=== PATIENT | male | born 1950 | race Caucasian/White ===

== ENCOUNTER → 2018-09-30 | Outpatient (CLI) | payer BC ==
[2018-09-30 09:03] LABS: ALBUMIN 4.3 GM/DL (3.2-5.2); ALT/SGPT 29 U/L (12-78); BILIRUBIN,TOTAL 0.7 MG/DL (0.2-1.0); BLOOD UREA NITROGEN 21 MG/DL (7-18); CALCIUM LEVEL 9.3 MG/DL (8.8-10.2); CARBON DIOXIDE LEVEL 29 MEQ/L (21-32); CHLORIDE LEVEL 105 MEQ/L (98-107); CHOLESTEROL LEVEL 161 MG/DL (<200); CREATININE FOR GFR 1.18 MG/DL (0.70-1.30); GLOMERULAR FILTRATION RATE > 60.0 (>49); GLUCOSE, FASTING 101 MG/DL (70-100); HDL CHOLESTEROL 46 MG/DL (>40); LDL CHOLESTEROL 67 MG/DL (<100); NON-HDL-C 115 MG/DL; POTASSIUM SERUM 4.2 MEQ/L (3.5-5.1); SODIUM LEVEL 141 MEQ/L (136-145); TOTAL PROTEIN 7.1 GM/DL (6.4-8.2); TRIGLYCERIDES LEVEL 240 MG/DL (<150); URIC ACID 7.8 MG/DL (3.5-7.2)
== END ==
LOC: M LAB 07:52
PROVIDERS: ATTEND Physician Assistant
DX: E78.2 Mixed hyperlipidemia (principal); F43.22 Adjustment disorder with anxiety; M10.9 Gout, unspecified

== ENCOUNTER → 2019-10-22 | Outpatient (CLI) | payer MEDICARE ==
[2019-10-22 17:29] LABS: ALBUMIN 4.1 GM/DL (3.2-5.2); ALT/SGPT 27 U/L (12-78); BILIRUBIN,TOTAL 0.5 MG/DL (0.2-1.0); BLOOD UREA NITROGEN 18 MG/DL (7-18); CALCIUM LEVEL 9.1 MG/DL (8.8-10.2); CARBON DIOXIDE LEVEL 30 MEQ/L (21-32); CHLORIDE LEVEL 108 MEQ/L (98-107); CHOLESTEROL LEVEL 183 MG/DL (<200); CHOLESTEROL RISK RATIO 3.519 (<5); CREATININE FOR GFR 0.93 MG/DL (0.70-1.30); GLOMERULAR FILTRATION RATE > 60.0 (>49); GLUCOSE, FASTING 91 MG/DL (70-100); HDL CHOLESTEROL 52 MG/DL (>40); LDL CHOLESTEROL 92 MG/DL (<100); NON-HDL-C 131 MG/DL; POTASSIUM SERUM 4.5 MEQ/L (3.5-5.1); SODIUM LEVEL 141 MEQ/L (136-145); TOTAL PROTEIN 6.9 GM/DL (6.4-8.2); TRIGLYCERIDES LEVEL 193 MG/DL (<150); URIC ACID 6.5 MG/DL (3.5-7.2)
== END ==
LOC: M WUC 13:15
PROVIDERS: ATTEND Physician Assistant Medical
DX: E78.2 Mixed hyperlipidemia (principal)

== ENCOUNTER → 2020-05-18 | Outpatient (CLI) | payer MEDICARE ==
[2020-05-18 13:15] LABS: BASO # 0.1 10^3/uL (0.0-0.2); BASO % 0.7 % (0.0-1.0); EOS # 0.1 10^3/uL (0.0-0.5); EOS % 1.8 % (0.0-3.0); LYMPH # 1.1 10^3/uL (1.5-5.0); LYMPH % 15.4 % (24.0-44.0); MEAN CORPUSCULAR HEMOGLOBIN 30.5 pg (27.0-33.0); MEAN CORPUSCULAR HGB CONC 32.6 g/dl (32.0-36.5); MEAN CORPUSCULAR VOLUME 93.7 fl (80.0-96.0); MONO # 0.8 10^3/uL (0.0-0.8); MONO % 10.7 % (0.0-5.0); NEUTROPHILS # 5.2 10^3/uL (1.5-8.5); NEUTROPHILS % 71.1 % (36.0-66.0); PLATELET COUNT, AUTOMATED 242 10^3/uL (150-450); RED BLOOD COUNT 4.59 10^6/uL (4.30-6.10); WHITE BLOOD COUNT 7.4 10^3/uL (4.0-10.0)
[2020-05-18 13:40] LABS: ALBUMIN 3.8 GM/DL (3.2-5.2); ALT/SGPT 27 U/L (12-78); BILIRUBIN,TOTAL 0.5 MG/DL (0.2-1.0); BLOOD UREA NITROGEN 15 MG/DL (7-18); CALCIUM LEVEL 9.3 MG/DL (8.8-10.2); CARBON DIOXIDE LEVEL 30 MEQ/L (21-32); CHLORIDE LEVEL 106 MEQ/L (98-107); CREATININE FOR GFR 0.98 MG/DL (0.70-1.30); GLOMERULAR FILTRATION RATE > 60.0 (>49); GLUCOSE, FASTING 81 MG/DL (70-100); LIPASE 190 U/L (73-393); POTASSIUM SERUM 4.5 MEQ/L (3.5-5.1); SODIUM LEVEL 140 MEQ/L (136-145); TOTAL PROTEIN 6.9 GM/DL (6.4-8.2)
[2020-05-19 17:09] LABS: H PYLORI SERUM QUANT IGA <9.0 units (0.0-8.9); H PYLORI SERUM QUANT IGM <9.0 units (0.0-8.9); H PYLORI SERUM QUANT IgG ABY 0.13 (0.00-0.79)
== END ==
LOC: M WUC 11:19
PROVIDERS: ATTEND Nurse Practitioner Family
DX: R10.13 Epigastric pain (principal)

== ENCOUNTER → 2021-01-02 | Outpatient (CLI) | payer MEDICARE, BC ==
[~2021-01-02] MED LIST: ACET500P3 PO; ALLO100T PO; CENTCHW3 PO; CRES5TAB PO; DEXA4TA PO; DOCU-153 PO; LIDO1CRE42 TOP; OMEP40CA97 PO; ONDA8TAB8 PO; PROC10TA4 PO
[2021-01-02 12:52] LABS: BASO % 0.7 % (0.0-1.0); EOS # 0.1 10^3/uL (0.0-0.5); EOS % 2.1 % (0.0-3.0); HEMATOCRIT 38.5 % (42.0-52.0); HEMOGLOBIN 12.4 g/dl (13.5-17.5); MEAN CORPUSCULAR HEMOGLOBIN 30.2 pg (27.0-33.0); MEAN CORPUSCULAR HGB CONC 32.2 g/dl (32.0-36.5); MEAN CORPUSCULAR VOLUME 93.9 fl (80.0-96.0); MONO # 0.7 10^3/uL (0.0-0.8); MONO % 15.3 % (2.0-8.0); NEUTROPHILS # 2.6 10^3/uL (1.5-8.5); NEUTROPHILS % 59.7 % (36.0-66.0); PLATELET COUNT, AUTOMATED 127 10^3/uL (150-450); WHITE BLOOD COUNT 4.3 10^3/uL (4.0-10.0)
[2021-01-02 13:27] LABS: ALBUMIN 3.7 GM/DL (3.2-5.2); ALT/SGPT 33 U/L (12-78); BILIRUBIN,TOTAL 0.4 MG/DL (0.2-1.0); BLOOD UREA NITROGEN 17 MG/DL (7-18); CALCIUM LEVEL 8.6 MG/DL (8.8-10.2); CARBON DIOXIDE LEVEL 28 MEQ/L (21-32); CHLORIDE LEVEL 109 MEQ/L (98-107); GLOMERULAR FILTRATION RATE > 60.0 (>49); GLUCOSE, FASTING 95 MG/DL (70-100); POTASSIUM SERUM 4.5 MEQ/L (3.5-5.1); SODIUM LEVEL 140 MEQ/L (136-145); THYROXINE (T4) 5.2 UG/DL (4.5-12.0); TOTAL PROTEIN 6.6 GM/DL (6.4-8.2)
== END ==
LOC: M WUC 10:08
PROVIDERS: ATTEND Specialist
DX: C15.9 Malignant neoplasm of esophagus, unspecified (principal); Z79.899 Other long term (current) drug therapy

== ENCOUNTER → 2021-01-16 | Outpatient (CLI) | payer MEDICARE, BC ==
[2021-01-16 13:28] LABS: BASO # 0.1 10^3/uL (0.0-0.2); BASO % 1.2 % (0.0-1.0); EOS # 0.1 10^3/uL (0.0-0.5); EOS % 1.4 % (0.0-3.0); HEMOGLOBIN 11.9 g/dl (13.5-17.5); LYMPH % 22.9 % (24.0-44.0); MEAN CORPUSCULAR HEMOGLOBIN 30.8 pg (27.0-33.0); MEAN CORPUSCULAR HGB CONC 32.2 g/dl (32.0-36.5); MEAN CORPUSCULAR VOLUME 95.9 fl (80.0-96.0); MONO # 0.8 10^3/uL (0.0-0.8); MONO % 18.4 % (2.0-8.0); NEUTROPHILS # 2.3 10^3/uL (1.5-8.5); NEUTROPHILS % 55.4 % (36.0-66.0); PLATELET COUNT, AUTOMATED 138 10^3/uL (150-450); RED BLOOD COUNT 3.86 10^6/uL (4.30-6.10); WHITE BLOOD COUNT 4.2 10^3/uL (4.0-10.0)
[2021-01-16 13:58] LABS: ALBUMIN 3.3 GM/DL (3.2-5.2); ALT/SGPT 39 U/L (12-78); BILIRUBIN,TOTAL 0.4 MG/DL (0.2-1.0); BLOOD UREA NITROGEN 21 MG/DL (7-18); CALCIUM LEVEL 8.1 MG/DL (8.8-10.2); CARBON DIOXIDE LEVEL 27 MEQ/L (21-32); CHLORIDE LEVEL 111 MEQ/L (98-107); CREATININE FOR GFR 0.88 MG/DL (0.70-1.30); FREE T4 0.86 NG/DL (0.76-1.46); GLOMERULAR FILTRATION RATE > 60.0 (>49); GLUCOSE, FASTING 99 MG/DL (70-100); POTASSIUM SERUM 4.3 MEQ/L (3.5-5.1); SODIUM LEVEL 143 MEQ/L (136-145); TOTAL PROTEIN 6.2 GM/DL (6.4-8.2)
== END ==
LOC: M WUC 09:51
PROVIDERS: ATTEND Specialist
DX: C15.9 Malignant neoplasm of esophagus, unspecified (principal); C79.51 Secondary malignant neoplasm of bone; Z79.899 Other long term (current) drug therapy

== ENCOUNTER → 2021-01-18 | Outpatient (CLI) | payer MEDICARE, BC ==
--- NOTE | 2021-01-18 11:36 | ECGEPIP ---
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
--- NOTE | 2021-01-18 20:20 | ECHO ---
ECHOCARDIOGRAM DATE OF PROCEDURE: 01/18/2021 Age: Gender: Height: 178 cm Weight: 85 kg REFERRING PHYSICIAN: BONG CARPIO MD INDICATION: Chest pain. MEASUREMENTS: IVS 1.1 cm LV 4.3 cm LVPW 1.1 cm LA 3.6 cm Aorta 3.0 cm Left atrium volume index 20 IVC 1.5 cm Mitral E wave velocity 6 Mitral A wave 53 cm/s E prime septal 5.6 cm/s E prime lateral 5.1 cm/s FINDINGS: This study is of acceptable technical quality. The patient is in sinus rhythm. Left ventricle is normal size and systolic function, estimated LVF of about 60-65%. No segmental wall motion abnormalities are noted. Right ventricle is dilated and appears mildly hypokinetic. There is normal left atrial size, but right atrium appears dilated. Aortic valve is tricuspid. It is mildly sclerotic, but mobility of the valve is preserved. There are also mild degenerative abnormalities of the mitral valve, but mobility of the leaflets is preserved. Tricuspid and pulmonic valves appear normal. No pericardial effusion is noted. Inferior vena cava is normal size. Aortic root and aortic arch appear normal. Doppler interrogation reveals trace aortic insufficiency and no significant stenosis. There is also trace mitral and mild tricuspid insufficiency. Calculate pulmonary artery pressure is within normal limits. Pulmonic valve is functionally competent. Mitral inflow pattern and tissue Doppler imaging of mitral annulus reveal likely normal diastolic function. CONCLUSIONS: 1. Study is of acceptable technical quality. Underlying sinus rhythm. 2. Normal LV size with preserved LV systolic and likely also diastolic function. 3. Dilated hypokinetic right ventricle. 4. Probably normal central venous pressure and normal pulmonary artery pressure. 5. No significant valvular disease.
== END ==
LOC: M EKG 11:01
PROVIDERS: ATTEND Specialist
DX: R07.9 Chest pain, unspecified (principal)

== ENCOUNTER → 2021-01-30 | Outpatient (CLI) | payer MEDICARE, BC ==
[~2021-01-30] MED LIST changes: +OMEP40CA4 PO; -OMEP40CA97 PO
[2021-01-30 13:07] LABS: BASO # 0.1 10^3/uL (0.0-0.2); BASO % 1.5 % (0.0-1.0); EOS # 0.1 10^3/uL (0.0-0.5); EOS % 1.6 % (0.0-3.0); HEMATOCRIT 39.7 % (42.0-52.0); HEMOGLOBIN 12.8 g/dl (13.5-17.5); LYMPH # 1.2 10^3/uL (1.5-5.0); LYMPH % 20.3 % (24.0-44.0); MEAN CORPUSCULAR HEMOGLOBIN 31.8 pg (27.0-33.0); MEAN CORPUSCULAR HGB CONC 32.2 g/dl (32.0-36.5); MEAN CORPUSCULAR VOLUME 98.5 fl (80.0-96.0); MONO # 1.1 10^3/uL (0.0-0.8); MONO % 17.5 % (2.0-8.0); NEUTROPHILS # 3.6 10^3/uL (1.5-8.5); NEUTROPHILS % 58.3 % (36.0-66.0); PLATELET COUNT, AUTOMATED 194 10^3/uL (150-450); RED BLOOD COUNT 4.03 10^6/uL (4.30-6.10); WHITE BLOOD COUNT 6.1 10^3/uL (4.0-10.0)
[2021-01-30 13:46] LABS: ALBUMIN 3.9 GM/DL (3.2-5.2); ALT/SGPT 29 U/L (12-78); BILIRUBIN,TOTAL 0.5 MG/DL (0.2-1.0); BLOOD UREA NITROGEN 19 MG/DL (7-18); CALCIUM LEVEL 8.1 MG/DL (8.8-10.2); CARBON DIOXIDE LEVEL 27 MEQ/L (21-32); CHLORIDE LEVEL 110 MEQ/L (98-107); CREATININE FOR GFR 0.99 MG/DL (0.70-1.30); GLOMERULAR FILTRATION RATE > 60.0 (>49); GLUCOSE, FASTING 95 MG/DL (70-100); POTASSIUM SERUM 4.7 MEQ/L (3.5-5.1); SODIUM LEVEL 142 MEQ/L (136-145); THYROXINE (T4) 6.3 UG/DL (4.5-12.0); TOTAL PROTEIN 6.5 GM/DL (6.4-8.2)
== END ==
LOC: M WUC 10:38
PROVIDERS: ATTEND Specialist
DX: C15.9 Malignant neoplasm of esophagus, unspecified (principal); C77.9 Secondary and unspecified malignant neoplasm of lymph node, unspecified; C79.51 Secondary malignant neoplasm of bone; Z79.899 Other long term (current) drug therapy

== ENCOUNTER → 2021-02-13 | Outpatient (CLI) | payer MEDICARE, BC ==
[2021-02-13 12:03] LABS: BASO % 0.7 % (0.0-1.0); EOS # 0.1 10^3/uL (0.0-0.5); EOS % 1.9 % (0.0-3.0); HEMATOCRIT 37.3 % (42.0-52.0); HEMOGLOBIN 12.4 g/dl (13.5-17.5); LYMPH # 1.2 10^3/uL (1.5-5.0); LYMPH % 21.2 % (24.0-44.0); MEAN CORPUSCULAR HGB CONC 33.2 g/dl (32.0-36.5); MEAN CORPUSCULAR VOLUME 96.1 fl (80.0-96.0); MONO % 18.2 % (2.0-8.0); NEUTROPHILS # 3.3 10^3/uL (1.5-8.5); NEUTROPHILS % 57.8 % (36.0-66.0); PLATELET COUNT, AUTOMATED 124 10^3/uL (150-450); RED BLOOD COUNT 3.88 10^6/uL (4.30-6.10); WHITE BLOOD COUNT 5.7 10^3/uL (4.0-10.0)
[2021-02-13 12:44] LABS: ALBUMIN 3.6 GM/DL (3.2-5.2); ALT/SGPT 34 U/L (12-78); BILIRUBIN,TOTAL 0.5 MG/DL (0.2-1.0); BLOOD UREA NITROGEN 21 MG/DL (7-18); CALCIUM LEVEL 8.2 MG/DL (8.8-10.2); CARBON DIOXIDE LEVEL 28 MEQ/L (21-32); CHLORIDE LEVEL 110 MEQ/L (98-107); CREATININE FOR GFR 0.99 MG/DL (0.70-1.30); GLOMERULAR FILTRATION RATE > 60.0 (>49); GLUCOSE, FASTING 99 MG/DL (70-100); POTASSIUM SERUM 4.3 MEQ/L (3.5-5.1); SODIUM LEVEL 142 MEQ/L (136-145); THYROXINE (T4) 8.2 UG/DL (4.5-12.0); TOTAL PROTEIN 6.4 GM/DL (6.4-8.2)
== END ==
LOC: M WUC 10:59
PROVIDERS: ATTEND Specialist
DX: C15.9 Malignant neoplasm of esophagus, unspecified (principal); C79.51 Secondary malignant neoplasm of bone

== ENCOUNTER → 2021-02-27 | Outpatient (CLI) | payer MEDICARE, BC ==
[~2021-02-27] MED LIST changes: +AMOX500C PO
[2021-02-27 11:23] LABS: BASO % 0.8 % (0.0-1.0); EOS % 0.8 % (0.0-3.0); HEMATOCRIT 36.4 % (42.0-52.0); HEMOGLOBIN 12.1 g/dl (13.5-17.5); LYMPH # 0.7 10^3/uL (1.5-5.0); LYMPH % 14.2 % (24.0-44.0); MEAN CORPUSCULAR HEMOGLOBIN 32.4 pg (27.0-33.0); MEAN CORPUSCULAR HGB CONC 33.2 g/dl (32.0-36.5); MEAN CORPUSCULAR VOLUME 97.6 fl (80.0-96.0); MONO # 0.8 10^3/uL (0.0-0.8); NEUTROPHILS # 3.3 10^3/uL (1.5-8.5); NEUTROPHILS % 66.8 % (36.0-66.0); PLATELET COUNT, AUTOMATED 122 10^3/uL (150-450); RED BLOOD COUNT 3.73 10^6/uL (4.30-6.10); WHITE BLOOD COUNT 4.9 10^3/uL (4.0-10.0)
[2021-02-27 11:56] LABS: ALBUMIN 3.6 GM/DL (3.2-5.2); ALT/SGPT 31 U/L (12-78); BILIRUBIN,TOTAL 0.4 MG/DL (0.2-1.0); BLOOD UREA NITROGEN 14 MG/DL (7-18); CALCIUM LEVEL 8.6 MG/DL (8.8-10.2); CARBON DIOXIDE LEVEL 28 MEQ/L (21-32); CHLORIDE LEVEL 109 MEQ/L (98-107); CREATININE FOR GFR 0.99 MG/DL (0.70-1.30); GLOMERULAR FILTRATION RATE > 60.0 (>49); GLUCOSE, FASTING 114 MG/DL (70-100); POTASSIUM SERUM 4.5 MEQ/L (3.5-5.1); SODIUM LEVEL 141 MEQ/L (136-145); THYROXINE (T4) 7.4 UG/DL (4.5-12.0); TOTAL PROTEIN 6.3 GM/DL (6.4-8.2)
== END ==
LOC: M WUC 10:17
PROVIDERS: ATTEND Specialist
DX: C15.9 Malignant neoplasm of esophagus, unspecified (principal); C79.51 Secondary malignant neoplasm of bone; E78.2 Mixed hyperlipidemia

== ENCOUNTER → 2021-02-27 | Outpatient (CLI) | payer MEDICARE, BC ==
[2021-02-27 12:56] LABS: ALBUMIN 3.5 GM/DL (3.2-5.2); ALT/SGPT 34 U/L (12-78); BILIRUBIN,TOTAL 0.5 MG/DL (0.2-1.0); BLOOD UREA NITROGEN 14 MG/DL (7-18); CALCIUM LEVEL 8.8 MG/DL (8.8-10.2); CARBON DIOXIDE LEVEL 27 MEQ/L (21-32); CHLORIDE LEVEL 111 MEQ/L (98-107); CHOLESTEROL LEVEL 199 MG/DL (<200); CHOLESTEROL RISK RATIO 4.326 (<5); CREATININE FOR GFR 1.04 MG/DL (0.70-1.30); GLOMERULAR FILTRATION RATE > 60.0 (>49); GLUCOSE, FASTING 110 MG/DL (70-100); HDL CHOLESTEROL 46 MG/DL (>40); LDL CHOLESTEROL 96 MG/DL (<100); NON-HDL-C 153 MG/DL; POTASSIUM SERUM 4.6 MEQ/L (3.5-5.1); SODIUM LEVEL 144 MEQ/L (136-145); TOTAL PROTEIN 6.3 GM/DL (6.4-8.2); TRIGLYCERIDES LEVEL 284 MG/DL (<150)
== END ==
LOC: M WUC 10:20
PROVIDERS: ATTEND Nurse Practitioner Family
DX: E78.2 Mixed hyperlipidemia (principal)

== ENCOUNTER → 2021-03-13 | Outpatient (REF) | payer MEDICARE, BC ==
[~2021-03-13] MED LIST changes: +ALB2.5NEB INH; +ALPR0.25 PO; +AMOX500C; +BACT800T5 PO; +DEXA4TA; +ELIQ5TAB PO; +ENSULIQ8 PO; +IBUP-1022 PO; +LEVA12INH INH; +MIRA3350 PO; +MUCI600T31 PO; +NARC1SPR NARES; +OXYC-517 PO; +OXYC1TAB23; +PANT40TA29 PO; +PERCOCET PO; +PRED10TA2; +PRED10TA2 PO; -PROC10TA4 PO; +PROC10TA5 PO; +PROC5TAB57 PO; +RISATAB3 PO; +ROSU10TA6 PO; +ROSU5TAB5 PO; +SUCR1TA PO; +XANA0.25 PO
[2021-03-13 13:18] LABS: BASO % 0.8 % (0.0-1.0); EOS # 0.1 10^3/uL (0.0-0.5); EOS % 2.1 % (0.0-3.0); HEMATOCRIT 37.3 % (42.0-52.0); HEMOGLOBIN 12.4 g/dl (13.5-17.5); LYMPH # 0.9 10^3/uL (1.5-5.0); LYMPH % 19.2 % (24.0-44.0); MEAN CORPUSCULAR HGB CONC 33.2 g/dl (32.0-36.5); MEAN CORPUSCULAR VOLUME 99.2 fl (80.0-96.0); MONO # 0.7 10^3/uL (0.0-0.8); MONO % 15.3 % (2.0-8.0); NEUTROPHILS % 62.4 % (36.0-66.0); PLATELET COUNT, AUTOMATED 116 10^3/uL (150-450); RED BLOOD COUNT 3.76 10^6/uL (4.30-6.10); WHITE BLOOD COUNT 4.8 10^3/uL (4.0-10.0)
[2021-03-13 13:50] LABS: ALBUMIN 3.8 GM/DL (3.2-5.2); ALT/SGPT 35 U/L (12-78); BILIRUBIN,TOTAL 0.6 MG/DL (0.2-1.0); BLOOD UREA NITROGEN 27 MG/DL (7-18); CALCIUM LEVEL 9.3 MG/DL (8.8-10.2); CARBON DIOXIDE LEVEL 25 MEQ/L (21-32); CHLORIDE LEVEL 106 MEQ/L (98-107); CREATININE FOR GFR 0.96 MG/DL (0.70-1.30); GLOMERULAR FILTRATION RATE > 60.0 (>49); GLUCOSE, FASTING 94 MG/DL (70-100); POTASSIUM SERUM 4.2 MEQ/L (3.5-5.1); SODIUM LEVEL 140 MEQ/L (136-145); THYROXINE (T4) 8.6 UG/DL (4.5-12.0); TOTAL PROTEIN 6.6 GM/DL (6.4-8.2)
== END ==
LOC: M WUC 12:40
PROVIDERS: ATTEND Specialist
DX: C15.9 Malignant neoplasm of esophagus, unspecified (principal)

== ENCOUNTER → 2021-03-13 | Outpatient (CLI) | payer MEDICARE, BC ==
[~2021-03-13] MED LIST changes: -ALB2.5NEB INH; -ALPR0.25 PO; -AMOX500C; -BACT800T5 PO; -DEXA4TA; -ELIQ5TAB PO; -ENSULIQ8 PO; -IBUP-1022 PO; -LEVA12INH INH; -MIRA3350 PO; -MUCI600T31 PO; -NARC1SPR NARES; -OXYC-517 PO; -OXYC1TAB23; -PANT40TA29 PO; -PERCOCET PO; -PRED10TA2; -PRED10TA2 PO; +PROC10TA4 PO; -PROC10TA5 PO; -PROC5TAB57 PO; -RISATAB3 PO; -ROSU10TA6 PO; -ROSU5TAB5 PO; -SUCR1TA PO; -XANA0.25 PO
--- NOTE | 2021-03-14 11:12 | REP ---
INDICATION: STAGING GASTROESOPHAGEAL CANCE C16.0. 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 Gastric cardia biopsy also positive for adenocarcinoma. Stage IV status post chemotherapy. COMPARISON: Comparison PET-CT study November 04, 2020.. TECHNIQUE: Fifty-six minutes following the intravenous injection of a 8.97 mCi dose of F-18 FDG, three-dimensional PET scintigraphy is acquired from the skull base to the proximal thighs. Triplanar noncontrast CT scanning is acquired through the same anatomic range for attenuation correction, and image registration with scan parameters optimized to minimize radiation exposure to the patient. PET scintigraphy and CT datasets were fused and displayed on a workstation with multiplanar and projection display capability. FINDINGS: The head and neck soft tissues are unremarkable. There is a left-sided Rsmcvt-I-Iufk catheter in place. The previous study showed hypermetabolic left supraclavicular adenopathy. This has regressed. On today's study, maximum standard uptake value here in the small Antonia aim remaining cecy tissue is 2.21. Previously this was 13.75. Previous study showed a small subpleural focus in the right paravertebral region which was hypermetabolic, 7.89. This is improved, maximum SUV value 2.81. There is a normal-sized left paratracheal lymph node visible today with SUV value 2.61, previously, this node was showed SUV of 5.08. A left anterior mediastinal lymph node which was previously mildly hypermetabolic is again seen maximum SUV value 2.57 similar in size. The primary tumor site in the distal esophagus and GE junction is much improved. There is some residual hypermetabolic uptake with maximum SUV value 4.96 here, previously 15.68. The previously noted celiac axis lymph node is decreased in size and avidity, maximum SUV value 2.94 today, previously 3.39. The previously noted left periaortic lymph node focus is no normal in size with no discernible hypermetabolic uptake. On today's examination, there is no suspicious liver lesion. There is some fatty infiltration of the liver. Gallstones are again noted. No new hypermetabolic focus is appreciated. IMPRESSION: Morphologic and metabolic improvement noted in the distal esophageal primary and in previously noted foci of cecy and metastatic disease. <Electronically signed by Twin Hennessy > 03/14/21 [id number]
== END ==
LOC: M PLARAD 12:55
PROVIDERS: ATTEND Specialist
DX: C16.0 Malignant neoplasm of cardia (principal); K76.0 Fatty (change of) liver, not elsewhere classified; C15.9 Malignant neoplasm of esophagus, unspecified; Z79.899 Other long term (current) drug therapy
CPT/HCPCS: 36415; 78815; 80053; 82378; 84436; 84443; 85025; A9552

== ENCOUNTER → 2021-03-27 | Outpatient (REF) | payer MEDICARE, BC ==
[~2021-03-27] MED LIST changes: +AMOX500C; +ELIQ5TAB PO; +OXYC-517 PO; +PROC5TAB57 PO; +ROSU10TA6 PO
[2021-03-27 11:34] LABS: BASO % 0.5 % (0.0-1.0); EOS # 0.1 10^3/uL (0.0-0.5); EOS % 1.2 % (0.0-3.0); HEMATOCRIT 36.5 % (42.0-52.0); HEMOGLOBIN 12.6 g/dl (13.5-17.5); LYMPH # 0.7 10^3/uL (1.5-5.0); MEAN CORPUSCULAR HEMOGLOBIN 34.1 pg (27.0-33.0); MEAN CORPUSCULAR HGB CONC 34.5 g/dl (32.0-36.5); MEAN CORPUSCULAR VOLUME 98.9 fl (80.0-96.0); MONO # 0.8 10^3/uL (0.0-0.8); MONO % 18.5 % (2.0-8.0); NEUTROPHILS # 2.6 10^3/uL (1.5-8.5); NEUTROPHILS % 63.3 % (36.0-66.0); PLATELET COUNT, AUTOMATED 108 10^3/uL (150-450); RED BLOOD COUNT 3.69 10^6/uL (4.30-6.10); WHITE BLOOD COUNT 4.1 10^3/uL (4.0-10.0)
[2021-03-27 12:44] LABS: ALBUMIN 3.4 GM/DL (3.2-5.2); ALT/SGPT 33 U/L (12-78); BILIRUBIN,TOTAL 0.6 MG/DL (0.2-1.0); BLOOD UREA NITROGEN 15 MG/DL (7-18); CALCIUM LEVEL 8.3 MG/DL (8.8-10.2); CARBON DIOXIDE LEVEL 22 MEQ/L (21-32); CHLORIDE LEVEL 109 MEQ/L (98-107); CREATININE FOR GFR 1.11 MG/DL (0.70-1.30); FREE T4 0.94 NG/DL (0.76-1.46); GLOMERULAR FILTRATION RATE > 60.0 (>49); GLUCOSE, FASTING 136 MG/DL (70-100); POTASSIUM SERUM 3.8 MEQ/L (3.5-5.1); SODIUM LEVEL 140 MEQ/L (136-145); TOTAL PROTEIN 6.3 GM/DL (6.4-8.2)
== END ==
LOC: M WUC 11:15 → M LAB REF 11:15
PROVIDERS: ATTEND Specialist
DX: C16.0 Malignant neoplasm of cardia (principal); C77.1 Secondary and unspecified malignant neoplasm of intrathoracic lymph nodes; Z79.899 Other long term (current) drug therapy

== ENCOUNTER → 2021-04-03 | Outpatient (CLI) | payer MEDICARE, BC ==
[~2021-04-03] MED LIST changes: -PROC5TAB57 PO; -ROSU10TA6 PO
--- NOTE | 2021-04-03 16:45 | REP ---
INDICATION: NECK VEINS, THROMBOSIS COMPARISON: None. TECHNIQUE: Real time compression and duplex Doppler evaluation of the Left upper extremity deep venous system is performed. FINDINGS: The Left axillary, brachial, basilic and cephalic veins are fully compressible where accessible with transducer pressure, and demonstrate no intraluminal thrombus and normal venous waveforms. There is occlusive thrombus in the left jugular vein and adjacent central subclavian vein. IMPRESSION: Occlusive thrombus in the left jugular vein and adjacent central subclavian vein. <Electronically signed by Sami Quintero > 04/03/21 [id number]
== END ==
LOC: M RAD 14:54
PROVIDERS: ATTEND Specialist
DX: I82.B12 Acute embolism and thrombosis of left subclavian vein (principal); I82.C12 Acute embolism and thrombosis of left internal jugular vein

== ENCOUNTER → 2021-04-07 | Outpatient (CLI) | payer MEDICARE, BC ==
[~2021-04-07] MED LIST changes: +ALB2.5NEB INH; +ALPR0.25 PO; +BACT800T5 PO; +DEXA4TA; +ENSULIQ8 PO; +IBUP-1022 PO; +ISOVUE-300 61% 50ML VIAL As Ordered ONE; +LEVA12INH INH; +LIDOCAINE 1% MDV 20ML VIAL As Ordered ONE; +MIDAZOLAM INJ 2MG/2ML VIAL (J2250 PER 1MG) As Ordered ONE; +MIRA3350 PO; +MUCI600T31 PO; +NARC1SPR NARES; +OXYC1TAB23; +PANT40TA29 PO; +PERCOCET PO; +PRED10TA2; +PRED10TA2 PO; -PROC10TA4 PO; +PROC10TA5 PO; +PROC5TAB57 PO; +RISATAB3 PO; +ROSU10TA6 PO; +ROSU5TAB5 PO; +SUCR1TA PO; +XANA0.25 PO; +ceFAZolin 1GM VIAL (J0690 PER 500MG) As Ordered ONE; +fentaNYL 100 MCG/2 ML INJECTION As Ordered ONE
[2021-04-07 11:50] VITALS: BP 135/78
== END ==
LOC: M IRPRO 04-06 13:22
PROVIDERS: ATTEND Surgery Vascular Surgery
DX: Z45.2 Encounter for adjustment and management of vascular access device (principal); I82.B12 Acute embolism and thrombosis of left subclavian vein
CPT/HCPCS: 36005; 75820; J0690; J1642; J1644; Q9967

== ENCOUNTER → 2021-04-11 | Outpatient (CLI) | payer MEDICARE, BC ==
[~2021-04-11] MED LIST changes: -ALB2.5NEB INH; -ALPR0.25 PO; -BACT800T5 PO; -DEXA4TA; -ENSULIQ8 PO; -IBUP-1022 PO; -ISOVUE-300 61% 50ML VIAL As Ordered ONE; -LEVA12INH INH; -LIDOCAINE 1% MDV 20ML VIAL As Ordered ONE; -MIDAZOLAM INJ 2MG/2ML VIAL (J2250 PER 1MG) As Ordered ONE; -MIRA3350 PO; -MUCI600T31 PO; -NARC1SPR NARES; -OXYC1TAB23; -PANT40TA29 PO; -PERCOCET PO; -PRED10TA2; -PRED10TA2 PO; +PROC10TA4 PO; -PROC10TA5 PO; -RISATAB3 PO; -ROSU5TAB5 PO; -SUCR1TA PO; -XANA0.25 PO; -ceFAZolin 1GM VIAL (J0690 PER 500MG) As Ordered ONE; -fentaNYL 100 MCG/2 ML INJECTION As Ordered ONE
[2021-04-11 16:18] LABS: BASO % 0.7 % (0.0-1.0); EOS % 0.7 % (0.0-3.0); HEMATOCRIT 37.6 % (42.0-52.0); HEMOGLOBIN 12.3 g/dl (13.5-17.5); LYMPH # 0.7 10^3/uL (1.5-5.0); LYMPH % 17.4 % (24.0-44.0); MEAN CORPUSCULAR HGB CONC 32.7 g/dl (32.0-36.5); MEAN CORPUSCULAR VOLUME 103.9 fl (80.0-96.0); MONO # 0.7 10^3/uL (0.0-0.8); MONO % 17.2 % (2.0-8.0); NEUTROPHILS # 2.6 10^3/uL (1.5-8.5); NEUTROPHILS % 63.5 % (36.0-66.0); PLATELET COUNT, AUTOMATED 185 10^3/uL (150-450); RED BLOOD COUNT 3.62 10^6/uL (4.30-6.10); WHITE BLOOD COUNT 4.1 10^3/uL (4.0-10.0)
[2021-04-11 16:47] LABS: ALBUMIN 3.3 GM/DL (3.2-5.2); ALT/SGPT 35 U/L (12-78); BILIRUBIN,TOTAL 0.5 MG/DL (0.2-1.0); BLOOD UREA NITROGEN 13 MG/DL (7-18); CALCIUM LEVEL 8.8 MG/DL (8.8-10.2); CARBON DIOXIDE LEVEL 28 MEQ/L (21-32); CHLORIDE LEVEL 109 MEQ/L (98-107); CREATININE FOR GFR 0.94 MG/DL (0.70-1.30); FREE T4 1.19 NG/DL (0.76-1.46); GLOMERULAR FILTRATION RATE > 60.0 (>49); GLUCOSE, FASTING 99 MG/DL (70-100); POTASSIUM SERUM 3.9 MEQ/L (3.5-5.1); SODIUM LEVEL 141 MEQ/L (136-145); TOTAL PROTEIN 6.6 GM/DL (6.4-8.2)
== END ==
LOC: M WUC 10:46
PROVIDERS: ATTEND Specialist
DX: C15.9 Malignant neoplasm of esophagus, unspecified (principal); Z79.899 Other long term (current) drug therapy

== ENCOUNTER → 2021-04-17 | Outpatient (CLI) | payer MEDICARE, BC ==
[2021-04-17 14:10] LABS: HEMOGLOBIN 12.9 g/dl (13.5-17.5); LYMPH # 0.8 10^3/uL (1.5-5.0); MEAN CORPUSCULAR HEMOGLOBIN 34.5 pg (27.0-33.0); MEAN CORPUSCULAR HGB CONC 33.1 g/dl (32.0-36.5); MEAN CORPUSCULAR VOLUME 104.3 fl (80.0-96.0); MONO % 24.7 % (2.0-8.0); NEUTROPHILS # 2.1 10^3/uL (1.5-8.5); NEUTROPHILS % 52.8 % (36.0-66.0); PLATELET COUNT, AUTOMATED 218 10^3/uL (150-450); RED BLOOD COUNT 3.74 10^6/uL (4.30-6.10)
[2021-04-17 14:26] LABS: ALBUMIN 3.3 GM/DL (3.2-5.2); ALT/SGPT 25 U/L (12-78); BILIRUBIN,TOTAL 0.4 MG/DL (0.2-1.0); BLOOD UREA NITROGEN 11 MG/DL (7-18); CARBON DIOXIDE LEVEL 26 MEQ/L (21-32); CHLORIDE LEVEL 108 MEQ/L (98-107); CREATININE FOR GFR 0.86 MG/DL (0.70-1.30); GLOMERULAR FILTRATION RATE > 60.0 (>49); GLUCOSE, FASTING 98 MG/DL (70-100); POTASSIUM SERUM 4.2 MEQ/L (3.5-5.1); SODIUM LEVEL 142 MEQ/L (136-145); THYROID STIMULATING HORMONE 0.926 uIU/ML (0.358-3.740); THYROXINE (T4) 6.9 UG/DL (4.5-12.0); TOTAL PROTEIN 6.5 GM/DL (6.4-8.2)
== END ==
LOC: M WUC 11:05
PROVIDERS: ATTEND Specialist
DX: C15.9 Malignant neoplasm of esophagus, unspecified (principal); C79.51 Secondary malignant neoplasm of bone; C79.89 Secondary malignant neoplasm of other specified sites

== ENCOUNTER → 2021-05-01 | Outpatient (CLI) | payer MEDICARE, BC ==
[2021-05-01 12:03] LABS: BASO % 0.8 % (0.0-1.0); EOS % 1.1 % (0.0-3.0); HEMOGLOBIN 12.3 g/dl (13.5-17.5); LYMPH # 0.6 10^3/uL (1.5-5.0); LYMPH % 17.4 % (24.0-44.0); MEAN CORPUSCULAR HEMOGLOBIN 34.7 pg (27.0-33.0); MEAN CORPUSCULAR HGB CONC 33.2 g/dl (32.0-36.5); MEAN CORPUSCULAR VOLUME 104.5 fl (80.0-96.0); MONO # 0.5 10^3/uL (0.0-0.8); MONO % 13.1 % (2.0-8.0); NEUTROPHILS # 2.5 10^3/uL (1.5-8.5); NEUTROPHILS % 67.1 % (36.0-66.0); PLATELET COUNT, AUTOMATED 107 10^3/uL (150-450); RED BLOOD COUNT 3.54 10^6/uL (4.30-6.10); WHITE BLOOD COUNT 3.7 10^3/uL (4.0-10.0)
[2021-05-01 12:33] LABS: ALBUMIN 3.2 GM/DL (3.2-5.2); ALT/SGPT 41 U/L (12-78); BILIRUBIN,TOTAL 0.3 MG/DL (0.2-1.0); BLOOD UREA NITROGEN 19 MG/DL (7-18); CALCIUM LEVEL 8.4 MG/DL (8.8-10.2); CARBON DIOXIDE LEVEL 28 MEQ/L (21-32); CHLORIDE LEVEL 110 MEQ/L (98-107); CREATININE FOR GFR 0.74 MG/DL (0.70-1.30); GLOMERULAR FILTRATION RATE > 60.0 (>49); GLUCOSE, FASTING 101 MG/DL (70-100); POTASSIUM SERUM 4.2 MEQ/L (3.5-5.1); SODIUM LEVEL 142 MEQ/L (136-145); THYROID STIMULATING HORMONE 0.897 uIU/ML (0.358-3.740); THYROXINE (T4) 7.9 UG/DL (4.5-12.0); TOTAL PROTEIN 6.3 GM/DL (6.4-8.2)
== END ==
LOC: M WUC 11:10
PROVIDERS: ATTEND Specialist
DX: C15.9 Malignant neoplasm of esophagus, unspecified (principal); Z79.899 Other long term (current) drug therapy

== ENCOUNTER 2021-05-07 11:44 | Inpatient (IN) | payer MEDICARE, BC ==
[~2021-05-07] VITALS: Ht 180.3 cm; Wt 70.1 kg
[2021-05-07] MEDS: LEVALBUTEROL 1.25 MG/0.5 ML CONCENTRATE NEB INH SCH ×4 (04:00→23:04)
[2021-05-07] MEDS: MULTIVITAMINS/MINERALS THERAP 1 TAB PO SCH (09:00)
[~2021-05-07 11:44] MED LIST changes: +OMEPRAZOLE 20 MG CAP PO SCH
[2021-05-07] MEDS ORDERED: NS 1,000 ML IV ONE ×3 (12:05→15:00)
[2021-05-07 12:25] LABS: BASO % 0.6 % (0.0-1.0); EOS # 0.2 10^3/uL (0.0-0.5); EOS % 2.6 % (0.0-3.0); HEMATOCRIT 40.5 % (42.0-52.0); HEMOGLOBIN 13.5 g/dl (13.5-17.5); LYMPH # 1.5 10^3/uL (1.5-5.0); LYMPH % 20.9 % (24.0-44.0); MEAN CORPUSCULAR HEMOGLOBIN 34.2 pg (27.0-33.0); MEAN CORPUSCULAR HGB CONC 33.3 g/dl (32.0-36.5); MEAN CORPUSCULAR VOLUME 102.5 fl (80.0-96.0); MONO % 22.7 % (2.0-8.0); NEUTROPHILS # 3.7 10^3/uL (1.5-8.5); NEUTROPHILS % 52.8 % (36.0-66.0); PLATELET COUNT, AUTOMATED 300 10^3/uL (150-450); RED BLOOD COUNT 3.95 10^6/uL (4.30-6.10)
[2021-05-07 12:36] LABS: PROTHROMBIN TIME 13.6 SECONDS (12.7-14.5)
[2021-05-07 12:38] LABS: PARTIAL THROMBOPLASTIN TIME 38.5 SECONDS (25.9-37.0)
[2021-05-07 12:51] LABS: MONO # 1.6 10^3/uL (0.0-0.8)
[2021-05-07 13:01] LABS: BLOOD UREA NITROGEN 13 MG/DL (7-18); CALCIUM LEVEL 9.5 MG/DL (8.8-10.2); CARBON DIOXIDE LEVEL 25 MEQ/L (21-32); CHLORIDE LEVEL 105 MEQ/L (98-107); CK-MB VALUE MASS < 1.0 NG/ML (<3.6); CPK CREATINE PHOSPHOKINASE 75 U/L (39-308); CREATININE FOR GFR 1.05 MG/DL (0.70-1.30); GLOMERULAR FILTRATION RATE > 60.0 (>49); GLUCOSE, FASTING 96 MG/DL (70-100); MB/CK RELATIVE INDEX 1.33 (< OR =4); POTASSIUM SERUM 4.8 MEQ/L (3.5-5.1); SODIUM LEVEL 140 MEQ/L (136-145); TROPONIN I 0.24 NG/ML (< 0.10)
[2021-05-07] MEDS ORDERED: CEFEPIME HCL 2 GM in D5W MINI-BAG PLUS 50 ML IV ONE (13:05)
[2021-05-07] MEDS ORDERED: ISOVUE-370 76% 100ML VIAL As Ordered ONE (13:05)
--- NOTE | 2021-05-07 13:11 | REP ---
INDICATION: CHEST PAIN. COMPARISON: Comparison is made with hospice superintendent images from CT study of the chest October 24, 2020. TECHNIQUE: Portable upright AP chest radiograph. FINDINGS: Left hemidiaphragm is somewhat elevated. EKG electrodes are seen. There is a left-sided Jdpmyz-C-Rxtm catheter in place with its tip in the brachiocephalic vein just to the right of midline. Interstitial markings are diffusely prominent in the lung mcclellan bilaterally. There is some platelike atelectasis in the left base. This is more pronounced than on on the prior CT study. The lungs are exposed at a lesser level of inspiration. I cannot exclude focal interstitial infiltrate in the right base. IMPRESSION: Diffusely prominent interstitial markings, increased from prior study. Question infiltrate right base. Platelike atelectasis left base. Heart is not enlarged. <Electronically signed by Twin Hennessy > 05/07/21 [id number]
[2021-05-07] MEDS ORDERED: ACETAMINOPHEN 325 MG TAB PO ONE (13:45)
--- NOTE | 2021-05-07 13:58 | REP ---
INDICATION: R/O PE, 70yoM hx cancer, on chemo, worsening SOB. COMPARISON: CT images from PET-CT study dated March 13, 2021. TECHNIQUE: Contrast dose: 75 ML of Isovue [address] technique: Helical scanning is acquired and overlapping 1.5 mm and contiguous 3 mm axial images are reformatted. In addition, maximum intensity projection and multiplanar re-formation images are generated in sagittal and coronal imaging projections. FINDINGS: There is good opacification in the pulmonary arterial tree. There is no evidence of vessel cut off or filling defect to suggest pulmonary embolus. Homogeneous opacity is seen in the thoracic aorta. There is no evidence of aneurysm or dissection. There is no evidence of pleural or pericardial effusion. Scattered small mediastinal lymph nodes are noted unchanged from the March 13, 2021 study. Lung window settings demonstrate patchy ground-glass opacity infiltrates bilaterally, most heavily involving the right lower lobe and right middle lobe. These are new infiltrates and are consistent with viral pneumonitis. In the upper abdomen, normal adrenal glands are seen. There is a 1.4 cm celiac axis lymph node which is unchanged from the March 13, 2021 study. There is a portal caval lymph node measuring 1.5 x 2.3 cm. This is also unchanged. Visualized upper abdominal structures are otherwise unremarkable. There extensive venous collaterals opacified in the base of the neck and in the left subclavicular region. There is a left-sided Lwhceo-Q-Jghh catheter. The left subclavian vein appears to be occluded with opacification of collaterals. IMPRESSION: No CT evidence of pulmonary embolus. Extensive new infiltrates are noted particularly in the right lung. Commonly reported imaging features of COVID 19 pneumonia are present. Other processes such as influenza pneumonia, drug toxicity, and connective tissue disease can produce a similar pattern. Stable upper abdominal lymphadenopathy and scattered mediastinal lymph nodes. <Electronically signed by Twin Hennessy > 05/07/21 [id number]
[2021-05-07 14:13] LABS: APPEARANCE, URINE CLEAR (CLEAR); BACTERIA, URINE AUTO NEGATIVE (NEGATIVE); BILIRUBIN, URINE AUTO NEGATIVE (NEGATIVE); BLOOD, URINE BLOOD NEGATIVE (NEGATIVE); COLOR, URINE YELLOW (YELLOW); GLUCOSE, URINE (UA) AUTO NEGATIVE (NEGATIVE); GRANULAR CAST, URINE AUTO 1 /LPF; KETONE, URINE AUTO NEGATIVE (NEGATIVE); LEUKOCYTE ESTERASE, URINE AUTO NEGATIVE (NEGATIVE); MUCUS, URINE SMALL (NEGATIVE); NITRITE, URINE AUTO NEGATIVE (NEGATIVE); PROTEIN, URINE AUTO NEGATIVE (NEGATIVE); RBC, URINE AUTO 1 /HPF (0-3); SPECIFIC GRAVITY URINE AUTO 1.031 (1.002-1.035); SQUAMOUS EPITHELIAL CELL UR AU 0 /HPF (0-6); UROBILINOGEN, URINE AUTO 0.2 mg/dL (0.0-2.0); WBC, URINE AUTO 0 /HPF (0-3)
[2021-05-07] MEDS ORDERED: PROMETHAZINE INJ 25 MG/ML VIAL (J2550) IV PRN (14:40)
[2021-05-07] MEDS ORDERED: LIDO1CRE42 TOP (14:41)
[2021-05-07] MEDS ORDERED: IBUP-1022 PO (14:41)
[2021-05-07] MEDS ORDERED: OMEP40CA4 PO (14:41)
[2021-05-07] MEDS ORDERED: ROSU5TAB5 PO (14:41)
[2021-05-07] MEDS ORDERED: ENSULIQ8 PO (14:42)
[2021-05-07] MEDS ORDERED: HOME MED LIST COMPLETE! XX SCH (14:45)
[2021-05-07] MEDS ORDERED: IPRATROPIUM 0.5MG/ALBUTEROL 2.5MG INH SOL UD 3ML (DUONEB) NEB PRN (14:45)
[2021-05-07 14:56] LABS: D-DIMER QUANT 2148.82 ng/ml (<500)
[2021-05-07] MEDS ORDERED: KETOROLAC 30 MG/ML 1ML VIAL IV ONE (15:00)
[2021-05-07] MEDS ORDERED: guaiFENesin DM LIQ 10ML UD PO PRN (15:25)
[2021-05-07 15:29] LABS: ALBUMIN 2.9 GM/DL (3.2-5.2); BILIRUBIN,DIRECT 0.2 MG/DL (0.0-0.2); BILIRUBIN,TOTAL 0.8 MG/DL (0.2-1.0); TOTAL PROTEIN 6.2 GM/DL (6.4-8.2)
[2021-05-07] MEDS ORDERED: allopurinoL 100 MG TAB PO SCH (15:40)
[2021-05-07 16:05] LABS: C REACTIVE PROTEIN QUANTITATIV 6.31 MG/DL (0.00-0.30)
[2021-05-07] MEDS ORDERED: NS 1,000 ML IV SCH (17:00)
[2021-05-07 17:14] VITALS: BP 123/70
[2021-05-07] MEDS ORDERED: ACETAMINOPHEN 500 MG TAB PO ONE (17:30)
[2021-05-07] MEDS ORDERED: VANCOMYCIN HCL 1,000 MG, VIAL MATE ADAPTER 1 EACH in NS 250 ML IV SCH (17:35)
[2021-05-07] MEDS ORDERED: GI COCKTAIL 50ML BTL(HYOSCYAMINE/MAALOX/LIDOCAINE VISCOUS)(1:3:1) PO PRN (18:15)
[2021-05-07] MEDS: LACTOBACILLUS ACIDOPHILUS CAP (BACID) PO SCH ×2 (18:25→21:12)
[2021-05-07] MEDS: DOXYCYCLINE HYCLATE 100 MG in D5W MINI-BAG PLUS 100 ML IV SCH (18:25)
--- NOTE | 2021-05-07 18:55 | HPEPDOC ---
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 He was okay Saturday morning but in the afternoon after helping his friend and changing the brakes on his car he felt much more dyspneic around 230 to 3:30 PM. Upon returning to his house he was unable to even get out of his easy chair. He felt lightheaded, and could not catch his breath. He has had subjective fevers and chills Saturday and had some night sweats and hot flashes some constipation without nausea vomiting headache or diarrhea. He felt like making himself chicken and [place] sprouts with rice for dinner but had no energy and ended up eating peanut butter and jelly sandwich. This morning when he got up out of bed he was very tired with dyspnea on exertion. He made his way down to the kitchen, made some cof fee, and went to shower which took his breath away. Patient decided to go to his neighbor next door to check his blood pressure and to see what his pulse oximetry was but his friend did not have a pulse oximetry. His friend said he looked pale and all full and encouraged him to come to the emergency room for further evaluation. He denies taking any bronchodilators NSAIDs for his symptoms at home. He denied any PND orthopnea or lower extremity edema weight gain weight loss. He denies any prior history of congestive heart failure, and denies any GI blood loss such as hematemesis coffee-ground emesis black tarry stools or melena. He has a dry cough with no sputum production. He denies any chest pain this time but previously had complains of substernal chest pains and dysphagia in early April when he saw his medical oncologist. He complains of some lightheadedness without palpitations falls or near syncope at home. In the ER he was found to be febrile 103.3, tachycardic with pulse 109, chest x- ray showing right lower lobe infiltrate, and COVID-19 negative. Patient will be admitted for sepsis secondary to right lower lobe pneumonia. 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 Full code. Denies alcohol use former smoker.smoked for 53 years. 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 FAMILY HISTORY: Father at the age of 102 with coronary artery disease Mother alive Paternal grandmother at the age of 106 due to coronary artery disease Maternal grandfather at the age of 50 due to mustard gas exposure ALLERGIES: Please see below. REVIEW OF SYSTEMS: 10 point review of systems negative aside from positive findings in HPI HOME MEDICATIONS: Please see below. 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 IMAGING: See below MICROBIOLOGY: Please see below. 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 - Started on IV vancomycin, ceftriaxone, doxycycline day #1. Vancomycin to be dosed by pharmacy according to patient his creatinine clearance. -Check sputum culture, urine Legionella, urine streptococcal antigen, blood cultures x2 sets -Tylenol, and Toradol as needed for pain and fever -Nebulizer with Xopenex. -due to tachycardia will try to avoid albuterol -Supplemental oxygen to keep saturations above 90% -Discontinue vancomycin if negative MRSA screen. -Bacid 1 tablet with meals and an hour of sleep -Monitor for antibiotic-induced diarrhea. If greater than 5 bowel movements over 24 hours check PCR for Clostridium infection Left jugular vein occlusive thrombus and adjacent central subclavian vein thrombus -Status post Eliquis -CT chest: No pulmonary embolism. 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 - on FOLFOX with nivolumab every 2 weeks Tobacco abuse over 50 years of smoking, quit -Nebulizer as needed and 4 times daily Gastroesophageal reflux disease with severe heartburn symptoms -PPI, Carafate -GI cocktail as needed Dyslipidemia -Chronic Anxiety -As needed Xanax CODE STATUS: Full code Diet: Regular, Ensure Vital Signs Vital Signs Date Time Temp Pulse Resp B/P (MAP) Pulse Ox O2 Delivery O2 Flow Rate FiO2 05/07/21 17:46 28 05/07/21 17:46 84 05/07/21 15:28 101.5 05/07/21 15:28 05/07/21 15:14 94 05/07/21 12:57 Room Air Laboratory Data Labs 24H Laboratory Tests 2 05/07/21 12:11: Immature Granulocyte % (Auto) 0.4, Neutrophils (%) (Auto) 52.8, Lymphocytes (%) (Auto) 20.9L, Monocytes (%) (Auto) 22.7H, Eosinophils (%) (Auto) 2.6, Basophils (%) (Auto) 0.6, Neutrophils # (Auto) 3.7, Lymphocytes # (Auto) 1.5, Monocytes # (Auto) 1.6H, Eosinophils # (Auto) 0.2, Basophils # (Auto) 0.0, Nucleated Red Blood Cells % (auto) 0.0, Prothrombin Time 13.6, Prothromb Time International Ratio 1.00, Activated Partial Thromboplast Time 38.5H, D-Dimer, Quantitative 2148.82H, Urine Color YELLOW, Urine Appearance CLEAR, Urine pH 8.0, Urine Specific [place] 1.031, Urine Protein NEGATIVE, Urine Glucose (Auto)(UA) NEGATIVE, Urine Ketones (Auto) NEGATIVE, Urine Blood NEGATIVE, Urine Nitrite NEGATIVE, Urine Bilirubin NEGATIVE, Urine Urobilinogen 0.2, Urine Leukocyte Esterase (Auto) NEGATIVE, Urine WBC (Auto) 0, Urine RBC (Auto) 1, Urine Hyaline Casts (Auto) 1, Urine Bacteria (Auto) NEGATIVE, Urine Squamous Epithelial Cells 0, Urine Granular Casts (Auto) 1, Urine Mucus (Auto) SMALL, Urine Sperm (Auto) , Anion Gap 10, Glomerular Filtration Rate > 60.0, Lactic Acid Level 3.4*H, Calcium Level 9.5, Total Creatine Kinase 75, Creatine Kinase MB < 1.0, Creatine Kinase MB Relative Index 1.33, Troponin I 0.24H 05/07/21 12:18: POC Troponin I (Misc) 0.02 05/07/21 14:39: 05/07/21 14:43: Fibrinogen 734H 05/07/21 14:44: Erythrocyte Sedimentation Rate 83H, Ferritin 344, Total Bilirubin 0.8, Direct Bilirubin 0.2, Aspartate Amino Transf (AST/SGOT) 27, Alanine Aminotransferase (ALT/SGPT) 24, Alkaline Phosphatase 117, Lactate Dehydrogenase 303H, C-Reactive Protein, Quantitative 6.31H, OW-Ost-U-Type Natriuretic Peptide 219H, Total Protein 6.2L, Albumin 2.9L, Albumin/Globulin Ratio 0.9 05/07/21 17:23: CBC/BMP Laboratory Tests 05/07/21 12:11 Microbiology Microbiology 05/07/21 Respiratory Virus Panel (PCR) (HEATHER) - Final, Complete 05/07/21 Urine Culture, Received Pending 05/07/21 Blood Culture, Received Pending Home Medications Scheduled Allopurinol (Allopurinol) 100 Mg Tablet, 100 MG PO DAILY Dexamethasone (Dexamethasone) 4 Mg Tablet, 4 MG PO ASDIRECTED take 2 tabs by mouth daily the day before chemo, the day of chemo, and the day after chemo Docusate Sodium (Stool Softener) 100 Mg Capsule, 100 MG PO DAILY Folic Acid/Multivit-Min/Lutein (Centrum Silver Chewable Tablet) 1 Each Tab.chew, 2 TAB PO DAILY Lactose-Reduced Food (Ensure Liquid) 237 Ml Liquid, 237 ML PO DAILY Lidocaine/Prilocaine (Lidocaine-Prilocaine Cream) 2.5%/2.5% Cream..g., 1 DOSE TOP ASDIRECTED Apply dime size to port area. Do not rub in, cover with saran wrap to protect clothing. Omeprazole (Omeprazole) 40 Mg Capsule.dr, 40 MG PO DAILY Rosuvastatin Calcium (Rosuvastatin Calcium) 5 Mg Tablet, 5 MG PO QPM Scheduled PRN Acetaminophen (Tylenol Extra Strength) 500 Mg Powd.pack, 500 MG PO for PAIN LEV EL 1-4 Ibuprofen (Ibuprofen) 600 Mg Tablet, 600 MG PO Q6H PRN for PAIN Ondansetron (Ondansetron Odt) 8 Mg Tab.rapdis, 8 MG PO TID PRN for NAUSEA OR VOMITING Prochlorperazine (Prochlorperazine Maleate) 5 Mg Tablet, 5 MG PO QID PRN for ANA LUISA SEA Allergies Coded Allergies: No Known Allergies (Unverified , 12/19/20) A-FIB/CHADSVASC A-FIB History Current/History of A-Fib/PAF?: No Current PO Anticoag Therapy: No Age/Risk Factor Scoring CHADSVASC: CHADSVASC Response (Comments) Value Age Risk Factor Age 65-74 years old 1 Gender Risk Factor Male 0 Hx of CHF No 0 Hx of HTN No 0 Hx of Stroke/TIA/or VTE No 0 Hx of Diabetes No 0 Hx of Vascular Disease No 0 Total 1 Treatment Treatment ordered: NONE BRAYDEN PAYNE MD May 07, 2021 18:10
[2021-05-07] MEDS: LEVALBUTEROL 1.25 MG/0.5 ML CONCENTRATE NEB NEB SCH ×3 (19:33→21:54)
--- NOTE | 2021-05-07 20:42 | ECGEPIP ---
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
[2021-05-07] MEDS: PANTOPRAZOLE 40MG VIAL (C9113 PER 1) IV SCH (21:11)
[2021-05-07] MEDS: cefTRIAXone SOD 2 GM in D5W MINI-BAG PLUS 50 ML IV SCH (21:11)
[2021-05-07] MEDS: ROSUVASTATIN 10 MG TAB (CRESTOR) PO SCH (21:11)
[2021-05-07] MEDS: SUCRALFATE SUSP 1GM/10ML UD PO SCH (21:11)
[2021-05-07] MEDS: allopurinoL 100 MG TAB PO SCH (21:23)
[2021-05-07 21:51] VITALS: BP 105/55
[2021-05-08] MEDS: LEVALBUTEROL 1.25 MG/0.5 ML CONCENTRATE NEB INH SCH ×4 (03:29→15:23)
[2021-05-08] MEDS: ACETAMINOPHEN TAB 650MG DOSE (2X325MG) PO PRN ×2 (05:46→18:40)
[2021-05-08] MEDS: DOXYCYCLINE HYCLATE 100 MG in D5W MINI-BAG PLUS 100 ML IV SCH ×2 (05:47→18:22)
[2021-05-08 05:57] LABS: BASO % 0.4 % (0.0-1.0); EOS % 0.6 % (0.0-3.0); HEMATOCRIT 32.7 % (42.0-52.0); LYMPH # 0.6 10^3/uL (1.5-5.0); LYMPH % 10.4 % (24.0-44.0); MEAN CORPUSCULAR HEMOGLOBIN 33.7 pg (27.0-33.0); MEAN CORPUSCULAR HGB CONC 33.3 g/dl (32.0-36.5); MEAN CORPUSCULAR VOLUME 101.2 fl (80.0-96.0); MONO # 0.9 10^3/uL (0.0-0.8); MONO % 16.4 % (2.0-8.0); NEUTROPHILS # 3.8 10^3/uL (1.5-8.5); NEUTROPHILS % 71.8 % (36.0-66.0); RED BLOOD COUNT 3.23 10^6/uL (4.30-6.10); WHITE BLOOD COUNT 5.3 10^3/uL (4.0-10.0)
[2021-05-08 06:18] LABS: HEMOGLOBIN 10.9 g/dl (13.5-17.5); PLATELET COUNT, AUTOMATED 187 10^3/uL (150-450)
[2021-05-08 06:21] LABS: BLOOD UREA NITROGEN 12 MG/DL (7-18); CALCIUM LEVEL 8.7 MG/DL (8.8-10.2); CARBON DIOXIDE LEVEL 23 MEQ/L (21-32); CHLORIDE LEVEL 109 MEQ/L (98-107); CREATININE FOR GFR 0.83 MG/DL (0.70-1.30); GLOMERULAR FILTRATION RATE > 60.0 (>49); GLUCOSE, FASTING 105 MG/DL (70-100); POTASSIUM SERUM 4.3 MEQ/L (3.5-5.1); SODIUM LEVEL 140 MEQ/L (136-145)
[2021-05-08 06:22] VITALS: BP 141/85
[2021-05-08] MEDS: SUCRALFATE SUSP 1GM/10ML UD PO SCH ×5 (07:30→20:31)
[2021-05-08 09:00] VITALS: BP 116/66
[2021-05-08] MEDS: LACTOBACILLUS ACIDOPHILUS CAP (BACID) PO SCH ×4 (09:12→20:31)
[2021-05-08] MEDS: guaiFENesin ER 600 MG TAB PO SCH ×2 (09:12→20:32)
[2021-05-08] MEDS: MULTIVITAMINS/MINERALS THERAP 1 TAB PO SCH (09:14)
[2021-05-08] MEDS: PANTOPRAZOLE 40MG VIAL (C9113 PER 1) IV SCH ×2 (09:17→20:32)
--- NOTE | 2021-05-08 11:27 | IPN ---
PROGRESS NOTE DATE: 05/08/2021 SUBJECTIVE: Patient complains of cough that is difficult to expectorate. It appears to be dry, but hacking, keeping him up from sleep. He continues to be febrile, temperature of 102 at 6:22 a.m. this morning, shortness of breath is still present but slightly improved, still with dyspnea on exertion, better when he lays still. No chills overnight. OBJECTIVE: VITAL SIGNS: Temperature 102, pulse 98, respiratory rate 18, blood pressure 141/85, 91% on one liter nasal cannula. GENERAL: Patient is awake, alert and oriented. No use of respiratory accessory muscles. He is able to speak in full sentences. No cyanosis. No pallor. LUNGS: Bilateral crackles. HEART: S1 and S2 sinus. ABDOMEN: Soft, nontender and nondistended. EXTREMITIES: No cyanosis, clubbing or pitting edema. LABORATORY DATA/MICROBIOLOGY/IMAGING STUDIES: Please see chart. 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 IMPRESSION: 1. Community acquired pneumonia in the setting of chronic immunosuppression due to Stage IV esophageal cancer, undergoing chemotherapy. Currently, negative MRSA and Ceftriaxone and Doxycycline day #2, await blood and sputum cultures, keep saturations above 90%. 2. Left jugular vein occlusive thrombus with central subclavian vein thrombus status post Eliquis. Per his natural resources professor, patient had been on Eliquis and follows with vascular surgery as an outpatient. 3. 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 Currently, undergoing FOLFOX with Nivolumab every two weeks. 4. Tobacco abuse over 50 years of smoking, quit. Nebulizer as needed. 5. Reflux with heartburn symptoms, on PPI, Carafate, and GI cocktail as needed. 6. Dyslipidemia. 7. Chronic anxiety.
[2021-05-08 14:00] VITALS: BP 122/70
[2021-05-08] MEDS: MOM 30ML SUSPENSION UDC PO PRN (15:47)
[2021-05-08 20:00] VITALS: BP 116/68
[2021-05-08] MEDS: SENOKOT S TAB PO PRN (20:31)
[2021-05-08] MEDS: allopurinoL 100 MG TAB PO SCH (20:32)
[2021-05-08] MEDS: ROSUVASTATIN 10 MG TAB (CRESTOR) PO SCH (20:32)
[2021-05-08] MEDS: IBUPROFEN 600MG TAB PO PRN (20:33)
[2021-05-08 21:00] VITALS: BP 117/68
[2021-05-08] MEDS: cefTRIAXone SOD 2 GM in D5W MINI-BAG PLUS 50 ML IV SCH (22:00)
[2021-05-09] VITALS (7 sets, daily range): BP systolic 92–126; BP diastolic 60–71
[2021-05-09] MEDS: LEVALBUTEROL 1.25 MG/0.5 ML CONCENTRATE NEB INH SCH ×7 (02:09→20:29)
[2021-05-09 05:48] LABS: BASO % 0.5 % (0.0-1.0); EOS # 0.1 10^3/uL (0.0-0.5); EOS % 1.2 % (0.0-3.0); HEMATOCRIT 34.2 % (42.0-52.0); HEMOGLOBIN 11.1 g/dl (13.5-17.5); LYMPH # 0.7 10^3/uL (1.5-5.0); MEAN CORPUSCULAR HEMOGLOBIN 33.5 pg (27.0-33.0); MEAN CORPUSCULAR HGB CONC 32.5 g/dl (32.0-36.5); MEAN CORPUSCULAR VOLUME 103.3 fl (80.0-96.0); MONO % 16.9 % (2.0-8.0); NEUTROPHILS # 4.2 10^3/uL (1.5-8.5); NEUTROPHILS % 69.9 % (36.0-66.0); PLATELET COUNT, AUTOMATED 186 10^3/uL (150-450); RED BLOOD COUNT 3.31 10^6/uL (4.30-6.10)
[2021-05-09] MEDS: DOXYCYCLINE HYCLATE 100 MG in D5W MINI-BAG PLUS 100 ML IV SCH (05:58)
[2021-05-09 06:25] LABS: BLOOD UREA NITROGEN 13 MG/DL (7-18); CALCIUM LEVEL 8.4 MG/DL (8.8-10.2); CARBON DIOXIDE LEVEL 25 MEQ/L (21-32); CHLORIDE LEVEL 109 MEQ/L (98-107); CREATININE FOR GFR 0.78 MG/DL (0.70-1.30); GLOMERULAR FILTRATION RATE > 60.0 (>49); GLUCOSE, FASTING 102 MG/DL (70-100); IMMUNOGLOBULIN G 642 MG/DL (681-1648); POTASSIUM SERUM 4.1 MEQ/L (3.5-5.1); SODIUM LEVEL 143 MEQ/L (136-145)
[2021-05-09] MEDS: IBUPROFEN 600MG TAB PO PRN (06:53)
[2021-05-09] MEDS: SUCRALFATE SUSP 1GM/10ML UD PO SCH ×4 (06:53→20:29)
[2021-05-09] MEDS: MULTIVITAMINS/MINERALS THERAP 1 TAB PO SCH (09:13)
[2021-05-09] MEDS: LACTOBACILLUS ACIDOPHILUS CAP (BACID) PO SCH ×4 (09:13→20:30)
[2021-05-09] MEDS: guaiFENesin ER 600 MG TAB PO SCH ×2 (09:13→20:30)
[2021-05-09] MEDS: PANTOPRAZOLE 40MG TAB (PROTONIX) PO SCH ×2 (09:36→20:30)
[2021-05-09] MEDS ORDERED: PROCHLORPERAZINE 5 MG TAB (S0183) PO PRN (09:40)
[2021-05-09] MEDS ORDERED: ONDANSETRON 4 MG ORAL DISINTEGRATING TAB PO PRN (09:40)
[2021-05-09] MEDS ORDERED: NS 500 ML IV ONE (19:35)
[2021-05-09] MEDS: ACETAMINOPHEN TAB 650MG DOSE (2X325MG) PO PRN (19:36)
--- NOTE | 2021-05-09 19:39 | IPNPDOC ---
Text Note Date of Service The patient was seen on 05/09/21. NOTE CODE SEPSIS TIME OF SERVICE 755PM The patient's RN called me to inform me that the patient's BP was 92/60 / HR 104 / RR 40 / T 101.5 / O2 89-90% on 2L At the time of my assessment the patient was alert; admitted to having a poor appetite but otherwise didn't have any acute c/o. His PE was remarkable for flushing and dry mucus membranes. # Sepsis His SBP improved to 102 w placement in Trendelenburg He has Ibuprofen and acetaminophen along w abx already ordered Plan: f/u UOP / f/u repeat blood cx, lactic acid, 500ml bolus NS then c/w IVF at a rate of 90ml/H / will c/w current regimen of abx bc he has been on this regimen for less than 72 H #Hypoxemia 2/2 PNA Plan: c/w current regimen VS,Fishbone, I+O VS, Fishbone, I+O Laboratory Tests 05/09/21 05:21 Vital Signs Date Time Temp Pulse Resp B/P (MAP) Pulse Ox O2 Delivery O2 Flow Rate FiO2 05/09/21 14:00 96.7 101 24 126/71 (89) 92 Nasal Cannula 1.0 I&O- Last 24 Hours up to 6 AM 05/09/21 06:00 Intake Total 480 ml Balance 480 ml DALY VENTURA MD May 09, 2021 19:39
--- NOTE | 2021-05-09 20:13 | IPNPDOC ---
Date Seen The patient was seen on 05/09/21. Progress Note SUBJECTIVE: Cannot produce sputum sample, encouraged to use acapella more during day. Last temp last evening, afebrile during the day. Denies incr SOB, chill, n/v/d, abdominal pain. OBJECTIVE: VITAL SIGNS: Please see below GENERAL: Patient is awake, alert and oriented. NAD, resting comfortable in bed LUNGS: crackles in b/l lung mcclellan, no rhonchi or wheezing HEART: S1 and S2 sinus. ABDOMEN: Soft, nontender and nondistended. EXTREMITIES: No cyanosis, clubbing or pitting edema. Neuro: No focal deficits LABORATORY DATA/MICROBIOLOGY/IMAGING STUDIES: Please see chart. 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 IMPRESSION: 1. Community acquired pneumonia in the setting of chronic immunosuppression due to Stage IV esophageal cancer, undergoing chemotherapy. -Remains on O2 1-2 L at rest, drops to <88 with activity. -Afebrile since last evening -Day 3 Ceftriaxone and Doxycycline day -Encouraging acapella to induce sputum for sputum cultures -Levalbuterol ATC, PRN, ceftriaxone, doxy switched to PO. If spikes fever again, consider broadening abx or perhaps this is 2/2 to cancer? 2. 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 3. 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 -Currently, undergoing FOLFOX with Nivolumab every two weeks. -Dr. Marin hematology/oncology 4. Tobacco abuse over 50 years of smoking, quit. -Nebulizer as needed. PRN 5. GERD -C/w PPI, Carafate, and GI cocktail PRN 6. Dyslipidemia. 7. Chronic anxiety. 8. DVT px -Eliquis DISPOSITION: Goal is home when medically improved. PT/OT VS, I&O, 24H, Fishbone Vital Signs/I&O Vital Signs Date Time Temp Pulse Resp B/P (MAP) Pulse Ox O2 Delivery O2 Flow Rate FiO2 05/09/21 14:00 96.7 101 24 126/71 (89) 92 Nasal Cannula 1.0 I&O- Last 24 Hours up to 6 AM 05/09/21 05:59 Intake Total 600 ml Output Total 0 ml Balance 600 ml Laboratory Data 24H LABS Laboratory Tests 2 05/09/21 05:21: Immature Granulocyte % (Auto) 0.5, Neutrophils (%) (Auto) 69.9H, Lymphocytes (%) (Auto) 11.0L, Monocytes (%) (Auto) 16.9H, Eosinophils (%) (Auto) 1.2, Basophils (%) (Auto) 0.5, Neutrophils # (Auto) 4.2, Lymphocytes # (Auto) 0.7L, Monocytes # (Auto) 1.0H, Eosinophils # (Auto) 0.1, Basophils # (Auto) 0.0, Nucleated Red Blood Cells % (auto) 0.0, Anion Gap 9, Glomerular Filtration Rate > 60.0, Calcium Level 8.4L, Immunoglobulin G 642L CBC/BMP Laboratory Tests 05/09/21 05:21 Microbiology Microbiology 05/08/21 Blood Culture - Preliminary, Resulted No growth after 24 hours . All specim... 05/07/21 Respiratory Virus Panel (PCR) (HEATHER) - Final, Complete 05/07/21 Urine Culture - Final, Complete 05/07/21 Blood Culture - Preliminary, Resulted No Growth after 48 hours. All Specime... Aishwarya Oro MD May 09, 2021 20:13
[2021-05-09] MEDS: allopurinoL 100 MG TAB PO SCH (20:30)
[2021-05-09] MEDS: DOXYCYCLINE HYCLATE 100MG TABLET PO SCH (20:30)
[2021-05-09] MEDS: ROSUVASTATIN 10 MG TAB (CRESTOR) PO SCH (20:30)
[2021-05-09] MEDS: NS 1,000 ML IV SCH (20:31)
[2021-05-09] MEDS: cefTRIAXone SOD 2 GM in D5W MINI-BAG PLUS 50 ML IV SCH (22:08)
[2021-05-09] MEDS: LEVALBUTEROL 1.25 MG/0.5 ML CONCENTRATE NEB NEB PRN (23:16)
[2021-05-10] MEDS: NS 1,000 ML IV SCH ×2 (01:48→16:20)
[2021-05-10] MEDS: ACETAMINOPHEN TAB 650MG DOSE (2X325MG) PO PRN ×4 (01:56→21:13)
[2021-05-10 02:00] VITALS: BP 116/70
[2021-05-10] MEDS: LEVALBUTEROL 1.25 MG/0.5 ML CONCENTRATE NEB NEB PRN (02:00)
[2021-05-10 02:43] LABS: ABG BASE EXCESS -0.8 (-2.0-2.0); ABG HCO3 21.4 MEQ/L (22.0-26.0); ABG O2 SATURATION 98.8 % (95.0-99.0); ABG PARTIAL PRESSURE CO2 27.7 mmHg (35.0-45.0); ABG PARTIAL PRESSURE O2 188.9 mmHg (75.0-100.0); ABG STANDARD HCO3 23.8 MEQ/L (22.0-26.0); ABG TOTAL CO2 22.2 MEQ/L (23.0-31.0); ABG pH (ARTERIAL) 7.505 UNITS (7.350-7.450)
[2021-05-10] MEDS: ENOXAPARIN 40MG/0.4ML SYRINGE (J1650 PER 10MG) SC SCH (02:46)
[2021-05-10] MEDS: LEVALBUTEROL 1.25 MG/0.5 ML CONCENTRATE NEB INH SCH ×5 (04:16→23:37)
[2021-05-10 05:00] VITALS: BP 120/64
[2021-05-10 05:39] LABS: BASO % 0.4 % (0.0-1.0); EOS % 0.5 % (0.0-3.0); HEMATOCRIT 30.6 % (42.0-52.0); HEMOGLOBIN 10.1 g/dl (13.5-17.5); LYMPH # 0.5 10^3/uL (1.5-5.0); LYMPH % 6.5 % (24.0-44.0); MEAN CORPUSCULAR HEMOGLOBIN 33.3 pg (27.0-33.0); MONO # 1.1 10^3/uL (0.0-0.8); MONO % 14.5 % (2.0-8.0); NEUTROPHILS # 5.8 10^3/uL (1.5-8.5); NEUTROPHILS % 77.4 % (36.0-66.0); PLATELET COUNT, AUTOMATED 171 10^3/uL (150-450); RED BLOOD COUNT 3.03 10^6/uL (4.30-6.10); WHITE BLOOD COUNT 7.5 10^3/uL (4.0-10.0)
[2021-05-10 06:17] LABS: BLOOD UREA NITROGEN 12 MG/DL (7-18); CALCIUM LEVEL 8.1 MG/DL (8.8-10.2); CARBON DIOXIDE LEVEL 26 MEQ/L (21-32); CHLORIDE LEVEL 109 MEQ/L (98-107); CREATININE FOR GFR 0.74 MG/DL (0.70-1.30); GLOMERULAR FILTRATION RATE > 60.0 (>49); GLUCOSE, FASTING 104 MG/DL (70-100); POTASSIUM SERUM 3.8 MEQ/L (3.5-5.1); SODIUM LEVEL 141 MEQ/L (136-145)
[2021-05-10] MEDS: PANTOPRAZOLE 40MG TAB (PROTONIX) PO SCH ×2 (08:26→21:12)
[2021-05-10] MEDS: DOXYCYCLINE HYCLATE 100MG TABLET PO SCH (08:26)
[2021-05-10] MEDS: LACTOBACILLUS ACIDOPHILUS CAP (BACID) PO SCH ×4 (08:26→21:13)
[2021-05-10] MEDS: guaiFENesin ER 600 MG TAB PO SCH ×2 (08:26→21:13)
[2021-05-10] MEDS: SUCRALFATE SUSP 1GM/10ML UD PO SCH ×4 (08:34→21:14)
[2021-05-10 08:42] VITALS: BP 140/79
[2021-05-10] MEDS: PIPERACILLIN/TAZOBACTAM SOD 3.375 GM in D5W MINI-BAG PLUS 50 ML IV SCH ×3 (11:09→21:13)
[2021-05-10 14:00] VITALS: BP 138/79
[2021-05-10] MEDS: IBUPROFEN 600MG TAB PO PRN (15:56)
[2021-05-10 18:02] VITALS: BP 132/76
--- NOTE | 2021-05-10 19:46 | IPNPDOC ---
Date Seen The patient was seen on 05/10/21. Progress Note SUBJECTIVE: Sputum cx produced, pending. Code sepsis called overnight for incr hypoxia, hypotension and fever. Remained on 2-4L O2 most of day today until he walked to bathroom and O2 dropped to 70's, now on 93% on Venturi mask. Remains SOB worse with activity. + diaphoresis with fevers. Denies n/v/d, abdominal pain. OBJECTIVE: VITAL SIGNS: Please see below GENERAL: Patient is awake, alert and oriented. NAD, resting comfortable in bed LUNGS: decreased in b/l lung mcclellan, no rhonchi or wheezing HEART: S1 and S2 sinus. ABDOMEN: Soft, nontender and nondistended. EXTREMITIES: No cyanosis, clubbing or pitting edema. Neuro: No focal deficits LABORATORY DATA: Please see below MICROBIOLOGY: Sputum GS: QUALITY: GOOD MODERATE EPITHELIAL CELLS MODERATE WBCS MANY GRAM POSITIVE COCCI IN PAIRS, CHAINS AND CLUSTERS MANY GRAM NEGATIVE RODS FEW GRAM POSITIVE RODS FEW YEAST LIKE ORGANISM Sputum Cx; pending BCx: NG UA neg IMAGING STUDIES: Please see chart. 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 IMPRESSION: 1. Acute hypoxic respiratory failure likely 2/2 to Community acquired pneumonia in the setting of chronic immunosuppression due to Stage IV esophageal cancer, undergoing chemotherapy. -Incr O2 demand after hypoxic episode with ambulation -Febrile -Sputum culture is pending -3 days of Ceftriaxone and Doxycycline, switched to zosyn and azithromycin today for broader coverage, discussed with pharmacy -Encouraging acapella to induce sputum for sputum cultures -Levalbuterol ATC, PRN -F/u ABG 2. 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 3. 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 -Currently, undergoing FOLFOX with Nivolumab every two weeks. -Dr. Marin hematology/oncology 4. Tobacco abuse over 50 years of smoking, quit. -Nebulizer as needed. PRN 5. GERD -C/w PPI, Carafate, and GI cocktail PRN 6. Dyslipidemia. 7. Chronic anxiety. 8. DVT px -Eliquis DISPOSITION: Goal is home when medically improved. PT/OT VS, I&O, 24H, Fishbone Vital Signs/I&O Vital Signs Date Time Temp Pulse Resp B/P (MAP) Pulse Ox O2 Delivery O2 Flow Rate FiO2 05/10/21 18:02 99.6 97 20 132/76 (94) 93 Venturi Mask 15.0 I&O- Last 24 Hours up to 6 AM 05/10/21 06:00 Intake Total 1770 ml Output Total 500 ml Balance 1270 ml Laboratory Data 24H LABS Laboratory Tests 2 05/09/21 20:08: Lactic Acid Level 1.3 05/10/21 02:37: Blood Gas Bicarbonate Standard 23.8, Arterial Blood pH 7.505H, Arterial Blood Partial Pressure CO2 27.7L, Arterial Blood Partial Pressure O2 188.9H, Arterial Blood Total CO2 22.2L, Arterial Blood HCO3 21.4L, Arterial Blood Base Excess - 0.8, Arterial Blood Oxygen Saturation 98.8 05/10/21 05:24: Immature Granulocyte % (Auto) 0.7, Neutrophils (%) (Auto) 77.4H, Lymphocytes (%) (Auto) 6.5L, Monocytes (%) (Auto) 14.5H, Eosinophils (%) (Auto) 0.5, Basophils (%) (Auto) 0.4, Neutrophils # (Auto) 5.8, Lymphocytes # (Auto) 0.5L, Monocytes # (Auto) 1.1H, Eosinophils # (Auto) 0.0, Basophils # (Auto) 0.0, Nucleated Red Blood Cells % (auto) 0.0, Anion Gap 6L, Glomerular Filtration Rate > 60.0, Calcium Level 8.1L, Procalcitonin 0.59 05/10/21 18:58: CBC/BMP Laboratory Tests 05/10/21 05:24 Microbiology Microbiology 05/10/21 Gram Stain - Final, Resulted 05/10/21 Sputum Culture, Resulted Pending 05/09/21 Blood Culture, Received Pending 05/08/21 Blood Culture - Preliminary, Resulted No Growth after 48 hours. All Specime... 05/07/21 Respiratory Virus Panel (PCR) (HEATHER) - Final, Complete 05/07/21 Urine Culture - Final, Complete 05/07/21 Blood Culture - Preliminary, Resulted No Growth after 72 hours. All specime... Aishwarya Oro MD May 10, 2021 19:46
[2021-05-10 20:06] VITALS: BP 129/76
[2021-05-10] MEDS: ROSUVASTATIN 10 MG TAB (CRESTOR) PO SCH (21:12)
[2021-05-10] MEDS: allopurinoL 100 MG TAB PO SCH (21:12)
[2021-05-10] MEDS: BUDESONIDE 0.25 MG/2 ML INHALATION SUSPENSION INH SCH (21:25)
[2021-05-10 21:39] LABS: ABG BASE EXCESS -0.9 (-2.0-2.0); ABG HCO3 22.2 MEQ/L (22.0-26.0); ABG O2 SATURATION 98.1 % (95.0-99.0); ABG PARTIAL PRESSURE CO2 31.3 mmHg (35.0-45.0); ABG PARTIAL PRESSURE O2 122.2 mmHg (75.0-100.0); ABG STANDARD HCO3 23.8 MEQ/L (22.0-26.0); ABG TOTAL CO2 23.1 MEQ/L (23.0-31.0); ABG pH (ARTERIAL) 7.468 UNITS (7.350-7.450)
[2021-05-11] MEDS: NS 1,000 ML IV SCH (02:20)
[2021-05-11] MEDS: ACETAMINOPHEN TAB 650MG DOSE (2X325MG) PO PRN ×2 (02:23→14:10)
[2021-05-11] MEDS: PIPERACILLIN/TAZOBACTAM SOD 3.375 GM in D5W MINI-BAG PLUS 50 ML IV SCH ×4 (03:51→22:50)
[2021-05-11] MEDS: IBUPROFEN 600MG TAB PO PRN (03:51)
[2021-05-11] MEDS: LEVALBUTEROL 1.25 MG/0.5 ML CONCENTRATE NEB INH SCH ×6 (04:16→23:09)
[2021-05-11 06:00] VITALS: BP 129/77
[2021-05-11 06:02] LABS: BASO % 0.6 % (0.0-1.0); EOS # 0.2 10^3/uL (0.0-0.5); EOS % 2.4 % (0.0-3.0); HEMATOCRIT 32.5 % (42.0-52.0); HEMOGLOBIN 10.7 g/dl (13.5-17.5); LYMPH # 0.5 10^3/uL (1.5-5.0); LYMPH % 6.6 % (24.0-44.0); MEAN CORPUSCULAR HGB CONC 32.9 g/dl (32.0-36.5); MEAN CORPUSCULAR VOLUME 100.3 fl (80.0-96.0); MONO # 0.9 10^3/uL (0.0-0.8); MONO % 12.4 % (2.0-8.0); NEUTROPHILS # 5.6 10^3/uL (1.5-8.5); NEUTROPHILS % 77.4 % (36.0-66.0); PLATELET COUNT, AUTOMATED 161 10^3/uL (150-450); RED BLOOD COUNT 3.24 10^6/uL (4.30-6.10); WHITE BLOOD COUNT 7.2 10^3/uL (4.0-10.0)
[2021-05-11 06:25] LABS: BLOOD UREA NITROGEN 12 MG/DL (7-18); CALCIUM LEVEL 8.4 MG/DL (8.8-10.2); CARBON DIOXIDE LEVEL 25 MEQ/L (21-32); CHLORIDE LEVEL 108 MEQ/L (98-107); CREATININE FOR GFR 0.69 MG/DL (0.70-1.30); GLOMERULAR FILTRATION RATE > 60.0 (>49); GLUCOSE, FASTING 100 MG/DL (70-100); POTASSIUM SERUM 3.6 MEQ/L (3.5-5.1); SODIUM LEVEL 141 MEQ/L (136-145)
[2021-05-11] MEDS: BUDESONIDE 0.25 MG/2 ML INHALATION SUSPENSION INH SCH ×2 (07:28→20:01)
--- NOTE | 2021-05-11 08:10 | REP ---
INDICATION: interval, inc 02 demand COMPARISON: 05/07/2021 TECHNIQUE: Portable AP view of the chest FINDINGS: Diffuse opacities involving the entire right hemithorax along with trace left basilar atelectasis now identified and significantly increased from prior examination. The mediastinum and cardiac silhouette are incompletely evaluated due to overlying opacities. [id number]-Luck identified with tip in the brachiocephalic vein unchanged. IMPRESSION: Opacities now involves the entire right hemithorax along with minimal left basilar atelectasis <Electronically signed by Kumar Trevino > 05/11/21 [id number]
[2021-05-11] MEDS ORDERED: AZITHROMYCIN 250MG TABLET PO SCH (09:00)
[2021-05-11] MEDS: SUCRALFATE SUSP 1GM/10ML UD PO SCH ×4 (09:22→20:44)
[2021-05-11] MEDS: LACTOBACILLUS ACIDOPHILUS CAP (BACID) PO SCH ×4 (09:23→20:44)
[2021-05-11] MEDS: guaiFENesin ER 600 MG TAB PO SCH ×2 (09:23→20:44)
[2021-05-11] MEDS: PANTOPRAZOLE 40MG TAB (PROTONIX) PO SCH ×2 (09:23→20:44)
[2021-05-11] MEDS: ENOXAPARIN 40MG/0.4ML SYRINGE (J1650 PER 10MG) SC SCH (09:24)
[2021-05-11] MEDS ORDERED: ISOVUE-370 76% 100ML VIAL As Ordered ONE (12:42)
[2021-05-11] MEDS ORDERED: ENOXAPARIN 40MG/0.4ML SYRINGE (J1650 PER 10MG) SC ONE (13:15)
[2021-05-11] MEDS ORDERED: ENOXAPARIN 60MG/0.6ML SYRINGE (J1650 PER 10MG) SC ONE (13:15)
[2021-05-11 14:00] VITALS: BP 140/88
[2021-05-11] MEDS ORDERED: methylPREDNISolone 125MG 2ML VIAL IV SCH (14:00)
--- NOTE | 2021-05-11 14:58 | CR.PDOC ---
General Date of Consultation: May 11, 2021 Consultation REASON FOR CRITICAL CARE CONSULTATION/IWONA COMPLAINT: Respiratory failure/shortness of breath HISTORY OF PRESENT ILLNESS: 70-year-old male with a history of esophageal adenocarcinoma stage IV undergoing FOLFOX status post 10 of 12 sessions last dose about 1 month ago presented to the ED for shortness of breath. About 5 days prior to presentation he started to have subjective fevers and chills and dyspnea that was progressive. He also complained of diarrhea approximately 2 episodes of watery diarrhea per day. No melena no hematochezia. He denied ever being exposed to anyone with Covid 19. He said he was vaccinated in October of this year. On presentation in the ER he was tachycardic and febrile and he was admitted for sepsis secondary to pneumonia and started on antibiotics for community-acquired coverage. Patient is seen at the bedside. He is in overt respiratory distress on the Venturi mask of 40% and he is desatting to the mid 80s. He is talking in 2-3 word sentences. He is placed on nonrebreather and his pulse ox improved to 96%. PAST MEDICAL/SURGICAL HISTORY: Gout, GERD, dyslipidemia, left jugular vein thrombus and central subclavian vein thrombus status post 2 weeks of Eliquis. To note the patient did not know he was supposed to continue Eliquis past 2 weeks. Right hand surgery. Port for chemotherapy. FAMILY HISTORY: Heart disease in father. SOCIAL HISTORY: No tobacco, occasional alcohol, no illicit drug use. 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 ALLERGIES: Please see below. HOME MEDICATIONS: Please see below. REVIEW OF SYSTEMS: CONSTITUTIONAL: Denies fever, chills, night sweats, weight loss EYES: No blurring of vision or redness. ENT: No sore throat. No epistaxis. No tinnitus. CARDIOVASCULAR: No chest pain. No palpitations. RESPIRATORY: no wheeze, no hemoptysis + cough GASTROINTESTINAL: + diarrhea. GENITOURINARY: No frequency, urgency, nocturia. No hematuria or dysuria. MUSCULOSKELETAL: No arthralgias or myalgias. INTEGUMENTARY: No rash or swelling NEUROLOGIC: No headache. No numbness or tingling of the extremities. No weakness. PSYCHIATRIC: No confusion or mood changes. ENDOCRINE: No fatigue, no goiter. HEMATOLOGICAL: No bleeding. No petechiae. No bruising. PHYSICAL EXAMINATION: VITAL SIGNS: Please see below. GENERAL APPEARANCE: In respiratory distress, on 100% nonrebreather pulse ox 96%. Alert and awake. HEENT: no thyromegaly, trachea midline, PERRLA. normal mucous membranes RESPIRATORY: Tachypneic, right lung crackles reduced breath sounds left side CARDIOVASCULAR: +s1 s2, no murmurs. Mild tachycardia regular rhythm ABDOMEN: nontender, not distended, +BS EXTREMITIES: Left arm edematous to the forearm. No edema or erythema. palpable distal pulses SKIN: no rash, no purpura NEUROLOGICAL: no sensory or motor deficits, orientedx3. LABS/IMAGING: WBC 7.2 lymphopenia Hemoglobin 10.7 Platelet 161 ESR 83 ABG from 05/10 7.4 Dimer 2148 Procalcitonin 0.59 fibrinogen 734 MRSA nare negative C. difficile stool pending Covid negative x2 Sputum culture pending full report yeastlike organism Blood culture negative x3 Urine culture negative CT angio 05/07/2021 no evidence of PE. Extensive new infiltrates are noted particularly in the right lung. Differential includes COVID-19 pneumonia, influenza pneumonia, drug toxicity, connective tissue disease. Stable upper ab dominal lymphadenopathy and scattered mediastinal lymph nodes Chest x-ray 05/11 worsening opacities now involves the entire right hemithorax along with minimal left basilar atelectasis IMPRESSION: The most critical problems requiring my immediate presence at bedside are: 1. Acute hypoxic respiratory failure secondary to community-acquired pneumonia in the setting of chronic immunosuppression. Differential includes infectious in particular opportunistic infection versus drug-induced pneumonitis from immunotherapy however this is a diagnosis of exclusion. Covid swab is negative x3. MRSA nares is negative so very unlikely to be MRSA pneumonia. 2. Sepsis present on admission 3. History of esophageal adenocarcinoma stage IV on chemotherapy and immunotherapy (Opdivo) last dose approximately 1 month ago 4. 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 Diarrhea rule out C. difficile PLAN: GLOBAL CEO: No GLOBAL CEO depressants. PULM: HOB 30 degrees. Maintain Sp02 94-98%. BiPAP 10/5 - 4 hours on then 4 hours off. Can use Vapotherm when off BiPAP. Patient is not stable for bronchoscopy at this time. Agree with starting Solu-Medrol 60 mg IV every 8 hours for suspected drug-induced pneumonitis. Daily CXR CARDIO: Maintain MAPs 60-65. BNP 219. Avoid volume overload, lasix prn to keep I=O GI: GI ppx. N.p.o. for now. Follow-up stool for C. difficile. RENAL: monitor lytes. ID: Follow-up third Covid test. Agree with Zosyn for pseudomonal coverage and azithromycin. Follow cultures. Check fungitell/ galactomannan. LDH 303 mildly elevated. Would check a complete viral panel including flu and RSV. ENDO: Monitor FS per routine. Goal range 140-180. HEME: DVT ppx. On therapeutic Lovenox. Left UE duplex LINES/CATHETERS: Peripheral IVs only. CODE STATUS: Full code. DISPOSITION: Monitor in ICU. A total of 78 minutes of critical care time was spent on patient care, not including procedures Thank you for the courtesy of this consult. Please text me on Vocera for any questions or concerns. Vital Signs/I&O Vital Signs Date Time Temp Pulse Resp B/P (MAP) Pulse Ox O2 Delivery O2 Flow Rate FiO2 05/11/21 08:57 15.0 50 05/11/21 06:00 97.4 94 20 129/77 (94) 92 Venturi Mask I&O- Last 24 Hours up to 6 AM 05/11/21 06:00 Intake Total 1100 ml Output Total 500 ml Balance 600 ml Laboratory Data Labs 24H Laboratory Tests 2 05/10/21 18:58: Coronavirus (COVID-19)(PCR) NEGATIVE 05/10/21 21:32: Blood Gas Bicarbonate Standard 23.8, Arterial Blood pH 7.468H, Arterial Blood Partial Pressure CO2 31.3L, Arterial Blood Partial Pressure O2 122.2H, Arterial Blood Total CO2 23.1, Arterial Blood HCO3 22.2, Arterial Blood Base Excess -0.9, Arterial Blood Oxygen Saturation 98.1 05/11/21 05:27: Immature Granulocyte % (Auto) 0.6, Neutrophils (%) (Auto) 77.4H, Lymphocytes (%) (Auto) 6.6L, Monocytes (%) (Auto) 12.4H, Eosinophils (%) (Auto) 2.4, Basophils (%) (Auto) 0.6, Neutrophils # (Auto) 5.6, Lymphocytes # (Auto) 0.5L, Monocytes # (Auto) 0.9H, Eosinophils # (Auto) 0.2, Basophils # (Auto) 0.0, Nucleated Red Blood Cells % (auto) 0.0, Anion Gap 8, Glomerular Filtration Rate > 60.0, Calcium Level 8.4L 05/11/21 14:13: CBC/BMP Laboratory Tests 05/11/21 05:27 Microbiology Microbiology 05/10/21 Gram Stain - Final, Resulted 05/10/21 Sputum Culture - Preliminary, Resulted Yeast Like Organism 05/09/21 Blood Culture - Preliminary, Resulted No growth after 24 hours . All specim... 05/08/21 Blood Culture - Preliminary, Resulted No Growth after 72 hours. All specime... 05/07/21 Respiratory Virus Panel (PCR) (HEATHER) - Final, Complete 05/07/21 Urine Culture - Final, Complete 05/07/21 Blood Culture - Preliminary, Resulted No Growth after 72 hours. All specime... Allergies Coded Allergies: No Known Allergies (Unverified , 12/19/20) Home Medications Scheduled Allopurinol (Allopurinol) 100 Mg Tablet, 100 MG PO DAILY, (Reported) Dexamethasone (Dexamethasone) 4 Mg Tablet, 4 MG PO ASDIRECTED, (Reported) take 2 tabs by mouth daily the day before chemo, the day of chemo, and the day after chemo Docusate Sodium (Stool Softener) 100 Mg Capsule, 100 MG PO DAILY, (Reported) Folic Acid/Multivit-Min/Lutein (Centrum Silver Chewable Tablet) 1 Each Tab.chew, 2 TAB PO DAILY, (Reported) Lactose-Reduced Food (Ensure Liquid) 237 Ml Liquid, 237 ML PO DAILY, (Reported) Lidocaine/Prilocaine (Lidocaine-Prilocaine Cream) 2.5%/2.5% Cream..g., 1 DOSE TOP ASDIRECTED, (Reported) Apply dime size to port area. Do not rub in, cover with saran wrap to protect clothing. Omeprazole (Omeprazole) 40 Mg Capsule.dr, 40 MG PO DAILY, (Reported) Rosuvastatin Calcium (Rosuvastatin Calcium) 5 Mg Tablet, 5 MG PO QPM, (Reported) Scheduled PRN Acetaminophen (Tylenol Extra Strength) 500 Mg Powd.pack, 500 MG PO for PAIN LEVEL 1-4, (Reported) Ibuprofen (Ibuprofen) 600 Mg Tablet, 600 MG PO Q6H PRN for PAIN, (Reported) Ondansetron (Ondansetron Odt) 8 Mg Tab.rapdis, 8 MG PO TID PRN for NAUSEA OR VOMITING, (Reported) Prochlorperazine (Prochlorperazine Maleate) 5 Mg Tablet, 5 MG PO QID PRN for NAUSEA, (Reported) MADINA DEE MD May 11, 2021 14:58
[2021-05-11] MEDS: methylPREDNISolone 125MG 2ML VIAL IV SCH ×2 (15:16→22:50)
[2021-05-11 15:27] LABS: CLOSTRIDIUM DIFFICILE PCR NEGATIVE (NEGATIVE)
--- NOTE | 2021-05-11 15:56 | REP ---
INDICATION: worsening SOB, rapid decompensation. COMPARISON: Comparison study is from earlier this same date, 7:09 a.m.. TECHNIQUE: Sitting upright portable chest x-ray time stamped 3:25 p.m.. FINDINGS: Extensive infiltrate is seen throughout the right lung. There is elevation of the left hemidiaphragm and mild platelike atelectasis is seen in the left base. A left-sided is Kolkpo-T-Hkdl catheter is again noted in place. No new infiltrate is seen. IMPRESSION: Extensive pneumonia throughout the right lung essentially unchanged from the study done earlier today. Platelike atelectasis in the left base is also again noted. No new infiltrate seen. <Electronically signed by Twin Hennessy > 05/11/21 [id number]
[2021-05-11 16:00] VITALS: BP 146/91
[2021-05-11] MEDS ORDERED: VANCOMYCIN HCL 1,000 MG, VIAL MATE ADAPTER 1 EACH in NS 250 ML IV ONE ×2 (16:00→17:00)
[2021-05-11] MEDS: ALPRAZolam 0.5 MG TAB PO PRN (16:19)
[2021-05-11 16:28] LABS: TROPONIN I 0.28 NG/ML (< 0.10)
[2021-05-11 16:29] LABS: FERRITIN 526 NG/ML (26-388); LDH LACTATE DEHYDROGENASE 413 U/L (87-241)
--- NOTE | 2021-05-11 16:46 | IPNPDOC ---
Date Seen The patient was seen on 05/11/21. Progress Note SUBJECTIVE: Incr O2 demand with worsening SOB, tachypnea. Sputum shows some yeast, otherwise neg. Intermittently febrile, tachycardic. CXR worsened right opacities. Patient became anxious and later transferred to ICU with Bipap. Episodes of diarrhea so c. diff sent. Denies n/v/d, abdominal pain. OBJECTIVE: VITAL SIGNS: Please see below GENERAL: Patient is awake, alert and oriented, anxious , mildly distressed LUNGS: decreased in b/l lung mcclellan, crackles in right lower, middle lung slig htly worsened. no rhonchi or wheezing HEART: S1 and S2 sinus. ABDOMEN: Soft, nontender and nondistended. EXTREMITIES: left upper arm redness with induration from AC site up toward bicep, some warmth and tenderness., Clubbing or pitting edema. Neuro: No focal deficits LABORATORY DATA: Please see below MICROBIOLOGY: Sputum GS: QUALITY: GOOD MODERATE EPITHELIAL CELLS MODERATE WBCS MANY GRAM POSITIVE COCCI IN PAIRS, CHAINS AND CLUSTERS MANY GRAM NEGATIVE RODS FEW GRAM POSITIVE RODS FEW YEAST LIKE ORGANISM Sputum Cx: yeast like organism BCx: NG UA neg COVID test x 3- neg C. diff: pending IMAGING STUDIES: CXR 05/11/21: Opacities now involves the entire right hemithorax along with minimal left basilar atelectasis ASSESSMENT AND PLAN: This is a 70-year-old with GE junction Stage IV cancer on chemotherapy admitted for bilateral pneumonia with increased infiltrates in the right middle and lower lobe, worsening and sent to ICU for further management. IMPRESSION: #Acute hypoxic respiratory failure likely 2/2 to pneumonia in the setting of chronic immunosuppression due to Stage IV esophageal cancer, undergoing chemotherapy. Cannot r/o autoimmune pneumonitis per heme/onc due to being on nivolumab. -Continues to have incr O2 demand, incr tachypnea, bipap PRN -Worsened CXR, repeat COVID neg -Procalcitonin elevated -Febrile intermittently, sputum culture showed only some yeast like organism -Tx has consisted of:Ceftriaxone and Doxycycline, switched to zosyn and azit hromycin 05/10/21 for broader coverage -Starting methylprednisolone 60 mg Q8H, vancomycin x 1. -Bipap PRN, Levalbuterol ATC, PRN -F/u LDH, galactomannan, yeast studies -Infectious disease, pulmonary now consulted. High risk for intubation if bronchoscopy done. 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 -Currently, undergoing FOLFOX with Nivolumab every two weeks. -Dr. Marin hematology/oncology #Tobacco abuse over 50 years of smoking, quit. #GERD -C/w PPI, Carafate #Dyslipidemia. #Chronic anxiety. #DVT px Lovenox BID DISPOSITION: Transferred to ICU today. Pulmonary and ID now following also. Goal is home when medically improved. VS, I&O, 24H, Fishbone Vital Signs/I&O Vital Signs Date Time Temp Pulse Resp B/P (MAP) Pulse Ox O2 Delivery O2 Flow Rate FiO2 05/11/21 08:57 15.0 50 05/11/21 06:00 97.4 94 20 129/77 (94) 92 Venturi Mask I&O- Last 24 Hours up to 6 AM0 05/11/21 06:00 Intake Total 1100 ml Output Total 500 ml Balance 600 ml Laboratory Data 24H LABS Laboratory Tests 2 05/10/21 18:58: Coronavirus (COVID-19)(PCR) NEGATIVE 05/10/21 21:32: Blood Gas Bicarbonate Standard 23.8, Arterial Blood pH 7.468H, Arterial Blood Partial Pressure CO2 31.3L, Arterial Blood Partial Pressure O2 122.2H, Arterial Blood Total CO2 23.1, Arterial Blood HCO3 22.2, Arterial Blood Base Excess -0.9, Arterial Blood Oxygen Saturation 98.1 05/11/21 05:27: Immature Granulocyte % (Auto) 0.6, Neutrophils (%) (Auto) 77.4H, Lymphocytes (%) (Auto) 6.6L, Monocytes (%) (Auto) 12.4H, Eosinophils (%) (Auto) 2.4, Basophils (%) (Auto) 0.6, Neutrophils # (Auto) 5.6, Lymphocytes # (Auto) 0.5L, Monocytes # (Auto) 0.9H, Eosinophils # (Auto) 0.2, Basophils # (Auto) 0.0, Nucleated Red Blood Cells % (auto) 0.0, Anion Gap 8, Glomerular Filtration Rate > 60.0, Calcium Level 8.4L 05/11/21 14:13: CBC/BMP Laboratory Tests 05/11/21 05:27 Microbiology Microbiology 05/10/21 Gram Stain - Final, Resulted 05/10/21 Sputum Culture - Preliminary, Resulted Yeast Like Organism 05/09/21 Blood Culture - Preliminary, Resulted No growth after 24 hours . All specim... 05/08/21 Blood Culture - Preliminary, Resulted No Growth after 72 hours. All specime... 05/07/21 Respiratory Virus Panel (PCR) (HEATHER) - Final, Complete 05/07/21 Urine Culture - Final, Complete 05/07/21 Blood Culture - Preliminary, Resulted No Growth after 72 hours. All specime... Aishwarya Oro MD May 11, 2021 16:29
[2021-05-11 17:00] VITALS: BP 147/89
--- NOTE | 2021-05-11 17:48 | REP ---
INDICATION: left upper ext swelling, r/o DVT COMPARISON: None. TECHNIQUE: Quintero scale and color Doppler evaluation using linear high frequency transducer. FINDINGS: Ultrasound examination of the left upper extremity demonstrates occlusive thrombus in the subclavian, cephalic vein and brachiocephalic veins as well as nonocclusive thrombus in the axillary vein. Limited evaluation of the right upper extremity demonstrates normal patent subclavian and brachiocephalic veins. IMPRESSION: Occlusive thrombus in left upper extremity veins as described above including subclavian vein. <Electronically signed by Kumar Trevino > 05/11/21 [id number]
[2021-05-11 19:00] VITALS: BP 138/81
[2021-05-11 20:00] VITALS: BP 154/90
[2021-05-11] MEDS: allopurinoL 100 MG TAB PO SCH (20:44)
[2021-05-11] MEDS: ENOXAPARIN 100MG/1ML SYRINGE (J1650 PER 10MG) SC SCH (20:44)
[2021-05-11] MEDS: ROSUVASTATIN 10 MG TAB (CRESTOR) PO SCH (20:44)
[2021-05-12] VITALS (10 sets, daily range): BP systolic 115–168; BP diastolic 68–103
[2021-05-12] MEDS: ALPRAZolam 0.5 MG TAB PO PRN ×2 (00:16→22:07)
[2021-05-12] MEDS: PIPERACILLIN/TAZOBACTAM SOD 3.375 GM in D5W MINI-BAG PLUS 50 ML IV SCH ×4 (03:18→22:04)
[2021-05-12] MEDS: LEVALBUTEROL 1.25 MG/0.5 ML CONCENTRATE NEB INH SCH ×5 (03:42→19:24)
[2021-05-12] MEDS: methylPREDNISolone 125MG 2ML VIAL IV SCH ×3 (06:45→22:07)
--- NOTE | 2021-05-12 07:04 | CR ---
CONSULTATION DATE: 05/11/2021 HISTORY OF PRESENT ILLNESS: Edwin is a 70-year-old male who initially presented to the hospital after worsening shortness of breath especially on exertion which began on approximately May 01 or . The patient reports his symptoms seemed to worsen on Saturday when he started to develop subjective fevers at home with chills and night sweats. He states he has not had a headache or cough. He has not had any hemoptysis. He has not noticed a change in weight over the past week. He has had chronic decreased taste and smell due to his chemotherapy which has been going on for months since starting chemotherapy in November 2020. He has also noticed neuropathy in his fingers since starting chemotherapy and his toes. He denies any nausea, vomiting or diarrhea. He states he had been constipated at home requiring a dose of Milk of Magnesia. He decided on Saturday of this week, May 07, to go over to his friend's house who had a blood pressure cuff because he was concerned about how sick he felt. He noted his blood pressure to be normal but because he was continuing to feel so sick he decided to come to the Emergency Room for further evaluation. In the ER, the patient was noted to have a fever of 103.3 degrees Fahrenheit, tachycardia, and right lower lobe infiltrate on chest x-ray. He was admitted to the hospital for further management. As the patient has been in the hospital, he has continued to have shortness of breath and currently today is on BiPAP. He still has not developed a cough. His x-rays have shown worsening infiltrate in the right lung which takes up most of the right lung mcclellan. He also has had recurrent fevers while in the hospital despite IV antibiotics started on admission. CT angiography ordered on admission was negative for PE. His last session of chemotherapy was April 19, 2021 with FOLFOX. He also has been on Opdivo immunotherapy. 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 PAST SURGICAL HISTORY: Right middle finger surgery due to trauma, Infusaport placement, left side. SOCIAL HISTORY: Former smoker for about 53 years, denies any recent tobacco use. Endorses very occasional social alcohol use. Denies any illicit substance use. Patient is retired and lives at home alone currently. There are no pets at home. He has no exposure to birds. FAMILY MEDICAL HISTORY: Father passed of heart disease. Maternal grandmother passed of heart disease. REVIEW OF SYSTEMS: GENERAL: As per HPI. HEENT: No headaches. No vision change. No hearing change. CARDIOVASCULAR: Endorses chest pain secondary to his chemotherapy treatments and likely the venous thrombus in his left upper extremity. Denies palpitations. RESPIRATORY: As per HPI. GI: As per HPI. No blood in stool. : No trouble urinating. MUSCULOSKELETAL: No joint pains or muscle aches. INTEGUMENTARY: No rashes on the skin. NEUROLOGIC: Numbness secondary to chemotherapy. No focal weakness. HOME MEDICATIONS: 1. Acetaminophen 500 mg p.r.n. 2. Allopurinol 100 mg daily. 3. Dexamethasone 4 mg prior to chemotherapy, two tabs. 4. Docusate 100 mg daily. 5. Folic acid. 6. Multivitamin, two tablets daily. 7. Ibuprofen 600 mg every 6 hours as needed. 8. Topical lidocaine over Infusaport as needed for pain. 9. Omeprazole 40 mg daily. 10.Ondansetron 8 mg t.i.d. as needed for nausea. 11.Prochlorperazine 5 mg q.i.d. as needed for nausea. 12.Rosuvastatin 5 mg q. p.m. ALLERGIES: No known allergies. PHYSICAL EXAMINATION: VITAL SIGNS: Temperature is 100.8 degrees axillary, heart rate 105, respiratory rate 32, blood pressure 146/91, satting 92% on BiPAP with oxygen at 8 liters per minute. GENERAL: Patient appears comfortable sitting up in bed in no acute distress despite his tachypnea and tachycardia. HEENT: Normocephalic, atraumatic. Moist mucous membranes. Does have BiPAP in place over the face so unable to evaluate his oral cavity. Conjunctiva clear. RESPIRATORY: Tachypneic with diffuse crackles over the right lung field that are coarse. Breath sounds are clear throughout the left lung mcclellan. CARDIOVASCULAR: Tachycardic with regular rhythm. Normal S1 and S2. No murmurs appreciated. ABDOMEN: Soft, nontender and nondistended. Bowel sounds are present. EXTREMITIES: Left arm is swollen with a distinct cord like mass palpated in the left upper arm into the antecubital fossa suspicious for thrombophlebitis. There is some erythema over the area without warmth. Pulses in the radialis and dorsalis pedis arteries are 2+ bilaterally. SKIN: Other than erythema on the left upper extremity there is no rash appreciated. NEUROLOGIC: No focal deficits appreciated. LABORATORY DATA: White blood cell count is 7.2, hemoglobin 10.2, hematocrit is 32.5, platelet count is 161,000. Ferritin 526. Lactate dehydrogenase 413. CRP 17.3, procalcitonin 0.59 up from 0.14. ESR 83. He has had at least two negative SARS-CoV 2 test PCR in addition to a negative respiratory panel including SARS-CoV 2. Negative C. Difficile. Negative MRSA PCR. IgG level 642. Chest x-ray this morning shows extensive pneumonia throughout the right lung, essentially unchanged from prior study earlier today, platelike atelectasis in the left base is noted. No new infiltrate is seen. Microbiology shows sputum culture with gram positive cocci in pairs, chains, clusters, gram negative rods, gram positive rods and yeast-like organism. Blood cultures x3 have been negative. Urine culture is negative. 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 He is on broad-spectrum antibiotic coverage with Vancomycin, Zosyn and Azithromycin. Regarding his pneumonia, he has pending lab work for Legionella, Aspergillus, fungal pneumonia, Strep pneumoniae. His procalcitonin is only mildly elevated but is trending up and I would not deescalate his antibiotics at this point, I would keep him on IV Vancomycin given his healthcare exposure despite his negative MRSA screen. We will also continue the Zosyn for now. I will switch his Azithromycin from p.o. to IV as the oral form has poor bioavailability and atypical pneumonia is highly suspicious in this patient. I am not suspicious for COVID-19 pneumonia given his history which does not sound like COVID-19, his unilateral presentation of a right sided pneumonia, his lack of exposure to anyone positive to COVID-19, and three negative COVID tests since admission. Thank you for this consultation. We will continue to follow along with the care of this patient.
[2021-05-12 07:37] LABS: BASO % 0.2 % (0.0-1.0); HEMATOCRIT 33.1 % (42.0-52.0); HEMOGLOBIN 11.1 g/dl (13.5-17.5); LYMPH # 0.3 10^3/uL (1.5-5.0); LYMPH % 5.6 % (24.0-44.0); MEAN CORPUSCULAR HEMOGLOBIN 32.8 pg (27.0-33.0); MEAN CORPUSCULAR HGB CONC 33.5 g/dl (32.0-36.5); MEAN CORPUSCULAR VOLUME 97.9 fl (80.0-96.0); MONO # 0.2 10^3/uL (0.0-0.8); MONO % 4.4 % (2.0-8.0); NEUTROPHILS # 4.9 10^3/uL (1.5-8.5); NEUTROPHILS % 89.3 % (36.0-66.0); PLATELET COUNT, AUTOMATED 174 10^3/uL (150-450); RED BLOOD COUNT 3.38 10^6/uL (4.30-6.10); WHITE BLOOD COUNT 5.5 10^3/uL (4.0-10.0)
[2021-05-12 08:12] LABS: ALT/SGPT 18 U/L (12-78); BILIRUBIN,TOTAL 0.4 MG/DL (0.2-1.0); BLOOD UREA NITROGEN 19 MG/DL (7-18); CALCIUM LEVEL 9.1 MG/DL (8.8-10.2); CARBON DIOXIDE LEVEL 26 MEQ/L (21-32); CHLORIDE LEVEL 106 MEQ/L (98-107); CREATININE FOR GFR 0.76 MG/DL (0.70-1.30); GLOMERULAR FILTRATION RATE > 60.0 (>49); GLUCOSE, FASTING 135 MG/DL (70-100); POTASSIUM SERUM 3.8 MEQ/L (3.5-5.1); SODIUM LEVEL 139 MEQ/L (136-145); TOTAL PROTEIN 6.4 GM/DL (6.4-8.2); TROPONIN I 0.28 NG/ML (< 0.10)
[2021-05-12] MEDS: SUCRALFATE SUSP 1GM/10ML UD PO SCH ×4 (08:16→22:05)
[2021-05-12] MEDS: guaiFENesin ER 600 MG TAB PO SCH ×2 (08:16→22:06)
[2021-05-12] MEDS: AZITHROMYCIN INJ 500 MG, VIAL MATE ADAPTER 1 EACH in NS 250 ML IV SCH (08:16)
[2021-05-12] MEDS: LACTOBACILLUS ACIDOPHILUS CAP (BACID) PO SCH ×4 (08:16→22:06)
[2021-05-12] MEDS: PANTOPRAZOLE 40MG TAB (PROTONIX) PO SCH ×2 (08:16→22:06)
[2021-05-12] MEDS: ENOXAPARIN 100MG/1ML SYRINGE (J1650 PER 10MG) SC SCH ×2 (08:17→22:05)
[2021-05-12] MEDS: BUDESONIDE 0.25 MG/2 ML INHALATION SUSPENSION INH SCH ×2 (08:42→19:26)
--- NOTE | 2021-05-12 09:06 | ECGEPIP ---
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 ST/T wave abnormalities 05/07/21 have improved Electronically Signed on 05-12-2021 9:06:02 EDT by Edmond Anderson
--- NOTE | 2021-05-12 11:33 | IPNPDOC ---
Subjective Date Seen The patient was seen on 05/12/21. Subjective Chief Complaint/HPI Patient admits to experiencing shortness of breath. However he denies fever, chills, chest pain, palpitation. Constitutional: Denies: Chills, Fever Eyes: Denies: Pain ENT: Denies: Head Aches Skin: Denies: Rash Pulmonary: Reports: Dyspnea, Cough (Dry cough) Cardiovascular: Denies: Chest Pain, Palpitations Gastrointestinal: Denies: Nausea, Vomiting Neurological: Denies: Weakness Objective Physical Examination General Exam: Positive: Alert, Cooperative, No Acute Distress Eye Exam: Positive: PERRLA; Negative: Sclera icteric ENT Exam: Positive: Atraumatic Neck Exam: Positive: Supple; Negative: JVD Chest Exam: Positive: Rales (Coarse crackle most predominantly in the right lung field.) Heart Exam: Positive: Tachycardic, Irregular Rhythm Telemetry: Positive: Atrial fibrillation Abdomen Exam: Positive: Normal bowel sounds, Soft; Negative: Tenderness Male Exam: Negative: Edema Extremity Exam: Negative: Clubbing, Edema Neuro Exam: Positive: Normal Speech, Strength at 5/5 X4 ext Psych Exam: Positive: Mental status NL Assessment /Plan Assessment This is a 70-year-old gentleman with past medical history of stage IV adenocarcinoma of the esophagus status post FOLFOX chemotherapy 1 month ago and currently on immunotherapy with Opdivo admitted to the hospital for hypoxic respiratory failure. 1. Acute hypoxic respiratory failure secondary to community-acquired pneumonia in the setting of chronic immunosuppression. Differential includes infectious in particular opportunistic infection versus drug-induced pneumonitis from imm unotherapy however this is a diagnosis of exclusion. Covid swab is negative x3. MRSA nares is negative so very unlikely to be MRSA pneumonia. 2. Sepsis present on admission 3. History of esophageal adenocarcinoma stage IV on chemotherapy and immunotherapy (Opdivo) last dose approximately 1 month ago 4. 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 Diarrhea rule out C. difficile Plan/VTE VTE Prophylaxis Ordered?: Yes Plan 1. Continue with broad-spectrum antibiotics for HAP and systemic corticosteroid for possible drug-induced pneumonitis. His respiratory status continues to remain stable. However he is not a candidate for bronchoscopy given significant oxygen requirement. If his oxygen requirement continues to improve, will consider doing bronchoscopy with transbronchial biopsy of the right lower lobe to delineate infection versus inflammatory/pneumonitis. 2. Work-up for opportunistic infection including sputum AFB and beta D glucan are currently pending. If he further deteriorates, will consider adding antifungal therapy. Disposition Continue hospital care VS, I&O, 24H, Ary Vital Signs/I&O Vital Signs Date Time Temp Pulse Resp B/P (MAP) Pulse Ox O2 Delivery O2 Flow Rate FiO2 05/12/21 06:00 94 145/81 (102) 92 High Flow Cannula 10.0 05/12/21 04:00 98.6 22 05/11/21 16:00 100 I&O- Last 24 Hours up to 6 AM 05/12/21 06:00 Intake Total 1630 ml Output Total 250 ml Balance 1380 ml Laboratory Data 24H LABS Laboratory Tests 2 05/11/21 14:13: Clostridium difficile [id number] PRESUMPTIVE NEGATIVE, Clostridium difficile Toxin (PCR) NEGATIVE, Coronavirus (COVID-19)(PCR) NEGATIVE 05/11/21 15:38: Ferritin 526H, Lactate Dehydrogenase 413H, Troponin I 0.28H, C-Reactive Protein, Quantitative 17.30H, QG-[id number]-Type Natriuretic Peptide 1123H 05/11/21 17:57: Lactic Acid Level 1.7 05/12/21 07:19: Troponin I 0.28H, Immature Granulocyte % (Auto) 0.5, Neutrophils (%) (Auto) 89.3H, Lymphocytes (%) (Auto) 5.6L, Monocytes (%) (Auto) 4.4, Eosinophils (%) (Auto) 0.0, Basophils (%) (Auto) 0.2, Neutrophils # (Auto) 4.9, Lymphocytes # (Auto) 0.3L, Monocytes # (Auto) 0.2, Eosinophils # (Auto) 0.0, Basophils # (Auto) 0.0, Nucleated Red Blood Cells % (auto) 0.0, Anion Gap 7L, Glomerular Filtration Rate > 60.0, Calcium Level 9.1, Total Bilirubin 0.4, Aspartate Amino Transf (AST/SGOT) 20, Alanine Aminotransferase (ALT/SGPT) 18, Alkaline Phosphatase 139H, Total Protein 6.4, Albumin 2.0L, Albumin/Globulin Ratio 0.5 CBC/BMP Laboratory Tests 05/12/21 07:19 Microbiology Microbiology 05/10/21 Gram Stain - Final, Complete 05/10/21 Sputum Culture - Final, Complete Yeast Like Organism 05/09/21 Blood Culture - Preliminary, Resulted No Growth after 48 hours. All Specime... 05/08/21 Blood Culture - Preliminary, Resulted No Growth after 72 hours. All specime... 05/07/21 Respiratory Virus Panel (PCR) (HEATHER) - Final, Complete 05/07/21 Urine Culture - Final, Complete 05/07/21 Blood Culture - Preliminary, Resulted No Growth after 72 hours. All specime... RICH WILLS MD May 12, 2021 11:33
--- NOTE | 2021-05-12 16:26 | IPNPDOC ---
Date Seen The patient was seen on 05/12/21. Progress Note SUBJECTIVE: Doing well with HFNC, c. diff neg. Many pending tests. Trop elevated with normal ECG, likely sepsis vs. stress related. Denies chest pain, n/v/d, abdominal pain. OBJECTIVE: VITAL SIGNS: Please see below GENERAL: Patient is awake, alert and oriented, anxious , mildly distressed LUNGS: decreased in b/l lung mcclellan, crackles in right lower, middle lung slightly worsened. no rhonchi or wheezing HEART: S1 and S2 sinus. ABDOMEN: Soft, nontender and nondistended. EXTREMITIES: left upper arm redness with induration from AC site up toward bicep, some warmth and tenderness.No clubbing or pitting edema. Neuro: No focal deficits LABORATORY DATA: Please see below MICROBIOLOGY: Sputum GS: QUALITY: GOOD MODERATE EPITHELIAL CELLS MODERATE WBCS MANY GRAM POSITIVE COCCI IN PAIRS, CHAINS AND CLUSTERS MANY GRAM NEGATIVE RODS FEW GRAM POSITIVE RODS FEW YEAST LIKE ORGANISM Sputum Cx: yeast like organism BCx: NG UA neg COVID test x 3- neg C. diff: pending Fungal studies, strep pneumoniae, legionella pending IMAGING STUDIES: CXR 05/12/21: Extensive pneumonia throughout the right lung essentially unchanged from the study done earlier today. Platelike atelectasis in the left base is also again noted. No new infiltrate seen. ASSESSMENT AND PLAN: This is a 70-year-old with GE junction Stage IV cancer on chemotherapy admitted for bilateral pneumonia with increased infiltrates in the right middle and lower lobe, worsening and sent to ICU for further management. IMPRESSION: #Acute hypoxic respiratory failure likely 2/2 to pneumonia in the setting of chronic immunosuppression due to Stage IV esophageal cancer, undergoing chemotherapy. Cannot r/o autoimmune/drug pneumonitis per heme/onc due to being on nivolumab. -S/p bipap 05/11/21 and breathing much improved. Remains saturating well on HFNC -Worsened CXR, see MICRO above -Procalcitonin elevated -Afebrile for 24 hours -Tx has consisted of:Ceftriaxone and Doxycycline, switched to zosyn and azithr omycin 05/10/21 for broader coverage, Received several doses vancomycin IV ;however, neg MRSA -C/w methylprednisolone 60 mg Q8H, Bipap PRN, Levalbuterol ATC, PRN -F/u LDH, galactomannan, fungal, legionella studies -Infectious disease, pulmonary consulted. High risk for intubation if bronchoscopy done. Consider bronchoscopy when O2 requirement less #Sepsis 2/2 to pneumonia -Tachycardia, immunocompromised. Afebrile for 24 hours -See above for treatment #Occlusive thrombus in left upper extremity veins including subclavian vein -Hx of known left jugular vein occlusive thrombus with central subclavian vein thrombus. 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 -Currently, undergoing FOLFOX with Nivolumab every two weeks. -Dr. Marin hematology/oncology #Tobacco abuse over 50 years of smoking, quit #GERD -C/w PPI, Carafate #Dyslipidemia #Chronic anxiety #DVT px -Lovenox BID DISPOSITION: Pulmonary and ID. Goal is home when medically improved. VS, I&O, 24H, Fishbone Vital Signs/I&O Vital Signs Date Time Temp Pulse Resp B/P (MAP) Pulse Ox O2 Delivery O2 Flow Rate FiO2 05/12/21 11:30 10.0 05/12/21 11:25 98.9 96 25 136/84 (101) 92 High Flow Cannula 05/11/21 16:00 100 I&O- Last 24 Hours up to 6 AM 05/12/21 06:00 Intake Total 1630 ml Output Total 250 ml Balance 1380 ml Laboratory Data 24H LABS Laboratory Tests 2 05/11/21 17:57: Lactic Acid Level 1.7 05/12/21 07:19: Immature Granulocyte % (Auto) 0.5, Neutrophils (%) (Auto) 89.3H, Lymphocytes (%) (Auto) 5.6L, Monocytes (%) (Auto) 4.4, Eosinophils (%) (Auto) 0.0, Basophils (%) (Auto) 0.2, Neutrophils # (Auto) 4.9, Lymphocytes # (Auto) 0.3L, Monocytes # (Auto) 0.2, Eosinophils # (Auto) 0.0, Basophils # (Auto) 0.0, Nucleated Red Blood Cells % (auto) 0.0, Anion Gap 7L, Glomerular Filtration Rate > 60.0, Calcium Level 9.1, Total Bilirubin 0.4, Aspartate Amino Transf (AST/SGOT) 20, Alanine Aminotransferase (ALT/SGPT) 18, Alkaline Phosphatase 139H, Troponin I 0 .28H, Total Protein 6.4, Albumin 2.0L, Albumin/Globulin Ratio 0.5 CBC/BMP Laboratory Tests 05/12/21 07:19 Microbiology Microbiology 05/10/21 Gram Stain - Final, Complete 05/10/21 Sputum Culture - Final, Complete Yeast Like Organism 05/09/21 Blood Culture - Preliminary, Resulted No Growth after 48 hours. All Specime... 05/08/21 Blood Culture - Preliminary, Resulted No Growth after 72 hours. All specime... 05/07/21 Respiratory Virus Panel (PCR) (HEATHER) - Final, Complete 05/07/21 Urine Culture - Final, Complete 05/07/21 Blood Culture - Final, Complete NO GROWTH AFTER 5 DAYS Aishwarya Oro MD May 12, 2021 16:26
[2021-05-12] MEDS ORDERED: PILL CUTTER 1 EACH XX PRN (21:45)
[2021-05-12] MEDS: allopurinoL 100 MG TAB PO SCH (22:06)
[2021-05-12] MEDS: ROSUVASTATIN 10 MG TAB (CRESTOR) PO SCH (22:06)
[2021-05-13] VITALS: BP 162/89
[2021-05-13] MEDS: LEVALBUTEROL 1.25 MG/0.5 ML CONCENTRATE NEB INH SCH ×6 (00:06→19:57)
[2021-05-13 04:00] VITALS: BP 161/80
[2021-05-13] MEDS: PIPERACILLIN/TAZOBACTAM SOD 3.375 GM in D5W MINI-BAG PLUS 50 ML IV SCH ×4 (05:27→22:17)
[2021-05-13 06:20] LABS: BASO % 0.1 % (0.0-1.0); HEMATOCRIT 33.3 % (42.0-52.0); HEMOGLOBIN 11.3 g/dl (13.5-17.5); LYMPH # 0.3 10^3/uL (1.5-5.0); MEAN CORPUSCULAR HEMOGLOBIN 33.2 pg (27.0-33.0); MEAN CORPUSCULAR HGB CONC 33.9 g/dl (32.0-36.5); MEAN CORPUSCULAR VOLUME 97.9 fl (80.0-96.0); MONO # 0.5 10^3/uL (0.0-0.8); MONO % 7.8 % (2.0-8.0); NEUTROPHILS # 5.8 10^3/uL (1.5-8.5); NEUTROPHILS % 86.5 % (36.0-66.0); PLATELET COUNT, AUTOMATED 196 10^3/uL (150-450); WHITE BLOOD COUNT 6.7 10^3/uL (4.0-10.0)
[2021-05-13] MEDS: methylPREDNISolone 125MG 2ML VIAL IV SCH ×3 (06:45→22:16)
[2021-05-13 06:47] LABS: ALBUMIN 2.2 GM/DL (3.2-5.2); ALT/SGPT 24 U/L (12-78); BILIRUBIN,TOTAL 0.4 MG/DL (0.2-1.0); BLOOD UREA NITROGEN 24 MG/DL (7-18); CALCIUM LEVEL 8.4 MG/DL (8.8-10.2); CARBON DIOXIDE LEVEL 28 MEQ/L (21-32); CHLORIDE LEVEL 106 MEQ/L (98-107); CREATININE FOR GFR 0.72 MG/DL (0.70-1.30); GLOMERULAR FILTRATION RATE > 60.0 (>49); GLUCOSE, FASTING 130 MG/DL (70-100); POTASSIUM SERUM 3.6 MEQ/L (3.5-5.1); SODIUM LEVEL 140 MEQ/L (136-145); TOTAL PROTEIN 5.8 GM/DL (6.4-8.2)
[2021-05-13 08:00] VITALS: BP 146/84
[2021-05-13] MEDS: BUDESONIDE 0.25 MG/2 ML INHALATION SUSPENSION INH SCH ×2 (08:24→19:58)
[2021-05-13] MEDS: SUCRALFATE SUSP 1GM/10ML UD PO SCH ×4 (08:25→20:12)
[2021-05-13] MEDS: LACTOBACILLUS ACIDOPHILUS CAP (BACID) PO SCH ×4 (08:25→20:13)
[2021-05-13] MEDS: guaiFENesin ER 600 MG TAB PO SCH ×2 (10:24→20:12)
[2021-05-13] MEDS: PANTOPRAZOLE 40MG TAB (PROTONIX) PO SCH ×2 (10:24→20:12)
[2021-05-13] MEDS: ENOXAPARIN 100MG/1ML SYRINGE (J1650 PER 10MG) SC SCH ×2 (10:25→20:12)
[2021-05-13] MEDS: AZITHROMYCIN INJ 500 MG, VIAL MATE ADAPTER 1 EACH in NS 250 ML IV SCH (10:26)
--- NOTE | 2021-05-13 11:42 | ECHO ---
ECHOCARDIOGRAM DATE OF PROCEDURE: 05/12/2021 Age: Gender: Male Height: 180 cm Weight: 89 kg REFERRING PHYSICIAN: Aishwarya Oro M.D. INDICATION: Dyspnea. MEASUREMENTS: IVS 0.9 cm LV 5.3 cm LVPW 0.8 cm LA 4.3 cm Aorta 3.5 cm Mitral E wave velocity 63 A wave 81 E prime septal 7.5 E prime lateral 9.8 Left atrial volume index 27 FINDINGS: This study is of very limited technical quality. Underlying sinus rhythm. Left ventricle is of normal size. There is probably normal or near-normal left ventricular (LV) systolic function based on very limited views. Right ventricle was poorly seen. Left atrium appears normal. Right atrium appears grossly normal based on limited views. There is minimal aortic sclerosis. There is also mild degenerative abnormalities of mitral valve. Right-sided heart valves were very poorly seen. No pericardial effusion is noted. Inferior vena cava was not visualized. Aortic root, ascending aorta, aortic arch and abdominal aorta appear grossly normal. Doppler interrogation reveals trivial aortic insufficiency, no aortic stenosis. There are competent mitral and tricuspid valves. Mitral inflow pattern and tissue Doppler imaging of mitral annulus reveals grade 1 diastolic dysfunction. CONCLUSIONS: 1. Study is of very limited technical quality. Underlying sinus rhythm. 2. Normal left ventricular (LV) size with normal or near-normal LV systolic function based on limited views. Grade 1 diastolic dysfunction. 3. No significant valvular disease. 4. Unable to estimate central venous pressure and pulmonary artery pressure.
--- NOTE | 2021-05-13 11:53 | IPNPDOC ---
Date Seen The patient was seen on 05/13/21. Progress Note SUBJECTIVE: Decreased O2 demand, 93% on 8 L HFNC. Echo pending. Denies chest pain, n/v/d, abdominal pain. OBJECTIVE: VITAL SIGNS: Please see below GENERAL: Patient is awake, alert and oriented, anxious , mildly distressed LUNGS: decreased in b/l lung mcclellan, crackles in right lower, middle lung slightly improved . no rhonchi or wheezing HEART: S1 and S2 sinus. ABDOMEN: Soft, nontender and nondistended. EXTREMITIES: improved left upper arm redness with induration from AC site up toward bicep. decreasd warmth and tenderness.No clubbing or pitting edema. Neuro: No focal deficits LABORATORY DATA: Please see below MICROBIOLOGY: Sputum GS: QUALITY: GOOD MODERATE EPITHELIAL CELLS MODERATE WBCS MANY GRAM POSITIVE COCCI IN PAIRS, CHAINS AND CLUSTERS MANY GRAM NEGATIVE RODS FEW GRAM POSITIVE RODS FEW YEAST LIKE ORGANISM Sputum Cx: yeast like organism BCx: NG UA neg COVID test x 3- neg C. diff: neg Fungal studies, strep pneumoniae, legionella pending IMAGING STUDIES: CXR 05/12/21: Extensive pneumonia throughout the right lung essentially unchanged from the study done earlier today. Platelike atelectasis in the left base is also again noted. No new infiltrate seen. Echo 05/12/21: pending results ASSESSMENT AND PLAN: This is a 70-year-old with GE junction Stage IV cancer on chemotherapy admitted for bilateral pneumonia with increased infiltrates in the right middle and lower lobe, worsening and sent to ICU for further management. IMPRESSION: #Acute hypoxic respiratory failure likely 2/2 to pneumonia in the setting of chronic immunosuppression due to Stage IV esophageal cancer, undergoing chemotherapy. Cannot r/o autoimmune/drug pneumonitis per heme/onc due to being on nivolumab and component of fluid 2/2 to RHS . -Decreased O2 demand -CXR above -Procalcitonin elevated -Afebrile for 24 hours -Tx has consisted of:Ceftriaxone and Doxycycline, switched to zosyn and azithromycin 05/10/21 for broader coverage, Received several doses vancomycin IV ;however, neg MRSA -C/w methylprednisolone 60 mg Q8H, Bipap PRN, Levalbuterol ATC, PRN, lasix -F/u LDH, galactomannan, fungal, legionella studies -Infectious disease, pulmonary consulted. High risk for intubation if bronchoscopy done. Consider bronchoscopy when O2 requirement less #Occlusive thrombus in left upper extremity veins including subclavian vein -Hx of known left jugular vein occlusive thrombus with central subclavian vein thrombus. Has not been on therapeutic treatment as o/p -Per heme he was supposed to be on it daily but only took it for two weeks -lovenox BID 05/11/21 #Elevated troponin, r/o right heart strain 2/2 to current pulmonary disease, elevated pulmonary pressures -No hx of CHF, CAD -BNP 1100, trop elevated since admission -Discussed with Dr. 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 -Currently, undergoing FOLFOX with Nivolumab every two weeks. -Dr. Marin hematology/oncology #GERD -C/w PPI, Carafate #Dyslipidemia #Chronic anxiety #DVT px -Lovenox BID RESOL #Sepsis 2/2 to pneumonia- DISPOSITION: Pulmonary and ID. Goal is home when medically improved. VS, I&O, 24H, Fishbone Vital Signs/I&O Vital Signs Date Time Temp Pulse Resp B/P (MAP) Pulse Ox O2 Delivery O2 Flow Rate FiO2 05/13/21 08:00 97.9 94 20 146/84 (104) 93 Nasal Cannula 8.0 05/11/21 16:00 100 I&O- Last 24 Hours up to 6 AM 05/13/21 06:00 Intake Total 290 ml Output Total 0 ml Balance 290 ml Laboratory Data 24H LABS Laboratory Tests 2 05/13/21 05:13: Immature Granulocyte % (Auto) 1.6, Neutrophils (%) (Auto) 86.5H, Lymphocytes (%) (Auto) 4.0L, Monocytes (%) (Auto) 7.8, Eosinophils (%) (Auto) 0.0, Basophils (%) (Auto) 0.1, Neutrophils # (Auto) 5.8, Lymphocytes # (Auto) 0.3L, Monocytes # (Auto) 0.5, Eosinophils # (Auto) 0.0, Basophils # (Auto) 0.0, Nucleated Red Blood Cells % (auto) 0.3H, Anion Gap 6L, Glomerular Filtration Rate > 60.0, Calcium Level 8.4L, Total Bilirubin 0.4, Aspartate Amino Transf (AST/SGOT) 24, Alanine Aminotransferase (ALT/SGPT) 24, Alkaline Phosphatase 133H, Total Protein 5.8L, Albumin 2.2L, Albumin/Globulin Ratio 0.6 CBC/BMP Laboratory Tests 05/13/21 05:13 Microbiology Microbiology 05/10/21 Gram Stain - Final, Complete 05/10/21 Sputum Culture - Final, Complete Yeast Like Organism 05/09/21 Blood Culture - Preliminary, Resulted No Growth after 72 hours. All specime... 05/08/21 Blood Culture - Final, Complete NO GROWTH AFTER 5 DAYS 05/07/21 Respiratory Virus Panel (PCR) (HEATHER) - Final, Complete 05/07/21 Urine Culture - Final, Complete 05/07/21 Blood Culture - Final, Complete NO GROWTH AFTER 5 DAYS Aishwarya Oro MD May 13, 2021 11:53
[2021-05-13 12:00] VITALS: BP 149/91
--- NOTE | 2021-05-13 12:16 | IPNPDOC ---
Subjective Date Seen The patient was seen on 05/13/21. Subjective Chief Complaint/HPI Patient is feeling improvement in his shortness of breath. He denies of cough, fever, chills, night sweat, weight loss. Constitutional: Denies: Chills, Fever, Malaise, Night Sweats, Weakness, Fatigue Eyes: Denies: Pain Skin: Denies: Rash Pulmonary: Reports: Dyspnea; Denies: Cough, Pleuritic Chest Pain Cardiovascular: Denies: Chest Pain, Palpitations, Orthopnea, Paroxysmal Noc. Dyspnea, Edema Gastrointestinal: Denies: Nausea, Vomiting, Abdominal Pain, Diarrhea Neurological: Denies: Weakness Psych: Reports: Mood Normal Objective Physical Examination General Exam: Positive: Alert, Cooperative, No Acute Distress Eye Exam: Positive: PERRLA; Negative: Sclera icteric ENT Exam: Positive: Atraumatic Neck Exam: Positive: Supple; Negative: JVD Chest Exam: Positive: Rales (Coarse crackle most predominantly in the right lung field.), Diminished (Absent breath sounds of the left lower base) Heart Exam: Positive: Rate Normal, Tachycardic, Irregular Rhythm Telemetry: Positive: Atrial fibrillation Abdomen Exam: Positive: Normal bowel sounds, Soft; Negative: Tenderness Male Exam: Negative: Edema Extremity Exam: Negative: Clubbing, Edema Neuro Exam: Positive: Normal Speech, Strength at 5/5 X4 ext Psych Exam: Positive: Mental status NL Assessment /Plan Assessment This is a 70-year-old gentleman with past medical history of stage IV adenocarcinoma of the esophagus status post FOLFOX chemotherapy 1 month ago and currently on immunotherapy with Opdivo admitted to the hospital for hypoxic respiratory failure. 1. Acute hypoxic respiratory failure secondary to community-acquired pneumonia in the setting of chronic immunosuppression. Differential includes infectious in particular opportunistic infection versus drug-induced pneumonitis from immunotherapy however this is a diagnosis of exclusion. Covid swab is negative x3. MRSA nares is negative so very unlikely to be MRSA pneumonia. 2. Sepsis present on admission 3. History of esophageal adenocarcinoma stage IV on chemotherapy and immunotherapy (Opdivo) last dose approximately 1 month ago 4. 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 Left hemidiaphragmatic paresis Plan/VTE VTE Prophylaxis Ordered?: Yes Plan 1. Continue with broad-spectrum antibiotics for HAP and systemic corticosteroid for possible drug-induced pneumonitis. His respiratory status continues to remain stable. Activity I am not too convinced that he has drug-induced pneumonitis as 6 majority of the groundglass infiltrates are only affecting his right lung. But for now, will continue with abx until completion and make decision regarding systemic corticosteroid. 2. Work-up for opportunistic infection including sputum AFB and beta D glucan are currently pending. If he further deteriorates, will consider adding antifungal therapy. 3. Will further hold off bronchoscopy as his respiratory status is still on the borderline. Disposition Continue medical care VS, I&O, 24H, [facility] Vital Signs/I&O Vital Signs Date Time Temp Pulse Resp B/P (MAP) Pulse Ox O2 Delivery O2 Flow Rate FiO2 05/13/21 08:00 97.9 94 20 146/84 (104) 93 Nasal Cannula 8.0 05/11/21 16:00 100 I&O- Last 24 Hours up to 6 AM 05/13/21 06:00 Intake Total 290 ml Output Total 0 ml Balance 290 ml Laboratory Data 24H LABS Laboratory Tests 2 05/13/21 05:13: Immature Granulocyte % (Auto) 1.6, Neutrophils (%) (Auto) 86.5H, Lymphocytes (%) (Auto) 4.0L, Monocytes (%) (Auto) 7.8, Eosinophils (%) (Auto) 0.0, Basophils (%) (Auto) 0.1, Neutrophils # (Auto) 5.8, Lymphocytes # (Auto) 0.3L, Monocytes # (Auto) 0.5, Eosinophils # (Auto) 0.0, Basophils # (Auto) 0.0, Nucleated Red Blood Cells % (auto) 0.3H, Anion Gap 6L, Glomerular Filtration Rate > 60.0, Calcium Level 8.4L, Total Bilirubin 0.4, Aspartate Amino Transf (AST/SGOT) 24, Alanine Aminotransferase (ALT/SGPT) 24, Alkaline Phosphatase 133H, Total Protein 5.8L, Albumin 2.2L, Albumin/Globulin Ratio 0.6 CBC/BMP Laboratory Tests 05/13/21 05:13 Microbiology Microbiology 05/10/21 Gram Stain - Final, Complete 05/10/21 Sputum Culture - Final, Complete Yeast Like Organism 05/09/21 Blood Culture - Preliminary, Resulted No Growth after 72 hours. All specime... 05/08/21 Blood Culture - Final, Complete NO GROWTH AFTER 5 DAYS 05/07/21 Respiratory Virus Panel (PCR) (HEATHER) - Final, Complete 05/07/21 Urine Culture - Final, Complete 05/07/21 Blood Culture - Final, Complete NO GROWTH AFTER 5 DAYS RICH WILLS MD May 13, 2021 12:16
--- NOTE | 2021-05-13 12:58 | IPN ---
PROGRESS NOTE DATE: 05/12/2021 SUBJECTIVE: Mr. Lawson seems to be doing better today. He removed his BiPAP and was able to converse with me on 6 liters nasal cannula without desaturation. He states he has a cough mostly nonproductive and dry that is not very frequent. He is not able to expectorate any more sputum. Last white count was 5.5, hemoglobin 11.1, hematocrit 33.1, platelets 174. 89% neutrophils, 5% lymphocytes, 5% monocytes. Sodium 139, potassium 3.8, chloride 106, bicarb 26, BUN 19, creatinine 0.76, glucose 135. Lactic acid 1.7, calcium 9.1. Bilirubin 0.4, AST 20, ALT 18, alk phos 139, LDH 413. CRP 17.3. Troponin 0.28. BNP 1123. Total protein 6.4, albumin 2. Sputum culture had yeast-like organism. On the sputum was not available anymore to send it for Legionella cultures. 05/09 two sets of blood cultures were negative. were negative. 05/10 and 05/11 SARS-CoV-2 negative. Urine Legionella antigen pending and pneumococcal antigen is pending, beta-3 monoclonal antibody is pending. Procalcitonin has increased from 0.14 to 0.59. OBJECTIVE: HEART: Normal S1, S2, no murmurs. LUNGS: Few crackles at the right base, fair air entry. Left lung is clear. ABDOMEN: Soft, nontender, no organomegaly. EXTREMITIES: No cyanosis, clubbing or edema. No calf tenderness. Left arm swollen. ASSESSMENT: 1. Acute respiratory failure due to community-acquired pneumonia in the setting of chemotherapy, FOLFIRINOX for esophageal cancer. COVID-19 was negative x3. MRSA nares negative. he is on IV Zithromax to cover for atypical pathogens. Continue same antibiotics. The patient has improved. 2. Esophageal adenocarcinoma stage IV on chemotherapy, last dose was 04/19 with FOLFOX and immunotherapy. 3. Left jugular vein occlusive thrombus with occlusive thrombus of left upper extremity, central subclavian, cephalic and brachiocephalic vein. The patient on Lovenox 90 mg subcu twice daily. PLAN: Continue with IV Zosyn and Zithromax until results of urine antigens are available. Unlikely this is fungal. The patient has improved; it is most likely bacterial pneumonia, possible Legionnaire as well. MTDD
[2021-05-13] MEDS: FUROSEMIDE 40MG/4ML VIAL (J1940) IV SCH (13:01)
[2021-05-13 16:00] VITALS: BP 156/89
[2021-05-13 20:00] VITALS: BP 144/92
[2021-05-13] MEDS: allopurinoL 100 MG TAB PO SCH (20:12)
[2021-05-13] MEDS: ROSUVASTATIN 10 MG TAB (CRESTOR) PO SCH (20:13)
[2021-05-13] MEDS: ALPRAZolam 0.5 MG TAB PO PRN (20:21)
[2021-05-14] MEDS: LEVALBUTEROL 1.25 MG/0.5 ML CONCENTRATE NEB INH SCH ×7 (00:12→23:11)
[2021-05-14 03:58] VITALS: BP 156/95
[2021-05-14] MEDS: PIPERACILLIN/TAZOBACTAM SOD 3.375 GM in D5W MINI-BAG PLUS 50 ML IV SCH ×4 (05:15→21:10)
[2021-05-14 06:09] LABS: BASO % 0.3 % (0.0-1.0); HEMATOCRIT 32.5 % (42.0-52.0); LYMPH # 0.4 10^3/uL (1.5-5.0); LYMPH % 5.9 % (24.0-44.0); MEAN CORPUSCULAR HGB CONC 33.8 g/dl (32.0-36.5); MEAN CORPUSCULAR VOLUME 97.6 fl (80.0-96.0); MONO # 0.6 10^3/uL (0.0-0.8); MONO % 9.3 % (2.0-8.0); NEUTROPHILS # 5.2 10^3/uL (1.5-8.5); NEUTROPHILS % 81.7 % (36.0-66.0); PLATELET COUNT, AUTOMATED 216 10^3/uL (150-450); RED BLOOD COUNT 3.33 10^6/uL (4.30-6.10); WHITE BLOOD COUNT 6.3 10^3/uL (4.0-10.0)
[2021-05-14 06:31] LABS: ALBUMIN 2.3 GM/DL (3.2-5.2); ALT/SGPT 29 U/L (12-78); BILIRUBIN,TOTAL 0.4 MG/DL (0.2-1.0); BLOOD UREA NITROGEN 27 MG/DL (7-18); CALCIUM LEVEL 8.7 MG/DL (8.8-10.2); CARBON DIOXIDE LEVEL 29 MEQ/L (21-32); CHLORIDE LEVEL 106 MEQ/L (98-107); CREATININE FOR GFR 0.77 MG/DL (0.70-1.30); GLOMERULAR FILTRATION RATE > 60.0 (>49); GLUCOSE, FASTING 133 MG/DL (70-100); POTASSIUM SERUM 3.5 MEQ/L (3.5-5.1); SODIUM LEVEL 143 MEQ/L (136-145)
[2021-05-14] MEDS: methylPREDNISolone 125MG 2ML VIAL IV SCH (06:31)
[2021-05-14 08:00] VITALS: BP 126/84
[2021-05-14] MEDS: SUCRALFATE SUSP 1GM/10ML UD PO SCH ×4 (08:27→21:10)
[2021-05-14] MEDS: ENOXAPARIN 100MG/1ML SYRINGE (J1650 PER 10MG) SC SCH ×2 (08:28→21:10)
[2021-05-14] MEDS: LACTOBACILLUS ACIDOPHILUS CAP (BACID) PO SCH ×4 (08:28→21:10)
[2021-05-14] MEDS: PANTOPRAZOLE 40MG TAB (PROTONIX) PO SCH ×2 (08:28→21:11)
[2021-05-14] MEDS: AZITHROMYCIN INJ 500 MG, VIAL MATE ADAPTER 1 EACH in NS 250 ML IV SCH (08:29)
[2021-05-14] MEDS: FUROSEMIDE 40MG/4ML VIAL (J1940) IV SCH (08:29)
[2021-05-14] MEDS: guaiFENesin ER 600 MG TAB PO SCH ×2 (08:29→21:10)
[2021-05-14] MEDS: BUDESONIDE 0.25 MG/2 ML INHALATION SUSPENSION INH SCH ×2 (08:48→19:20)
--- NOTE | 2021-05-14 14:18 | IPNPDOC ---
Subjective Date Seen The patient was seen on 05/14/21. Subjective Chief Complaint/HPI Patient admits to experiencing better with his shortness of breath and dry cough. He denies of fever, chills, chest pain, orthopnea, PND. General: Denies: Chills Constitutional: Denies: Chills, Fever ENT: Denies: Head Aches Skin: Denies: Rash Pulmonary: Reports: Dyspnea, Cough Cardiovascular: Denies: Chest Pain, Palpitations, Orthopnea, Paroxysmal Noc. Dyspnea, Edema Gastrointestinal: Denies: Nausea, Vomiting, Abdominal Pain Neurological: Denies: Weakness Objective Physical Examination General Exam: Positive: Alert, Cooperative, No Acute Distress Eye Exam: Positive: PERRLA; Negative: Sclera icteric ENT Exam: Positive: Atraumatic Neck Exam: Positive: Supple; Negative: JVD Chest Exam: Positive: Rales (Coarse crackle most predominantly in the right lung field.), Diminished (Absent breath sounds of the left lower base) Heart Exam: Positive: Rate Normal, Tachycardic, Irregular Rhythm Telemetry: Positive: Atrial fibrillation Abdomen Exam: Positive: Normal bowel sounds, Soft; Negative: Tenderness Male Exam: Negative: Edema Extremity Exam: Negative: Clubbing, Edema Neuro Exam: Positive: Normal Speech, Strength at 5/5 X4 ext Psych Exam: Positive: Mental status NL Assessment /Plan Assessment This is a 70-year-old gentleman with past medical history of stage IV adenocarcinoma of the esophagus status post FOLFOX chemotherapy 1 month ago and currently on immunotherapy with Opdivo admitted to the hospital for hypoxic respiratory failure. 1. Acute hypoxic respiratory failure secondary to community-acquired pneumonia in the setting of chronic immunosuppression. Differential includes infectious in particular opportunistic infection versus drug-induced pneumonitis from immunotherapy however this is a diagnosis of exclusion. Covid swab is negative x3. 2. Sepsis present on admission 3. History of esophageal adenocarcinoma stage IV on chemotherapy and immunotherapy (Opdivo) last dose approximately 1 month ago 4. 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 Left hemidiaphragmatic paresis Plan/VTE VTE Prophylaxis Ordered?: Yes Plan -Continue empiric antibiotic for healthcare associated pneumonia. -I am not strongly convinced that this is drug-induced pneumonitis given unilateral infiltrate (right lung) or radiographic imaging. The issue with keeping him on systemic corticosteroid is complicating his clinical picture as it is making me difficult to differentiate his underlying hypoxic respiratory failure from pneumonia/infectious process versus drug induced pneumonitis. Also , if we are committed to keeping him on systemic corticosteroid and attributed his hypoxic respite failure to drug-induced pneumonitis, we are limiting his option to restart him on immunotherapy for his esophageal cancer. Therefore I recommend holding on systemic corticosteroid and following his clinical course with antibiotics only. If his respiratory status deteriorate or worsen, will consider restarting him back on systemic corticosteroid. Disposition Continue hospital care. VS, I&O, 24H, [facility]bone Vital Signs/I&O Vital Signs Date Time Temp Pulse Resp B/P (MAP) Pulse Ox O2 Delivery O2 Flow Rate FiO2 05/14/21 14:00 94 High Flow Cannula 5.0 05/14/21 08:00 97.4 86 20 126/84 (98) 05/11/21 16:00 100 I&O- Last 24 Hours up to 6 AM 05/14/21 06:00 Intake Total 730 ml Output Total 400 ml Balance 330 ml Laboratory Data 24H LABS Laboratory Tests 2 05/14/21 05:29: Immature Granulocyte % (Auto) 2.8, Neutrophils (%) (Auto) 81.7H, Lymphocytes (%) (Auto) 5.9L, Monocytes (%) (Auto) 9.3H, Eosinophils (%) (Auto) 0.0, Basophils (%) (Auto) 0.3, Neutrophils # (Auto) 5.2, Lymphocytes # (Auto) 0.4L, Monocytes # (Auto) 0.6, Eosinophils # (Auto) 0.0, Basophils # (Auto) 0.0, Nucleated Red Blood Cells % (auto) 0.5H, Anion Gap 8, Glomerular Filtration Rate > 60.0, Calcium Level 8.7L, Total Bilirubin 0.4, Aspartate Amino Transf (AST/SGOT) 27, Alanine Aminotransferase (ALT/SGPT) 29, Alkaline Phosphatase 118H, Total Protein 6.0L, Albumin 2.3L, Albumin/Globulin Ratio 0.6 CBC/BMP Laboratory Tests 05/14/21 05:29 Microbiology Microbiology 05/10/21 Gram Stain - Final, Complete 05/10/21 Sputum Culture - Final, Complete Yeast Like Organism 05/09/21 Blood Culture - Preliminary, Resulted No Growth after 72 hours. All specime... 05/08/21 Blood Culture - Final, Complete NO GROWTH AFTER 5 DAYS 05/07/21 Respiratory Virus Panel (PCR) (HEATHER) - Final, Complete 05/07/21 Urine Culture - Final, Complete 05/07/21 Blood Culture - Final, Complete NO GROWTH AFTER 5 DAYS RICH WILLS MD May 14, 2021 14:17
[2021-05-14 14:42] VITALS: BP 137/80
--- NOTE | 2021-05-14 14:58 | IPNPDOC ---
Date Seen The patient was seen on 05/14/21. Progress Note SUBJECTIVE: Decreased O2 demand further over 24 hours, currently 93% on 5 L NC. Stopping steroids. Denies chest pain, n/v/d, abdominal pain. OBJECTIVE: VITAL SIGNS: Please see below GENERAL: Patient is awake, alert and oriented, anxious , mildly distressed LUNGS: decreased in b/l lung mcclellan, crackles in right lower, middle lung present . no rhonchi or wheezing HEART: S1 and S2 sinus. ABDOMEN: Soft, nontender and nondistended. EXTREMITIES: improved left upper arm redness with induration from AC site up toward bicep. Still L arm larger than right .No clubbing or pitting edema. Neuro: No focal deficits LABORATORY DATA: Please see below MICROBIOLOGY: Sputum GS: QUALITY: GOOD MODERATE EPITHELIAL CELLS MODERATE WBCS MANY GRAM POSITIVE COCCI IN PAIRS, CHAINS AND CLUSTERS MANY GRAM NEGATIVE RODS FEW GRAM POSITIVE RODS FEW YEAST LIKE ORGANISM Sputum Cx: yeast like organism BCx: NG UA neg COVID test x 3- neg C. diff: neg Fungal studies, strep pneumoniae, legionella pending IMAGING STUDIES: CXR 05/12/21: Extensive pneumonia throughout the right lung essentially unchanged from the study done earlier today. Platelike atelectasis in the left base is also again noted. No new infiltrate seen. Echo 05/12/21: pending results ASSESSMENT AND PLAN: This is a 70-year-old with GE junction Stage IV cancer on chemotherapy admitted for bilateral pneumonia with increased infiltrates in the right middle and lower lobe, worsening and sent to ICU for further management. IMPRESSION: #Acute hypoxic respiratory failure likely 2/2 to pneumonia in the setting of chronic immunosuppression due to Stage IV esophageal cancer, undergoing chemotherapy. Cannot r/o opportunistic infections or autoimmune/drug pneumonitis per heme/onc due to being on nivolumab and component of fluid 2/2 to RHS . -Improving steadily, currently on 5 L NC and comfortable -Last imaging above -Procalcitonin elevated -Tx has consisted of: ceftriaxone and doxycycline, switched to zosyn and shayla thromycin 05/10/21 for broader coverage, Received several doses vancomycin IV ;however, neg MRSA -Please refer to pulmonary note. Decision was made to stop steroids and see if patient continues to improve. If does, then likely NOT autoimmune or drug pneumonitis. -C/w azithromycin , zosyn, Bipap PRN, Levalbuterol ATC, PRN, lasix -F/u LDH, galactomannan, fungal, legionella studies -Infectious disease, pulmonary following. Since patient has improved empiric tx, even though we do not have cultures, bronchoscopy unlikely unless he should worsen. 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 Has not been on therapeutic treatment as o/p -Per heme he was supposed to be on it daily but only took it for two weeks -lovenox BID 05/11/21 #Elevated troponin 2/2 sepsis -No hx of CHF, CAD -BNP 1100, trop elevated since admission -Discussed with Dr. 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 -Currently, undergoing FOLFOX with Nivolumab every two weeks. -Dr. Marin hematology/oncology-tb with him early this week to update #GERD -C/w PPI, Carafate #Dyslipidemia #Chronic anxiety #DVT px -Lovenox BID RESOL #Sepsis DISPOSITION: Pulmonary and ID. Goal is home when medically improved. VS, I&O, 24H, Fishbone Vital Signs/I&O Vital Signs Date Time Temp Pulse Resp B/P (MAP) Pulse Ox O2 Delivery O2 Flow Rate FiO2 05/14/21 14:00 94 High Flow Cannula 5.0 05/14/21 08:00 97.4 86 20 126/84 (98) 05/11/21 16:00 100 I&O- Last 24 Hours up to 6 AM 05/14/21 06:00 Intake Total 730 ml Output Total 400 ml Balance 330 ml Laboratory Data 24H LABS Laboratory Tests 2 05/14/21 05:29: Immature Granulocyte % (Auto) 2.8, Neutrophils (%) (Auto) 81.7H, Lymphocytes (%) (Auto) 5.9L, Monocytes (%) (Auto) 9.3H, Eosinophils (%) (Auto) 0.0, Basophils (%) (Auto) 0.3, Neutrophils # (Auto) 5.2, Lymphocytes # (Auto) 0.4L, Monocytes # (Auto) 0.6, Eosinophils # (Auto) 0.0, Basophils # (Auto) 0.0, Nucleated Red Blood Cells % (auto) 0.5H, Anion Gap 8, Glomerular Filtration Rate > 60.0, Calcium Level 8.7L, Total Bilirubin 0.4, Aspartate Amino Transf (AST/SGOT) 27, Alanine Aminotransferase (ALT/SGPT) 29, Alkaline Phosphatase 118H, Total Protein 6.0L, Albumin 2.3L, Albumin/Globulin Ratio 0.6 CBC/BMP Laboratory Tests 05/14/21 05:29 Microbiology Microbiology 05/10/21 Gram Stain - Final, Complete 05/10/21 Sputum Culture - Final, Complete Yeast Like Organism 05/09/21 Blood Culture - Preliminary, Resulted No Growth after 72 hours. All specime... 05/08/21 Blood Culture - Final, Complete NO GROWTH AFTER 5 DAYS 05/07/21 Respiratory Virus Panel (PCR) (HEATHER) - Final, Complete 05/07/21 Urine Culture - Final, Complete 05/07/21 Blood Culture - Final, Complete NO GROWTH AFTER 5 DAYS Aishwarya Oro MD May 14, 2021 14:58
[2021-05-14 20:52] VITALS: BP 114/76
[2021-05-14] MEDS: ALPRAZolam 0.5 MG TAB PO PRN (21:10)
[2021-05-14] MEDS: ROSUVASTATIN 10 MG TAB (CRESTOR) PO SCH (21:11)
[2021-05-14] MEDS: allopurinoL 100 MG TAB PO SCH (21:11)
[2021-05-15] MEDS: LEVALBUTEROL 1.25 MG/0.5 ML CONCENTRATE NEB INH SCH ×5 (03:02→19:29)
[2021-05-15] MEDS: PIPERACILLIN/TAZOBACTAM SOD 3.375 GM in D5W MINI-BAG PLUS 50 ML IV SCH ×4 (04:00→21:30)
[2021-05-15 06:00] VITALS: BP 111/69
[2021-05-15 06:27] LABS: HEMATOCRIT 33.7 % (42.0-52.0); HEMOGLOBIN 11.3 g/dl (13.5-17.5); MEAN CORPUSCULAR HEMOGLOBIN 33.1 pg (27.0-33.0); MEAN CORPUSCULAR HGB CONC 33.5 g/dl (32.0-36.5); MEAN CORPUSCULAR VOLUME 98.8 fl (80.0-96.0); PLATELET COUNT, AUTOMATED 203 10^3/uL (150-450); RED BLOOD COUNT 3.41 10^6/uL (4.30-6.10); WHITE BLOOD COUNT 6.4 10^3/uL (4.0-10.0)
[2021-05-15 06:51] LABS: ALBUMIN 2.2 GM/DL (3.2-5.2); ALT/SGPT 32 U/L (12-78); BILIRUBIN,TOTAL 0.4 MG/DL (0.2-1.0); BLOOD UREA NITROGEN 25 MG/DL (7-18); CALCIUM LEVEL 8.3 MG/DL (8.8-10.2); CARBON DIOXIDE LEVEL 32 MEQ/L (21-32); CHLORIDE LEVEL 105 MEQ/L (98-107); CREATININE FOR GFR 0.84 MG/DL (0.70-1.30); GLOMERULAR FILTRATION RATE > 60.0 (>49); GLUCOSE, FASTING 79 MG/DL (70-100); SODIUM LEVEL 144 MEQ/L (136-145); TOTAL PROTEIN 5.4 GM/DL (6.4-8.2)
[2021-05-15] MEDS: BUDESONIDE 0.25 MG/2 ML INHALATION SUSPENSION INH SCH ×2 (07:14→19:29)
[2021-05-15] MEDS ORDERED: POTASSIUM CHLORIDE 10MEQ SR TABLET PO ONE ×2 (08:30→10:30)
[2021-05-15] MEDS: AZITHROMYCIN INJ 500 MG, VIAL MATE ADAPTER 1 EACH in NS 250 ML IV SCH (08:53)
[2021-05-15] MEDS: PANTOPRAZOLE 40MG TAB (PROTONIX) PO SCH ×2 (08:54→20:48)
[2021-05-15] MEDS: SUCRALFATE SUSP 1GM/10ML UD PO SCH ×4 (08:54→20:47)
[2021-05-15] MEDS: LACTOBACILLUS ACIDOPHILUS CAP (BACID) PO SCH ×4 (08:54→20:48)
[2021-05-15] MEDS: guaiFENesin ER 600 MG TAB PO SCH ×2 (08:54→20:48)
[2021-05-15] MEDS: FUROSEMIDE 40MG/4ML VIAL (J1940) IV SCH (08:55)
[2021-05-15] MEDS: ENOXAPARIN 100MG/1ML SYRINGE (J1650 PER 10MG) SC SCH ×2 (08:55→20:48)
[2021-05-15 14:00] VITALS: BP 119/73
--- NOTE | 2021-05-15 18:13 | IPNPDOC ---
Date Seen The patient was seen on 05/15/21. Progress Note SUBJECTIVE: Remains on 5 L NC, no increased SOB, chest pain, n/v/d, abdominal pain. OBJECTIVE: VITAL SIGNS: Please see below GENERAL: Patient is awake, alert and oriented x3, comfortable in bed LUNGS: improved aeration of right lung, no rhonchi or wheezing HEART: S1 and S2 sinus. ABDOMEN: Soft, nontender and nondistended. EXTREMITIES: L arm larger than right .No clubbing or pitting edema. Neuro: No focal deficits LABORATORY DATA: Please see below MICROBIOLOGY: Sputum GS: QUALITY: GOOD MODERATE EPITHELIAL CELLS MODERATE WBCS MANY GRAM POSITIVE COCCI IN PAIRS, CHAINS AND CLUSTERS MANY GRAM NEGATIVE RODS FEW GRAM POSITIVE RODS FEW YEAST LIKE ORGANISM Sputum Cx: yeast like organism BCx: NG UA neg COVID test x 3- neg C. diff: neg Fungal studies, strep pneumoniae, legionella pending IMAGING STUDIES: CXR 05/12/21: Extensive pneumonia throughout the right lung essentially unchanged from the study done earlier today. Platelike atelectasis in the left base is also again noted. No new infiltrate seen. Echo 05/12/21: pending results ASSESSMENT AND PLAN: This is a 70-year-old with GE junction Stage IV cancer on chemotherapy admitted for bilateral pneumonia with increased infiltrates in the right middle and lower lobe, worsening and sent to ICU for further management. IMPRESSION: #Acute hypoxic respiratory failure likely 2/2 to pneumonia in the setting of chronic immunosuppression due to Stage IV esophageal cancer, undergoing chemotherapy. Cannot r/o opportunistic infections or autoimmune/drug pneumonitis per heme/onc due to being on nivolumab and component of fluid 2/2 to RHS . -Improving steadily, currently on 5 L NC and comfortable -Last imaging above -Procalcitonin elevated -Tx has consisted of: ceftriaxone and doxycycline, switched to zosyn and azithromycin 05/10/21 for broader coverage, Received several doses vancomycin IV ;however, neg MRSA -Please refer to pulmonary note. Decision was made to stop steroids on 05/13/21 and see if patient continues to improve. If does, then likely NOT autoimmune or drug pneumonitis. -C/w azithromycin , zosyn, Bipap PRN, Levalbuterol ATC, PRN, lasix -F/u LDH, galactomannan, fungal, legionella studies -Infectious disease, pulmonary following. Since patient has improved empiric tx, even though we do not have cultures, bronchoscopy unlikely unless he should worsen. 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 Has not been on therapeutic treatment as o/p -Per heme he was supposed to be on it daily but only took it for two weeks -lovenox BID currently and will need to be d/c with AC #Elevated troponin 2/2 sepsis -No hx of CHF, CAD -BNP 1100, trop elevated since admission -Discussed with Dr. 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 -Currently, undergoing FOLFOX with Nivolumab every two weeks. -Dr. Marin hematology/oncology-tb with him early this week to update #GERD -C/w PPI, Carafate #Dyslipidemia #Chronic anxiety #DVT px -Lovenox BID RESOL #Sepsis DISPOSITION: Pulmonary and ID consulted . Goal is home when medically improved. VS, I&O, 24H, Fishbone Vital Signs/I&O Vital Signs Date Time Temp Pulse Resp B/P (MAP) Pulse Ox O2 Delivery O2 Flow Rate FiO2 05/15/21 14:00 97.4 87 17 119/73 (88) 88 High Flow Cannula 5.0 05/11/21 16:00 100 I&O- Last 24 Hours up to 6 AM 05/15/21 06:00 Intake Total 1230 ml Output Total 200 ml Balance 1030 ml Laboratory Data 24H LABS Laboratory Tests 2 05/15/21 05:48: Nucleated Red Blood Cells % (auto) 0.6H, Anion Gap 7L, Glomerular Filtration Rate > 60.0, Calcium Level 8.3L, Total Bilirubin 0.4, Aspartate Amino Transf (AST/SGOT) 29, Alanine Aminotransferase (ALT/SGPT) 32, Alkaline Phosphatase 105, Total Protein 5.4L, Albumin 2.2L, Albumin/Globulin Ratio 0.7 CBC/BMP Laboratory Tests 05/15/21 05:48 Microbiology Microbiology 05/10/21 Gram Stain - Final, Complete 05/10/21 Sputum Culture - Final, Complete Yeast Like Organism 05/09/21 Blood Culture - Final, Complete NO GROWTH AFTER 5 DAYS 05/08/21 Blood Culture - Final, Complete NO GROWTH AFTER 5 DAYS 05/07/21 Respiratory Virus Panel (PCR) (HEATHER) - Final, Complete 05/07/21 Urine Culture - Final, Complete 05/07/21 Blood Culture - Final, Complete NO GROWTH AFTER 5 DAYS Aishwarya Oro MD May 15, 2021 18:13
[2021-05-15] MEDS: allopurinoL 100 MG TAB PO SCH (20:48)
[2021-05-15] MEDS: ROSUVASTATIN 10 MG TAB (CRESTOR) PO SCH (20:49)
[2021-05-15 21:07] VITALS: BP 116/78
[2021-05-16] MEDS: LEVALBUTEROL 1.25 MG/0.5 ML CONCENTRATE NEB INH SCH ×6 (04:00→20:05)
[2021-05-16] MEDS: LevoFLOXacin 750 MG TABLET PO SCH (05:08)
[2021-05-16 06:00] VITALS: BP 121/71
[2021-05-16 06:32] LABS: HEMATOCRIT 36.7 % (42.0-52.0); HEMOGLOBIN 12.1 g/dl (13.5-17.5); PLATELET COUNT, AUTOMATED 225 10^3/uL (150-450); RED BLOOD COUNT 3.67 10^6/uL (4.30-6.10); WHITE BLOOD COUNT 6.4 10^3/uL (4.0-10.0)
[2021-05-16 07:05] LABS: ALBUMIN 2.4 GM/DL (3.2-5.2); ALT/SGPT 35 U/L (12-78); BILIRUBIN,TOTAL 0.5 MG/DL (0.2-1.0); BLOOD UREA NITROGEN 21 MG/DL (7-18); CALCIUM LEVEL 8.8 MG/DL (8.8-10.2); CARBON DIOXIDE LEVEL 31 MEQ/L (21-32); CHLORIDE LEVEL 104 MEQ/L (98-107); GLOMERULAR FILTRATION RATE > 60.0 (>49); GLUCOSE, FASTING 80 MG/DL (70-100); POTASSIUM SERUM 3.4 MEQ/L (3.5-5.1); SODIUM LEVEL 141 MEQ/L (136-145); TOTAL PROTEIN 5.9 GM/DL (6.4-8.2)
[2021-05-16] MEDS: BUDESONIDE 0.25 MG/2 ML INHALATION SUSPENSION INH SCH ×2 (08:04→20:06)
[2021-05-16] MEDS: ENOXAPARIN 100MG/1ML SYRINGE (J1650 PER 10MG) SC SCH ×2 (08:26→20:27)
[2021-05-16] MEDS: LACTOBACILLUS ACIDOPHILUS CAP (BACID) PO SCH ×4 (08:26→20:27)
[2021-05-16] MEDS: guaiFENesin ER 600 MG TAB PO SCH ×2 (08:26→20:27)
[2021-05-16] MEDS: PANTOPRAZOLE 40MG TAB (PROTONIX) PO SCH ×2 (08:26→20:27)
[2021-05-16] MEDS: SUCRALFATE SUSP 1GM/10ML UD PO SCH ×4 (08:26→20:26)
[2021-05-16] MEDS: FUROSEMIDE 40MG/4ML VIAL (J1940) IV SCH (08:26)
--- NOTE | 2021-05-16 10:38 | IPN ---
PROGRESS NOTE DATE: 05/15/2021 SUBJECTIVE: Mr. Lawson is doing fairly well. He is on 5 liters of oxygen, saturating at about 90-92% at rest, but he states that whenever he gets up to walk around in the home, he desaturates to 84%. His cough has improved. He has some shortness of breath with exertion. No chest pain. No nausea, vomiting, diarrhea or abdominal pain. He had some questions about his left upper extremity thrombus and did not realize that it was related to his subclavian thrombosis as well. He is concerned about his chemotherapy and the pain he gets whenever he gets infusions through his [id number]. The [id number] was placed in [place]. The patient is currently on his tenth cycle of chemotherapy out of twelve. PHYSICAL EXAMINATION: GENERAL: Healthy looking, pleasant gentleman on 5 liters oxygen, in no acute distress. VITAL SIGNS: Temperature 98.4, pulse 97, respirations 21, blood pressure 116/78, O2 sat 96% on 6 liters nasal cannula. HEART: Normal S1, S2. No murmurs, rubs or gallops. LUNGS: Decreased breath sounds at the right base. No crackles or wheezes. ABDOMEN: Soft, nontender. No hepatosplenomegaly. BACK: No CVA tenderness. EXTREMITIES: No edema. LABORATORY DATA: White count 6.4, hemoglobin 11.3, hematocrit 33.7, platelets 203,000. Sodium 144, potassium 3, chloride 105, bicarb 32, BUN 25, creatinine 0.84, glucose 79. Calcium 8.3, bilirubin 0.4, AST 29, ALT 32, alkaline phosphatase 105, total protein 5.4, albumin 2.2. Urine Legionaire antigen is still pending. Urine pneumococcal antigen was negative. There was some problem with [facility], they lost the specimen and they did not run a Legionaire antigen. Sputum culture had yeast like organism. IMPRESSION: 1. Extensive right lobe pneumonia: Patient has been on I.V. Zosyn and Zithromax; currently day #6. He will be switched to p.o. Levofloxacin 750 mg p.o. daily that should cover for community-acquired pneumonia and atypical pathogens. 2. History of esophageal carcinoma: Chemotherapy on hold; the last chemotherapy was 04/19 and the patient is going to [facility] for a second opinion. 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 PLAN: Discontinue I.V. Zosyn and Zithromax. Start Levofloxacin 750 mg p.o. daily for five days. Urine Legionaire antigen will be sent again. Beta-D Glucan is still pending. MRSA screen was negative. Aspergillus Glucomannan is negative as well, but my suspicion of fungal pneumonia is very unlikely.
--- NOTE | 2021-05-16 10:48 | IPNPDOC ---
Text Note Date of Service The patient was seen on 05/16/21. 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 Patient was seen at bedside in no acute distress. States that he is feeling better and he feels less short of breath. Still having lack of appetite as he has a metallic taste in his mouth. Has no acute complaints or events overnight. REVIEW OF SYSTEMS: CONSTITUTIONAL: denies fever, chills, night sweats HEENT: denies headaches RESPIRATORY: denies increased shortness of breath CARDIOVASCULAR: denies chest pain, palpations GASTROINTESTINAL: denies n/v/d, abdominal pain, constipation GENITOURINARY: denies burning with urination MUSCULOSKELETAL: denies myalgias SKIN: denies new skin lesions OBJECTIVE PHYSICAL EXAMINATION: VITAL SIGNS: Please see below. GENERAL: in no acute distress on 6L NC HEENT: PERRLA, EOMI, mucous membranes moist CARDIOVASCULAR: regular rate and rhythm; S1 S2; no murmur, rubs or gallops noted RESPIRATORY: crackles heard in the Right lung field; improved from previous ABDOMINAL: normal active bowel sounds; soft, nondistended, no tenderness with palpation EXTREMITIES: no pitting edema bilaterally; +2 doralis pedis palpated NEUROLOGICAL: Cranial nerves II through XII grossly intact; no focal neurologic deficits noted LABORATORY DATA, IMAGING STUDIES, MICROBIOLOGY: Please see below. 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 1. Acute hypoxic respiratory failure 2/2 to CAP in setting of chronic immunosu ppression. Differential includes infectious etiologies (possible opportunistic) vs drug-induced pneumonitis from immunotherapy. Covid swab x3 is negative 2. Sepsis present on admission 3. History of esophageal adenocarcinoma stage IV on chemotherapy and immunotherapy (Opdivo) last dose approximately 1 month ago 4. 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 -Continue with discontinuing steroids as this can potentially complicate the differentiating between his underlying hypoxic respiratory failure from possible infectious process versus drug induced pneumonitis VS,Fishbone, I+O VS, Fishbone, I+O Laboratory Tests 05/16/21 06:11 Vital Signs Date Time Temp Pulse Resp B/P (MAP) Pulse Ox O2 Delivery O2 Flow Rate FiO2 05/16/21 08:22 6.0 05/16/21 06:00 97.8 84 20 121/71 (88) 93 High Flow Cannula 05/11/21 16:00 100 I&O- Last 24 Hours up to 6 AM 05/16/21 06:00 Intake Total 440 ml Balance 440 ml GME ATTESTATION GME ATTESTATION My faculty preceptor for this patient encounter was physically present during the encounter and was fully available. All aspects of the patient interview, examination, medical decision making process, and medical care plan development were reviewed and approved by the faculty preceptor. The faculty preceptor is aware and concurs with the plan as stated in the body of this note and will attest to such by his/her cosignature. ATTENDING NOTE Patient is 70-year-old gentleman with a history of stage IV esophageal cancer who received FOLFOX chemotherapy 1 month ago and was maintained on Opdivo immunotherapy admitted to the hospital with hypoxic respiratory failure requiring supplemental oxygen. He was previously being treated with empiric antibiotic and systemic corticosteroid for possible drug-induced pneumonitis. However, radiographic pattern showed significant groundglass infiltrate only in the right lung field. Therefore, drug-induced pneumonitis is less likely in the differential. Systemic corticosteroid has been discontinued since 05/14/2021. We will continue with broad-spectrum antibiotic and may consider repeating CT scan of the chest in several days. Pamela Ha DO May 16, 2021 10:48 RICH WILLS MD May 16, 2021 11:02
[2021-05-16 14:00] VITALS: BP 111/70
--- NOTE | 2021-05-16 16:06 | IPNPDOC ---
Text Note Date of Service The patient was seen on 05/16/21. NOTE SUBJECTIVE: -On 6L HFNC -No chest pain, n/v/d, abdominal pain. OBJECTIVE: VITAL SIGNS: Please see below GENERAL: Patient is awake, alert and oriented x3, comfortable in bed LUNGS: R posterior field with wet crackles, L clear, otherwise moving air without wheezing of upper airway transmitted sounds HEART: RRR, no m/r/g ABDOMEN: Soft, nontender and nondistended. EXTREMITIES: L arm larger than right per recent baseline. No clubbing or pitting lowe extremities edema. Neuro: No focal deficits LABORATORY DATA: Reviewed MICROBIOLOGY: Sputum GS: QUALITY: GOOD MODERATE EPITHELIAL CELLS MODERATE WBCS MANY GRAM POSITIVE COCCI IN PAIRS, CHAINS AND CLUSTERS MANY GRAM NEGATIVE RODS FEW GRAM POSITIVE RODS FEW YEAST LIKE ORGANISM Sputum Cx: yeast like organism BCx: NG UA neg COVID test x 3- neg C. diff: neg Fungal studies, strep pneumoniae, legionella pending IMAGING STUDIES: CXR 05/12/21: Extensive pneumonia throughout the right lung essentially unchanged from the study done earlier today. Platelike atelectasis in the left base is also again noted. No new infiltrate seen. Echo 05/12/21: MEASUREMENTS: IVS 0.9 cm LV 5.3 cm LVPW 0.8 cm LA 4.3 cm Aorta 3.5 cm Mitral E wave velocity 63 A wave 81 E prime septal 7.5 E prime lateral 9.8 Left atrial volume index 27 FINDINGS: This study is of very limited technical quality. Underlying sinus rhythm. Left ventricle is of normal size. There is probably normal or near-normal left ventricular (LV) systolic function based on very limited views. Right ventricle was poorly seen. Left atrium appears normal. Right atrium appears grossly normal based on limited views. There is minimal aortic sclerosis. There is also mild degenerative abnormalities of mitral valve. Right-sided heart valves were very poorly seen. No pericardial effusion is noted. Inferior vena cava was not visualized. Aortic root, ascending aorta, aortic arch and abdominal aorta appear grossly normal. Doppler interrogation reveals trivial aortic insufficiency, no aortic stenosis. There are competent mitral and tricuspid valves. Mitral inflow pattern and tissue Doppler imaging of mitral annulus reveals grade 1 diastolic dysfunction. CONCLUSIONS: 1. Study is of very limited technical quality. Underlying sinus rhythm. 2. Normal left ventricular (LV) size with normal or near-normal LV systolic function based on limited views. Grade 1 diastolic dysfunction. 3. No significant valvular disease. 4. Unable to estimate central venous pressure and pulmonary artery pressure. ASSESSMENT: 70-year-old M with a GE junction Stage IV cancer on FOLFOX and nivolumab who was admitted for R>>L sided pneumonia with acute hypoxemic respiratory failure and course was c/b LUE DVT. IMPRESSION: #Acute hypoxic respiratory failure likely 2/2 to pneumonia i/s/o Stage IV GE junction cancer, on FOLFOX and nivolumab -Likely bacterial PNA vs. opportunistic infection vs. unlikely immunotherapy induced pneumonitis given asymmetrical imaging findings -imaging above -Procalcitonin elevated -neg MRSA -Please refer to pulmonary note. Decision was made to stop steroids on 05/13/21 and see if patient continues to improve. If does, then likely NOT autoimmune or drug pneumonitis. -C/w levaquin -Levalbuterol ATC, PRN -lasix -Infectious disease, pulmonary following. 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 Has not been on therapeutic treatment as o/p -Per heme he was supposed to be on it daily but only took it for two weeks -lovenox BID currently and will need to be d/c with AC, with plan for NoAC when pulm plan is clear and clear of potential bronch etc #Elevated troponin 2/2 sepsis -No hx of CHF, CAD -BNP 1100, trop elevated since admission -Discussed with Dr. 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 -Currently, undergoing FOLFOX with Nivolumab every two weeks. -Dr. Mrain hematology/oncology-tb with him early this week to update #GERD -C/w PPI, Carafate #Dyslipidemia #Chronic anxiety #DVT px -Lovenox BID RESOL #Sepsis DISPOSITION: Pulmonary and ID consulted . Goal is home when medically improved. VS,Fishbone, I+O VS, Fishbone, I+O Laboratory Tests 05/16/21 06:11 Vital Signs Date Time Temp Pulse Resp B/P (MAP) Pulse Ox O2 Delivery O2 Flow Rate FiO2 05/16/21 14:00 98.1 96 24 111/70 (84) 93 High Flow Cannula 6.0 05/11/21 16:00 100 I&O- Last 24 Hours up to 6 AM 05/16/21 05:59 Intake Total 290 ml Balance 290 ml MAITE ARANA MD May 16, 2021 16:06
[2021-05-16] MEDS: allopurinoL 100 MG TAB PO SCH (20:27)
[2021-05-16] MEDS: ROSUVASTATIN 10 MG TAB (CRESTOR) PO SCH (20:28)
[2021-05-16 22:00] VITALS: BP 106/68
[2021-05-17] MEDS: LEVALBUTEROL 1.25 MG/0.5 ML CONCENTRATE NEB INH SCH ×6 (00:21→21:29)
[2021-05-17] MEDS: LevoFLOXacin 750 MG TABLET PO SCH (05:57)
[2021-05-17 06:00] VITALS: BP 107/69
[2021-05-17] MEDS: BUDESONIDE 0.25 MG/2 ML INHALATION SUSPENSION INH SCH ×2 (06:08→21:29)
[2021-05-17 06:21] LABS: HEMATOCRIT 37.4 % (42.0-52.0); HEMOGLOBIN 12.3 g/dl (13.5-17.5); MEAN CORPUSCULAR HEMOGLOBIN 33.2 pg (27.0-33.0); MEAN CORPUSCULAR HGB CONC 32.9 g/dl (32.0-36.5); MEAN CORPUSCULAR VOLUME 100.8 fl (80.0-96.0); PLATELET COUNT, AUTOMATED 196 10^3/uL (150-450); RED BLOOD COUNT 3.71 10^6/uL (4.30-6.10); WHITE BLOOD COUNT 5.9 10^3/uL (4.0-10.0)
--- NOTE | 2021-05-17 08:15 | IPN ---
PROGRESS NOTE DATE: 05/16/2021 SUBJECTIVE: The patient was seen and examined this afternoon at bedside. He is sitting up and appears comfortable without any respiratory distress. However, upon speaking with me he reports shortness of breath and lightheadedness developing after about 4-5 sentences. He also reports shortness of breath with exertion when he gets up and walks to the bathroom. He denies chest pain, nausea, vomiting, diarrhea or abdominal pain. No fevers or chills. He is asking about when he will be able to go home and how long it will take for him to improve. We discussed the improvement he has made so far and that hopefully when his oxygen requirements decrease he will be able to go home with lower level of supplemental oxygen. OBJECTIVE: VITAL SIGNS: Temperature 98.1degrees Fahrenheit oral, heart rate 96, respiratory rate 24, blood pressure 111/70, satting 93% on 6 liters via high flow nasal cannula. GENERAL: The patient appears comfortable sitting up in bed in no acute distress. HEENT: Normocephalic, atraumatic. Mucous membranes moist. HEART: Regular rate and rhythm, normal S1, S2. No murmurs appreciated. LUNGS: There is diffuse wheezing throughout the right lung. There are no rhonchi or rales appreciated. The left lung mcclellan are clear. ABDOMEN: Soft, nontender, non-distended, bowel sounds present. EXTREMITIES: No edema. Pulses 2+/4 in bilateral dorsalis pedis arteries. LABORATORY DATA: White blood cell count 6.4, hemoglobin 12.1, hematocrit 36.7, platelet count 225. ASSESSMENT/PLAN: 70-year-old male who was admitted with right lung extensive pneumonia, status post IV Zosyn and IV Zithromax. He had been switched yesterday to oral Levaquin 750 mg daily and is on day one of five today. He received six days total of IV antibiotics. The urine Legionnaire antigen is still pending after it had been resent yesterday. Beta1 3D Glucan level and Aspergillus testing remain pending as well, but suspicion for fungal infection remains low. [facility]
[2021-05-17] MEDS: FUROSEMIDE 40MG/4ML VIAL (J1940) IV SCH (09:00)
[2021-05-17] MEDS: LACTOBACILLUS ACIDOPHILUS CAP (BACID) PO SCH ×4 (09:21→21:28)
[2021-05-17] MEDS: SUCRALFATE SUSP 1GM/10ML UD PO SCH ×4 (09:21→21:28)
[2021-05-17] MEDS: guaiFENesin ER 600 MG TAB PO SCH ×2 (09:21→21:28)
[2021-05-17] MEDS: ENOXAPARIN 100MG/1ML SYRINGE (J1650 PER 10MG) SC SCH ×2 (09:21→21:29)
[2021-05-17] MEDS: PANTOPRAZOLE 40MG TAB (PROTONIX) PO SCH ×2 (09:21→21:28)
--- NOTE | 2021-05-17 11:30 | IPNPDOC ---
Text Note Date of Service The patient was seen on 05/17/21. 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 Patient was seen at bedside in no acute distress. States today that he is feeling less short of breath. Still having lack of appetite as he has a metallic taste in his mouth. Has no acute complaints or events overnight. REVIEW OF SYSTEMS: CONSTITUTIONAL: denies fever, chills, night sweats HEENT: denies headaches RESPIRATORY: denies increased shortness of breath CARDIOVASCULAR: denies chest pain, palpations GASTROINTESTINAL: denies n/v/d, abdominal pain, constipation GENITOURINARY: denies burning with urination MUSCULOSKELETAL: denies myalgias SKIN: denies new skin lesions OBJECTIVE PHYSICAL EXAMINATION: VITAL SIGNS: Please see below. GENERAL: in no acute distress on 6L NC HEENT: PERRLA, EOMI, mucous membranes moist CARDIOVASCULAR: regular rate and rhythm; S1 S2; no murmur, rubs or gallops noted RESPIRATORY: crackles heard in the Right lung field; left lung field clear to auscultation; improved from previous ABDOMINAL: normal active bowel sounds; soft, nondistended, no tenderness with palpation EXTREMITIES: no pitting edema bilaterally; +2 dorsalis pedis palpated NEUROLOGICAL: Cranial nerves II through XII grossly intact; no focal neurologic deficits noted LABORATORY DATA, IMAGING STUDIES, MICROBIOLOGY: Please see below. 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 1. Acute hypoxic respiratory failure 2/2 to CAP in setting of chronic immunosuppression. Differential includes infectious etiologies (possible opportunistic) vs drug-induced pneumonitis from immunotherapy. Covid swab x3 is negative 2. Sepsis present on admission 3. History of esophageal adenocarcinoma stage IV on chemotherapy and immunotherapy (Opdivo) last dose approximately 1 month ago 4. 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 -Continue with discontinuing steroids as this can potentially complicate the differentiating between his underlying hypoxic respiratory failure from possible infectious process versus drug induced pneumonitis VS,Fishbone, I+O VS, Fishbone, I+O Laboratory Tests 05/17/21 05:41 Vital Signs Date Time Temp Pulse Resp B/P (MAP) Pulse Ox O2 Delivery O2 Flow Rate FiO2 05/17/21 06:00 97.3 93 21 107/69 (82) 93 High Flow Cannula 6.0 05/11/21 16:00 100 I&O- Last 24 Hours up to 6 AM 05/17/21 06:00 Intake Total 850 ml Output Total 0 ml Balance 850 ml GME ATTESTATION GME ATTESTATION My faculty preceptor for this patient encounter was physically present during e encounter and was fully available. All aspects of the patient interview, examination, medical decision making process, and medical care plan development were reviewed and approved by the faculty preceptor. The faculty preceptor is aware and concurs with the plan as stated in the body of this note and will attest to such by his/her cosignature. ATTENDING NOTE Continue Levaquin. Clinically he is improving even though he still requiring 6 L of oxygen. Corticosteroid has been discontinued for the last 4 days. We will start with chest x-ray tomorrow to see if the right sided infiltrate has improved despite him being off systemic corticosteroid. This may be follow-up with chest CT. Pamela Ha DO May 17, 2021 11:30 RICH WILLS MD May 17, 2021 12:13
[2021-05-17 11:57] LABS: BLOOD UREA NITROGEN 19 MG/DL (7-18); CALCIUM LEVEL 8.5 MG/DL (8.8-10.2); CARBON DIOXIDE LEVEL 33 MEQ/L (21-32); CHLORIDE LEVEL 103 MEQ/L (98-107); CREATININE FOR GFR 0.76 MG/DL (0.70-1.30); GLOMERULAR FILTRATION RATE > 60.0 (>49); GLUCOSE, FASTING 91 MG/DL (70-100); MAGNESIUM LEVEL 2.4 MG/DL (1.8-2.4); POTASSIUM SERUM 3.5 MEQ/L (3.5-5.1); SODIUM LEVEL 142 MEQ/L (136-145)
[2021-05-17 14:00] VITALS: BP 108/71
--- NOTE | 2021-05-17 14:37 | IPNPDOC ---
Text Note Date of Service The patient was seen on 05/17/21. NOTE SUBJECTIVE: -Continues to be on 6L -No chest pain, n/v/d, abdominal pain. OBJECTIVE: VITAL SIGNS: Please see below GENERAL: Patient is awake, alert and oriented x3, comfortable in bed LUNGS: R posterior field much improved, now clear moving air well, however R base continues to be blunted with diminished sounds, L clear, otherwise moving air without wheezing of upper airway transmitted sounds HEART: RRR, no m/r/g ABDOMEN: Soft, nontender and nondistended. EXTREMITIES: L arm larger than right per recent baseline. No clubbing or pitting lowe extremities edema. Neuro: No focal deficits LABORATORY DATA: Reviewed, with pending AM labs MICROBIOLOGY: Sputum GS: QUALITY: GOOD MODERATE EPITHELIAL CELLS MODERATE WBCS MANY GRAM POSITIVE COCCI IN PAIRS, CHAINS AND CLUSTERS MANY GRAM NEGATIVE RODS FEW GRAM POSITIVE RODS FEW YEAST LIKE ORGANISM Sputum Cx: yeast like organism BCx: NG UA neg COVID test x 3- neg C. diff: neg Fungal studies, strep pneumoniae, legionella pending IMAGING STUDIES: CXR 05/12/21: Extensive pneumonia throughout the right lung essentially unchanged from the study done earlier today. Platelike atelectasis in the left base is also again noted. No new infiltrate seen. Echo 05/12/21: MEASUREMENTS: IVS 0.9 cm LV 5.3 cm LVPW 0.8 cm LA 4.3 cm Aorta 3.5 cm Mitral E wave velocity 63 A wave 81 E prime septal 7.5 E prime lateral 9.8 Left atrial volume index 27 FINDINGS: This study is of very limited technical quality. Underlying sinus rhythm. Left ventricle is of normal size. There is probably normal or near-normal left ventricular (LV) systolic function based on very limited views. Right ventricle was poorly seen. Left atrium appears normal. Right atrium appears grossly normal based on limited views. There is minimal aortic sclerosis. There is also mild degenerative abnormalities of mitral valve. Right-sided heart valves were very poorly seen. No pericardial effusion is noted. Inferior vena cava was not visualized. Aortic root, ascending aorta, aortic arch and abdominal aorta appear grossly normal. Doppler interrogation reveals trivial aortic insufficiency, no aortic stenosis. There are competent mitral and tricuspid valves. Mitral inflow pattern and tissue Doppler imaging of mitral annulus reveals grade 1 diastolic dysfunction. CONCLUSIONS: 1. Study is of very limited technical quality. Underlying sinus rhythm. 2. Normal left ventricular (LV) size with normal or near-normal LV systolic function based on limited views. Grade 1 diastolic dysfunction. 3. No significant valvular disease. 4. Unable to estimate central venous pressure and pulmonary artery pressure. ASSESSMENT: 70-year-old M with a GE junction Stage IV cancer on FOLFOX and nivolumab who was admitted for R>>L sided pneumonia with acute hypoxemic respiratory failure and LUE DVT. IMPRESSION: #Acute hypoxic respiratory failure likely 2/2 to pneumonia i/s/o Stage IV GE junction cancer, on FOLFOX and nivolumab -Likely bacterial PNA vs. opportunistic infection vs. unlikely immunotherapy induced pneumonitis given asymmetrical imaging findings -imaging above -Procalcitonin elevated -neg MRSA -Please refer to pulmonary note. Decision was made to stop steroids on 05/13/21 and see if patient continues to improve and planning to repeat CT chest -C/w levaquin until 05/21 -Levalbuterol ATC, PRN -lasix -Infectious disease, pulmonary following. 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 Has not been on therapeutic treatment as o/p -Per heme he was supposed to be on it daily but only took it for two weeks -lovenox BID currently and will need to be d/c with AC, with plan for NoAC when pulm plan is clear and clear of potential bronch etc #Elevated troponin 2/2 sepsis -No hx of CHF, CAD -BNP 1100, trop elevated since admission -Discussed with Dr. 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 -Currently, undergoing FOLFOX with Nivolumab every two weeks. -Dr. Marin hematology/oncology-tb with him early this week to update #GERD -C/w PPI, Carafate #Dyslipidemia #Chronic anxiety #DVT px -Lovenox BID RESOL #Sepsis DISPOSITION: Pulmonary and ID consulted . Goal is home when medically improved. VS,Fishbone, I+O VS, Fishbone, I+O Laboratory Tests 05/17/21 05:41 Vital Signs Date Time Temp Pulse Resp B/P (MAP) Pulse Ox O2 Delivery O2 Flow Rate FiO2 05/17/21 06:00 97.3 93 21 107/69 (82) 93 High Flow Cannula 6.0 05/11/21 16:00 100 I&O- Last 24 Hours up to 6 AM 05/17/21 06:00 Intake Total 850 ml Output Total 0 ml Balance 850 ml MAITE ARANA MD May 17, 2021 10:35
[2021-05-17 18:09] LABS: BODY FLUID CULTURE Not indicated. (.); LEGIONELLA ANTIGEN URINE Negative (Negative); ORGANISM ID Not indicated. (.); SPECIMEN SOURCE Urine (.); URINE STREP PNEUMONIAE ANTIGEN Negative (Negative)
[2021-05-17] MEDS: ALPRAZolam 0.5 MG TAB PO PRN (19:41)
[2021-05-17] MEDS: allopurinoL 100 MG TAB PO SCH (21:28)
[2021-05-17] MEDS: ROSUVASTATIN 10 MG TAB (CRESTOR) PO SCH (21:28)
[2021-05-17 22:00] VITALS: BP 104/69
[2021-05-18] MEDS: LEVALBUTEROL 1.25 MG/0.5 ML CONCENTRATE NEB INH SCH ×5 (01:22→21:27)
[2021-05-18] MEDS: LevoFLOXacin 750 MG TABLET PO SCH (05:30)
[2021-05-18 06:00] VITALS: BP 90/60
[2021-05-18] MEDS ORDERED: NS 250 ML IV SCH (06:25)
[2021-05-18 06:33] LABS: HEMATOCRIT 37.2 % (42.0-52.0); HEMOGLOBIN 12.3 g/dl (13.5-17.5); MEAN CORPUSCULAR HEMOGLOBIN 33.2 pg (27.0-33.0); MEAN CORPUSCULAR HGB CONC 33.1 g/dl (32.0-36.5); MEAN CORPUSCULAR VOLUME 100.5 fl (80.0-96.0); PLATELET COUNT, AUTOMATED 248 10^3/uL (150-450); WHITE BLOOD COUNT 6.6 10^3/uL (4.0-10.0)
[2021-05-18 06:51] LABS: BLOOD UREA NITROGEN 15 MG/DL (7-18); CALCIUM LEVEL 8.2 MG/DL (8.8-10.2); CARBON DIOXIDE LEVEL 34 MEQ/L (21-32); CHLORIDE LEVEL 103 MEQ/L (98-107); CREATININE FOR GFR 0.86 MG/DL (0.70-1.30); GLOMERULAR FILTRATION RATE > 60.0 (>49); GLUCOSE, FASTING 81 MG/DL (70-100); POTASSIUM SERUM 3.9 MEQ/L (3.5-5.1); SODIUM LEVEL 141 MEQ/L (136-145)
[2021-05-18] MEDS ORDERED: NS 250 ML IV ONE (06:55)
[2021-05-18 07:09] VITALS: BP 104/71
[2021-05-18] MEDS: BUDESONIDE 0.25 MG/2 ML INHALATION SUSPENSION INH SCH ×2 (07:31→21:29)
[2021-05-18] MEDS: guaiFENesin ER 600 MG TAB PO SCH ×2 (08:45→20:55)
[2021-05-18] MEDS: PANTOPRAZOLE 40MG TAB (PROTONIX) PO SCH ×2 (08:45→20:55)
[2021-05-18] MEDS: LACTOBACILLUS ACIDOPHILUS CAP (BACID) PO SCH ×4 (08:45→20:54)
[2021-05-18] MEDS: SUCRALFATE SUSP 1GM/10ML UD PO SCH ×4 (08:46→20:54)
[2021-05-18] MEDS: ENOXAPARIN 100MG/1ML SYRINGE (J1650 PER 10MG) SC SCH ×3 (08:47→21:00)
[2021-05-18] MEDS: FUROSEMIDE 40MG/4ML VIAL (J1940) IV SCH (08:48)
--- NOTE | 2021-05-18 10:03 | REP ---
INDICATION: respiratory failure, right lung infiltrate COMPARISON: 05/11/2021 TECHNIQUE: PA and lateral. FINDINGS: Significant opacification involving the entire right hemithorax is similar to prior examination. Findings suggest the possibility of central mass/consolidation and peripheral alveolar infiltrates along with associated right-sided volume loss and ipsilateral mediastinal shift. Layering effusion cannot be excluded. Left hemithorax is relatively clear/stable. Pestks-V-Uazm identified with tip in the brachiocephalic vein. IMPRESSION: Right-sided opacifications essentially unchanged from prior examination. <Electronically signed by Kumar Trevino > 05/18/21 [id number]
--- NOTE | 2021-05-18 11:05 | IPNPDOC ---
Subjective Date Seen The patient was seen on 05/18/21. Subjective Chief Complaint/HPI Patient states he is feeling better. However when he came back from chest x-ray today, he felt "a "winded". General: Denies: Chills Constitutional: Denies: Chills, Fever Eyes: Denies: Pain ENT: Denies: Head Aches Skin: Denies: Rash Pulmonary: Reports: Dyspnea, Cough Cardiovascular: Denies: Chest Pain, Palpitations, Orthopnea, Paroxysmal Noc. Dyspnea, Edema Gastrointestinal: Denies: Nausea, Vomiting, Abdominal Pain, Diarrhea Neurological: Denies: Weakness Objective Physical Examination General Exam: Positive: Alert, Cooperative, Mild Distress Eye Exam: Positive: PERRLA; Negative: Sclera icteric ENT Exam: Positive: Atraumatic Neck Exam: Positive: Supple; Negative: JVD Chest Exam: Positive: Rales (Coarse crackle most predominantly in the right lung field.), Diminished (Absent breath sounds of the left lower base), Other (Coarse crackle of the right lung field predominantly in the basilar segment) Heart Exam: Positive: Rate Normal, Irregular Rhythm Telemetry: Positive: Atrial fibrillation Abdomen Exam: Positive: Normal bowel sounds, Soft; Negative: Tenderness Male Exam: Negative: Edema Extremity Exam: Negative: Clubbing, Edema Neuro Exam: Positive: Normal Speech, Strength at 5/5 X4 ext Psych Exam: Positive: Mental status NL Assessment /Plan Assessment This is a 70-year-old gentleman with 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 1. Acute hypoxic respiratory failure 2/2 to CAP in setting of chronic immunosuppression. Differential includes infectious etiologies (possible opportunistic) vs drug-induced pneumonitis from immunotherapy. Covid swab x3 is negative 2. Sepsis present on admission 3. History of esophageal adenocarcinoma stage IV on chemotherapy and immunotherapy (Opdivo) last dose approximately 1 month ago 4. 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 Repeat chest x-ray showed significant consolidation of the right lower lobe and middle lobe with evidence of air bronchogram in the upper lobe. This is significantly changed from prior imaging. At this point I do not suspect he has drug-induced or chemo induced pneumonitis as it is only affecting unilaterally. Will obtain CT scan of the chest without contrast today to delineate the infiltrate and map the anatomy of the airway. Will consider possible bronchoscopy with BAL and transbronchial biopsy tomorrow depending on CT scan of the chest today. Disposition Continue hospital care VS, I&O, 24H, Fishbone Vital Signs/I&O Vital Signs Date Time Temp Pulse Resp B/P (MAP) Pulse Ox O2 Delivery O2 Flow Rate FiO2 05/18/21 07:09 97 104/71 (82) 95 High Flow Cannula 6.0 05/18/21 06:00 97.7 18 I&O- Last 24 Hours up to 6 AM 05/18/21 06:00 Intake Total 300 ml Output Total 0 ml Balance 300 ml Laboratory Data 24H LABS Laboratory Tests 2 05/18/21 05:39: Nucleated Red Blood Cells % (auto) 0.0, Anion Gap 4L, Glomerular Filtration Rate > 60.0, Calcium Level 8.2L CBC/BMP Laboratory Tests 05/18/21 05:39 Microbiology Microbiology 05/10/21 Gram Stain - Final, Complete 05/10/21 Sputum Culture - Final, Complete Yeast Like Organism 05/09/21 Blood Culture - Final, Complete NO GROWTH AFTER 5 DAYS 05/08/21 Blood Culture - Final, Complete NO GROWTH AFTER 5 DAYS RICH WILLS MD May 18, 2021 11:05
--- NOTE | 2021-05-18 11:09 | REP ---
INDICATION: persistent PNA COMPARISON: 05/07/2021 and 10/24/2020. The older priors from an outside institution. TECHNIQUE: Standard helical technique without intravenous contrast FINDINGS: There is evidence of newly developed mediastinal and hilar adenopathy. There are no pleural or pericardial effusions. There is no significant change in the imaged upper abdomen or imaged osseous structures. Evaluation of the lung mcclellan shows a significant increase in the patchy ground-glass opacities seen bilaterally but particularly on the right. There is varicoid bronchiectasis bilaterally but seen best on the right. IMPRESSION: There has been a significant change compared to the prior exam as described above. The right lung opacities could easily obscure a significant nodule. Follow-up is recommended. <Electronically signed by Mike Toney > 05/18/21 [id number]
[2021-05-18] MEDS: CEFEPIME HCL 2 GM in D5W 50 ML IV SCH ×2 (13:10→20:56)
[2021-05-18 13:34] VITALS: BP 101/56
[2021-05-18] MEDS ORDERED: AZITHROMYCIN INJ 500 MG, VIAL MATE ADAPTER 1 EACH in NS 250 ML IV SCH (14:00)
--- NOTE | 2021-05-18 14:01 | IPNPDOC ---
Text Note Date of Service The patient was seen on 05/18/21. NOTE SUBJECTIVE: -Was hypotensive overnight and recovered after 250cc bolus, all i/s/o recent daily IV diuresis -Continues to be on 6L -No chest pain, n/v/d, abdominal pain. OBJECTIVE: VITAL SIGNS: Please see below GENERAL: Patient is awake, alert and oriented x3, comfortable in bed LUNGS: R posterior field moving air well, however with crackles and R base continues to be blunted with diminished sounds, L clear, otherwise moving air without wheezing of upper airway transmitted sounds HEART: RRR, no m/r/g ABDOMEN: Soft, nontender and nondistended. EXTREMITIES: L arm larger than right per recent baseline. No clubbing or pitting lowe extremities edema. Neuro: No focal deficits LABORATORY DATA: Reviewed. WBC 6.6 hgb 12.3 platelets 248 Na 141 K 3.9 Cr 0.86 MICROBIOLOGY: Sputum GS: QUALITY: GOOD MODERATE EPITHELIAL CELLS MODERATE WBCS MANY GRAM POSITIVE COCCI IN PAIRS, CHAINS AND CLUSTERS MANY GRAM NEGATIVE RODS FEW GRAM POSITIVE RODS FEW YEAST LIKE ORGANISM Sputum Cx: yeast like organism BCx: NG UA neg COVID test x 3- neg C. diff: neg Fungal studies, strep pneumoniae, legionella pending IMAGING STUDIES: CXR 05/12/21: Extensive pneumonia throughout the right lung essentially unchanged from the study done earlier today. Platelike atelectasis in the left base is also again noted. No new infiltrate seen. Echo 05/12/21: MEASUREMENTS: IVS 0.9 cm LV 5.3 cm LVPW 0.8 cm LA 4.3 cm Aorta 3.5 cm Mitral E wave velocity 63 A wave 81 E prime septal 7.5 E prime lateral 9.8 Left atrial volume index 27 FINDINGS: This study is of very limited technical quality. Underlying sinus rhythm. Left ventricle is of normal size. There is probably normal or near-normal left ventricular (LV) systolic function based on very limited views. Right ventricle was poorly seen. Left atrium appears normal. Right atrium appears grossly normal based on limited views. There is minimal aortic sclerosis. There is also mild degenerative abnormalities of mitral valve. Right-sided heart valves were very poorly seen. No pericardial effusion is noted. Inferior vena cava was not visualized. Aortic root, ascending aorta, aortic arch and abdominal aorta appear grossly normal. Doppler interrogation reveals trivial aortic insufficiency, no aortic stenosis. There are competent mitral and tricuspid valves. Mitral inflow pattern and tissue Doppler imaging of mitral annulus reveals grade 1 diastolic dysfunction. CONCLUSIONS: 1. Study is of very limited technical quality. Underlying sinus rhythm. 2. Normal left ventricular (LV) size with normal or near-normal LV systolic function based on limited views. Grade 1 diastolic dysfunction. 3. No significant valvular disease. 4. Unable to estimate central venous pressure and pulmonary artery pressure. 05/18 CXR: Significant opacification involving the entire right hemithorax is similar to prior examination. Findings suggest the possibility of central mass/consolidation and peripheral alveolar infiltrates along with associated right-sided volume loss and ipsilateral mediastinal shift. Layering effusion cannot be excluded. Left xiomara thorax is relatively clear/stable. [id number] identified with tip in the brachiocephalic vein. IMPRESSION: Right-sided opacifications essentially unchanged from prior examination. ASSESSMENT: 70-year-old M with a GE junction Stage IV cancer on FOLFOX and nivolumab who was admitted for R>>L sided pneumonia with acute hypoxemic respiratory failure and LUE DVT. IMPRESSION: #Acute hypoxic respiratory failure likely 2/2 to pneumonia i/s/o Stage IV GE junction cancer, on FOLFOX and nivolumab -Likely bacterial PNA vs. opportunistic infection vs. unlikely immunotherapy induced pneumonitis given asymmetrical imaging findings -imaging above -Procalcitonin elevated -neg MRSA -Please refer to pulmonary note. Decision was made to stop steroids on 05/13/21 and see if patient continues to improve and planning to repeat CT chest thsi AM after CXR was essentially unchanged -C/w levaquin until 05/21 -Levalbuterol ATC, PRN -Hold lasix, dry, was hypotensive last night -Infectious disease, pulmonary following. 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 Has not been on therapeutic treatment as o/p -Per heme he was supposed to be on it daily but only took it for two weeks -lovenox BID currently and will need to be d/c with AC, with plan for NoAC when pulm plan is clear and clear of potential bronch etc #Elevated troponin 2/2 sepsis -No hx of CHF, CAD -BNP 1100, trop elevated since admission -Discussed with Dr. 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 -Currently, undergoing FOLFOX with Nivolumab every two weeks. -Dr. Marin hematology/oncology-tb with him early this week to update #GERD -C/w PPI, Carafate #Dyslipidemia #Chronic anxiety #DVT px -Lovenox BID RESOL #Sepsis DISPOSITION: Pulmonary and ID consulted . Goal is home when medically improved. VS,Fishbone, I+O VS, Fishbone, I+O Laboratory Tests 05/18/21 05:39 Vital Signs Date Time Temp Pulse Resp B/P (MAP) Pulse Ox O2 Delivery O2 Flow Rate FiO2 05/18/21 07:09 97 104/71 (82) 95 High Flow Cannula 6.0 05/18/21 06:00 97.7 18 I&O- Last 24 Hours up to 6 AM 05/18/21 06:00 Intake Total 300 ml Output Total 0 ml Balance 300 ml MAITE ARANA MD May 18, 2021 10:18
[2021-05-18] MEDS ORDERED: VANCOMYCIN HCL 500 MG in D5W MINI-BAG PLUS 100 ML IV ONE (16:00)
[2021-05-18] MEDS: VANCOMYCIN HCL 1,000 MG, VIAL MATE ADAPTER 1 EACH in NS 250 ML IV SCH (16:33)
[2021-05-18] MEDS: methylPREDNISolone 40MG 1ML VIAL IV SCH (18:55)
[2021-05-18] MEDS: allopurinoL 100 MG TAB PO SCH (20:55)
[2021-05-18] MEDS: VORICONAZOLE 200MG TABLET (VFEND) PO SCH (20:55)
[2021-05-18] MEDS: ROSUVASTATIN 10 MG TAB (CRESTOR) PO SCH (20:55)
[2021-05-18 21:21] VITALS: BP 104/74
[2021-05-19] VITALS (8 sets, daily range): BP systolic 105–124; BP diastolic 54–86
[2021-05-19] MEDS: LEVALBUTEROL 1.25 MG/0.5 ML CONCENTRATE NEB INH SCH ×6 (00:17→20:00)
[2021-05-19] MEDS: methylPREDNISolone 40MG 1ML VIAL IV SCH ×3 (02:29→19:00)
[2021-05-19] MEDS: VANCOMYCIN HCL 1,000 MG, VIAL MATE ADAPTER 1 EACH in NS 250 ML IV SCH (02:29)
[2021-05-19] MEDS: CEFEPIME HCL 2 GM in D5W 50 ML IV SCH ×3 (04:42→21:16)
[2021-05-19 05:45] LABS: HEMATOCRIT 37.3 % (42.0-52.0); HEMOGLOBIN 12.4 g/dl (13.5-17.5); MEAN CORPUSCULAR HGB CONC 33.2 g/dl (32.0-36.5); MEAN CORPUSCULAR VOLUME 99.2 fl (80.0-96.0); PLATELET COUNT, AUTOMATED 230 10^3/uL (150-450); RED BLOOD COUNT 3.76 10^6/uL (4.30-6.10); WHITE BLOOD COUNT 4.8 10^3/uL (4.0-10.0)
[2021-05-19 06:12] LABS: BLOOD UREA NITROGEN 13 MG/DL (7-18); CALCIUM LEVEL 8.3 MG/DL (8.8-10.2); CARBON DIOXIDE LEVEL 31 MEQ/L (21-32); CHLORIDE LEVEL 104 MEQ/L (98-107); CREATININE FOR GFR 0.83 MG/DL (0.70-1.30); GLOMERULAR FILTRATION RATE > 60.0 (>49); GLUCOSE, FASTING 179 MG/DL (70-100); POTASSIUM SERUM 4.3 MEQ/L (3.5-5.1); SODIUM LEVEL 139 MEQ/L (136-145)
[2021-05-19] MEDS: BUDESONIDE 0.25 MG/2 ML INHALATION SUSPENSION INH SCH ×2 (08:21→20:00)
[2021-05-19] MEDS: ENOXAPARIN 100MG/1ML SYRINGE (J1650 PER 10MG) SC SCH ×3 (09:00→09:30)
[2021-05-19] MEDS: LACTOBACILLUS ACIDOPHILUS CAP (BACID) PO SCH ×4 (09:19→21:17)
[2021-05-19] MEDS: PANTOPRAZOLE 40MG TAB (PROTONIX) PO SCH ×2 (09:19→21:18)
[2021-05-19] MEDS: VORICONAZOLE 200MG TABLET (VFEND) PO SCH ×3 (09:20→21:17)
[2021-05-19] MEDS: guaiFENesin ER 600 MG TAB PO SCH ×2 (09:20→21:18)
[2021-05-19] MEDS: SUCRALFATE SUSP 1GM/10ML UD PO SCH ×4 (09:21→21:17)
--- NOTE | 2021-05-19 10:15 | IPNPDOC ---
Subjective Date Seen The patient was seen on 05/19/21. Subjective Chief Complaint/HPI Patient state he is doing pretty well. He does admit to shortness of breath but has no change from prior. He denies of fever, chills, chest pain, palpitation. Constitutional: Denies: Chills, Fever Eyes: Denies: Pain ENT: Denies: Head Aches Skin: Denies: Rash Pulmonary: Reports: Dyspnea; Denies: Cough Cardiovascular: Denies: Chest Pain, Palpitations, Orthopnea, Edema Gastrointestinal: Denies: Nausea, Abdominal Pain, Diarrhea Neurological: Denies: Weakness, Numbness Psych: Reports: Anxiety Objective Physical Examination General Exam: Positive: Alert, Cooperative, Mild Distress Eye Exam: Positive: PERRLA; Negative: Sclera icteric ENT Exam: Positive: Atraumatic Neck Exam: Positive: Supple; Negative: JVD Chest Exam: Positive: Rales (Coarse crackle most predominantly in the right lung field.), Diminished (Absent breath sounds of the left lower base), Other (Coarse crackle of the right lung field predominantly in the basilar segment) Heart Exam: Positive: Rate Normal, Irregular Rhythm Telemetry: Positive: Atrial fibrillation Abdomen Exam: Positive: Normal bowel sounds, Soft; Negative: Tenderness Male Exam: Negative: Edema Extremity Exam: Negative: Clubbing, Edema Neuro Exam: Positive: Normal Speech, Strength at 5/5 X4 ext Psych Exam: Positive: Mental status NL Assessment /Plan Assessment This is a 70-year-old gentleman with 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 1. Acute hypoxic respiratory failure in setting of chronic immunosuppression. Differential includes infectious etiologies (possible opportunistic) vs drug- induced pneumonitis from immunotherapy. Covid swab x3 is negative 2. Sepsis present on admission 3. History of esophageal adenocarcinoma stage IV on chemotherapy and immunotherapy (Opdivo) last dose approximately 1 month ago 4. 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 I do not think this is bacterial pneumonia given grossly negative procalcitonin and progression of infiltrates despite being on multiple antibiotics. Differentials include opportunistic infection including fungal and viral pneumonia versus drug-induced pneumonitis (less likely). Infiltrates on the right side significantly progressed as opposed to the patchy groundglass on the left. -I extensively spoke with patient regarding the risk of bronchoscopy with BAL and possible transbronchial biopsy. Major risk in the setting of ongoing respiratory failure is being on ventilator for prolonged period. Other risks include pneumothorax, bleeding in the setting of anticoagulation (Lovenox) which has been held since yesterday morning. Patient is currently in a process of writing a living well and establishing does need healthcare proxy in case if he become incapacitated. He stated in his living well that if he was to be incapacitated and on ventilator for more than 30 days, he would like to be transitioned to comfort care. He has designated his sister to be healthcare proxy in case if he become incapacitated. -Continue with systemic corticosteroid and voriconazole for possible fungal pneumonia. Viral PCR for EBV and CMV pending. -Bronchoscopy with BAL and possible transbronchial biopsy scheduled for this afternoon. Disposition continue hospital care. VS, I&O, 24H, [facility] Vital Signs/I&O Vital Signs Date Time Temp Pulse Resp B/P (MAP) Pulse Ox O2 Delivery O2 Flow Rate FiO2 05/19/21 05:57 97.8 90 24 105/72 (83) 96 High Flow Cannula 6.0 I&O- Last 24 Hours up to 6 AM 05/19/21 06:00 Intake Total 1782 ml Output Total 0 ml Balance 1782 ml Laboratory Data 24H LABS Laboratory Tests 2 05/18/21 12:42: Procalcitonin <0.05 05/19/21 05:30: Nucleated Red Blood Cells % (auto) 0.0, Anion Gap 4L, Glomerular Filtration Rate > 60.0, Calcium Level 8.3L 05/19/21 05:31: CBC/BMP Laboratory Tests 05/19/21 05:30 Microbiology Microbiology 05/10/21 Gram Stain - Final, Complete 05/10/21 Sputum Culture - Final, Complete Yeast Like Organism 05/09/21 Blood Culture - Final, Complete NO GROWTH AFTER 5 DAYS RICH WILLS MD May 19, 2021 10:15
--- NOTE | 2021-05-19 14:06 | IPNPDOC ---
Text Note Date of Service The patient was seen on 05/19/21. NOTE SUBJECTIVE: -Continues to be on 6L -No chest pain, n/v/d, abdominal pain. -Anxious, depressed, not sure about proposed bronchoscopy, leaning towards having it done on Saturday OBJECTIVE: VITAL SIGNS: Please see below GENERAL: Patient is awake, alert and oriented x3, comfortable in bed LUNGS: R posterior field moving air well, however with crackles and R base continues to be blunted with diminished sounds, L clear, otherwise moving air without wheezing of upper airway transmitted sounds HEART: RRR, no m/r/g ABDOMEN: Soft, nontender and nondistended. EXTREMITIES: L arm larger than right per recent baseline. No clubbing or pitting lowe extremities edema. Neuro: No focal deficits LABORATORY DATA: Reviewed. WBC 4.8 hgb 12.4 platelets 230 Na 139 K 4.3 Cr 0.83 MICROBIOLOGY: Sputum GS: QUALITY: GOOD MODERATE EPITHELIAL CELLS MODERATE WBCS MANY GRAM POSITIVE COCCI IN PAIRS, CHAINS AND CLUSTERS MANY GRAM NEGATIVE RODS FEW GRAM POSITIVE RODS FEW YEAST LIKE ORGANISM Sputum Cx: yeast like organism BCx: NG UA neg COVID test x 3- neg C. diff: neg Fungal studies negative, strep pneumoniae negative, legionella negative Cryptococcus, coccidiomycosis, TB and galactomannan pending IMAGING STUDIES: CXR 05/12/21: Extensive pneumonia throughout the right lung essentially unchanged from the study done earlier today. Platelike atelectasis in the left base is also again noted. No new infiltrate seen. Echo 05/12/21: MEASUREMENTS: IVS 0.9 cm LV 5.3 cm LVPW 0.8 cm LA 4.3 cm Aorta 3.5 cm Mitral E wave velocity 63 A wave 81 E prime septal 7.5 E prime lateral 9.8 Left atrial volume index 27 FINDINGS: This study is of very limited technical quality. Underlying sinus rhythm. Left ventricle is of normal size. There is probably normal or near-normal left ventricular (LV) systolic function based on very limited views. Right ventricle was poorly seen. Left atrium appears normal. Right atrium appears grossly normal based on limited views. There is minimal aortic sclerosis. There is also mild degenerative abnormalities of mitral valve. Right-sided heart valves were very poorly seen. No pericardial effusion is noted. Inferior vena cava was not visualized. Aortic root, ascending aorta, aortic arch and abdominal aorta appear grossly normal. Doppler interrogation reveals trivial aortic insufficiency, no aortic stenosis. There are competent mitral and tricuspid valves. Mitral inflow pattern and tissue Doppler imaging of mitral annulus reveals grade 1 diastolic dysfunction. CONCLUSIONS: 1. Study is of very limited technical quality. Underlying sinus rhythm. 2. Normal left ventricular (LV) size with normal or near-normal LV systolic function based on limited views. Grade 1 diastolic dysfunction. 3. No significant valvular disease. 4. Unable to estimate central venous pressure and pulmonary artery pressure. 05/18 CXR: Significant opacification involving the entire right hemithorax is similar to prior examination. Findings suggest the possibility of central mass/consolidation and peripheral alveolar infiltrates along with associated right-sided volume loss and ipsilateral mediastinal shift. Layering effusion cannot be excluded. Left hemithorax is relatively clear/stable. [id number] identified with tip in the brachiocephalic vein. IMPRESSION: Right-sided opacifications essentially unchanged from prior examination. 05/18 Ct chest w/o contrast: There is evidence of newly developed mediastinal and hilar adenopathy. There are no pleural or pericardial effusions. There is no significant change in the imaged upper abdomen or imaged osseous structures. Evaluation of the lung mcclellan shows a significant increase in the patchy ground- glass opacities seen bilaterally but particularly on the right. There is varicoid bronchiectasis bilaterally but seen best on the right. IMPRESSION: There has been a significant change compared to the prior exam as described above. The right lung opacities could easily obscure a significant nodule. Follow-up is recommended. ASSESSMENT: 70-year-old M with a GE junction Stage IV cancer on FOLFOX and nivolumab who was admitted for R>>L sided pneumonia with acute hypoxemic respiratory failure and LUE DVT c/b interval worsening despite varied antibiotic therapies, now escalated to vanc/cefepime/vori and also restarted on steroids. IMPRESSION: #Acute hypoxic respiratory failure likely 2/2 to pneumonia i/s/o Stage IV GE junction cancer, on FOLFOX and nivolumab, unclear infectious source vs. inflammatory pneumonitis -Likely bacterial PNA vs. opportunistic infection vs. immunotherapy induced pneumonitis -imaging above -neg MRSA -Pulm had held steroids on 05/13/21 to see if patient continued to improve on antibiotic therapy but interval imaging showed worsening so was restarted on solumedrol [id number] on 05/18 -Re-escalated to vanc/cefepime and added on voriconazole on 05/18, stopped the PO levaquin -Levalbuterol ATC, PRN -Stopped lasix, was dry and hypotensive -Infectious disease, pulmonary following. -There is an active discussion about bronchoscopy but patient leaning towards doing it next week on Saturday after discussion about the risk of potential prolonged intubation given poor pulmonary reserve at this time. 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 Has not been on therapeutic treatment as o/p -Per heme he was supposed to be on it daily but only took it for two weeks -lovenox BID currently and will need to be d/c with AC, with plan for NoAC when pulm plan is clear and clear of potential bronch etc #Elevated troponin 2/2 sepsis -No hx of CHF, CAD -BNP 1100, trop elevated since admission -Discussed with Dr. 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 -Currently, undergoing FOLFOX with Nivolumab every two weeks. -Dr. Marin hematology/oncology-tb with him early this week to update #GERD -C/w PPI, Carafate #Dyslipidemia #Chronic anxiety #DVT px -Lovenox BID RESOLVED #Sepsis DISPOSITION: Pulmonary and ID consulted . Goal is home when medically improved. VS,Fishbone, I+O VS, Fishbone, I+O Laboratory Tests 05/19/21 05:30 Vital Signs Date Time Temp Pulse Resp B/P (MAP) Pulse Ox O2 Delivery O2 Flow Rate FiO2 05/19/21 05:57 97.8 90 24 105/72 (83) 96 High Flow Cannula 6.0 I&O- Last 24 Hours up to 6 AM 05/19/21 06:00 Intake Total 1782 ml Output Total 0 ml Balance 1782 ml MAITE ARANA MD May 19, 2021 08:42
[2021-05-19] MEDS ORDERED: fentaNYL 100 MCG/2 ML INJECTION (J3010) As Ordered ONE (14:30)
[2021-05-19] MEDS ORDERED: propofoL 200 MG/20 ML VIAL As Ordered ONE (14:30)
[2021-05-19] MEDS ORDERED: ROCURONIUM BROMIDE 50 MG/5 ML VIAL As Ordered ONE (14:30)
[2021-05-19] MEDS ORDERED: MIDAZOLAM INJ 2MG/2ML VIAL (J2250 PER 1MG) As Ordered ONE (14:30)
[2021-05-19] MEDS ORDERED: LIDOCAINE 2% 100MG/5ML SDV (FOR ANES.) As Ordered ONE (14:30)
[2021-05-19] MEDS: VANCOMYCIN HCL 750 MG, VIAL MATE ADAPTER 1 EACH in NS 250 ML IV SCH (15:48)
--- NOTE | 2021-05-19 15:51 | IPN ---
PROGRESS NOTE DATE: 05/19/2021 Edwin is anxious. He is getting his bronchoscopy this afternoon. He has shortness of breath, which he feels has gotten worse in the past 2 days. He was in the bathroom, and as soon as he walked to his bed he was very tachypneic. His oxygen saturation dropped to low 80%. At rest, his oxygen saturation is 91%-96% on 6 liters. PHYSICAL EXAMINATION: Temperature is 97.6, pulse 104, respirations 20, blood pressure 124/79, oxygen saturation 91% on 6 liters. HEART: Tachycardic. No murmurs, rubs, or gallops. LUNGS: Right bronchial breath sounds with few crackles at the right base. Left clear. ABDOMEN: Soft, nontender. No hepatosplenomegaly. EXTREMITIES: No clubbing, cyanosis, or edema. Left arm slightly more swollen than the right. LABORATORY DATA: White count 4.8, hemoglobin 12.4, hematocrit 37.3, platelets 230. Sodium 139, potassium 4.3, chloride 104, bicarbonate 31, BUN 13, creatinine 0.83, glucose 179, calcium 8.3. Procalcitonin less than 0.05. QuantiFERON-TB Gold pending. Aspergillus galactomannan pending. Urine Legionnaire negative. EBV PCR pending. Cryptococcus histoplasma antigen antibody pending. MEDICATIONS: - voriconazole 200 mg by mouth three times a day dosing for 48 hours followed by twice a day - methylprednisolone 80 mg IV every 8 hours - vancomycin 1 gram IV every 12 hours - cefepime 2 grams IV every 8 hours All currently day #2. IMPRESSION: Respiratory failure with bilateral pneumonia, pneumonitis, rule out fungal viral etiology versus drug-induced pneumonitis from checkpoint inhibitor, novilumab. PLAN: Bronchoscopy today. Bronchioalveolar lavage (BAL) will be sent for acid-fast bacillus (AFB) smear and culture, fungal smear and culture, viral culture, and PCR, Aspergillus galactomannan. Continue with current treatment until resolved of pathology and cultures. De-escalate antibiotics after cultures have been obtained. I suspect the patient could discontinue antibiotics over the weekend after cultures are available. Procalcitonin is less than 0.05, and bacterial pneumonia is very unlikely. Case has been discussed with Dr. Betancur and Dr. Swift this morning.
[2021-05-19] MEDS ORDERED: CETACAINE SPRAY 5GM As Ordered ONE (16:26)
[2021-05-19] MEDS ORDERED: EPINEPHrine 1MG/10ML SYRINGE 1.5IN As Ordered ONE (16:26)
[2021-05-19] MEDS ORDERED: PHENYLephrine 500MCG 5ML (100MCG/ML) SYRINGE As Ordered ONE (17:37)
[2021-05-19] MEDS ORDERED: ePHEDrine SULFATE 25 MG/5 ML(5MG/ML) SYRINGE As Ordered ONE (17:37)
--- NOTE | 2021-05-19 18:09 | POST-OPPD ---
Postoperative Procedure Note Date Of Procedure: May 19, 2021 Time Of Procedure: 17:30 PREOPERATIVE DIAGNOSIS: Respiratory failure, large consolidative infiltrate of the right lung, chronic immunosuppression POSTOPERATIVE DIAGNOSIS: Respiratory failure, large consolidative infiltrate of the right lung, chronic immunosuppression PROCEDURE: Diagnostic flexible bronchoscopy with bronchoalveolar lavage of the right lower lobe and transbronchial biopsy SURGEON: Rich Gipson ANESTHESIA: General ESTIMATED BLOOD LOSS: Minimal, < 1cc FINDINGS: None SPECIMENS: RLL BAL and RLL transbronchial biopsy COMPLICATIONS: none intraoperatively. Post procedure chest x-ray is pending. POSTOPERATIVE CONDITION: Stable Operative report: Patient was intubated for the procedure and put on general anesthesia. Bronchoscope was introduced into the tracheobronchial tree via endotracheal tube. Both sides of the lung was inspected all the way down to tracheobronchial tree. There were no evidence of endobronchial lesion. Secretions were very minimal. Right lower lobe anterior segment was lavaged 2 times with 60mL of normal saline. The sample was sent for bacterial C&S, viral culture, fungal culture, EBV PCR, CMV PCR, aspergillus galactomannan, silver stain for PCP, AFB smear and culture, and cytology. Transbronchial biopsy was done in the same segment under fluoroscopy guidance. 5 biopsies were taken using alligator forceps and sent for histopathology and PCP. Biopsy site was wedged for 30 seconds after each biopsy. 1 in 10ml of epinephrine x 2 was injected after biopsy was taken. At the end of the procedure, the airways were inspected and there was no evidence of bleeding. Patient tolerated the procedure without comp lication. Post procedure chest x-ray is pending at this time. RICH WILLS MD May 19, 2021 18:09
[2021-05-19] MEDS ORDERED: CEPACOL LOZENGE PO PRN (18:25)
--- NOTE | 2021-05-19 18:29 | REP ---
INDICATION: post right lower lobe transbronchial bx, check for PTX. COMPARISON: 05/18/2021 TECHNIQUE: Portable AP view of the chest FINDINGS: Near complete opacification of the right hemithorax with air bronchograms appears slightly increased from prior examination. There is associated volume loss with ipsilateral mediastinal shift unchanged. No pneumothorax. Effusion cannot be excluded. Peripheral and basilar left lighted airspace disease is also suggested. Left-sided [place] extends into the brachiocephalic vein. IMPRESSION: Findings as described above. No evidence for pneumothorax. <Electronically signed by Kumar Trevino > 05/19/21 [id number]
[2021-05-19] MEDS ORDERED: fentaNYL 100 MCG/2 ML INJECTION (J3010) IV PRN (18:30)
[2021-05-19] MEDS ORDERED: LR 1,000 ML IV SCH (18:30)
[2021-05-19] MEDS ORDERED: ONDANSETRON 4MG/2ML VIAL IV PRN (18:30)
[2021-05-19] MEDS: VANCOMYCIN HCL 500 MG in D5W MINI-BAG PLUS 100 ML IV SCH (19:01)
[2021-05-19] MEDS: ROSUVASTATIN 10 MG TAB (CRESTOR) PO SCH (21:17)
[2021-05-19] MEDS: allopurinoL 100 MG TAB PO SCH (21:18)
[2021-05-20] VITALS (7 sets, daily range): BP systolic 98–125; BP diastolic 63–83
[2021-05-20] MEDS: VANCOMYCIN HCL 500 MG in D5W MINI-BAG PLUS 100 ML IV SCH ×2 (01:41→10:51)
[2021-05-20] MEDS: methylPREDNISolone 40MG 1ML VIAL IV SCH ×3 (02:50→18:02)
[2021-05-20] MEDS: LEVALBUTEROL 1.25 MG/0.5 ML CONCENTRATE NEB INH SCH ×7 (03:17→23:36)
[2021-05-20] MEDS: CEFEPIME HCL 2 GM in D5W 50 ML IV SCH ×3 (05:29→20:51)
[2021-05-20 06:32] LABS: HEMATOCRIT 35.8 % (42.0-52.0); HEMOGLOBIN 11.6 g/dl (13.5-17.5); MEAN CORPUSCULAR HEMOGLOBIN 32.4 pg (27.0-33.0); MEAN CORPUSCULAR HGB CONC 32.4 g/dl (32.0-36.5); PLATELET COUNT, AUTOMATED 244 10^3/uL (150-450); RED BLOOD COUNT 3.58 10^6/uL (4.30-6.10); WHITE BLOOD COUNT 11.3 10^3/uL (4.0-10.0)
[2021-05-20 06:50] LABS: BLOOD UREA NITROGEN 19 MG/DL (7-18); CARBON DIOXIDE LEVEL 31 MEQ/L (21-32); CHLORIDE LEVEL 110 MEQ/L (98-107); CREATININE FOR GFR 0.84 MG/DL (0.70-1.30); GLOMERULAR FILTRATION RATE > 60.0 (>49); GLUCOSE, FASTING 132 MG/DL (70-100); POTASSIUM SERUM 4.1 MEQ/L (3.5-5.1); SODIUM LEVEL 143 MEQ/L (136-145)
[2021-05-20] MEDS: SUCRALFATE SUSP 1GM/10ML UD PO SCH ×4 (07:30→20:47)
[2021-05-20] MEDS: BUDESONIDE 0.25 MG/2 ML INHALATION SUSPENSION INH SCH ×2 (07:43→19:27)
[2021-05-20] MEDS: VORICONAZOLE 200MG TABLET (VFEND) PO SCH ×2 (08:52→16:11)
[2021-05-20] MEDS: VANCOMYCIN HCL 750 MG, VIAL MATE ADAPTER 1 EACH in NS 250 ML IV SCH ×4 (08:52)
[2021-05-20] MEDS: ENOXAPARIN 100MG/1ML SYRINGE (J1650 PER 10MG) SC SCH ×2 (08:52→20:47)
[2021-05-20] MEDS: PANTOPRAZOLE 40MG TAB (PROTONIX) PO SCH ×2 (08:53→20:48)
[2021-05-20] MEDS: guaiFENesin ER 600 MG TAB PO SCH ×2 (08:53→20:47)
[2021-05-20] MEDS: LACTOBACILLUS ACIDOPHILUS CAP (BACID) PO SCH ×4 (08:53→20:48)
--- NOTE | 2021-05-20 11:38 | IPNPDOC ---
Subjective Date Seen The patient was seen on 05/20/21. Subjective Chief Complaint/HPI Still complains of shortness of breath and dry cough. He denies fever, chills, chest pain or palpitation. Constitutional: Denies: Chills, Fever Eyes: Denies: Pain ENT: Denies: Head Aches Skin: Denies: Rash Pulmonary: Reports: Dyspnea, Cough (Dry cough); Denies: Pleuritic Chest Pain Cardiovascular: Denies: Chest Pain, Palpitations, Orthopnea, Paroxysmal Noc. Dyspnea, Edema Gastrointestinal: Denies: Nausea, Vomiting, Abdominal Pain, Diarrhea Neurological: Denies: Weakness Objective Physical Examination General Exam: Positive: Alert, Cooperative, No Acute Distress Eye Exam: Positive: PERRLA; Negative: Sclera icteric ENT Exam: Positive: Atraumatic Neck Exam: Positive: Supple; Negative: JVD Chest Exam: Positive: Rales (Coarse crackle most predominantly in the right lung field.), Diminished (Absent breath sounds of the left lower base), Other (Coarse crackle of the right lung field predominantly in the basilar segment) Heart Exam: Positive: Rate Normal, Irregular Rhythm Telemetry: Positive: Atrial fibrillation Abdomen Exam: Positive: Normal bowel sounds, Soft; Negative: Tenderness Male Exam: Negative: Edema Extremity Exam: Negative: Clubbing, Edema Neuro Exam: Positive: Normal Speech, Strength at 5/5 X4 ext Psych Exam: Positive: Mental status NL Assessment /Plan Assessment This is a 70-year-old gentleman with 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 1. Acute hypoxic respiratory failure in setting of chronic immunosuppression. Differential includes infectious etiologies (possible opportunistic) vs drug- induced pneumonitis from immunotherapy. Covid swab x4 is negative 2. Sepsis present on admission 3. History of esophageal adenocarcinoma stage IV on chemotherapy and i mmunotherapy (Opdivo) last dose approximately 1 month ago 4. 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 Sample was sent for microbiology including AFB smear and culture, fungal, viral, bacterial culture, Aspergillus galactomannan, viral EBV and CMV PCR and PCP. Transbronchial biopsy sample was sent for histopathology and PCP. -Continue with broad-spectrum antibiotics to cover for HAP. Systemic corticosteroid and voriconazole. Voriconazole level needs to be drawn tomorrow. -We will follow up on microbiology and histopathology. -Titrate oxygen supplementation to target oxygen saturation above 90%. Disposition Continue hospital care. VS, I&O, 24H, Fishbone Vital Signs/I&O Vital Signs Date Time Temp Pulse Resp B/P (MAP) Pulse Ox O2 Delivery O2 Flow Rate FiO2 05/20/21 10:00 98.0 103 20 98/63 (75) 92 High Flow Cannula 6.0 I&O- Last 24 Hours up to 6 AM 05/20/21 06:00 Intake Total 2125 ml Output Total 0 ml Balance 2125 ml Laboratory Data 24H LABS Laboratory Tests 2 05/19/21 14:43: Vancomycin Level Trough 7.5L 05/19/21 15:19: Coronavirus (COVID-19)(PCR) NEGATIVE 05/19/21 17:30: 05/20/21 05:34: Nucleated Red Blood Cells % (auto) 0.0, Anion Gap 2L, Glomerular Filtration Rate > 60.0, Calcium Level 9.0 CBC/BMP Laboratory Tests 05/20/21 05:34 Microbiology Microbiology 05/10/21 Gram Stain - Final, Complete 05/10/21 Sputum Culture - Final, Complete Yeast Like Organism RICH WILLS MD May 20, 2021 11:38
--- NOTE | 2021-05-20 13:25 | IPNPDOC ---
Text Note Date of Service The patient was seen on 05/20/21. NOTE SUBJECTIVE: -had bronchoscopy yesterday with BAL and studies were sent, tolerated it well, back on 6L -No chest pain, n/v/d, abdominal pain. -Anxious, discouraged OBJECTIVE: VITAL SIGNS: Please see below GENERAL: Patient is awake, alert and oriented x3, comfortable in bed LUNGS: R posterior field moving air well, however with crackles and R base continues to be blunted with diminished sounds, L clear, otherwise moving air without wheezing of upper airway transmitted sounds HEART: RRR, no m/r/g ABDOMEN: Soft, nontender and nondistended. EXTREMITIES: L arm larger than right per recent baseline. No clubbing or pitting lowe extremities edema. Neuro: No focal deficits LABORATORY DATA: Reviewed. WBC 11.3 hgb 11.6 platelets 244 Na 144 K 4.1 Cr 0.84 MICROBIOLOGY: 05/10: Sputum GS: QUALITY: GOOD MODERATE EPITHELIAL CELLS MODERATE WBCS MANY GRAM POSITIVE COCCI IN PAIRS, CHAINS AND CLUSTERS MANY GRAM NEGATIVE RODS FEW GRAM POSITIVE RODS FEW YEAST LIKE ORGANISM Sputum Cx: yeast like organism BCx: NG UA neg COVID test x 4- neg C. diff: neg Fungal studies negative, strep pneumoniae negative, legionella negative Cryptococcus, coccidiomycosis, TB and galactomannan pending IMAGING STUDIES: CXR 05/12/21: Extensive pneumonia throughout the right lung essentially unchanged from the study done earlier today. Platelike atelectasis in the left base is also again noted. No new infiltrate seen. Echo 05/12/21: MEASUREMENTS: IVS 0.9 cm LV 5.3 cm LVPW 0.8 cm LA 4.3 cm Aorta 3.5 cm Mitral E wave velocity 63 A wave 81 E prime septal 7.5 E prime lateral 9.8 Left atrial volume index 27 FINDINGS: This study is of very limited technical quality. Underlying sinus rhythm. Left ventricle is of normal size. There is probably normal or near-normal left ventricular (LV) systolic function based on very limited views. Right ventricle was poorly seen. Left atrium appears normal. Right atrium appears grossly normal based on limited views. There is minimal aortic sclerosis. There is also mild degenerative abnormalities of mitral valve. Right-sided heart valves were very poorly seen. No pericardial effusion is noted. Inferior vena cava was not visualized. Aortic root, ascending aorta, aortic arch and abdominal aorta appear grossly normal. Doppler interrogation reveals trivial aortic insufficiency, no aortic stenosis. There are competent mitral and tricuspid valves. Mitral inflow pattern and tissue Doppler imaging of mitral annulus reveals grade 1 diastolic dysfunction. CONCLUSIONS: 1. Study is of very limited technical quality. Underlying sinus rhythm. 2. Normal left ventricular (LV) size with normal or near-normal LV systolic function based on limited views. Grade 1 diastolic dysfunction. 3. No significant valvular disease. 4. Unable to estimate central venous pressure and pulmonary artery pressure. 05/18 CXR: Significant opacification involving the entire right hemithorax is similar to prior examination. Findings suggest the possibility of central mass/consolidation and peripheral alveolar infiltrates along with associated right-sided volume loss and ipsilateral mediastinal shift. Layering effusion cannot be excluded. Left hemithorax is relatively clear/stable. Cozldh-S-Atcl identified with tip in the brachiocephalic vein. IMPRESSION: Right-sided opacifications essentially unchanged from prior examination. 05/18 Ct chest w/o contrast: There is evidence of newly developed mediastinal and hilar adenopathy. There are no pleural or pericardial effusions. There is no significant change in the imaged upper abdomen or imaged osseous structures. Evaluation of the lung mcclellan shows a significant increase in the patchy ground- glass opacities seen bilaterally but particularly on the right. There is varicoid bronchiectasis bilaterally but seen best on the right. IMPRESSION: There has been a significant change compared to the prior exam as described above. The right lung opacities could easily obscure a significant nodule. Follow-up is recommended. 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 IMPRESSION: #Acute hypoxic respiratory failure likely 2/2 to pneumonia i/s/o Stage IV GE junction cancer, on FOLFOX and nivolumab, unclear infectious source vs. inflammatory pneumonitis -imaging above -neg nasal MRSA PCR -Pulm had held steroids on 05/13/21 to see if patient continued to improve on antibiotic therapy but interval imaging showed worsening so was restarted on solumedrol 80Q8H on 05/18 -Re-escalated to vanc/cefepime and added on voriconazole on 05/18, despite procal being normal -Levalbuterol ATC, PRN -Stopped lasix, was dry and hypotensive -Infectious disease, pulmonary following. 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 Has not been on therapeutic treatment as o/p -Per heme he was supposed to be on it daily but only took it for two weeks -lovenox BID currently and will need switched to a NoAC prior to hospital discharge #Elevated troponin 2/2 sepsis -No hx of CHF, CAD -BNP 1100, trop elevated since admission -Discussed with Dr. 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 -Currently, undergoing FOLFOX with Nivolumab every two weeks. -Dr. Marin hematology/oncology-tb with him early this week to update #GERD -C/w PPI, Carafate #Dyslipidemia #Chronic anxiety #DVT px -Lovenox BID RESOLVED #Sepsis DISPOSITION: Pulmonary and ID consulted . Goal is home when medically improved. VS,Fishbone, I+O VS, Fishbone, I+O Laboratory Tests 05/20/21 05:34 Vital Signs Date Time Temp Pulse Resp B/P (MAP) Pulse Ox O2 Delivery O2 Flow Rate FiO2 05/20/21 06:00 97.9 85 20 105/67 (80) 92 High Flow Cannula 6.0 I&O- Last 24 Hours up to 6 AM 05/20/21 06:00 Intake Total 2125 ml Output Total 0 ml Balance 2125 ml MAITE ARANA MD May 20, 2021 08:22
[2021-05-20] MEDS: IBUPROFEN 600MG TAB PO PRN ×2 (13:41→20:53)
[2021-05-20] MEDS: VANCOMYCIN HCL 1,000 MG, VIAL MATE ADAPTER 1 EACH in NS 250 ML IV SCH (16:55)
[2021-05-20] MEDS: ROSUVASTATIN 10 MG TAB (CRESTOR) PO SCH (20:49)
[2021-05-20] MEDS: allopurinoL 100 MG TAB PO SCH (20:51)
[2021-05-21] MEDS: methylPREDNISolone 40MG 1ML VIAL IV SCH ×3 (01:07→17:08)
[2021-05-21] MEDS: VANCOMYCIN HCL 1,000 MG, VIAL MATE ADAPTER 1 EACH in NS 250 ML IV SCH ×3 (01:07→17:08)
[2021-05-21] MEDS: LEVALBUTEROL 1.25 MG/0.5 ML CONCENTRATE NEB INH SCH ×6 (04:00→23:12)
[2021-05-21] MEDS: CEFEPIME HCL 2 GM in D5W 50 ML IV SCH ×3 (04:36→21:35)
[2021-05-21 06:00] VITALS: BP 124/73
[2021-05-21 06:29] LABS: HEMATOCRIT 36.2 % (42.0-52.0); HEMOGLOBIN 11.9 g/dl (13.5-17.5); MEAN CORPUSCULAR HEMOGLOBIN 33.1 pg (27.0-33.0); MEAN CORPUSCULAR HGB CONC 32.9 g/dl (32.0-36.5); MEAN CORPUSCULAR VOLUME 100.8 fl (80.0-96.0); PLATELET COUNT, AUTOMATED 231 10^3/uL (150-450); RED BLOOD COUNT 3.59 10^6/uL (4.30-6.10); WHITE BLOOD COUNT 11.9 10^3/uL (4.0-10.0)
[2021-05-21 06:51] LABS: BLOOD UREA NITROGEN 22 MG/DL (7-18); CALCIUM LEVEL 8.7 MG/DL (8.8-10.2); CARBON DIOXIDE LEVEL 28 MEQ/L (21-32); CHLORIDE LEVEL 110 MEQ/L (98-107); CREATININE FOR GFR 0.81 MG/DL (0.70-1.30); GLOMERULAR FILTRATION RATE > 60.0 (>49); GLUCOSE, FASTING 122 MG/DL (70-100); SODIUM LEVEL 143 MEQ/L (136-145)
[2021-05-21] MEDS: BUDESONIDE 0.25 MG/2 ML INHALATION SUSPENSION INH SCH ×2 (07:44→19:20)
[2021-05-21] MEDS: SUCRALFATE SUSP 1GM/10ML UD PO SCH ×4 (08:31→21:35)
[2021-05-21] MEDS: PANTOPRAZOLE 40MG TAB (PROTONIX) PO SCH ×2 (08:32→21:36)
[2021-05-21] MEDS: LACTOBACILLUS ACIDOPHILUS CAP (BACID) PO SCH ×4 (08:32→21:36)
[2021-05-21] MEDS: VORICONAZOLE 200MG TABLET (VFEND) PO SCH ×2 (08:32→21:35)
[2021-05-21] MEDS: guaiFENesin ER 600 MG TAB PO SCH ×2 (08:32→21:36)
[2021-05-21] MEDS: ENOXAPARIN 100MG/1ML SYRINGE (J1650 PER 10MG) SC SCH ×2 (08:33→21:35)
--- NOTE | 2021-05-21 11:46 | IPNPDOC ---
Text Note Date of Service The patient was seen on 05/21/21. NOTE SUBJECTIVE: -No chest pain, n/v/d, abdominal pain. OBJECTIVE: VITAL SIGNS: Please see below GENERAL: Patient is awake, alert and oriented x3, comfortable in bed LUNGS: R posterior field with crackles and R base continues to be blunted with diminished sounds, L clear, otherwise moving air without wheezing of upper airway transmitted sounds HEART: RRR, no m/r/g ABDOMEN: Soft, nontender and nondistended. EXTREMITIES: L arm larger than right per recent baseline. No clubbing or pitting lowe extremities edema. Neuro: No focal deficits LABORATORY DATA: Reviewed. WBC 11.9 hgb 11.9 platelets 231 Na 143 K 4 Cr 0.81 MICROBIOLOGY: 05/10: Sputum GS: QUALITY: GOOD MODERATE EPITHELIAL CELLS MODERATE WBCS MANY GRAM POSITIVE COCCI IN PAIRS, CHAINS AND CLUSTERS MANY GRAM NEGATIVE RODS FEW GRAM POSITIVE RODS FEW YEAST LIKE ORGANISM Sputum Cx: yeast like organism BCx: NG UA neg COVID test x 4- neg C. diff: neg Fungal studies negative, strep pneumoniae negative, legionella negative Cryptococcus, coccidiomycosis, TB and galactomannan pending IMAGING STUDIES: CXR 05/12/21: Extensive pneumonia throughout the right lung essentially unchanged from the study done earlier today. Platelike atelectasis in the left base is also again noted. No new infiltrate seen. Echo 05/12/21: MEASUREMENTS: IVS 0.9 cm LV 5.3 cm LVPW 0.8 cm LA 4.3 cm Aorta 3.5 cm Mitral E wave velocity 63 A wave 81 E prime septal 7.5 E prime lateral 9.8 Left atrial volume index 27 FINDINGS: This study is of very limited technical quality. Underlying sinus rhythm. Left ventricle is of normal size. There is probably normal or near-normal left ventricular (LV) systolic function based on very limited views. Right ventricle was poorly seen. Left atrium appears normal. Right atrium appears grossly normal based on limited views. There is minimal aortic sclerosis. There is also mild degenerative abnormalities of mitral valve. Right-sided heart valves were very poorly seen. No pericardial effusion is noted. Inferior vena cava was not visualized. Aortic root, ascending aorta, aortic arch and abdominal aorta appear grossly normal. Doppler interrogation reveals trivial aortic insufficiency, no aortic stenosis. There are competent mitral and tricuspid valves. Mitral inflow pattern and tissue Doppler imaging of mitral annulus reveals grade 1 diastolic dysfunction. CONCLUSIONS: 1. Study is of very limited technical quality. Underlying sinus rhythm. 2. Normal left ventricular (LV) size with normal or near-normal LV systolic function based on limited views. Grade 1 diastolic dysfunction. 3. No significant valvular disease. 4. Unable to estimate central venous pressure and pulmonary artery pressure. 05/18 CXR: Significant opacification involving the entire right hemithorax is similar to prior examination. Findings suggest the possibility of central mass/consolidation and peripheral alveolar infiltrates along with associated right-sided volume loss and ipsilateral mediastinal shift. Layering effusion cannot be excluded. Left hemithorax is relatively clear/stable. [id number] identified with tip in the brachiocephalic vein. IMPRESSION: Right-sided opacifications essentially unchanged from prior examination. 05/18 Ct chest w/o contrast: There is evidence of newly developed mediastinal and hilar adenopathy. There are no pleural or pericardial effusions. There is no significant change in the imaged upper abdomen or imaged osseous structures. Evaluation of the lung mcclellan shows a significant increase in the patchy ground- glass opacities seen bilaterally but particularly on the right. There is varicoid bronchiectasis bilaterally but seen best on the right. IMPRESSION: There has been a significant change compared to the prior exam as described above. The right lung opacities could easily obscure a significant nodule. Follow-up is recommended. 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 IMPRESSION: #Acute hypoxic respiratory failure likely 2/2 to pneumonia i/s/o Stage IV GE junction cancer, on FOLFOX and nivolumab, unclear infectious source vs. inflammatory pneumonitis -imaging above -neg nasal MRSA PCR -Pulm had held steroids on 05/13/21 to see if patient continued to improve on antibiotic therapy but interval imaging showed worsening so was restarted on solumedrol 80Q8H on 05/18 -Re-escalated to vanc/cefepime and added on voriconazole on 05/18, despite procal being normal -Levalbuterol ATC, PRN -Stopped lasix, was dry and hypotensive -Infectious disease, pulmonary following. 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 Has not been on therapeutic treatment as o/p -Per heme he was supposed to be on it daily but only took it for two weeks -lovenox BID currently and will need switched to a NoAC prior to hospital discharge #Elevated troponin 2/2 sepsis -No hx of CHF, CAD -BNP 1100, trop elevated since admission -Discussed with Dr. 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 -Currently, undergoing FOLFOX with Nivolumab every two weeks. -Dr. Marin hematology/oncology-tb with him early this week to update #GERD -C/w PPI, Carafate #Dyslipidemia #Chronic anxiety #DVT px -Lovenox BID RESOLVED #Sepsis DISPOSITION: Pulmonary and ID consulted . Goal is home when medically improved. VS,Fishbone, I+O VS, Fishbone, I+O Laboratory Tests 05/21/21 05:44 Vital Signs Date Time Temp Pulse Resp B/P (MAP) Pulse Ox O2 Delivery O2 Flow Rate FiO2 05/21/21 06:00 97.3 78 18 124/73 (90) 97 High Flow Cannula 6.0 I&O- Last 24 Hours up to 6 AM 05/21/21 06:00 Intake Total 1440 ml Balance 1440 ml MAITE ARANA MD May 21, 2021 08:45
[2021-05-21 14:00] VITALS: BP 134/87
[2021-05-21] MEDS: ROSUVASTATIN 10 MG TAB (CRESTOR) PO SCH (21:36)
[2021-05-21] MEDS: allopurinoL 100 MG TAB PO SCH (21:36)
[2021-05-21 22:00] VITALS: BP 133/86
[2021-05-22] MEDS: VANCOMYCIN HCL 1,000 MG, VIAL MATE ADAPTER 1 EACH in NS 250 ML IV SCH ×3 (01:11→16:15)
[2021-05-22] MEDS: methylPREDNISolone 40MG 1ML VIAL IV SCH ×3 (01:12→18:26)
[2021-05-22] MEDS: LEVALBUTEROL 1.25 MG/0.5 ML CONCENTRATE NEB INH SCH ×5 (03:05→18:08)
[2021-05-22] MEDS: CEFEPIME HCL 2 GM in D5W 50 ML IV SCH ×3 (04:46→23:32)
[2021-05-22] MEDS: BUDESONIDE 0.25 MG/2 ML INHALATION SUSPENSION INH SCH ×2 (05:54→18:08)
[2021-05-22 06:00] VITALS: BP 141/83
[2021-05-22 06:04] LABS: HEMATOCRIT 32.8 % (42.0-52.0); HEMOGLOBIN 10.7 g/dl (13.5-17.5); MEAN CORPUSCULAR HEMOGLOBIN 32.8 pg (27.0-33.0); MEAN CORPUSCULAR HGB CONC 32.6 g/dl (32.0-36.5); MEAN CORPUSCULAR VOLUME 100.6 fl (80.0-96.0); PLATELET COUNT, AUTOMATED 186 10^3/uL (150-450); RED BLOOD COUNT 3.26 10^6/uL (4.30-6.10); WHITE BLOOD COUNT 8.2 10^3/uL (4.0-10.0)
[2021-05-22 06:29] LABS: BLOOD UREA NITROGEN 20 MG/DL (7-18); CALCIUM LEVEL 8.4 MG/DL (8.8-10.2); CARBON DIOXIDE LEVEL 29 MEQ/L (21-32); CHLORIDE LEVEL 111 MEQ/L (98-107); GLOMERULAR FILTRATION RATE > 60.0 (>49); GLUCOSE, FASTING 122 MG/DL (70-100); SODIUM LEVEL 143 MEQ/L (136-145)
[2021-05-22] MEDS: SUCRALFATE SUSP 1GM/10ML UD PO SCH ×4 (08:42→23:31)
[2021-05-22] MEDS: guaiFENesin ER 600 MG TAB PO SCH ×2 (08:43→23:31)
[2021-05-22] MEDS: VORICONAZOLE 200MG TABLET (VFEND) PO SCH ×2 (08:43→23:31)
[2021-05-22] MEDS: LACTOBACILLUS ACIDOPHILUS CAP (BACID) PO SCH ×4 (08:43→23:31)
[2021-05-22] MEDS: PANTOPRAZOLE 40MG TAB (PROTONIX) PO SCH ×2 (08:43→23:31)
[2021-05-22] MEDS: ENOXAPARIN 100MG/1ML SYRINGE (J1650 PER 10MG) SC SCH ×2 (08:44→23:32)
--- NOTE | 2021-05-22 11:18 | IPNPDOC ---
Text Note Date of Service The patient was seen on 05/22/21. NOTE SUBJECTIVE: -No chest pain, n/v/d, abdominal pain. -Remains on 6L NC OBJECTIVE: VITAL SIGNS: Please see below GENERAL: Patient is awake, alert and oriented x3, comfortable in bed LUNGS: R posterior field with crackles and diminished sounds, L clear, otherwise moving air without wheezing of upper airway transmitted sounds HEART: RRR, no m/r/g ABDOMEN: Soft, nontender and nondistended. EXTREMITIES: L arm larger than right appearing worse than recent baseline. No clubbing or pitting lower extremities edema. Neuro: No focal deficits LABORATORY DATA: Reviewed. WBC 8.2 hgb 10.7 platelets 186 Na 143 K 4 Cr 0.7 MICROBIOLOGY: 05/10: Sputum GS: QUALITY: GOOD MODERATE EPITHELIAL CELLS MODERATE WBCS MANY GRAM POSITIVE COCCI IN PAIRS, CHAINS AND CLUSTERS MANY GRAM NEGATIVE RODS FEW GRAM POSITIVE RODS FEW YEAST LIKE ORGANISM Sputum Cx: yeast like organism BCx: NG UA neg COVID test x 4- neg C. diff: neg Fungal studies negative, strep pneumoniae negative, legionella negative Cryptococcus, coccidiomycosis, TB and galactomannan pending IMAGING STUDIES: CXR 05/12/21: Extensive pneumonia throughout the right lung essentially unchanged from the study done earlier today. Platelike atelectasis in the left base is also again noted. No new infiltrate seen. Echo 05/12/21: MEASUREMENTS: IVS 0.9 cm LV 5.3 cm LVPW 0.8 cm LA 4.3 cm Aorta 3.5 cm Mitral E wave velocity 63 A wave 81 E prime septal 7.5 E prime lateral 9.8 Left atrial volume index 27 FINDINGS: This study is of very limited technical quality. Underlying sinus rhythm. Left ventricle is of normal size. There is probably normal or near-normal left ventricular (LV) systolic function based on very limited views. Right ventricle was poorly seen. Left atrium appears normal. Right atrium appears grossly normal based on limited views. There is minimal aortic sclerosis. There is also mild degenerative abnormalities of mitral valve. Right-sided heart valves were very poorly seen. No pericardial effusion is noted. Inferior vena cava was not visualized. Aortic root, ascending aorta, aortic arch and abdominal aorta appear grossly normal. Doppler interrogation reveals trivial aortic insufficiency, no aortic stenosis. There are competent mitral and tricuspid valves. Mitral inflow pattern and tissue Doppler imaging of mitral annulus reveals grade 1 diastolic dysfunction. CONCLUSIONS: 1. Study is of very limited technical quality. Underlying sinus rhythm. 2. Normal left ventricular (LV) size with normal or near-normal LV systolic function based on limited views. Grade 1 diastolic dysfunction. 3. No significant valvular disease. 4. Unable to estimate central venous pressure and pulmonary artery pressure. 05/18 CXR: Significant opacification involving the entire right hemithorax is similar to prior examination. Findings suggest the possibility of central mass/consolidation and peripheral alveolar infiltrates along with associated right-sided volume loss and ipsilateral mediastinal shift. Layering effusion cannot be excluded. Left hemithorax is relatively clear/stable. Bccack-C-Kljs identified with tip in the brachiocephalic vein. IMPRESSION: Right-sided opacifications essentially unchanged from prior examination. 05/18 Ct chest w/o contrast: There is evidence of newly developed mediastinal and hilar adenopathy. There are no pleural or pericardial effusions. There is no significant change in the imaged upper abdomen or imaged osseous structures. Evaluation of the lung mcclellan shows a significant increase in the patchy ground- glass opacities seen bilaterally but particularly on the right. There is varicoid bronchiectasis bilaterally but seen best on the right. IMPRESSION: There has been a significant change compared to the prior exam as described above. The right lung opacities could easily obscure a significant nodule. Follow-up is recommended. 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 IMPRESSION: #Acute hypoxic respiratory failure likely 2/2 to pneumonia i/s/o Stage IV GE junction cancer, on FOLFOX and nivolumab, unclear infectious source vs. inflammatory pneumonitis -imaging above -neg nasal MRSA PCR -Pulm had held steroids on 05/13/21 to see if patient continued to improve on antibiotic therapy but interval imaging showed worsening so was restarted on solumedrol 80Q8H on 05/18 -Re-escalated to vanc/cefepime and added on voriconazole on 05/18, despite procal being normal -Levalbuterol ATC, PRN -Stopped lasix, was dry and hypotensive. Will give 1 dose of 40mg Iv today. -Infectious disease, pulmonary following. 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 Has not been on therapeutic treatment as o/p -Per heme he was supposed to be on it daily but only took it for two weeks -lovenox BID currently and will need switched to a NoAC prior to hospital discharge #Elevated troponin 2/2 sepsis -No hx of CHF, CAD -BNP 1100, trop elevated since admission -Discussed with Dr. 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 -Currently, undergoing FOLFOX with Nivolumab every two weeks. -Dr. Marin hematology/oncology-tb with him early this week to update #GERD -C/w PPI, Carafate #Dyslipidemia #Chronic anxiety #DVT px -Lovenox BID RESOLVED #Sepsis DISPOSITION: Pulmonary and ID consulted . Goal is home when medically improved. VS,Fishbone, I+O VS, Fishbone, I+O Laboratory Tests 05/22/21 05:39 Vital Signs Date Time Temp Pulse Resp B/P (MAP) Pulse Ox O2 Delivery O2 Flow Rate FiO2 05/22/21 06:00 97.6 80 17 141/83 (102) 96 High Flow Cannula 6.0 I&O- Last 24 Hours up to 6 AM 05/22/21 06:00 Intake Total 730 ml Balance 730 ml MAITE ARANA MD May 22, 2021 09:10
--- NOTE | 2021-05-22 11:54 | IPNPDOC ---
Subjective Date Seen The patient was seen on 05/22/21. Subjective Chief Complaint/HPI Complains of ongoing shortness of breath and dry cough. Denies of fever, chills, chest pain, palpitation, lower extremity swelling. Constitutional: Denies: Chills, Fever ENT: Denies: Head Aches Skin: Denies: Rash Pulmonary: Reports: Dyspnea, Cough (Dry cough) Cardiovascular: Denies: Chest Pain, Palpitations Gastrointestinal: Denies: Nausea, Vomiting Neurological: Denies: Weakness, Numbness Objective Physical Examination General Exam: Positive: Alert, Cooperative, No Acute Distress Eye Exam: Positive: PERRLA; Negative: Sclera icteric ENT Exam: Positive: Atraumatic Neck Exam: Positive: Supple; Negative: JVD Chest Exam: Positive: Rales (Coarse crackle most predominantly in the right lung field.), Diminished (Absent breath sounds of the left lower base), Other (Coarse crackle of the right lung field predominantly in the basilar segment) Heart Exam: Positive: Rate Normal, Irregular Rhythm Telemetry: Positive: Atrial fibrillation Abdomen Exam: Positive: Normal bowel sounds, Soft; Negative: Tenderness Male Exam: Negative: Edema Extremity Exam: Negative: Clubbing, Edema Neuro Exam: Positive: Normal Speech, Strength at 5/5 X4 ext Psych Exam: Positive: Mental status NL Assessment /Plan Assessment This is a 70-year-old gentleman with 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 1. Acute hypoxic respiratory failure in setting of chronic immunosuppression. Differential includes infectious etiologies (possible opportunistic) vs drug- induced pneumonitis from immunotherapy. Covid swab x4 is negative 2. Sepsis present on admission 3. History of esophageal adenocarcinoma stage IV on chemotherapy and immunot herapy (Opdivo) last dose approximately 1 month ago 4. 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 Left hemidiaphragmatic paresis noted on CXR and CTA Plan/VTE VTE Prophylaxis Ordered?: Yes Plan -Pending bronchoalveolar lavage of the right lower lobe for microbiology and transbronchial biopsy of the right lower lobe for histopathology and PCP. -Continue with voriconazole and systemic corticosteroid. Will discuss with infectious disease Dr. Jaeger to discontinue antibiotic. -Please send for voriconazole level. VS, I&O, 24H, Ary Vital Signs/I&O Vital Signs Date Time Temp Pulse Resp B/P (MAP) Pulse Ox O2 Delivery O2 Flow Rate FiO2 05/22/21 06:00 97.6 80 17 141/83 (102) 96 High Flow Cannula 6.0 I&O- Last 24 Hours up to 6 AM 05/22/21 06:00 Intake Total 730 ml Balance 730 ml Laboratory Data 24H LABS Laboratory Tests 2 05/22/21 05:39: Nucleated Red Blood Cells % (auto) 0.0, Anion Gap 3L, Glomerular Filtration Rate > 60.0, Calcium Level 8.4L 05/22/21 08:50: Vancomycin Level Trough 16.3 CBC/BMP Laboratory Tests 05/22/21 05:39 Microbiology Microbiology 05/19/21 Acid Fast Stain, Received Pending 05/19/21 Mycobacterial Culture, Received Pending 05/19/21 Fungal Smear, Received Pending 05/19/21 Fungal Culture, Received Pending 05/19/21 Gram Stain - Final, Resulted 05/19/21 Bronchoalveolar Lavage Culture, Resulted Pending 05/19/21 Acid Fast Stain, Received Pending 05/19/21 Mycobacterial Culture, Received Pending 05/19/21 Fungal Smear, Received Pending 05/19/21 Fungal Culture, Received Pending 05/19/21 Gram Stain - Final, Resulted 05/19/21 Bronchoalveolar Lavage Culture, Resulted Pending RICH WILLS MD May 22, 2021 11:54
--- NOTE | 2021-05-22 12:25 | REP ---
INDICATION: pneumonia (right side) follow up. COMPARISON: 05/19/2021. TECHNIQUE: Single portable AP view of the chest was performed. FINDINGS: There is a moderate right pneumothorax. There is diffuse right lung consolidation. Mild stable peripheral infiltrates in the left lung are stable. The heart and mediastinum are grossly unchanged. A left central venous catheter is again seen unchanged. IMPRESSION: New moderate right pneumothorax. A stat report was faxed to the referring clinician at the time of dictation. <Electronically signed by Sami Quintero > 05/22/21 [id number]
[2021-05-22 14:00] VITALS: BP 154/93
[2021-05-22] MEDS ORDERED: MORPHINE 2 MG/ML 1ML VIAL (J2270) IV ONE ×3 (15:30→15:50)
[2021-05-22] MEDS ORDERED: IBUPROFEN 800 MG TAB PO ONE (15:30)
[2021-05-22] MEDS ORDERED: MORPHINE 4 MG/ML 1ML VIAL/SYRINGE (J2270) IV ONE (15:35)
--- NOTE | 2021-05-22 16:29 | REP ---
INDICATION: Post right sided chest tube.. COMPARISON: 05/22/2021 pre thoracotomy tube placement TECHNIQUE: Portable status post thoracotomy tube placement FINDINGS: The technique utilized in obtaining the radiograph has magnified the cardiac silhouette and accentuated the interstitial markings. Since the last examination a right-sided thoracotomy tube has been placed the tip is in the region of the right CP angle and there has been little reduction in the pneumothorax. There are no other significant changes. IMPRESSION: Right-sided thoracotomy tube with little reduction in the pneumothorax. <Electronically signed by Mike Toney > 05/22/21 [id number]
--- NOTE | 2021-05-22 16:36 | ROOPDOC ---
[facility] Report Of Operation Report of Operation DATE OF PROCEDURE: 05/22/21 PROCEDURE PERFORMED: Right-sided chest tube insertion. PREPROCEDURE DIAGNOSES: Spontaneous pneumothorax of the right side. POSTPROCEDURE DIAGNOSES: Spontaneous pneumothorax of the right side. SURGEON: Dr. Pipe MD ANESTHESIA: Local lidocaine 1% without epinephrine. ESTIMATED BLOOD LOSS: Approximately 1 mL. COMPLICATIONS: None. DESCRIPTION OF PROCEDURE: After getting consent from patient, a timeout was performed. I wear mask, sterile gloves, hair covers for the procedure. The area of midclavicular line second intercostal space was marked for insertion site. The place prepped and draped in usual sterile fashion. 1% lidocaine was used to anesthetize the skin down to the rib along the proposed insertion path for the tube. An 18-gauge needle with syringe attached was inserted into the pleural space with air aspirated to verify placement. A guidewire was advanced into the pleural space and the needle was withdrawn. A 0.5 cm incision was made through the skin and subcutaneous tissue were dilated. The 14 [place] Arrow chest drain was inserted into the pleural space using Salinger technique. The drain was then immediately connected to the Pleur-evac. Adequate placement was confirmed by air leak/titling/fluid drainage of 25 cc. The tube was sutured in place and dressing was applied. The patient tolerated procedure well with partial reexpansion of the lung on postprocedure chest x-ray. Estimated blood loss is about 1 cc. There was no complication with the procedure. RICH WILLS MD May 22, 2021 16:36
--- NOTE | 2021-05-22 18:25 | IPN ---
PROGRESS NOTE DATE: 05/22/2021 SUBJECTIVE: Edwin seems to be doing fairly well. He had a pneumothorax noted today by Dr. Betancur and he had a chest tube placed. He was getting Morphine when being examined, once the Morphine took effect his chest pain got better. He denied any fever, chills, or palpitations. He stated that over the weekend he was coughing up more than usual, mostly reen chunks but no hemoptysis. He denied any fever or chills. No headache. BAL specimen did not make it to microbiology until today and therefore the sputum culture is not available. AFB smear is negative. Gram stain has many white cells but no organisms seen. OBJECTIVE: VITAL SIGNS: Temperature is 97.6, pulse is 89, respirations 20, O2 sat 90 to 96% on six liters nasal cannula. HEART: Normal S1 and S2 with a systolic murmur, 2/6, unchanged. LUNGS: Right lung diminished airway. Chest tube in place anteriorly. Left lung with good air entry. ABDOMEN: Soft, nontender. No hepatosplenomegaly. EXTREMITIES: Calf with no tenderness. Lower extremity: No clubbing, cyanosis or edema. LABORATORY DATA: White count 8.2, hemoglobin is 10.7, hematocrit 32.8, platelets 186,000. Sodium 143, potassium 4, chloride 111, bicarbonate 29, BUN 20, creatinine 0.7, glucose 122, calcium 8.4. Procalcitonin less than 0.05. MEDICATIONS: Vancomycin 1 gram IV every 8 hours, currently day #5, Cefepime 2 grams IV every 8 hours, day #5, fluconazole 200 mg p.o. b.i.d. day #4 and methylprednisolone 80 mg IV q. 8 hours. IMPRESSION: 1. Respiratory failure with bilateral pneumonitis with no evidence of bacterial pneumonia. Normal procalcitonin. Cough is nonproductive. IV Vancomycin and Cefepime will be discontinued. Fungal smear and culture are pending. AFB smear and culture were pending. CMV, EBV DNA are pending. 2. History of esophageal adenocarcinoma status post 10 cycles of chemotherapy including Nivolumab which has pulmonary toxicity, this is being ruled out. PLAN: Discontinue IV Vancomycin and Cefepime, awaiting results of rest of cultures. Aspergillus galactomannan was negative at 0.03. Beta D Glucan was also negative at less than 31. QuantiFERON TB GOLD was negative. Will await results of pathology before discontinuing antifungal therapy. MTDD
[2021-05-22] MEDS: ACETAMINOPHEN TAB 650MG DOSE (2X325MG) PO PRN ×2 (19:07→23:34)
[2021-05-22 21:26] VITALS: BP 159/98
[2021-05-22] MEDS: ROSUVASTATIN 10 MG TAB (CRESTOR) PO SCH (23:31)
[2021-05-22] MEDS: allopurinoL 100 MG TAB PO SCH (23:32)
[2021-05-23] MEDS: methylPREDNISolone 40MG 1ML VIAL IV SCH ×3 (01:13→17:41)
[2021-05-23] MEDS: VANCOMYCIN HCL 1,000 MG, VIAL MATE ADAPTER 1 EACH in NS 250 ML IV SCH (01:13)
[2021-05-23] MEDS: IBUPROFEN 600MG TAB PO PRN (03:18)
[2021-05-23] MEDS: LEVALBUTEROL 1.25 MG/0.5 ML CONCENTRATE NEB INH SCH ×7 (04:00→23:37)
[2021-05-23] MEDS: CEFEPIME HCL 2 GM in D5W 50 ML IV SCH (06:29)
[2021-05-23] MEDS: ACETAMINOPHEN TAB 650MG DOSE (2X325MG) PO PRN (06:30)
[2021-05-23 07:17] VITALS: BP 161/81
[2021-05-23] MEDS: BUDESONIDE 0.25 MG/2 ML INHALATION SUSPENSION INH SCH ×2 (07:42→19:42)
[2021-05-23] MEDS: SUCRALFATE SUSP 1GM/10ML UD PO SCH ×4 (09:04→20:10)
[2021-05-23] MEDS: ENOXAPARIN 100MG/1ML SYRINGE (J1650 PER 10MG) SC SCH ×2 (09:04→20:11)
[2021-05-23] MEDS: guaiFENesin ER 600 MG TAB PO SCH ×2 (09:05→20:11)
[2021-05-23] MEDS: LACTOBACILLUS ACIDOPHILUS CAP (BACID) PO SCH ×4 (09:05→20:10)
[2021-05-23] MEDS: VORICONAZOLE 200MG TABLET (VFEND) PO SCH ×2 (09:05→20:11)
[2021-05-23] MEDS: PANTOPRAZOLE 40MG TAB (PROTONIX) PO SCH ×2 (09:05→20:11)
[2021-05-23 09:40] LABS: HEMATOCRIT 37.9 % (42.0-52.0); HEMOGLOBIN 12.6 g/dl (13.5-17.5); MEAN CORPUSCULAR HEMOGLOBIN 32.8 pg (27.0-33.0); MEAN CORPUSCULAR HGB CONC 33.2 g/dl (32.0-36.5); MEAN CORPUSCULAR VOLUME 98.7 fl (80.0-96.0); PLATELET COUNT, AUTOMATED 234 10^3/uL (150-450); RED BLOOD COUNT 3.84 10^6/uL (4.30-6.10); WHITE BLOOD COUNT 13.2 10^3/uL (4.0-10.0)
[2021-05-23 10:07] LABS: ALBUMIN 2.6 GM/DL (3.2-5.2); ALT/SGPT 37 U/L (12-78); BILIRUBIN,TOTAL 0.5 MG/DL (0.2-1.0); BLOOD UREA NITROGEN 24 MG/DL (7-18); CALCIUM LEVEL 8.8 MG/DL (8.8-10.2); CARBON DIOXIDE LEVEL 27 MEQ/L (21-32); CHLORIDE LEVEL 106 MEQ/L (98-107); GLOMERULAR FILTRATION RATE > 60.0 (>49); GLUCOSE, FASTING 150 MG/DL (70-100); POTASSIUM SERUM 3.9 MEQ/L (3.5-5.1); SODIUM LEVEL 138 MEQ/L (136-145); TOTAL PROTEIN 6.4 GM/DL (6.4-8.2)
[2021-05-23] MEDS ORDERED: MORPHINE 2 MG/ML 1ML VIAL (J2270) IV PRN (10:20)
--- NOTE | 2021-05-23 10:25 | REP ---
INDICATION: right sided pneumothorax post chest tube follow up. COMPARISON: Multiple the latest 05/22/2021 at 3:58 p.m. TECHNIQUE: Portable FINDINGS: The technique utilized in obtaining the radiograph has magnified the cardiac silhouette and accentuated the interstitial markings. The cardiomediastinal silhouette lung mcclellan are unchanged. The right-sided pneumothorax is unchanged. The right-sided thoracotomy tube is unchanged. The osseous structures are stable. IMPRESSION: No significant change <Electronically signed by Mike Toney > 05/23/21 1022
[2021-05-23] MEDS: PERCOCET 5MG/325MG TAB PO PRN ×2 (10:45→17:50)
--- NOTE | 2021-05-23 12:36 | IPNPDOC ---
Subjective Date Seen The patient was seen on 05/23/21. Subjective Chief Complaint/HPI Patient complains of pleuritic chest pain involving the right side of the chest which has improved from yesterday after chest tube insertion. Constitutional: Denies: Chills, Fever Eyes: Reports: Pain (Right-sided pleuritic chest pain) ENT: Denies: Head Aches Skin: Denies: Rash Pulmonary: Reports: Dyspnea, Cough (Dry cough) Cardiovascular: Reports: Chest Pain; Denies: Palpitations, Orthopnea, Paroxysmal Noc. Dyspnea, Edema Gastrointestinal: Denies: Nausea, Vomiting, Abdominal Pain, Diarrhea Neurological: Denies: Weakness, Numbness Objective Physical Examination General Exam: Positive: Alert, Cooperative, No Acute Distress Eye Exam: Positive: PERRLA; Negative: Sclera icteric ENT Exam: Positive: Atraumatic Neck Exam: Positive: Supple; Negative: JVD Chest Exam: Positive: Rales (Right upper lung field), Rhonchi (Bibasilar coarse crackles), Other (Right-sided chest tube in the intercostal space midclavicular line intact with no surrounding erythema at the insertion site.) Heart Exam: Positive: Rate Normal, Irregular Rhythm Abdomen Exam: Positive: Normal bowel sounds, Soft; Negative: Tenderness Male Exam: Negative: Edema Extremity Exam: Negative: Clubbing, Edema Neuro Exam: Positive: Normal Speech, Strength at 5/5 X4 ext Psych Exam: Positive: Mental status NL Assessment /Plan Assessment This is a 70-year-old gentleman with 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 1. Acute hypoxic respiratory failure in setting of chronic immunosuppression. Differential includes infectious etiologies (possible opportunistic) vs drug- induced pneumonitis from immunotherapy. Covid swab x4 is negative 2. Sepsis present on admission 3. History of esophageal adenocarcinoma stage IV on chemotherapy and immunotherapy (Opdivo) last dose approximately 1 month ago 4. 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 Spontaneous right-sided pneumothorax Plan/VTE VTE Prophylaxis Ordered?: Yes Plan -Bronchoalveolar watch of the right lower lobe and transbronchial biopsy of the right lower lobe still pending. -We will continue with voriconazole and systemic corticosteroid. Voriconazole level is currently pending. -Right-sided chest tube to -20 cm of water suction. Continue to monitor for airleak. Incentive spirometry. Disposition Continue hospital care. VS, I&O, 24H, Ary Vital Signs/I&O Vital Signs Date Time Temp Pulse Resp B/P (MAP) Pulse Ox O2 Delivery O2 Flow Rate FiO2 05/23/21 10:45 16 05/23/21 07:17 97.4 72 161/81 (107) 96 High Flow Cannula 6.0 I&O- Last 24 Hours up to 6 AM 05/23/21 06:00 Intake Total 1912 ml Output Total 705 ml Balance 1207 ml Laboratory Data 24H LABS Laboratory Tests 2 05/23/21 09:21: Nucleated Red Blood Cells % (auto) 0.0, Anion Gap 5L, Glomerular Filtration Rate > 60.0, Calcium Level 8.8, Total Bilirubin 0.5, Aspartate Amino Transf (AST/SGOT) 28, Alanine Aminotransferase (ALT/SGPT) 37, Alkaline Phosphatase 98, Total Protein 6.4, Albumin 2.6L, Albumin/Globulin Ratio 0.7 CBC/BMP Laboratory Tests 05/23/21 09:21 Microbiology Microbiology 05/19/21 Acid Fast Stain - Final, Resulted 05/19/21 Mycobacterial Culture, Resulted Pending 05/19/21 Fungal Smear, Resulted Pending 05/19/21 Fungal Culture, Resulted Pending 05/19/21 Gram Stain - Final, Resulted 05/19/21 Bronchoalveolar Lavage Culture, Resulted Pending 05/19/21 Acid Fast Stain - Final, Resulted 05/19/21 Mycobacterial Culture, Resulted Pending 05/19/21 Fungal Smear, Resulted Pending 05/19/21 Fungal Culture, Resulted Pending 05/19/21 Gram Stain - Final, Resulted 05/19/21 Bronchoalveolar Lavage Culture, Resulted Pending RICH WILLS MD May 23, 2021 12:36
[2021-05-23 14:00] VITALS: BP 142/86
[2021-05-23 17:09] LABS: ASPERGILLUS FLAVUS ABY Negative (Neg:<1:1); ASPERGILLUS FUMIGATUS ABY Negative (Neg:<1:1); ASPERGILLUS GALACTOMANNAN AG 0.12 Index (0.00-0.49); ASPERGILLUS NIGER ABY Negative (Neg:<1:1); FUNGITELL, SERUM <31 pg/mL (<80)
[2021-05-23] MEDS: allopurinoL 100 MG TAB PO SCH (20:11)
[2021-05-23] MEDS: ROSUVASTATIN 10 MG TAB (CRESTOR) PO SCH (20:11)
[2021-05-23 20:12] VITALS: BP 150/89
--- NOTE | 2021-05-23 20:15 | IPNPDOC ---
Date Seen The patient was seen on 05/23/21. Progress Note SUBJECTIVE: -s/p chest tube placement 05/22/21 for pneumothorax of right lung. -D/c abx per ID, remains on antifungal. No acute events overnight. -Remains on 6L NC, no increased SOB or chest pain OBJECTIVE: PE: VITAL SIGNS: Please see below GENERAL: Patient is awake, alert and oriented x3, comfortable in bed LUNGS: R posterior field with crackles and diminished sounds, L clear, otherwise moving air without wheezing of upper airway transmitted sounds. Chest tube in place fixed in upper right chest HEART: RRR, no m/r/g ABDOMEN: Soft, nontender and nondistended. EXTREMITIES: L arm larger than right appearing worse than recent baseline. No clubbing or pitting lower extremities edema. Neuro: No focal deficits LABORATORY DATA: Reviewed. Please see below MICROBIOLOGY/PATH: Sputum GS: QUALITY: GOOD MODERATE EPITHELIAL CELLS MODERATE WBCS MANY GRAM POSITIVE COCCI IN PAIRS, CHAINS AND CLUSTERS MANY GRAM NEGATIVE RODS FEW GRAM POSITIVE RODS FEW YEAST LIKE ORGANISM Sputum Cx: yeast like organism BCx: NG UA neg COVID test x 4- neg C. diff: neg Fungal studies negative, strep pneumoniae negative, legionella negative TB neg galactomannan studies neg Cryptococcus, coccidiomycosis pending Bronchoscopy cultures pending Bronchoscopy path pending IMAGING STUDIES: CXR 05/23/21: The technique utilized in obtaining the radiograph has magnified the cardiac silhouette and accentuated the interstitial markings. The cardiomediastinal silhouette lung mcclellan are unchanged. The right-sided pneumothorax is unchanged. The right-sided thoracotomy tube is unchanged. The osseous structures are stable. Echo 05/12/21: 1. Study is of very limited technical quality. Underlying sinus rhythm. 2. Normal left ventricular (LV) size with normal or near-normal LV systolic function based on limited views. Grade 1 diastolic dysfunction. 3. No significant valvular disease. 4. Unable to estimate central venous pressure and pulmonary artery pressure. ASSESSMENT: 70-year-old M with a GE junction Stage IV cancer on FOLFOX and nivolumab who was admitted for R>>L sided pneumonia with acute hypoxemic respiratory failure and LUE DVT c/b interval worsening despite varied antibiotic therapies, now escalated to vanc/cefepime/vori and also restarted on steroids and now s/p bronchoscopy with BAL on 10/15. IMPRESSION: #Acute hypoxic respiratory failure likely 2/2 to pneumonia i/s/o Stage IV GE junction cancer, on FOLFOX and nivolumab, unclear infectious source vs. inflammatory pneumonitis. Complicated by right side pneumothorax -S/p chest tube placed on 05/22/21, REMAINS on 6 L NC -imaging above -neg nasal MRSA PCR -Pulm had held steroids on 05/13/21 to see if patient continued to improve on antibiotic therapy but interval imaging showed worsening so was restarted on solumedrol 80Q8H on 05/18 -Re-escalated to vanc/cefepime and added on voriconazole on 05/18, despite procal being normal -Stopped vanc/cefepime per ID on 05/23/21 -Levalbuterol ATC, PRN -Infectious disease, pulmonary following. 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 Has not been on therapeutic treatment as o/p -Per heme he was supposed to be on it daily but only took it for two weeks -lovenox BID currently and will need switched to a NoAC prior to hospital discharge #Elevated troponin 2/2 sepsis -No hx of CHF, CAD -BNP 1100, trop elevated since admission -Discussed with Dr. 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 -Currently, undergoing FOLFOX with Nivolumab every two weeks. -Dr. Marin hematology/oncology-tb with him early this week to update #GERD -C/w PPI, Carafate #Dyslipidemia #Chronic anxiety #DVT px -Lovenox BID RESOLVED #Sepsis DISPOSITION: Pulmonary and ID consulted . Goal is home when medically improved. VS, I&O, 24H, Fishbone Vital Signs/I&O Vital Signs Date Time Temp Pulse Resp B/P (MAP) Pulse Ox O2 Delivery O2 Flow Rate FiO2 05/23/21 18:26 18 05/23/21 14:00 97.3 76 142/86 (104) 96 High Flow Cannula 6.0 I&O- Last 24 Hours up to 6 AM 05/23/21 05:59 Intake Total 1912 ml Output Total 705 ml Balance 1207 ml Laboratory Data 24H LABS Laboratory Tests 2 05/23/21 09:21: Nucleated Red Blood Cells % (auto) 0.0, Anion Gap 5L, Glomerular Filtration Rate > 60.0, Calcium Level 8.8, Total Bilirubin 0.5, Aspartate Amino Transf (AST/SGOT) 28, Alanine Aminotransferase (ALT/SGPT) 37, Alkaline Phosphatase 98, Total Protein 6.4, Albumin 2.6L, Albumin/Globulin Ratio 0.7 CBC/BMP Laboratory Tests 05/23/21 09:21 Microbiology Microbiology 05/19/21 Acid Fast Stain - Final, Resulted 05/19/21 Mycobacterial Culture, Resulted Pending 05/19/21 Fungal Smear, Resulted Pending 05/19/21 Fungal Culture, Resulted Pending 05/19/21 Gram Stain - Final, Resulted 05/19/21 Bronchoalveolar Lavage Culture, Resulted Pending 05/19/21 Acid Fast Stain - Final, Resulted 05/19/21 Mycobacterial Culture, Resulted Pending 05/19/21 Fungal Smear, Resulted Pending 05/19/21 Fungal Culture, Resulted Pending 05/19/21 Gram Stain - Final, Resulted 05/19/21 Bronchoalveolar Lavage Culture, Resulted Pending Aishwarya Oro MD May 23, 2021 20:15
[2021-05-23] MEDS: ALPRAZolam 0.5 MG TAB PO PRN (20:37)
[2021-05-24] MEDS: LEVALBUTEROL 1.25 MG/0.5 ML CONCENTRATE NEB INH SCH ×6 (02:42→23:19)
[2021-05-24] MEDS: methylPREDNISolone 40MG 1ML VIAL IV SCH ×3 (03:34→17:50)
[2021-05-24] MEDS: PERCOCET 5MG/325MG TAB PO PRN (03:46)
[2021-05-24 06:00] VITALS: BP 144/81
[2021-05-24 06:07] LABS: HEMATOCRIT 33.7 % (42.0-52.0); MEAN CORPUSCULAR HEMOGLOBIN 32.6 pg (27.0-33.0); MEAN CORPUSCULAR HGB CONC 32.6 g/dl (32.0-36.5); PLATELET COUNT, AUTOMATED 158 10^3/uL (150-450); RED BLOOD COUNT 3.37 10^6/uL (4.30-6.10); WHITE BLOOD COUNT 6.6 10^3/uL (4.0-10.0)
[2021-05-24 06:31] LABS: ALBUMIN 2.4 GM/DL (3.2-5.2); ALT/SGPT 34 U/L (12-78); BILIRUBIN,TOTAL 0.4 MG/DL (0.2-1.0); BLOOD UREA NITROGEN 24 MG/DL (7-18); CALCIUM LEVEL 8.3 MG/DL (8.8-10.2); CARBON DIOXIDE LEVEL 32 MEQ/L (21-32); CHLORIDE LEVEL 106 MEQ/L (98-107); GLOMERULAR FILTRATION RATE > 60.0 (>49); GLUCOSE, FASTING 139 MG/DL (70-100); POTASSIUM SERUM 4.3 MEQ/L (3.5-5.1); SODIUM LEVEL 143 MEQ/L (136-145); TOTAL PROTEIN 5.4 GM/DL (6.4-8.2)
[2021-05-24] MEDS: SUCRALFATE SUSP 1GM/10ML UD PO SCH ×4 (07:30→20:42)
[2021-05-24 07:31] VITALS: O2SAT 99
[2021-05-24] MEDS: BUDESONIDE 0.25 MG/2 ML INHALATION SUSPENSION INH SCH ×2 (07:31→19:56)
--- NOTE | 2021-05-24 09:19 | REP ---
INDICATION: right sided pneumothorax. COMPARISON: 05/23/2021. TECHNIQUE: Single portable AP view of the chest was performed. FINDINGS: There is a small right pneumothorax which has decreased in size compared to the prior study. There is a right chest tube again noted. There is again diffuse consolidation of the right lung. Peripheral parenchymal opacities is on the left are stable. The heart and mediastinum are unchanged.Left central venous catheter is again seen. IMPRESSION: Decreased size of right pneumothorax. <Electronically signed by Sami Quintero > 05/24/21 0915
[2021-05-24] MEDS: ENOXAPARIN 100MG/1ML SYRINGE (J1650 PER 10MG) SC SCH ×2 (09:50→20:43)
[2021-05-24] MEDS: guaiFENesin ER 600 MG TAB PO SCH ×2 (09:51→20:42)
[2021-05-24] MEDS: LACTOBACILLUS ACIDOPHILUS CAP (BACID) PO SCH ×4 (09:51→20:42)
[2021-05-24] MEDS: PANTOPRAZOLE 40MG TAB (PROTONIX) PO SCH ×2 (09:51→20:42)
[2021-05-24] MEDS: VORICONAZOLE 200MG TABLET (VFEND) PO SCH ×2 (09:51→20:42)
--- NOTE | 2021-05-24 10:39 | IPN ---
PROGRESS NOTE DATE: 05/23/2021 SUBJECTIVE: The patient denies any new complaints. He has some pain with the chest tube especially when it is disconnected. He remains afebrile. His cough is mostly nonproductive. PHYSICAL EXAMINATION: VITAL SIGNS: Temperature 97.4, pulse 103, respirations 22, blood pressure 150/89, O2 sat 91 to 96% on 6 liters nasal cannula depending on his activity. HEART: Normal, S1, S2, tachycardic, no murmurs appreciated. LUNGS: Diminished breath sounds at the right lung, left good air entry, chest tube in place on the right side. ABDOMEN: Soft, nontender. No hepatosplenomegaly. SKIN: No rashes. EXTREMITIES: No cyanosis, clubbing or edema. Left upper extremity with DVT, slightly more swollen than the right. LABORATORY DATA: White count 13.2, hemoglobin 12.7, hematocrit 28.7, platelets 234. Sodium 138, potassium 3.9, chloride 106, bicarb 27, BUN 24, creatinine 0.9, glucose 150, calcium 8.8. AST 28, ALT 37. Alk phos 98, total protein 6.4, albumin 2.6. Aspergillus galactomannan 0.03 negative, QuantiFERON-TB was negative. SARS-CoV-2 again was negative on 05/19. Beta-3 Glucan was negative on 05/11. Histoplasma antigen was negative. Other fungal antibodies including coccidiosisandcryptococcus are pending. CMV PROCEDURE TECH, EVV DNA are pending. MEDICATIONS: 1. Voriconazole 200 mg PO twice daily. 2. Probiotics one tablet PO with meals. 3. Methylprednisolone 80 mg IV every 8 hours. IMPRESSION: 1. Acute respiratory failure with chronic immunosuppression. Lung biopsy was negative, had scant lung tissue, cytology still pending. COVID negative x4. Aspergillus galactomannan and Beta-3 glucan negative, makes fungal etiology less likely. Viral pathogens, CMV, EVV DNA are pending. Drug-induced pneumonitis is still in the differential. The patient also developed right-sided pneumothorax and has a chest tube in place, right-sided where most of the lung pathology is. 2. History of esophageal adenocarcinoma, on FOLFOX and Nivolumab, last chemotherapy was 04/19/2021. 3. Occlusive thrombus left jugular vein and left upper extremity, on Lovenox subcu twice daily. PLAN: 1. Continue Voriconazole until results of cytology are final. 2. Continue with IV Solu-Medrol. Otherwise the patient is no longer on any antibiotics.
--- NOTE | 2021-05-24 12:35 | IPNPDOC ---
Subjective Date Seen The patient was seen on 05/24/21. Subjective Chief Complaint/HPI Feeling better and breathing better. Less pain today. Denies of fever, chills, chest pain, palpitation. General: Denies: Chills Constitutional: Denies: Chills, Fever Eyes: Reports: Pain (pleuritic chest pain) ENT: Denies: Head Aches Skin: Denies: Rash Pulmonary: Reports: Dyspnea, Cough Cardiovascular: Denies: Chest Pain, Palpitations, Orthopnea, Edema Gastrointestinal: Denies: Nausea, Vomiting Objective Physical Examination General Exam: Positive: Alert, Cooperative, No Acute Distress Eye Exam: Positive: PERRLA; Negative: Sclera icteric ENT Exam: Positive: Atraumatic Neck Exam: Positive: Supple; Negative: JVD Chest Exam: Positive: Rales (Right upper lung field), Rhonchi (Bibasilar coarse crackles), Other (Right-sided chest tube in the intercostal space midclavicular line intact with no surrounding erythema at the insertion site.) Heart Exam: Positive: Rate Normal, Irregular Rhythm Abdomen Exam: Positive: Normal bowel sounds, Soft; Negative: Tenderness Male Exam: Negative: Edema Extremity Exam: Negative: Clubbing, Edema Neuro Exam: Positive: Normal Speech, Strength at 5/5 X4 ext Psych Exam: Positive: Mental status NL Assessment /Plan Assessment This is a 70-year-old gentleman with 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 1. Acute hypoxic respiratory failure in setting of chronic immunosuppression. Differential includes infectious etiologies (possible opportunistic) vs drug- induced pneumonitis from immunotherapy. Covid swab x4 is negative 2. Sepsis present on admission 3. History of esophageal adenocarcinoma stage IV on chemotherapy and immunotherapy (Opdivo) last dose approximately 1 month ago 4. 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 Spontaneous right-sided pneumothorax Plan/VTE VTE Prophylaxis Ordered?: Yes Plan -Awaiting viral and fungal culture + PCP stain. RLL BAL negative for bacterial and AFB smear. Hisopathology from TBBx with scant lung and respiratory tissue. Differential still include opportunistic infection vs drug induced pneumonitis. -continue with voriconazole and corticosteroid. Voriconazole level pending. -CXR with improvement of right sided PTX. There's still airleak. Continue with chest tube to -10cm suction. Disposition continue hospital care. VS, I&O, 24H, Ary Vital Signs/I&O Vital Signs Date Time Temp Pulse Resp B/P (MAP) Pulse Ox O2 Delivery O2 Flow Rate FiO2 05/24/21 07:45 95 High Flow Cannula 5.0 05/24/21 06:00 97.4 86 21 144/81 (102) I&O- Last 24 Hours up to 6 AM 05/24/21 05:59 Intake Total 792 ml Output Total 1030 ml Balance -238 ml Laboratory Data 24H LABS Laboratory Tests 2 05/24/21 05:48: Nucleated Red Blood Cells % (auto) 0.0, Anion Gap 5L, Glomerular Filtration Rate > 60.0, Calcium Level 8.3L, Total Bilirubin 0.4, Aspartate Amino Transf ( T/SGOT) 23, Alanine Aminotransferase (ALT/SGPT) 34, Alkaline Phosphatase 88, Total Protein 5.4L, Albumin 2.4L, Albumin/Globulin Ratio 0.8 CBC/BMP Laboratory Tests 05/24/21 05:48 Microbiology Microbiology 05/19/21 Acid Fast Stain - Final, Resulted 05/19/21 Mycobacterial Culture, Resulted Pending 05/19/21 Fungal Smear, Resulted Pending 05/19/21 Fungal Culture, Resulted Pending 05/19/21 Gram Stain - Final, Complete 05/19/21 Bronchoalveolar Lavage Culture - Final, Complete 05/19/21 Acid Fast Stain - Final, Resulted 05/19/21 Mycobacterial Culture, Resulted Pending 05/19/21 Fungal Smear, Resulted Pending 05/19/21 Fungal Culture, Resulted Pending 05/19/21 Gram Stain - Final, Complete 05/19/21 Bronchoalveolar Lavage Culture - Final, Complete RICH WILLS MD May 24, 2021 12:35
[2021-05-24 14:00] VITALS: BP 149/86
--- NOTE | 2021-05-24 18:15 | IPNPDOC ---
Date Seen The patient was seen on 05/24/21. Progress Note SUBJECTIVE: -No acute events overnight. -Down to 5L NC, no increased SOB or chest pain OBJECTIVE: PE: VITAL SIGNS: Please see below GENERAL: Patient is awake, alert and oriented x3, comfortable in bed LUNGS: R posterior field with crackles and diminished sounds, L clear, otherwise moving air without wheezing of upper airway transmitted sounds. Chest tube in place fixed in upper right chest HEART: RRR, no m/r/g ABDOMEN: Soft, nontender and nondistended. EXTREMITIES: L arm larger than right appearing worse than recent baseline. No clubbing or pitting lower extremities edema. Neuro: No focal deficits LABORATORY DATA: Reviewed. Please see below MICROBIOLOGY/PATH: Sputum GS: QUALITY: GOOD MODERATE EPITHELIAL CELLS MODERATE WBCS MANY GRAM POSITIVE COCCI IN PAIRS, CHAINS AND CLUSTERS MANY GRAM NEGATIVE RODS FEW GRAM POSITIVE RODS FEW YEAST LIKE ORGANISM Sputum Cx: yeast like organism BCx: NG UA neg COVID test x 4- neg C. diff: neg Fungal studies negative, strep pneumoniae negative, legionella negative TB neg galactomannan studies neg Cryptococcus, coccidiomycosis pending Bronchoscopy cultures pending Bronchoscopy path pending IMAGING STUDIES: CXR 05/24/21: Decreased size of right pneumothorax. CXR 05/23/21: The technique utilized in obtaining the radiograph has magnified the cardiac silhouette and accentuated the interstitial markings. The cardiomediastinal silhouette lung mcclellan are unchanged. The right-sided pneumothorax is unchanged. The right-sided thoracotomy tube is unchanged. The osseous structures are stable. Echo 05/12/21: 1. Study is of very limited technical quality. Underlying sinus rhythm. 2. Normal left ventricular (LV) size with normal or near-normal LV systolic function based on limited views. Grade 1 diastolic dysfunction. 3. No significant valvular disease. 4. Unable to estimate central venous pressure and pulmonary artery pressure. 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 IMPRESSION: #Acute hypoxic respiratory failure likely 2/2 to pneumonia i/s/o Stage IV GE junction cancer, on FOLFOX and nivolumab, unclear infectious source vs. inflammatory pneumonitis. Complicated by right side pneumothorax -S/p chest tube placed on 05/22/21, decreased to 5 L NC -imaging above showing improvement of right side pneumothorx -neg nasal MRSA PCR -Pulm had held steroids on 05/13/21 to see if patient continued to improve on antibiotic therapy but interval imaging showed worsening so was restarted on solumedrol 80Q8H on 05/18 -Re-escalated to vanc/cefepime and added on voriconazole on 05/18, despite procal being normal -Stopped vanc/cefepime per ID on 05/23/21 -Levalbuterol ATC, PRN -Infectious disease, pulmonary following. 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 Has not been on therapeutic treatment as o/p -Per heme he was supposed to be on it daily but only took it for two weeks -lovenox BID currently and will need switched to a NoAC prior to hospital discharge #Elevated troponin 2/2 sepsis -No hx of CHF, CAD -BNP 1100, trop elevated since admission -Discussed with Dr. 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 -Currently, undergoing FOLFOX with Nivolumab every two weeks. -Dr. Marin hematology/oncology-has seen patient this admission #GERD -C/w PPI, Carafate #Dyslipidemia #Chronic anxiety #DVT px -Lovenox BID RESOLVED #Sepsis DISPOSITION: Pulmonary and ID consulted, still awaiting bronchoscopy results. Goal is home when medically improved. VS, I&O, 24H, Fishbone Vital Signs/I&O Vital Signs Date Time Temp Pulse Resp B/P (MAP) Pulse Ox O2 Delivery O2 Flow Rate FiO2 05/24/21 14:00 98.1 84 18 149/86 (107) 95 High Flow Cannula 6.0 I&O- Last 24 Hours up to 6 AM 05/24/21 06:00 Intake Total 792 ml Output Total 1030 ml Balance -238 ml Laboratory Data 24H LABS Laboratory Tests 2 05/24/21 05:48: Nucleated Red Blood Cells % (auto) 0.0, Anion Gap 5L, Glomerular Filtration Rate > 60.0, Calcium Level 8.3L, Total Bilirubin 0.4, Aspartate Amino Transf (AST/SGOT) 23, Alanine Aminotransferase (ALT/SGPT) 34, Alkaline Phosphatase 88, Total Protein 5.4L, Albumin 2.4L, Albumin/Globulin Ratio 0.8 CBC/BMP Laboratory Tests 05/24/21 05:48 Microbiology Microbiology 05/19/21 Acid Fast Stain - Final, Resulted 05/19/21 Mycobacterial Culture, Resulted Pending 05/19/21 Fungal Smear, Resulted Pending 05/19/21 Fungal Culture, Resulted Pending 05/19/21 Gram Stain - Final, Complete 05/19/21 Bronchoalveolar Lavage Culture - Final, Complete 05/19/21 Acid Fast Stain - Final, Resulted 05/19/21 Mycobacterial Culture, Resulted Pending 05/19/21 Fungal Smear, Resulted Pending 05/19/21 Fungal Culture, Resulted Pending 05/19/21 Gram Stain - Final, Complete 05/19/21 Bronchoalveolar Lavage Culture - Final, Complete Aishwarya Oro MD May 24, 2021 18:14
[2021-05-24 20:29] VITALS: BP 142/86
[2021-05-24] MEDS: allopurinoL 100 MG TAB PO SCH (20:42)
[2021-05-24] MEDS: ROSUVASTATIN 10 MG TAB (CRESTOR) PO SCH (20:42)
[2021-05-25] MEDS: ALPRAZolam 0.5 MG TAB PO PRN ×2 (01:41→09:27)
[2021-05-25] MEDS: methylPREDNISolone 40MG 1ML VIAL IV SCH ×3 (01:41→18:12)
[2021-05-25] MEDS: ACETAMINOPHEN TAB 650MG DOSE (2X325MG) PO PRN (01:42)
[2021-05-25] MEDS: LEVALBUTEROL 1.25 MG/0.5 ML CONCENTRATE NEB INH SCH ×5 (04:00→19:37)
[2021-05-25 05:58] VITALS: BP 124/78
[2021-05-25 06:38] LABS: HEMATOCRIT 32.4 % (42.0-52.0); HEMOGLOBIN 10.7 g/dl (13.5-17.5); PLATELET COUNT, AUTOMATED 144 10^3/uL (150-450); RED BLOOD COUNT 3.24 10^6/uL (4.30-6.10); WHITE BLOOD COUNT 6.1 10^3/uL (4.0-10.0)
[2021-05-25 07:07] LABS: ALBUMIN 2.2 GM/DL (3.2-5.2); ALT/SGPT 43 U/L (12-78); BILIRUBIN,TOTAL 0.5 MG/DL (0.2-1.0); BLOOD UREA NITROGEN 27 MG/DL (7-18); CALCIUM LEVEL 7.9 MG/DL (8.8-10.2); CARBON DIOXIDE LEVEL 32 MEQ/L (21-32); CHLORIDE LEVEL 107 MEQ/L (98-107); CREATININE FOR GFR 0.72 MG/DL (0.70-1.30); GLOMERULAR FILTRATION RATE > 60.0 (>49); GLUCOSE, FASTING 126 MG/DL (70-100); POTASSIUM SERUM 4.3 MEQ/L (3.5-5.1); SODIUM LEVEL 143 MEQ/L (136-145); TOTAL PROTEIN 5.1 GM/DL (6.4-8.2)
[2021-05-25] MEDS: BUDESONIDE 0.25 MG/2 ML INHALATION SUSPENSION INH SCH ×2 (07:27→19:37)
--- NOTE | 2021-05-25 08:59 | IPNPDOC ---
Date Seen The patient was seen on 05/25/21. Progress Note SUBJECTIVE: -No acute events overnight. -Still on 5L NC, no increased SOB or chest pain OBJECTIVE: PE: VITAL SIGNS: Please see below GENERAL: Patient is awake, alert and oriented x3, comfortable in bed LUNGS: R posterior field with crackles and diminished sounds, L clear, otherwise moving air without wheezing of upper airway transmitted sounds. Chest tube in place fixed in upper right chest HEART: RRR, no m/r/g ABDOMEN: Soft, nontender and nondistended. EXTREMITIES: No clubbing or pitting lower extremities edema. Neuro: No focal deficits LABORATORY DATA: Reviewed. Please see below MICROBIOLOGY/PATH/CYTOLOGY: Sputum GS: QUALITY: GOOD MODERATE EPITHELIAL CELLS MODERATE WBCS MANY GRAM POSITIVE COCCI IN PAIRS, CHAINS AND CLUSTERS MANY GRAM NEGATIVE RODS FEW GRAM POSITIVE RODS FEW YEAST LIKE ORGANISM Sputum Cx: yeast like organism BCx: NG UA neg COVID test x 4- neg C. diff: neg Fungal studies negative, strep pneumoniae negative, legionella negative TB neg galactomannan studies neg BAL cx: NG BAL fungal Cx: pending Bronchoscopy pathology: neg for malignancy, PNA dx Bronchoscopy cytology: pending IMAGING STUDIES: CXR 05/24/21: Decreased size of right pneumothorax. CXR 05/23/21: The technique utilized in obtaining the radiograph has magnified the cardiac silhouette and accentuated the interstitial markings. The cardiomediastinal silhouette lung mcclellan are unchanged. The right-sided pneumothorax is unchanged. The right-sided thoracotomy tube is unchanged. The osseous structures are stable. Echo 05/12/21: 1. Study is of very limited technical quality. Underlying sinus rhythm. 2. Normal left ventricular (LV) size with normal or near-normal LV systolic function based on limited views. Grade 1 diastolic dysfunction. 3. No significant valvular disease. 4. Unable to estimate central venous pressure and pulmonary artery pressure. 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 IMPRESSION: #Acute hypoxic respiratory failure likely 2/2 to pneumonia i/s/o Stage IV GE junction cancer, on FOLFOX and nivolumab, unclear infectious source vs. inflammatory drug induced pneumonitis. Complicated by right side pneumothorax -S/p chest tube placed on 05/22/21, continues on 5 L NC -imaging above showing improvement of right side pneumothorax -neg nasal MRSA PCR -Micro/path neg above -Pulm had held steroids on 05/13/21 to see if patient continued to improve on antibiotic therapy but interval imaging showed worsening so was restarted on solumedrol 80 Q8H on 05/18 -Re-escalated to vanc/cefepime and added on voriconazole on 05/18, despite procal being normal. Will TB with teams to see if to d/c fungal coverage today -Stopped vanc/cefepime per ID on 05/23/21 -Levalbuterol ATC, PRN -Infectious disease, pulmonary following. 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 Has not been on therapeutic treatment as o/p -Per heme he was supposed to be on it daily but only took it for two weeks -lovenox BID currently and will need switched to a NoAC prior to hospital discharge #Elevated troponin 2/2 sepsis -No hx of CHF, CAD -BNP 1100, trop elevated but steadily decreased -Discussed with Dr. 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 -Currently, undergoing FOLFOX with Nivolumab every two weeks. -Dr. Marin hematology/oncology-has seen patient this admission #GERD -C/w PPI, Carafate #Dyslipidemia #Chronic anxiety #DVT px -Lovenox BID RESOLVED #Sepsis DISPOSITION: Pulmonary and ID consulted, awaiting bronch cytology still. Goal is home when medically improved. PT/OT VS, I&O, 24H, Fishbone Vital Signs/I&O Vital Signs Date Time Temp Pulse Resp B/P (MAP) Pulse Ox O2 Delivery O2 Flow Rate FiO2 05/25/21 05:58 97.6 84 22 124/78 (93) 95 Nasal Cannula 5.0 I&O- Last 24 Hours up to 6 AM 05/25/21 05:59 Intake Total 1184 ml Output Total 1470 ml Balance -286 ml Laboratory Data 24H LABS Laboratory Tests 2 05/25/21 05:50: Nucleated Red Blood Cells % (auto) 0.0, Anion Gap 4L, Glomerular Filtration Rate > 60.0, Calcium Level 7.9L, Total Bilirubin 0.5, Aspartate Amino Transf (AST/SGOT) 30, Alanine Aminotransferase (ALT/SGPT) 43, Alkaline Phosphatase 84, Total Protein 5.1L, Albumin 2.2L, Albumin/Globulin Ratio 0.8 CBC/BMP Laboratory Tests 05/25/21 05:50 Microbiology Microbiology 05/19/21 Acid Fast Stain - Final, Resulted 05/19/21 Mycobacterial Culture, Resulted Pending 05/19/21 Fungal Smear, Resulted Pending 05/19/21 Fungal Culture, Resulted Pending 05/19/21 Gram Stain - Final, Complete 05/19/21 Bronchoalveolar Lavage Culture - Final, Complete 05/19/21 Acid Fast Stain - Final, Resulted 05/19/21 Mycobacterial Culture, Resulted Pending 05/19/21 Fungal Smear, Resulted Pending 05/19/21 Fungal Culture, Resulted Pending 05/19/21 Gram Stain - Final, Complete 05/19/21 Bronchoalveolar Lavage Culture - Final, Complete Aishwarya Oro MD May 25, 2021 08:59
[2021-05-25] MEDS: SUCRALFATE SUSP 1GM/10ML UD PO SCH ×4 (09:28→21:35)
[2021-05-25] MEDS: PANTOPRAZOLE 40MG TAB (PROTONIX) PO SCH ×2 (09:28→21:35)
[2021-05-25] MEDS: VORICONAZOLE 200MG TABLET (VFEND) PO SCH ×2 (09:28→21:34)
[2021-05-25] MEDS: LACTOBACILLUS ACIDOPHILUS CAP (BACID) PO SCH ×4 (09:28→21:34)
[2021-05-25] MEDS: guaiFENesin ER 600 MG TAB PO SCH ×2 (09:28→21:35)
[2021-05-25] MEDS: ENOXAPARIN 100MG/1ML SYRINGE (J1650 PER 10MG) SC SCH ×2 (09:36→21:35)
--- NOTE | 2021-05-25 12:04 | IPNPDOC ---
Subjective Date Seen The patient was seen on 05/25/21. Subjective Chief Complaint/HPI Patient reports no complaint today. He denies of fever, chills, shortness of breath, chest pain, palpitation. He has improved pain on the right side of his chest Constitutional: Denies: Chills, Fever Eyes: Reports: Pain (Pain improved) ENT: Denies: Head Aches Skin: Denies: Rash Pulmonary: Denies: Dyspnea, Cough Cardiovascular: Reports: Chest Pain; Denies: Palpitations, Orthopnea, Paroxysmal Noc. Dyspnea, Edema Gastrointestinal: Denies: Nausea, Abdominal Pain, Diarrhea Neurological: Denies: Weakness, Numbness Psych: Reports: Mood Normal Objective Physical Examination General Exam: Positive: Alert, Cooperative, No Acute Distress Eye Exam: Positive: PERRLA; Negative: Sclera icteric ENT Exam: Positive: Atraumatic Neck Exam: Positive: Supple; Negative: JVD Chest Exam: Positive: Rhonchi (Bibasilar coarse crackles most predominantly in the right lung mcclellan), Other (Right-sided chest tube in the intercostal space midclavicular line intact with no surrounding erythema at the insertion site.) Heart Exam: Positive: Rate Normal, Regular Rhythm Abdomen Exam: Positive: Normal bowel sounds, Soft; Negative: Tenderness Male Exam: Negative: Edema Extremity Exam: Negative: Clubbing, Edema Neuro Exam: Positive: Normal Speech, Strength at 5/5 X4 ext Psych Exam: Positive: Mental status NL Assessment /Plan Assessment This is a 70-year-old gentleman with 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 1. Acute hypoxic respiratory failure in setting of chronic immunosuppression. Differential includes infectious etiologies (possible opportunistic) vs drug- induced pneumonitis from immunotherapy. Covid swab x4 is negative 2. Sepsis present on admission 3. History of esophageal adenocarcinoma stage IV on chemotherapy and immunotherapy (Opdivo) last dose approximately 1 month ago 4. 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 Spontaneous right-sided pneumothorax Plan/VTE VTE Prophylaxis Ordered?: Yes Plan -Awaiting viral and fungal culture plus PCP stain from bronchoalveolar lavage and transbronchial biopsy. Right lower lobe transbronchial biopsy only showed scant lung and respiratory tissue. There was no evidence of malignancy. Bacterial Gram stain and cultures are negative. AFB smear is negative. -Differential at this point include opportunistic infection versus drug-induced pneumonitis. However given the lack of microorganism isolate, I am leaning toward drug-induced pneumonitis as a cause of his respiratory failure. -Continue with corticosteroids and voriconazole. Voriconazole level pending. -Persistent air leak from the chest tube. Continue with chest tube to -20 cm suction. Chest x-ray this afternoon. Disposition Continue hospital care. VS, I&O, 24H, Fishbone Vital Signs/I&O Vital Signs Date Time Temp Pulse Resp B/P (MAP) Pulse Ox O2 Delivery O2 Flow Rate FiO2 05/25/21 05:58 97.6 84 22 124/78 (93) 95 Nasal Cannula 5.0 I&O- Last 24 Hours up to 6 AM 05/25/21 06:00 Intake Total 1184 ml Output Total 1470 ml Balance -286 ml Laboratory Data 24H LABS Laboratory Tests 2 05/25/21 05:50: Nucleated Red Blood Cells % (auto) 0.0, Anion Gap 4L, Glomerular Filtration Rate > 60.0, Calcium Level 7.9L, Total Bilirubin 0.5, Aspartate Amino Transf (AST/SGOT) 30, Alanine Aminotransferase (ALT/SGPT) 43, Alkaline Phosphatase 84, Total Protein 5.1L, Albumin 2.2L, Albumin/Globulin Ratio 0.8 CBC/BMP Laboratory Tests 05/25/21 05:50 Microbiology Microbiology 05/19/21 Acid Fast Stain - Final, Resulted 05/19/21 Mycobacterial Culture, Resulted Pending 05/19/21 Fungal Smear, Resulted Pending 05/19/21 Fungal Culture, Resulted Pending 05/19/21 Gram Stain - Final, Complete 05/19/21 Bronchoalveolar Lavage Culture - Final, Complete 05/19/21 Acid Fast Stain - Final, Resulted 05/19/21 Mycobacterial Culture, Resulted Pending 05/19/21 Fungal Smear, Resulted Pending 05/19/21 Fungal Culture, Resulted Pending 05/19/21 Gram Stain - Final, Complete 05/19/21 Bronchoalveolar Lavage Culture - Final, Complete RICH WILLS MD May 25, 2021 12:04
[2021-05-25 14:00] VITALS: BP 105/71; O2SAT 96
--- NOTE | 2021-05-25 14:39 | REP ---
INDICATION: right sided PTX follow up. COMPARISON: Multiple the latest yesterday TECHNIQUE: Portable FINDINGS: The technique utilized in obtaining the radiograph has magnified the cardiac silhouette and accentuated the interstitial markings. The cardiomediastinal silhouette, lung mcclellan, and right-sided thoracotomy tube are all unchanged. The osseous structures are unchanged. The tip of the MediPort device remains in the left superior vena cava. IMPRESSION: No significant change <Electronically signed by Mike Toney > 05/25/21 [id number]
[2021-05-25] MEDS: PERCOCET 5MG/325MG TAB PO PRN (15:10)
--- NOTE | 2021-05-25 16:10 | REP ---
INDICATION: r/o DVT right upper extremity COMPARISON: 05/11/2021. TECHNIQUE: Real time compression and duplex Doppler evaluation of the Right upper extremity deep venous system is performed. FINDINGS: The Right subclavian, jugular, axillary, brachial, and basilic veins are fully compressible where accessible with transducer pressure, and demonstrate no intraluminal thrombus and normal venous waveforms. There is an IV catheter in the distal cephalic vein with thrombosis of the mid to distal portion.The Left subclavian vein is fully compressible where accessible with transducer pressure, and demonstrates no intraluminal thrombus and normal venous waveforms. There appears to be partial thrombosis in the left brachiocephalic vein. This has improved since 05/11/2021. IMPRESSION: There is thrombosis of the mid to distal right cephalic vein at the site of an IV catheter. There is partial thrombosis of the left brachiocephalic vein which appears improved since the prior study of 05/11/2021. <Electronically signed by Sami Quintero > 05/25/21 [id number]
[2021-05-25 18:35] VITALS: O2SAT 97
[2021-05-25] MEDS: ROSUVASTATIN 10 MG TAB (CRESTOR) PO SCH (21:34)
[2021-05-25] MEDS: allopurinoL 100 MG TAB PO SCH (21:35)
[2021-05-25 22:00] VITALS: BP 136/77
[2021-05-26] VITALS (23 sets, daily range): BP systolic 138–161; BP diastolic 68–89; O2SAT 91–98
[2021-05-26] MEDS: LEVALBUTEROL 1.25 MG/0.5 ML CONCENTRATE NEB INH SCH ×6 (00:04→23:31)
[2021-05-26] MEDS: methylPREDNISolone 40MG 1ML VIAL IV SCH ×3 (02:17→19:13)
[2021-05-26] MEDS: BUDESONIDE 0.25 MG/2 ML INHALATION SUSPENSION INH SCH ×2 (07:13→19:59)
[2021-05-26 07:23] LABS: C REACTIVE PROTEIN QUANTITATIV < 0.30 MG/DL (0.00-0.30)
[2021-05-26] MEDS: SUCRALFATE SUSP 1GM/10ML UD PO SCH ×4 (08:16→21:38)
[2021-05-26] MEDS: ENOXAPARIN 100MG/1ML SYRINGE (J1650 PER 10MG) SC SCH ×2 (08:17→21:39)
[2021-05-26] MEDS: LACTOBACILLUS ACIDOPHILUS CAP (BACID) PO SCH ×4 (08:17→21:38)
[2021-05-26] MEDS: VORICONAZOLE 200MG TABLET (VFEND) PO SCH (08:17)
[2021-05-26] MEDS: PANTOPRAZOLE 40MG TAB (PROTONIX) PO SCH ×2 (08:17→21:37)
[2021-05-26] MEDS: guaiFENesin ER 600 MG TAB PO SCH ×2 (08:17→21:38)
[2021-05-26] MEDS: ALPRAZolam 0.5 MG TAB PO PRN ×2 (08:20→21:37)
[2021-05-26 08:43] LABS: HEMATOCRIT 34.3 % (42.0-52.0); HEMOGLOBIN 11.2 g/dl (13.5-17.5); MEAN CORPUSCULAR HEMOGLOBIN 32.7 pg (27.0-33.0); MEAN CORPUSCULAR HGB CONC 32.7 g/dl (32.0-36.5); PLATELET COUNT, AUTOMATED 144 10^3/uL (150-450); RED BLOOD COUNT 3.43 10^6/uL (4.30-6.10); WHITE BLOOD COUNT 6.7 10^3/uL (4.0-10.0)
[2021-05-26 08:51] LABS: ALBUMIN 2.4 GM/DL (3.2-5.2); ALT/SGPT 49 U/L (12-78); BILIRUBIN,TOTAL 0.4 MG/DL (0.2-1.0); BLOOD UREA NITROGEN 27 MG/DL (7-18); CALCIUM LEVEL 8.3 MG/DL (8.8-10.2); CARBON DIOXIDE LEVEL 33 MEQ/L (21-32); CHLORIDE LEVEL 106 MEQ/L (98-107); GLOMERULAR FILTRATION RATE > 60.0 (>49); GLUCOSE, FASTING 122 MG/DL (70-100); POTASSIUM SERUM 4.6 MEQ/L (3.5-5.1); SODIUM LEVEL 142 MEQ/L (136-145)
--- NOTE | 2021-05-26 11:14 | REP ---
INDICATION: PTX. COMPARISON: Multiple the latest yesterday TECHNIQUE: Portable FINDINGS: The technique utilized in obtaining the radiograph has magnified the cardiac silhouette and accentuated the interstitial markings. The cardiomediastinal silhouette is unchanged. The known right-sided pneumothorax appears somewhat smaller today. There is no change in the chest tube. There is no change in the osseous structures. There is no change in the central venous catheter. IMPRESSION: The right-sided pneumothorax appears slightly smaller. There are no other significant changes. <Electronically signed by Mike Toney > 05/26/21 [id number]
--- NOTE | 2021-05-26 11:56 | REP ---
INDICATION: pneumothorax, pneumonia COMPARISON: Multiple the latest 05/18/2021 also without contrast TECHNIQUE: Standard helical technique without contrast FINDINGS: The mediastinum and pulmonary arturo are unchanged. With the exception of a shift of the mediastinal structures to the right. Note is again made of adenopathy. There is no significant change in appearance of the imaged upper abdomen or imaged osseous structures. Note is again made of cholelithiasis and left-sided nonobstructing nephroliths. Right-sided nonobstructing nephroliths are now identified since more of the right kidney was imaged today. Evaluation of the lung mcclellan shows right-sided thoracotomy tube in place. There is a small persistent pneumothorax. The areas of heavy consolidation seen previously have improved, however, a significant residual persists. Varicoid and saccular bronchiectasis is noted. Seen in the right lower lobe region there is a seemingly separate air-fluid collection in the pleural space. This represents a change the prior exam. This measures approximately 5.5 x 2.5 cm. Additional soft tissue densities are seen in the right anterior chest in the airspace with the lung is collapsed and abutting the pericardium. There are no significant left lung changes. IMPRESSION: 1. Adenopathy status quo. 2. Right-sided thoracotomy tube with a persistent pneumothorax. 3. Possible empyema developing in the right lower lobe region as described above. Follow-up is suggested. 4. Odd appearing soft tissue densities in the airspace created by the pneumothorax in the right anterior mediastinum as described above. Etiology uncertain. 5. Other findings as described above. <Electronically signed by Mike Toney > 05/26/21 [id number]
--- NOTE | 2021-05-26 12:26 | IPN ---
PULMONARY CRITICAL CARE PROGRESS NOTE DATE: 05/26/2021 SUBJECTIVE: I attended Mr. Telles [facility]. Patient has been examined, the chart has been reviewed. I spoke at length with the nurse at the bedside. T-max overnight 97.3, blood pressure is in the 130s, heart rate generally in the 70s, respiratory rate 14 to 16 and unlabored. Saturation is 95% on 4 liters nasal cannula oxygen. Chest x-ray done today shows persistent apical pneumothorax. He has chronic volume loss most likely secondary to his previous surgeries and therapy. Most recent laboratories shows white blood cell count of 6.7, hemoglobin of 11.2, platelet count 144,000. Sodium is 142, potassium is 4.6, chloride is 106, CO2 is 33, BUN is 27, creatinine is 0.6. No new culture results available. OBJECTIVE: GENERAL: On exam, he is awake, alert, appropriate. VITAL SIGNS: Reviewed. HEENT: Normocephalic, atraumatic. Extraocular motions intact. Pupils reactive to light. NECK: Supple. Trachea is in the midline. CHEST: His right chest tube is in place. He is currently on water seal on his way to CT scan. Tube does not appear to cycle appropriately. Chest shows the left chest to be fairly clear. The right chest has coarse breath sounds and an audible rub. CARDIAC: Generally regular. Peripheral pulses are palpable. No edema. ABDOMEN: Soft with active bowel sounds. EXTREMITIES: No cyanosis, clubbing or edema. PSYCH: Alert and oriented with normal mood and affect. IMPRESSION: 1. Acute hypoxic respiratory failure with progress x-ray findings. 2. Sepsis on admission. 3. Right sided pneumothorax. 4. Esophageal adenocarcinoma Stage IV, on immunotherapy. 5. Thrombus in the left IJ, left diaphragmatic hemiparesis. At this point, we have no new culture results. We are awaiting finals especially on AFBs. I have reviewed his medication list. He remains on Voriconazole. He finished a course of Zosyn and Vancomycin as well as doxycycline and cefepime. Given the issues with his chest tube, I have contacted Dr. Connor Trejo from thoracic surgery who is gracious, he agreed to become involved in his care. Will proceed as outlined. Further recommendations will be made in the progress records as new information becomes available.
[2021-05-26] MEDS ORDERED: LIDOCAINE 1% MDV 20ML VIAL As Ordered ONE (16:06)
[2021-05-26] MEDS ORDERED: MIDAZOLAM INJ 2MG/2ML VIAL (J2250 PER 1MG) As Ordered ONE (16:07)
[2021-05-26] MEDS ORDERED: flumazeniL 0.5 MG/5 ML VIAL As Ordered ONE (16:07)
[2021-05-26] MEDS ORDERED: MIDAZOLAM INJ 2MG/2ML VIAL (J2250 PER 1MG) IV ONE ×3 (16:30→16:34)
[2021-05-26] MEDS ORDERED: LIDOCAINE 1% MDV 20ML VIAL SC ONE (16:30)
[2021-05-26] MEDS ORDERED: BISACODYL 10 MG SUPP PR PRN (17:00)
[2021-05-26] MEDS ORDERED: D5W/0.9% SODIUM CHLORIDE 1,000 ML IV SCH (17:00)
[2021-05-26] MEDS ORDERED: NORCO, ANEXSIA 5/325MG TABLET (HYDROcodone/ACETAMINOPHEN) PO PRN (17:00)
[2021-05-26] MEDS ORDERED: PERCOCET 5MG/325MG TAB PO PRN (17:00)
--- NOTE | 2021-05-26 17:10 | REP ---
INDICATION: S/P CHEST TUBE PLACEMENT. COMPARISON: 05/26/2021 10:45 a.m. TECHNIQUE: Single portable AP view of the chest was performed. FINDINGS: A prior right chest tube has been removed. A new right chest tube has been placed. There is a very small right apical pneumothorax. Diffuse consolidative opacities again seen throughout the right lung. Interstitial densities in the left lung base are stable. The heart and mediastinum are unchanged. Left central venous catheter is again seen. IMPRESSION: Right chest tube exchange. Very small right apical pneumothorax. Otherwise no change. <Electronically signed by Sami Quintero > 05/26/21 [id number]
--- NOTE | 2021-05-26 18:37 | IPNPDOC ---
Date Seen The patient was seen on 05/26/21. Progress Note SUBJECTIVE: -Decreased O2 to 4 L NC -CT today showed right-sided thoracotomy tube with a persistent pneumothorax, possible empyema developing in the right lower lobe region as described above with mediastinal shifting. CT surgery was consulted. No increased SOB or chest pain OBJECTIVE: PE: VITAL SIGNS: Please see below GENERAL: Patient is awake, alert and oriented x3, comfortable in bed LUNGS: R posterior field with crackles and diminished sounds, L clear, otherwise moving air without wheezing of upper airway transmitted sounds. Chest tube in place fixed in upper right chest HEART: RRR, no m/r/g ABDOMEN: Soft, nontender and nondistended. EXTREMITIES: No clubbing or pitting lower extremities edema. Neuro: No focal deficits LABORATORY DATA: Reviewed. Please see below MICROBIOLOGY/PATH/CYTOLOGY: Sputum GS: QUALITY: GOOD MODERATE EPITHELIAL CELLS MODERATE WBCS MANY GRAM POSITIVE COCCI IN PAIRS, CHAINS AND CLUSTERS MANY GRAM NEGATIVE RODS FEW GRAM POSITIVE RODS FEW YEAST LIKE ORGANISM Sputum Cx: yeast like organism BCx: NG UA neg COVID test x 4- neg C. diff: neg Fungal studies negative, strep pneumoniae negative, legionella negative TB neg galactomannan studies neg BAL cx: NG BAL fungal Cx: pending Bronchoscopy pathology: neg for malignancy, PNA dx Bronchoscopy cytology: no malignancy IMAGING STUDIES: CT chest 05/26/21: 1. Adenopathy status quo. 2. Right-sided thoracotomy tube with a persistent pneumothorax. 3. Possible empyema developing in the right lower lobe region as described above. Follow-up is suggested. 4. Odd appearing soft tissue densities in the airspace created by the pneumothorax in the right anterior mediastinum as described above. Etiology uncertain. CXR 05/24/21: Decreased size of right pneumothorax. CXR 05/23/21: The technique utilized in obtaining the radiograph has magnified the cardiac silhouette and accentuated the interstitial markings. The cardiomediastinal silhouette lung mcclellan are unchanged. The right-sided pneumothorax is unchanged. The right-sided thoracotomy tube is unchanged. The osseous structures are stable. Echo 05/12/21: 1. Study is of very limited technical quality. Underlying sinus rhythm. 2. Normal left ventricular (LV) size with normal or near-normal LV systolic function based on limited views. Grade 1 diastolic dysfunction. 3. No significant valvular disease. 4. Unable to estimate central venous pressure and pulmonary artery pressure. 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 IMPRESSION: #Acute hypoxic respiratory failure likely 2/2 to pneumonia i/s/o Stage IV GE junction cancer, on FOLFOX and nivolumab, unclear infectious source vs. inflammatory drug induced pneumonitis. Complicated by persistent right side pneumothorax with mediastinal shift -S/p chest tube placed on 05/22/21. Today CT surgery took old chest tube out and placed large tube, on - suction, continuous -CT chest above with possible mediastinal shift -neg nasal MRSA PCR -Micro/path neg above -Pulm had held steroids on 05/13/21 to see if patient continued to improve on antibiotic therapy but interval imaging showed worsening so was restarted on solumedrol 80 Q8H on 05/18 -Re-escalated to vanc/cefepime and added on voriconazole on 05/18, despite procal being normal. Will TB with teams to see if to d/c fungal coverage today -Stopped vanc/cefepime per ID on 05/23/21 -Levalbuterol ATC, PRN -Infectious disease, pulmonary and now CT surgery consulted #Occlusive thrombus in left upper extremity veins including subclavian vein, left jugular vein occlusive thrombus, central subclavian vein thrombus and newly identified right cephalic vein thrombus -Right cephalic vein likely old thrombus with new swelling of that arm being 2/2 to blood draws. Not suspecting the right cephalic vein thrombus to have formed while on lovenox BID . -Prior to admission patient was supposed to be on AC daily but he stopped after two weeks -lovenox BID currently and will likely need to continue this after d/c #Elevated troponin 2/2 sepsis -No hx of CHF, CAD -BNP 1100, trop elevated but steadily decreased -Discussed with Dr. 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 -Currently, undergoing FOLFOX with Nivolumab every two weeks. -Dr. Marin hematology/oncology-has seen patient this admission #GERD -C/w PPI, Carafate #Dyslipidemia #Chronic anxiety #DVT px -Lovenox BID RESOLVED #Sepsis DISPOSITION: Pulmonary and ID consulted, awaiting bronch cytology still. Goal is home when medically improved. PT/OT VS, I&O, 24H, Fishbone Vital Signs/I&O Vital Signs Date Time Temp Pulse Resp B/P (MAP) Pulse Ox O2 Delivery O2 Flow Rate FiO2 05/26/21 16:00 3.0 05/26/21 15:46 97.8 60 18 161/76 (104) 98 Nasal Cannula I&O- Last 24 Hours up to 6 AM 05/26/21 06:00 Intake Total 1220 ml Output Total 930 ml Balance 290 ml Laboratory Data 24H LABS Laboratory Tests 2 05/26/21 06:45: Nucleated Red Blood Cells % (auto) 0.0, Anion Gap 3L, Glomerular Filtration Rate > 60.0, Calcium Level 8.3L, Total Bilirubin 0.4, Aspartate Amino Transf (AST/SGOT) 28, Alanine Aminotransferase (ALT/SGPT) 49, Alkaline Phosphatase 92, C-Reactive Protein, Quantitative < 0.30, Total Protein 5.0L, Albumin 2.4L, Albumin/Globulin Ratio 0.9 CBC/BMP Laboratory Tests 05/26/21 06:45 Microbiology Microbiology 05/19/21 Acid Fast Stain - Final, Resulted 05/19/21 Mycobacterial Culture, Resulted Pending 05/19/21 Fungal Smear, Resulted Pending 05/19/21 Fungal Culture, Resulted Pending 05/19/21 Gram Stain - Final, Complete 05/19/21 Bronchoalveolar Lavage Culture - Final, Complete 05/19/21 Acid Fast Stain - Final, Resulted 05/19/21 Mycobacterial Culture, Resulted Pending 05/19/21 Fungal Smear, Resulted Pending 05/19/21 Fungal Culture, Resulted Pending 05/19/21 Gram Stain - Final, Complete 05/19/21 Bronchoalveolar Lavage Culture - Final, Complete Aishwarya Oro MD May 26, 2021 18:37
[2021-05-26] MEDS: KETOROLAC 30 MG/ML 1ML VIAL IV SCH (19:13)
[2021-05-26] MEDS: ROSUVASTATIN 10 MG TAB (CRESTOR) PO SCH (21:37)
[2021-05-26] MEDS: allopurinoL 100 MG TAB PO SCH (21:38)
[2021-05-26] MEDS: DOCUSATE SODIUM 100MG CAPSULE PO SCH (21:38)
[2021-05-27] VITALS (18 sets, daily range): BP systolic 115–128; BP diastolic 65–85; O2SAT 90–99
[2021-05-27] MEDS: KETOROLAC 30 MG/ML 1ML VIAL IV SCH ×4 (00:10→17:05)
[2021-05-27] MEDS: PERCOCET 5MG/325MG TAB PO PRN ×2 (01:18→21:11)
[2021-05-27] MEDS: methylPREDNISolone 40MG 1ML VIAL IV SCH ×3 (02:41→17:04)
[2021-05-27] MEDS: LEVALBUTEROL 1.25 MG/0.5 ML CONCENTRATE NEB INH SCH ×6 (04:00→23:33)
[2021-05-27 07:17] LABS: HEMATOCRIT 32.6 % (42.0-52.0); HEMOGLOBIN 10.6 g/dl (13.5-17.5); MEAN CORPUSCULAR HEMOGLOBIN 32.6 pg (27.0-33.0); MEAN CORPUSCULAR HGB CONC 32.5 g/dl (32.0-36.5); MEAN CORPUSCULAR VOLUME 100.3 fl (80.0-96.0); PLATELET COUNT, AUTOMATED 117 10^3/uL (150-450); RED BLOOD COUNT 3.25 10^6/uL (4.30-6.10); WHITE BLOOD COUNT 5.7 10^3/uL (4.0-10.0)
[2021-05-27 07:45] LABS: ALBUMIN 2.2 GM/DL (3.2-5.2); ALT/SGPT 56 U/L (12-78); BILIRUBIN,TOTAL 0.5 MG/DL (0.2-1.0); BLOOD UREA NITROGEN 39 MG/DL (7-18); CALCIUM LEVEL 7.8 MG/DL (8.8-10.2); CARBON DIOXIDE LEVEL 32 MEQ/L (21-32); CHLORIDE LEVEL 105 MEQ/L (98-107); CREATININE FOR GFR 0.62 MG/DL (0.70-1.30); GLOMERULAR FILTRATION RATE > 60.0 (>49); GLUCOSE, FASTING 119 MG/DL (70-100); POTASSIUM SERUM 4.6 MEQ/L (3.5-5.1); SODIUM LEVEL 141 MEQ/L (136-145)
[2021-05-27] MEDS: BUDESONIDE 0.25 MG/2 ML INHALATION SUSPENSION INH SCH ×2 (08:04→19:40)
--- NOTE | 2021-05-27 08:19 | REP ---
INDICATION: pneumthorax, pnemonia. COMPARISON: Multiple the latest yesterday at 4:48 p.m. a portable exam TECHNIQUE: Two views FINDINGS: The cardiomediastinal silhouette is unchanged. The right-sided pneumothorax has again gotten slightly smaller. No other significant lung field changes are identified. There is no change in the osseous structures. IMPRESSION: The small right apical pneumothorax has again gotten smaller. There are no other significant changes. The tip of the chest tube remains in the right lung apical region. <Electronically signed by Mike Toney > 05/27/21 [id number]
[2021-05-27] MEDS: ENOXAPARIN 100MG/1ML SYRINGE (J1650 PER 10MG) SC SCH ×2 (09:16→21:00)
[2021-05-27] MEDS: SUCRALFATE SUSP 1GM/10ML UD PO SCH ×4 (09:16→21:16)
[2021-05-27] MEDS: PANTOPRAZOLE 40MG TAB (PROTONIX) PO SCH ×2 (09:16→21:16)
[2021-05-27] MEDS: DOCUSATE SODIUM 100MG CAPSULE PO SCH ×2 (09:16→21:11)
[2021-05-27] MEDS: LACTOBACILLUS ACIDOPHILUS CAP (BACID) PO SCH ×4 (09:16→21:10)
[2021-05-27] MEDS: guaiFENesin ER 600 MG TAB PO SCH ×2 (09:17→21:12)
--- NOTE | 2021-05-27 12:08 | RO ---
OPERATIVE NOTE DATE OF OPERATION: 05/26/2021 PREOPERATIVE DIAGNOSIS: Pneumothorax. POSTOPERATIVE DIAGNOSIS: Pneumothorax. PROCEDURE: Insertion of anterior-superior right-sided chest tube. SURGEON: Dr. Connor Trejo DESCRIPTION OF PROCEDURE: Under satisfactory moderate sedation achieved with eventually 4 mg of Versed, patient was prepped and draped in the usual sterile fashion. The prior chest tube catheter was removed. He did suck air through that wound. The skin, subcutaneous tissue, and pleura were infiltrated with 1% lidocaine. Incision was made and a tunnel created in the chest without difficulty. A #20 chest tube was placed at the apex. It was secured to the chest wall with a #2 Tevdek suture. The prior chest tube hole was closed with a simple 0 silk suture. The chest tube was connected to the Pleur-evac with a large air leak initially but then stopped. Patient tolerated the procedure well and a chest x-ray is pending.
--- NOTE | 2021-05-27 12:15 | IPN ---
PROGRESS NOTE DATE: 05/27/2021 SUBJECTIVE: The patient has been examined, chart reviewed and I spoke at length with the nurse at the bedside. OBJECTIVE: T-max overnight 98 degrees, blood pressure 120 systolic, heart rate in the 60-80s with a sinus mechanism. Respiratory rate 18-20. He remains on 4 liters nasal cannula. I had a long discussion yesterday with Dr. Jaeger by phone and with Dr. Trejo this morning. Chest x-ray this morning shows only a tiny brim of pneumothorax at the apex. On exam, he is awake, alert, and appropriate, quite comfortable. He had a good night's sleep. Vital signs as outlined above. Chest does show some decreased expansion on the right compared to the left. Chest tube is cycling well and has bloody drainage mainly serosanguineous. Cardiac exam is regular. Peripheral pulses are palpable, no edema. Abdomen is soft and nontender with active bowel sounds. Everything else unchanged from yesterday's exam. ASSESSMENT: 1. Hypoxemic respiratory failure, multifactorial. 2. Pneumonitis, bacterial versus viral versus secondary to immunologic agent. 3. Advanced esophageal cancer. RECOMMENDATIONS/PLAN: At this point I appreciate Dr. Trejo's input and management of his pneumothorax which I believe is truly spontaneous as it was several days post-bronchoscopy and I believe the two are unrelated. After a long discussion with Dr. Jaeger, at this point I am in agreement with his current management regarding empiric coverage for PCP, especially since I believe he will be on steroids for quite some time. I do believe the mitigating agent really is his biologics and therefore rn long term care steroid would be recommended. I see no role for adding additional antimicrobials. Certainly the voriconazole is not unreasonable and I will defer that to Dr. Jaeger. At this point I will follow him from afar. If further help is required of which I can be of assistance, please do not hesitate to contact me.
--- NOTE | 2021-05-27 12:37 | CR ---
CONSULTATION DATE: 05/26/2021 Patient seen at the request of Dr. De Anda for a persistent pneumothorax. HISTORY OF PRESENT ILLNESS: Patient is a 70-year-old white male who on May 07 was admitted from the emergency room after complaining of increasing shortness of breath with dyspnea at rest, which progressed over a period of 2 days. At the time he denies orthopnea or paroxysmal nocturnal dyspnea and denied lower extremity edema. He does have a known history of gastroesophageal (GE) junction stage IV adenocarcinoma, undergoing folinic acid, 5-fluorouracil, and oxaliplatin therapy. This has also been supplemented with Optiva immunotherapy. His last oncologic therapy was 1 month ago. He has not had radiation. He was admitted to the hospital with a chest x-ray, which showed unilateral consolidative changes and a CT scan that showed an interstitial process with patchy infiltrates. He was started on broad-spectrum antibiotics. He did not get better until high-dose steroids were instituted. He then clinically got better. Because of the concern for underlying microbiologic disease, he was taken to the operating room, where he underwent a bronchoscopy on 05/19/2021. He did well after the bronchoscopy, but on 05/22/2021 he developed a pneumothorax with increasing shortness of breath. At that point a chest tube catheter was placed, which while placed anteriorly and superiorly, wound up heading inferiorly. He has continued to have the pneumothorax with initial improvement but now with increased volume loss and consolidation. I am being asked now to address the pneumothorax with the hope that the lung will expand further. MEDICAL HISTORY: 1. The above esophageal carcinoma. 2. Gastroesophageal reflux disease. 3. 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 SURGICAL HISTORY: Left-sided port placement. HABITS: Denies alcohol. Former smoker for 53 years. 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 No illicit drug use. ALLERGIES: None. PHYSICAL EXAMINATION: A well-developed, well-nourished white male in no acute distress. Vital signs: Temperature 97.8 with average heart rate of 60 in sinus rhythm, respiratory rate of 18 without the use of accessory muscles. He is 98% saturated on 3 liters nasal cannula, and his blood pressure is 161/76. Eyes: Pupils equal, round and reactive to light. Extraocular muscles intact. Sclerae anicteric. Nose without deformity. Mouth his mucous membranes to be pink and moist. Lips and commissures without lesions. There is no thrush. Head is normocephalic. Neck is supple. There is no jugular venous distention. No subcutaneous emphysema. Trachea is midline. There is no lymphadenopathy, thyromegaly. He has 2+ carotid upstrokes and no bruits. Lungs show marked rales and rhonchi throughout the entire right side. He also has the same on the left side but a much lesser quantity, and I am not sure if they are just transmitted from the right side. Percussion notes are full to the diaphragm. Cardiac exam is without murmurs, clicks, gallops, or rubs. I cannot feel his point of maximal impulse (PMI). S1 and S2 are normal. Abdomen is soft and nontender. Bowel sounds are positive. There is no hepatomegaly. No costovertebral angle (CVA) tenderness. Extremities show no pretibial edema, no calf tenderness, no differential swelling of the upper extremities. Skin is warm, dry, and perfused without cyanosis or mottling, including that of the nailbeds and knees. Neurologic shows II-XII intact. Normal gross motor, gross sensation intact. Gait is not tested. Psychiatric shows him to be awake, alert, and oriented times three with appropriate mood and affect and conversational. His white count today is 6.7. It has never been higher than 13.2 on 05/23/2021. Hemoglobin and hematocrit are 11.2 and 34.3 with a platelet count of 144. There is no recent differential. Chemistries today show essentially normal electrolytes with a marginally elevated total CO2 of 33. BUN and creatinine are 27 and 0.60 with a glucose of 122 and a calcium of 8.3. Albumin is 2.4. Glucose is 122 with a calcium of 8.3. There are no recent blood gases on him. No recent PT/INR or PTT. On admission his PT/INR were 13.6 and 1.0, respectively, with a PTT of 38 seconds. He is COVID negative. QuantiFERON Gold TB test is negative, done on May 19. His Aspergillus antibody is negative. Histoplasmosis antibody antigens are pending. Katja-Hahn virus is positive. Cryptococcus is pending. His chest x-ray today shows a continued pneumothorax with the chest tube traveling inferiorly. There is severe volume loss on the right side. His mediastinum has shifted to the right. I do not see appreciable pleural effusions. It is done portably. The chest x-ray has changed somewhat from when the chest tube was first placed for near 55%-60% pneumothorax. The chest tube did not immediately re-expand the lung; however, by May 24 the lung was more expanded. The chest CT done today shows the apical pneumothorax. There is a reticular nodule pattern throughout with interstitial consolidation. There is considerable bronchiectasis with air bronchograms in the lower lobe. He also has upper lobe bronchiectasis. He has mediastinal lymphadenopathy with numerous centimeter to subcentimeter nodes. There is one larger node with a lucent center just before the alberto on the right side. IMPRESSION: 1. Interstitial consolidative process, unilateral. Possible fungal, bacterial, viral, or secondary to PD-L1 inhibitors. 2. Hypoxia. 3. Pneumothorax. 4. Stage IV esophageal carcinoma with the above treatment. PLAN AND DISCUSSION: The pneumonic process is unilateral. The usual presentation of PD-L1 inhibitor pneumonitis is bilateral; however, he did not respond to bacterial antibiosis but rather to high-dose steroids. He is on antifungal therapy. It would not surprise me that this is an underlying fugal problem, even though nothing has grown out and there were no organisms seen on the cytology. He certainly is set up for immunosuppressed phenomenon. In order to expand the lung, I will place an anterior-superior chest tube at the apex. We will keep him on suction.
--- NOTE | 2021-05-27 13:10 | IPN ---
PROGRESS NOTE DATE: 05/27/2021 Mr. Lawson has a comfortable 24 hours since placing his chest tube. He says he can breathe a whole lot better. The pain is being well controlled at the chest tube insertion site. His vital signs show a maximum temperature of 98.0 with a heart rate that ranges between 65-85 in a sinus rhythm, respiratory rate of 18-24 without the use of accessory muscles, who is 92%-99% saturated on 4 liters nasal cannula and whose blood pressure is ranging between 128/78 to 120/72. History intake and output for the past 24 hours have been recorded as 830 in and 595 out, for a positivity of 115 mL. He has put out 170 mL from the chest tube yesterday and 360 mL since 12 midnight. His weight is pending today. PHYSICAL EXAMINATION: His lungs show rales and rhonchi on the right side. They are a bit less coarse than they were yesterday. His left lung shows normal vesicular sounds. What I heard yesterday was transmitted sounds from the right to the left side. Percussion notes are full to the diaphragm. Cardiac exam is without murmurs, clicks, gallops, or rubs. I cannot feel his point of maximal impulse (PMI). S1 and S2 are normal. Abdomen is soft and nontender. Bowel sounds are positive. There is no hepatomegaly. No costovertebral angle (CVA) tenderness. Extremities show no pretibial edema, no calf tenderness. There is differential swelling of the left upper extremity on the upper arm. Lower arm showed no differential swelling. Skin is warm, dry, and perfused without cyanosis or mottling, including that of the nailbeds and knees. Neck is supple. There is no jugular venous distention. No subcutaneous emphysema. Trachea is midline. Mouth shows the mucous membranes to be pink and moist. Lips and commissures without lesions. No thrush. Eyes show his pupils to be equal and reactive. Extraocular motion intact. Sclerae anicteric. Neurologic shows II-XII intact. Normal gross motor, gross sensation intact. Gait is not tested. Psychiatric shows him to be awake, alert, and oriented times three with appropriate mood and affect and conversational. His white count today is 5.7 with a hemoglobin and hematocrit of 10.6 and 32.6, respectively. These are essentially unchanged from yesterday. Platelet count is 117. There is no differential. His electrolytes are normal with a BUN and creatinine of 39 and 0.62, a glucose of 119, and a calcium of 7.8. Corresponding albumin is 2.2. His voriconazole level is 1.0, which is within the therapeutic window. His chest x-ray shows the lung slightly from the chest wall at the apex. The chest tube is in excellent position at the apex. He is on 20 cm of suction, and I will increase him to 40. The infiltrative process is essentially unchanged, maybe a little bit better from additional expansion. IMPRESSION: 1. Necrotizing pneumonia, unknown organism, PD-L1 pneumonitis by exclusion 2. Esophageal cancer at the gastroesophageal (GE) junction, stage IV. 3. 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 4. Gastroesophageal reflux disease. 5. Prior tobacco abuse. PLAN AND DISCUSSION: I will increase the suction to -40 today. He is doing much better today than he was yesterday.
--- NOTE | 2021-05-27 14:01 | IPN ---
PROGRESS NOTE DATE: 05/26/2021 Mr. Lawson was transferred to progressive care unit (PCU) for a change in his chest tube, which was not functioning well. Dr. Trejo was consulted. He has a new chest tube in place. The patient was seen after Versed sedation. He was asking for some samosa and food. He was hungry. He denied any other complaints. LABORATORY DATA: White count is 6.7, hemoglobin 11.2, hematocrit 34.3, platelets 144. Sodium 142, potassium 4.6, chloride 109, bicarb 33, BUN 27, creatinine 0.6, glucose 122, calcium 8.3. AST 28, ALT 49, alkaline phosphatase 92. CRP less than 0.3. Total protein 5, albumin 2.4. MEDICATIONS: - voriconazole 200 mg by mouth twice a day - methylprednisolone 80 mg intravenous (IV) every 8 hours PHYSICAL EXAMINATION: Temperature is 97.8, pulse 60, respirations 18, blood pressure 161/76, oxygen saturation 98% on 3 liters nasal cannula. Chest x-ray done this afternoon shows a right chest tube. Very small right apical pneumothorax. Diffuse consolidative opacities of the right lung and interstitial densities in the left lung. IMPRESSION: 1. Respiratory failure, improving with negative infectious disease workup, including sputum cultures, bronchoalveolar lavage (BAL) with no fungal pathogen on Gomori methenamine silver (GMS) stain. Negative D-Fungitell, Aspergillus galactomannan, sputum cultures. Patient has been treated with broad-spectrum antibiotics for 2 weeks. Voriconazole was added a week ago while waiting for BAL specimens. Since there is no evidence of fungal etiology, voriconazole will be discontinued. Patient clinically improving with IV steroids. At this point, I believe that his lung disease was related to nivolumab-related pneumonitis. Continue with steroids. 2. Right-sided pneumothorax, status post chest tube placement. 3. Esophageal adenocarcinoma, stage IV, on FOLFOX and immunotherapy. I would not suggest resuming immunotherapy at this point. 4. Thrombus in the left internal jugular (IJ), on subcutaneous Lovenox. PLAN: Discontinue voriconazole. Continue Solu-Medrol. Cryptococcus antigen and antibody are still pending. Cytomegalovirus (CMV) DNA is pending. Aspergillus galactomannan was 0.03. QuantiFERON-TB Gold was negative. B1-3 glucan was less than 31. Case has been discussed with Dr. De Anda, who agrees with the plan, and Dr. Trejo. [facility]
--- NOTE | 2021-05-27 15:22 | IPNPDOC ---
Date Seen The patient was seen on 05/27/21. Progress Note SUBJECTIVE: -Remains on 4 L NC -No events overnight. -Chest tube with BRB, -470 out since larger placed -No increased SOB or chest pain OBJECTIVE: PE: VITAL SIGNS: Please see below GENERAL: Patient is awake, alert and oriented x3, comfortable in bed LUNGS: R posterior field with crackles and diminished sounds, L clear, otherwise moving air without wheezing of upper airway transmitted sounds. Chest tube in place fixed in upper right chest HEART: RRR, no m/r/g ABDOMEN: Soft, nontender and nondistended. EXTREMITIES: LUE > RUE-chronic. No clubbing or pitting lower extremities edema. Neuro: No focal deficits LABORATORY DATA: Reviewed. Please see below MICROBIOLOGY/PATH/CYTOLOGY: Sputum GS: QUALITY: GOOD MODERATE EPITHELIAL CELLS MODERATE WBCS MANY GRAM POSITIVE COCCI IN PAIRS, CHAINS AND CLUSTERS MANY GRAM NEGATIVE RODS FEW GRAM POSITIVE RODS FEW YEAST LIKE ORGANISM Sputum Cx: yeast like organism BCx: NG UA neg COVID test x 4- neg C. diff: neg Fungal studies negative, strep pneumoniae negative, legionella negative TB neg galactomannan studies neg BAL cx: NG BAL fungal Cx: pending Bronchoscopy pathology: neg for malignancy, PNA dx Bronchoscopy cytology: no malignancy IMAGING STUDIES: CXR 05/27: The small right apical pneumothorax has again gotten smaller. There are no other significant changes. The tip of the chest tube remains in the right lung apical region. CT chest 05/26/21: 1. Adenopathy status quo. 2. Right-sided thoracotomy tube with a persistent pneumothorax. 3. Possible empyema developing in the right lower lobe region as described above. Follow-up is suggested. 4. Odd appearing soft tissue densities in the airspace created by the pneumothorax in the right anterior mediastinum as described above. Etiology uncertain. CXR 05/24/21: Decreased size of right pneumothorax. CXR 05/23/21: The technique utilized in obtaining the radiograph has magnified the cardiac silhouette and accentuated the interstitial markings. The cardiomediastinal silhouette lung mcclellan are unchanged. The right-sided pneumothorax is unchanged. The right-sided thoracotomy tube is unchanged. The osseous structures are stable. Echo 05/12/21: 1. Study is of very limited technical quality. Underlying sinus rhythm. 2. Normal left ventricular (LV) size with normal or near-normal LV systolic function based on limited views. Grade 1 diastolic dysfunction. 3. No significant valvular disease. 4. Unable to estimate central venous pressure and pulmonary artery pressure. 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 IMPRESSION: #Acute hypoxic respiratory failure likely 2/2 to nivolumab (drug) induced pneumonitis, complicated by right side pneumothorax s/p chest tube placement x 2 -S/p chest tube placed on 05/22/21. 05/26/21 imaging showed mediastinal shift so CT surgery took old chest tube out and placed larger tube -Neg 470 from tube since placement -repeat CXR above, showed improvement -Micro/path/histo above which ruled out PNA . ONly pending studies are BAL fungal but these are highly unlikey to come back positive. ID stopped voriconazole. -Stopped all antibacterial/antifungal meds. Continue only with solumedrol 80 Q8H, Levalbuterol ATC, PRN -Infectious disease, pulmonary and CT surgery following #Occlusive thrombus in left upper extremity veins including subclavian vein, left jugular vein occlusive thrombus, central subclavian vein thrombus and newly identified right cephalic vein thrombus -Right cephalic vein likely old thrombus with new swelling of that arm being 2/2 to blood draws. Not suspecting the right cephalic vein thrombus to have formed while on lovenox BID . -Prior to admission patient was supposed to be on AC daily but he stopped after two weeks -lovenox BID currently and will likely need to continue this after d/c #Elevated troponin 2/2 sepsis -No hx of CHF, CAD -BNP 1100, trop elevated but steadily decreased -Discussed with Dr. 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 -Currently, undergoing FOLFOX with Nivolumab every two weeks. -Dr. Marin hematology/oncology-has seen patient this admission #GERD -C/w PPI, Carafate #Dyslipidemia #Chronic anxiety #DVT px -Lovenox BID RESOLVED #Sepsis DISPOSITION: Pulmonary, ID, CT surgery following. Goal is home when medically improved. PT/OT VS, I&O, 24H, Fishbone Vital Signs/I&O Vital Signs Date Time Temp Pulse Resp B/P (MAP) Pulse Ox O2 Delivery O2 Flow Rate FiO2 05/27/21 13:00 96 Nasal Cannula 4.0 05/27/21 12:00 97.9 91 24 127/85 (99) I&O- Last 24 Hours up to 6 AM 05/27/21 06:00 Intake Total 1350 ml Output Total 290 ml Balance 1060 ml Laboratory Data 24H LABS Laboratory Tests 2 05/27/21 05:56: Nucleated Red Blood Cells % (auto) 0.0, Anion Gap 4L, Glomerular Filtration Rate > 60.0, Calcium Level 7.8L, Total Bilirubin 0.5, Aspartate Amino Transf (AST/SGOT) 32, Alanine Aminotransferase (ALT/SGPT) 56, Alkaline Phosphatase 82, Total Protein 5.0L, Albumin 2.2L, Albumin/Globulin Ratio 0.8 CBC/BMP Laboratory Tests 05/27/21 05:56 Microbiology Microbiology 05/19/21 Acid Fast Stain - Final, Resulted 05/19/21 Mycobacterial Culture, Resulted Pending 05/19/21 Fungal Smear, Resulted Pending 05/19/21 Fungal Culture, Resulted Pending 05/19/21 Gram Stain - Final, Complete 05/19/21 Bronchoalveolar Lavage Culture - Final, Complete 05/19/21 Acid Fast Stain - Final, Resulted 05/19/21 Mycobacterial Culture, Resulted Pending 05/19/21 Fungal Smear, Resulted Pending 05/19/21 Fungal Culture, Resulted Pending 05/19/21 Gram Stain - Final, Complete 05/19/21 Bronchoalveolar Lavage Culture - Final, Complete Aishwarya Oro MD May 27, 2021 15:22
[2021-05-27 16:07] LABS: CRYPTOCOCCUS ANTIBODY SERUM Negative (Neg:<1:2); CRYPTOCOCCUS ANTIGEN SER Negative (Negative)
[2021-05-27] MEDS: ALPRAZolam 0.5 MG TAB PO PRN (17:04)
[2021-05-27] MEDS: allopurinoL 100 MG TAB PO SCH (21:11)
[2021-05-27] MEDS: ROSUVASTATIN 10 MG TAB (CRESTOR) PO SCH (21:16)
[2021-05-27] MEDS ORDERED: LIDOCAINE 1% MDV 20ML VIAL As Ordered ONE ×2 (21:46→21:57)
--- NOTE | 2021-05-27 22:30 | REPVR ---
PROCEDURE INFORMATION: Exam: XR Chest Exam date and time: 05/27/2021 10:11 PM Age: 70 years old Clinical indication: Confirm chest tube placement TECHNIQUE: Imaging protocol: XR of the chest. Views: 1 view. COMPARISON: 1. CR Chest, 2 view PA, Lat 05/27/2021 6:[address] Chest without contrast 05/26/2021 11:28:20 AM (The reports from these studies were not available for review at the time of this interpretation.) FINDINGS: Tubes, catheters and devices: There is a right-sided chest tube terminating in the superior aspect of the right hemithorax in similar position compared to the prior chest x-ray on 05/27/2021 6:59 AM. There is a left subclavian MediPort terminating in the left brachiocephalic vein. Lungs: There is persistent volume loss in the right hemithorax. There are persistent airspace opacities in the right lung and traction bronchiectasis and interstitial thickening in the left lung. Pleural spaces: The small right pneumothorax that can be seen in the chest x-ray on 05/27/2021 6:59 AM is no longer identified. There is a right pleural effusion or pleural thickening that has developed since the prior chest x-ray on 05/27/2021 6:59 AM. There is a trace left pleural effusion. Heart/Mediastinum: No cardiomegaly. There is a persistent mediastinal shift to the right. Bones/joints: Unremarkable. IMPRESSION: 1. Right-sided chest tube terminating in the superior aspect of the right hemithorax in similar position compared to the prior chest x-ray on 05/27/2021 6:59 AM. 2. The small right pneumothorax that can be seen in the chest x-ray on 05/27/2021 6:59 AM is no longer identified. 3. Right pleural effusion or pleural thickening that has developed since the prior chest x-ray on 05/27/2021 6:59 AM. 4. Trace left pleural effusion. 5. Persistent airspace opacities in the right lung and traction bronchiectasis and interstitial thickening in the left lung. Electronically signed by: Param Martell On 05/27/2021 22:29:43 PM
[2021-05-27 22:42] LABS: HEMATOCRIT 27.5 % (42.0-52.0); HEMOGLOBIN 9.3 g/dl (13.5-17.5)
[2021-05-27] MEDS ORDERED: LIDOCAINE 1% MDV 20ML VIAL SC ONE (23:20)
[2021-05-28] VITALS (65 sets, daily range): BP systolic 75–170; BP diastolic 35–86; O2SAT 89–97
[2021-05-28] MEDS ORDERED: MIDAZOLAM INJ 2MG/2ML VIAL (J2250 PER 1MG) IV PRN ×4 (00:30→04:30)
[2021-05-28] MEDS ORDERED: NS 500 ML IV ONE (00:50)
[2021-05-28 00:55] LABS: HEMATOCRIT 25.3 % (42.0-52.0); HEMOGLOBIN 8.3 g/dl (13.5-17.5)
[2021-05-28] MEDS ORDERED: MIDAZOLAM INJ 2MG/2ML VIAL (J2250 PER 1MG) As Ordered ONE ×3 (01:17→02:22)
[2021-05-28] MEDS ORDERED: PROTAMINE SULF 50MG/5ML VIAL (J2720 PER 10MG) IV STA (01:19)
[2021-05-28] MEDS ORDERED: flumazeniL 0.5 MG/5 ML VIAL As Ordered ONE (01:20)
--- NOTE | 2021-05-28 01:23 | REPVR ---
PROCEDURE INFORMATION: Exam: XR Chest Exam date and time: 05/28/2021 1:15 AM Age: 70 years old Clinical indication: Change in status TECHNIQUE: Imaging protocol: XR of the chest. Views: 1 view. COMPARISON: CR PORTABLE CHEST X-RAY 05/27/2021 9:55 PM FINDINGS: Tubes, catheters and devices: There is a right-sided chest tube terminating in the superior aspect of the right hemithorax and a left subclavian MediPort terminating in the left brachiocephalic vein in similar positions compared to the prior chest x-ray on 05/27/2021. Lungs: There is persistent volume loss in the right hemithorax and airspace opacities in the right lung, with decreased aeration in the right lung compared to the prior chest x-ray on 05/27/2021. There is persistent interstitial thickening in the left lung. Pleural spaces: There is a moderate to large right pleural effusion that has increased in size compared to the prior chest x-ray on 05/27/2021. There is a persistent trace left pleural effusion. No pneumothorax is identified. Heart/Mediastinum: No cardiomegaly. There is a persistent mediastinal shift to the right that is similar in appearance compared to the prior chest x-ray on 05/27/2021. Bones/joints: There are endplate spurs in the thoracic spine. Soft tissues: There is soft tissue emphysema in the right chest wall. IMPRESSION: 1. Extensive airspace opacities in the right lung with worsening aeration in the right lung compared to the prior chest x-ray on 05/27/2021, which may represent pneumonia. 2. Moderate to large right pleural effusion that has increased in size compared to the prior chest x-ray on 05/27/2021. 3. Persistent trace left pleural effusion. Electronically signed by: Param Martell On 05/28/2021 01:23:07 AM
[2021-05-28] MEDS ORDERED: flumazeniL 0.5 MG/5 ML VIAL IV STA (01:42)
[2021-05-28] MEDS ORDERED: fentaNYL 100 MCG/2 ML INJECTION (J3010) As Ordered ONE (02:23)
[2021-05-28 02:39] LABS: HEMATOCRIT 27.9 % (42.0-52.0); HEMOGLOBIN 9.1 g/dl (13.5-17.5)
--- NOTE | 2021-05-28 02:55 | REPVR ---
PROCEDURE INFORMATION: Exam: XR Chest Exam date and time: 05/28/2021 2:19 AM Age: 70 years old Clinical indication: Chest tube placement TECHNIQUE: Imaging protocol: XR of the chest. Views: 1 view. COMPARISON: CR PORTABLE CHEST X-RAY 05/28/2021 12:59 AM FINDINGS: Tubes, catheters and devices: The previously noted right chest tube has been repositioned and terminates in the right hemithorax, projected between the right posterior 5th and 6th ribs. An additional right-sided chest tube has been placed since the prior chest x-ray on 05/28/2021 12:59 AM, which terminates more superiorly from the 1st chest tube. There is a left subclavian MediPort terminating in the left brachiocephalic vein. Lungs: No significant change is noted in the volume loss in the right hemithorax, consolidation in the right lung, or interstitial thickening in the left lung compared to the prior chest x-ray on 05/28/2021 12:59 AM. Pleural spaces: There is a moderate to large right pleural effusion and a trace left pleural effusion, which are stable compared to the prior chest x-ray on 05/28/2021 12:59 AM. No pneumothorax is identified. Heart/Mediastinum: No cardiomegaly is noted. There is a persistent mediastinal shift to the right that is similar in appearance compared to the prior chest x-ray on 05/28/2021 12:59 AM. Bones/joints: There are endplate spurs in the thoracic spine. Soft tissues: There is soft tissue emphysema in the right chest wall. IMPRESSION: 1. Two right chest tubes in place as described above. 2. Moderate to large right pleural effusion and a trace left pleural effusion, which are stable compared to the prior chest x-ray on 05/28/2021 12:59 AM. 3. No significant change in the volume loss in the right hemithorax, consolidation in the right lung, or interstitial thickening in the left lung compared to the prior chest x-ray on 05/28/2021 12:59 AM. Electronically signed by: Param Martell On 05/28/2021 02:54:05 AM
[2021-05-28 03:18] LABS: ABG HCO3 28.5 MEQ/L (22.0-26.0); ABG O2 SATURATION 97.2 % (95.0-99.0); ABG PARTIAL PRESSURE CO2 37.6 mmHg (35.0-45.0); ABG PARTIAL PRESSURE O2 93.4 mmHg (75.0-100.0); ABG TOTAL CO2 29.6 MEQ/L (23.0-31.0); ABG pH (ARTERIAL) 7.497 UNITS (7.350-7.450)
[2021-05-28] MEDS: LEVALBUTEROL 1.25 MG/0.5 ML CONCENTRATE NEB INH SCH ×6 (03:56→23:34)
[2021-05-28 04:16] LABS: HEMATOCRIT 28.2 % (42.0-52.0); HEMOGLOBIN 9.3 g/dl (13.5-17.5)
[2021-05-28] MEDS: methylPREDNISolone 40MG 1ML VIAL IV SCH ×3 (04:38→17:28)
[2021-05-28] MEDS: D5W/0.9% SODIUM CHLORIDE 1,000 ML IV SCH ×2 (04:41→16:45)
[2021-05-28 06:33] LABS: BASO % 0.1 % (0.0-1.0); HEMATOCRIT 28.3 % (42.0-52.0); HEMOGLOBIN 9.5 g/dl (13.5-17.5); HEMOGLOBIN 9.7 g/dl (13.5-17.5); LYMPH # 0.3 10^3/uL (1.5-5.0); MEAN CORPUSCULAR HEMOGLOBIN 31.4 pg (27.0-33.0); MEAN CORPUSCULAR HGB CONC 33.4 g/dl (32.0-36.5); MEAN CORPUSCULAR VOLUME 93.9 fl (80.0-96.0); MONO # 1.1 10^3/uL (0.0-0.8); MONO % 6.8 % (2.0-8.0); NEUTROPHILS # 13.9 10^3/uL (1.5-8.5); NEUTROPHILS % 89.6 % (36.0-66.0); PLATELET COUNT, AUTOMATED 106 10^3/uL (150-450); RED BLOOD COUNT 3.09 10^6/uL (4.30-6.10); WHITE BLOOD COUNT 15.5 10^3/uL (4.0-10.0)
--- NOTE | 2021-05-28 06:35 | IPNPDOC ---
Date Seen The patient was seen on 05/28/21. Progress Note SUBJECTIVE: The hospitalist team was called about Mr. Lawson at approximately 00:30 on 05/28/21 after being found unresponsive by his nurse. Upon entering the room, the patient was muttering a few words but not oriented to where he was. He was hypotensive with a systolic blood pressure in the 80's and had drained approximately 350ml of blood from his chest tube. Hemoglobin had dropped to 8.3 at 00:51 from 9.3 at 22:35. The patient had 1 peripheral line in his left forearm; no other peripheral lines were established after multiple attempts by nursing staff. The patient's left subclavian port was non functioning. The patient was put into trendelenburg positive and given two 500cc NS IV boluses. Dr. Trejo was called to further assess the patient. Two units of packed RBCs were infused. The patient was given protamine sulfate to reverse the lovenox he was given 16 hours prior secondary to his bleeding from his chest tube. Dr. Trejo arrived and placed a second chest tube and established a central line in the right femoral artery. The patient had a blood pressure >100 systolic after his central line was placed. His oxygen saturation stayed between 99-100%. Please refer to nursing record for further information on vitals and medications administration times. VS, I&O, 24H, Ary Vital Signs/I&O Vital Signs Date Time Temp Pulse Resp B/P (MAP) Pulse Ox O2 Delivery O2 Flow Rate FiO2 05/28/21 05:15 71 23 127/60 (82) 96 Nasal Cannula 2.0 05/28/21 05:00 97.0 I&O- Last 24 Hours up to 6 AM 05/28/21 06:00 Intake Total 1980 ml Output Total 1795 ml Balance 185 ml Laboratory Data 24H LABS Laboratory Tests 2 05/28/21 01:08: Bedside Glucose (Misc Panel) 185H 05/28/21 02:51: Blood Gas Bicarbonate Standard 29.0H, Arterial Blood pH 7.497H, Arterial Blood Partial Pressure CO2 37.6, Arterial Blood Partial Pressure O2 93.4, Arterial Blood Total CO2 29.6, Arterial Blood HCO3 28.5H, Arterial Blood Base Excess 5.0H, Arterial Blood Oxygen Saturation 97.2 CBC/BMP Laboratory Tests 05/27/21 22:35 05/28/21 00:51 10/24/21 02:26 05/28/21 04:01 Microbiology Microbiology 05/19/21 Acid Fast Stain - Final, Resulted 05/19/21 Mycobacterial Culture, Resulted Pending 05/19/21 Fungal Smear, Resulted Pending 05/19/21 Fungal Culture, Resulted Pending 05/19/21 Gram Stain - Final, Complete 05/19/21 Bronchoalveolar Lavage Culture - Final, Complete 05/19/21 Acid Fast Stain - Final, Resulted 05/19/21 Mycobacterial Culture, Resulted Pending 05/19/21 Fungal Smear, Resulted Pending 05/19/21 Fungal Culture, Resulted Pending 05/19/21 Gram Stain - Final, Complete 05/19/21 Bronchoalveolar Lavage Culture - Final, Complete HALLIE MAX DO May 28, 2021 06:35 SHELIA TAYLOR MD May 31, 2021 06:33
[2021-05-28 07:11] LABS: ALBUMIN 1.7 GM/DL (3.2-5.2); ALT/SGPT 45 U/L (12-78); BILIRUBIN,TOTAL 0.5 MG/DL (0.2-1.0); BLOOD UREA NITROGEN 37 MG/DL (7-18); CALCIUM LEVEL 7.5 MG/DL (8.8-10.2); CARBON DIOXIDE LEVEL 30 MEQ/L (21-32); CHLORIDE LEVEL 108 MEQ/L (98-107); CREATININE FOR GFR 0.63 MG/DL (0.70-1.30); GLOMERULAR FILTRATION RATE > 60.0 (>49); GLUCOSE, FASTING 129 MG/DL (70-100); POTASSIUM SERUM 4.9 MEQ/L (3.5-5.1); SODIUM LEVEL 142 MEQ/L (136-145); TOTAL PROTEIN 3.8 GM/DL (6.4-8.2)
[2021-05-28] MEDS: SUCRALFATE SUSP 1GM/10ML UD PO SCH ×4 (07:30→20:14)
[2021-05-28] MEDS: DOCUSATE SODIUM 100MG CAPSULE PO SCH ×2 (07:56→20:14)
[2021-05-28] MEDS: guaiFENesin ER 600 MG TAB PO SCH ×3 (07:56→22:49)
[2021-05-28] MEDS: LACTOBACILLUS ACIDOPHILUS CAP (BACID) PO SCH ×5 (07:56→22:49)
[2021-05-28] MEDS: PANTOPRAZOLE 40MG TAB (PROTONIX) PO SCH ×3 (07:57→22:49)
[2021-05-28 08:20] LABS: HEMATOCRIT 28.9 % (42.0-52.0); HEMOGLOBIN 9.8 g/dl (13.5-17.5)
[2021-05-28] MEDS: BUDESONIDE 0.25 MG/2 ML INHALATION SUSPENSION INH SCH ×2 (09:01→20:00)
--- NOTE | 2021-05-28 10:18 | REP ---
INDICATION: hemothorax?. COMPARISON: CT chest without contrast, 05/26/2021. TECHNIQUE: Contiguous 3 mm thick axial [place] images were obtained through the chest. 2D sagittal and coronal reconstructions were performed. FINDINGS: Lower neck: The thyroid gland is normal. There is no supraclavicular lymphadenopathy. Mediastinum: There are multiple reactive mediastinal lymph nodes, with a left prevascular lymph node measuring 2.2 x 1.2 cm. Heart/thoracic aorta: The heart is enlarged. There is no pericardial effusion. There is calcific vascular disease of the thoracic aorta and coronary arteries. Upper abdomen: There is calcific vascular disease of the abdominal aorta. There is right nephrolithiasis. There is a reactive gastrohepatic lymph node. Thoracic esophagus: There is a small hiatal hernia. Chest wall and axilla: There is a chemotherapy port in the left upper chest wall with the tip in the superior vena cava via the left internal jugular vein. There is a right-sided large bore thoracostomy tube. There is a small amount of associated subcutaneous emphysema. There is no axillary lymphadenopathy. There are anterior osteophytes and lateral syndesmophytes throughout the thoracic spine consistent with diffuse idiopathic skeletal hyperostosis (DISH). Lung parenchyma: There is dense airspace consolidation in the right lung most severe in the lower lobe with air bronchograms throughout. There is a hydropneumothorax with a large bore thoracostomy tube in good position. There is a loculated component in the inferomedial right pleural space. There is significant volume loss on the right consistent with atelectasis and/or scarring. There may be some element of superimposed congestive heart failure with cardiomegaly, left-sided interstitial thickening and left pleural effusion. IMPRESSION: 1. Severe right-sided pneumonia with complete consolidation of the lower lobe of the right lung with air-filled ectatic bronchi. 2. Large right-sided hydropneumothorax, which is loculated inferomedially, as described. 3. There is some mm of congestive heart failure. 4. Other findings as noted. There is no significant change. <Electronically signed by Maxwell Banks > 05/28/21 [id number]
[2021-05-28] MEDS: MORPHINE 2 MG/ML 1ML VIAL (J2270) IV PRN ×3 (10:45→22:12)
[2021-05-28 11:05] LABS: HEMATOCRIT 29.5 % (42.0-52.0); HEMOGLOBIN 9.9 g/dl (13.5-17.5); MEAN CORPUSCULAR HEMOGLOBIN 31.3 pg (27.0-33.0); MEAN CORPUSCULAR HGB CONC 33.6 g/dl (32.0-36.5); MEAN CORPUSCULAR VOLUME 93.4 fl (80.0-96.0); PLATELET COUNT, AUTOMATED 142 10^3/uL (150-450); RED BLOOD COUNT 3.16 10^6/uL (4.30-6.10); WHITE BLOOD COUNT 17.4 10^3/uL (4.0-10.0)
[2021-05-28] MEDS: ALPRAZolam 0.5 MG TAB PO PRN ×2 (12:13→17:55)
[2021-05-28 12:46] LABS: HEMATOCRIT 30.8 % (42.0-52.0); HEMOGLOBIN 10.3 g/dl (13.5-17.5); MEAN CORPUSCULAR HEMOGLOBIN 31.3 pg (27.0-33.0); MEAN CORPUSCULAR HGB CONC 33.4 g/dl (32.0-36.5); MEAN CORPUSCULAR VOLUME 93.6 fl (80.0-96.0); PLATELET COUNT, AUTOMATED 147 10^3/uL (150-450); RED BLOOD COUNT 3.29 10^6/uL (4.30-6.10); WHITE BLOOD COUNT 19.1 10^3/uL (4.0-10.0)
[2021-05-28 14:35] LABS: HEMATOCRIT 28.4 % (42.0-52.0); HEMOGLOBIN 9.5 g/dl (13.5-17.5); MEAN CORPUSCULAR HEMOGLOBIN 31.7 pg (27.0-33.0); MEAN CORPUSCULAR HGB CONC 33.5 g/dl (32.0-36.5); MEAN CORPUSCULAR VOLUME 94.7 fl (80.0-96.0); PLATELET COUNT, AUTOMATED 122 10^3/uL (150-450); WHITE BLOOD COUNT 15.9 10^3/uL (4.0-10.0)
--- NOTE | 2021-05-28 15:13 | IPNPDOC ---
Date Seen The patient was seen on 05/28/21. Progress Note SUBJECTIVE: The patient had an episode of unresponsiveness last evening, found to be hypotensive likely secondary to bleeding from his chest tube. He was transfused 2 units of blood and given to normal saline boluses. He had right femoral central line placement and, in added another chest tube in the right upper lung. He was transferred to ICU for further care. He was given protamine sulfate to reverse therapeutic lovenox and bleeding in chest tube has since decreased. BP was wnl this AM, Hgb has been stable at 9.5-9.7 Q2hrs. His sister Meli was updated in great detail about his hospital course this afternoon. The patient complains of some anxiousness after last night's events, pain from the chest tube site. Morphine frequency was adjusted. Discussed case with Dr. Trejo in great detail. Patient is at very high risk for clot formation, as he has multiple large clots currently 2/2 to his cancer. Decision was made to start on heparin SC BID for now, prophylactic dosing. Watching closely for increased bleeding, hypotension. Currently patient denies chest pain aside from where chest tubes are, increased SOB, fevers, chills, n/v/d. OBJECTIVE: PE: VITAL SIGNS: Please see below GENERAL: Patient is awake, alert and oriented x3, comfortable in bed LUNGS: R lung crackles and diminished sounds, L clear, otherwise moving air without wheezing of upper airway transmitted sounds. Chest tube in place fixed in upper right chest, right lower lung. HEART: RRR, no m/r/g ABDOMEN: Soft, nontender and nondistended. EXTREMITIES: Right femoral line in place. LUE swelling > RUE-chronic. No clubbing or pitting lower extremities edema. Neuro: No focal deficits LABORATORY DATA: Please see below MICROBIOLOGY/PATH/CYTOLOGY: Sputum GS: QUALITY: GOOD MODERATE EPITHELIAL CELLS MODERATE WBCS MANY GRAM POSITIVE COCCI IN PAIRS, CHAINS AND CLUSTERS MANY GRAM NEGATIVE RODS FEW GRAM POSITIVE RODS FEW YEAST LIKE ORGANISM Sputum Cx: yeast like organism BCx: NG UA neg COVID test x 4- neg CMV pending C. diff: neg Fungal studies negative, strep pneumoniae negative, legionella negative TB neg galactomannan studies neg BAL cx: NG BAL fungal Cx: pending Bronchoscopy pathology: neg for malignancy, PNA Bronchoscopy cytology: no malignancy IMAGING STUDIES: CT chest 05/28: 1. Severe right-sided pneumonia with complete consolidation of the lower lobe of the right lung with air-filled ectatic bronchi. 2. Large right-sided hydropneumothorax, which is loculated inferomedially, as described. 3. There is some mm of congestive heart failure. 4. Other findings as noted. There is no significant change. CXR 05/27: The small right apical pneumothorax has again gotten smaller. There are no other significant changes. The tip of the chest tube remains in the right lung apical region. CT chest 05/26/21: 1. Adenopathy status quo. 2. Right-sided thoracotomy tube with a persistent pneumothorax. 3. Possible empyema developing in the right lower lobe region as described above. Follow-up is suggested. 4. Odd appearing soft tissue densities in the airspace created by the pneumothorax in the right anterior mediastinum as described above. Etiology uncertain. CXR 05/24/21: Decreased size of right pneumothorax. CXR 05/23/21: The technique utilized in obtaining the radiograph has magnified the cardiac silhouette and accentuated the interstitial markings. The cardiomediastinal silhouette lung mcclellan are unchanged. The right-sided pneumothorax is unchanged. The right-sided thoracotomy tube is unchanged. The osseous structures are stable. Echo 05/12/21: 1. Study is of very limited technical quality. Underlying sinus rhythm. 2. Normal left ventricular (LV) size with normal or near-normal LV systolic function based on limited views. Grade 1 diastolic dysfunction. 3. No significant valvular disease. 4. Unable to estimate central venous pressure and pulmonary artery pressure. 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 IMPRESSION: #Hypotension likely 2/2 to blood loss 2/2 to bleeding chest tube, complicated by therapeutic lovenox, toradol -BP improved s/p 2 PRBC and IVFS (two 500 cc boluses, continuous fluids) -ICU monitoring closely, control bleeding (see below for plan) #Bleeding likely s/p right chest tube placement, complicated by therapeutic lovenox -Reversed with protamine sulfate last evening -S/p additional catheter placement in right upper lung, hoping bleed tamponades per CT -Decreased overnight to 20-30 cc/hr from chest tube -CT above -Holding all heparin products for now due to worsening thrombocytopenia -CBC Q6HRs -Heparin #Thrombocytopenia, etiology unknown (chemotherapy related decline, acute illness, etc) -Lovenox started 05/11/21 BID dosing but steady decline was > 10 days of initiating -Discussed with Dr. Fernandez, streetcar dispatcher/onc. -CBC Q6H -On 05/29/21, d/w with patient's med/onc Dr. Marin. Discuss with Dr. Marin about AC with low dose heparin in light of him being high risk for clot formation #Leukocytosis likely reactive due to chest tube placement, all of the above -afebrile, HR sinus, no s/s of infection currently -If changes, panculture -Not currently on antibiotics #Acute hypoxic respiratory failure likely 2/2 to nivolumab (drug) induced pneumonitis, complicated by right side pneumothorax s/p chest tube placement x 2, bleeding in right lung -S/p chest tube placed on 05/22/21. 05/26/21 imaging showed mediastinal shift so CT surgery took old chest tube out and placed larger tube -Currently on 1-2 L O2, despite issues above -CT above -Micro/path/histo above which ruled out PNA . ONly pending studies are BAL fungal but these are highly unlikey to come back positive. ID stopped voriconazole. -Stopped all antibacterial/antifungal meds. Continue only with solumedrol 80 Q8H, Levalbuterol ATC, PRN -Infectious disease, pulmonary and CT surgery following #Occlusive thrombus in left upper extremity veins including subclavian vein, left jugular vein occlusive thrombus, central subclavian vein thrombus and newly identified right cephalic vein thrombus -Right cephalic vein likely old thrombus with new swelling of that arm being 2/2 to blood draws. Not suspecting the right cephalic vein thrombus to have formed while on lovenox BID . -Prior to admission patient was supposed to be on AC daily but he stopped after two weeks -Stopped lovenox BID on 05/27/21 due to bleeding -Discuss with Dr. Marin about AC with low dose heparin in light of him being high risk for clot formation #Elevated troponin 2/2 sepsis -No hx of CHF, CAD -BNP 1100, trop elevated but had steadily been decreasing. Repeat trop today because of last night's events. -Discussed with Dr. 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 -Currently, undergoing FOLFOX with Nivolumab every two weeks. -Dr. Marin hematology/oncology-has seen patient this admission #GERD -C/w PPI, Carafate #Dyslipidemia #Chronic anxiety #DVT px -scd/teds. No AC currently due to bleeding RESOLVED #Sepsis DISPOSITION: Pulmonary, ID, CT surgery following. Goal is home when medically improved. PT/OT VS, I&O, 24H, Fishbone Vital Signs/I&O Vital Signs Date Time Temp Pulse Resp B/P (MAP) Pulse Ox O2 Delivery O2 Flow Rate FiO2 05/28/21 14:50 80 19 147/64 (91) 97 Nasal Cannula 1.0 05/28/21 12:05 97.8 I&O- Last 24 Hours up to 6 AM 05/28/21 06:00 Intake Total 2780 ml Output Total 2565 ml Balance 215 ml Laboratory Data 24H LABS Laboratory Tests 2 05/28/21 01:08: Bedside Glucose (Misc Panel) 185H 05/28/21 02:51: Blood Gas Bicarbonate Standard 29.0H, Arterial Blood pH 7.497H, Arterial Blood Partial Pressure CO2 37.6, Arterial Blood Partial Pressure O2 93.4, Arterial Blood Total CO2 29.6, Arterial Blood HCO3 28.5H, Arterial Blood Base Excess 5.0H, Arterial Blood Oxygen Saturation 97.2 05/28/21 06:09: Immature Granulocyte % (Auto) 1.5, Neutrophils (%) (Auto) 89.6H, Lymphocytes (%) (Auto) 2.0L, Monocytes (%) (Auto) 6.8, Eosinophils (%) (Auto) 0.0, Basophils (%) (Auto) 0.1, Neutrophils # (Auto) 13.9H, Lymphocytes # (Auto) 0.3L, Monocytes # (Auto) 1.1H, Eosinophils # (Auto) 0.0, Basophils # (Auto) 0.0, Nucleated Red Blood Cells % (auto) 0.0, Anion Gap 4L, Glomerular Filtration Rate > 60.0, Calcium Level 7.5L, Total Bilirubin 0.5, Aspartate Amino Transf (AST/SGOT) 27, Alanine Aminotransferase (ALT/SGPT) 45, Alkaline Phosphatase 61, Total Protein 3.8#L, Albumin 1.7#L, Albumin/Globulin Ratio 0.8 05/28/21 10:48: Nucleated Red Blood Cells % (auto) 0.0 05/28/21 12:34: Nucleated Red Blood Cells % (auto) 0.0 05/28/21 14:23: Nucleated Red Blood Cells % (auto) 0.0 CBC/BMP Laboratory Tests 05/27/21 22:35 05/28/21 00:51 05/28/21 02:26 05/28/21 04:01 05/28/21 06:09 05/28/21 08:11 05/28/21 10:48 05/28/21 12:34 05/28/21 14:23 Microbiology Microbiology 05/19/21 Acid Fast Stain - Final, Resulted 05/19/21 Mycobacterial Culture, Resulted Pending 05/19/21 Fungal Smear, Resulted Pending 05/19/21 Fungal Culture, Resulted Pending 05/19/21 Gram Stain - Final, Complete 05/19/21 Bronchoalveolar Lavage Culture - Final, Complete 05/19/21 Acid Fast Stain - Final, Resulted 05/19/21 Mycobacterial Culture, Resulted Pending 05/19/21 Fungal Smear, Resulted Pending 05/19/21 Fungal Culture, Resulted Pending 05/19/21 Gram Stain - Final, Complete 05/19/21 Bronchoalveolar Lavage Culture - Final, Complete Aishwarya Oro MD May 28, 2021 15:13
[2021-05-28 17:08] LABS: TROPONIN I 0.09 NG/ML (< 0.10)
[2021-05-28] MEDS: ROSUVASTATIN 10 MG TAB (CRESTOR) PO SCH ×2 (20:15→22:49)
[2021-05-28] MEDS ORDERED: HEPARIN SOD (PORCINE) 5000UNITS/ML 1ML VIAL/SYRINGE SQ SCH (21:00)
[2021-05-28] MEDS: allopurinoL 100 MG TAB PO SCH ×2 (21:00→22:49)
[2021-05-29] VITALS (21 sets, daily range): BP systolic 120–179; BP diastolic 58–77
[2021-05-29] MEDS: ALPRAZolam 0.5 MG TAB PO PRN (01:38)
[2021-05-29] MEDS: MORPHINE 2 MG/ML 1ML VIAL (J2270) IV PRN ×2 (01:50→08:26)
[2021-05-29] MEDS ORDERED: ALPRAZolam 0.5 MG TAB PO ONE (01:55)
[2021-05-29] MEDS: methylPREDNISolone 40MG 1ML VIAL IV SCH ×3 (03:11→17:56)
[2021-05-29] MEDS: LEVALBUTEROL 1.25 MG/0.5 ML CONCENTRATE NEB INH SCH ×5 (04:00→20:00)
[2021-05-29 05:02] LABS: HEMATOCRIT 25.3 % (42.0-52.0); HEMOGLOBIN 8.4 g/dl (13.5-17.5); MEAN CORPUSCULAR HEMOGLOBIN 31.6 pg (27.0-33.0); MEAN CORPUSCULAR HGB CONC 33.2 g/dl (32.0-36.5); MEAN CORPUSCULAR VOLUME 95.1 fl (80.0-96.0); RED BLOOD COUNT 2.66 10^6/uL (4.30-6.10); WHITE BLOOD COUNT 12.9 10^3/uL (4.0-10.0)
[2021-05-29 05:03] LABS: PLATELET COUNT, AUTOMATED 99 10^3/uL (150-450)
[2021-05-29 05:27] LABS: ALBUMIN 1.7 GM/DL (3.2-5.2); ALT/SGPT 42 U/L (12-78); BILIRUBIN,TOTAL 0.4 MG/DL (0.2-1.0); BLOOD UREA NITROGEN 26 MG/DL (7-18); CALCIUM LEVEL 6.9 MG/DL (8.8-10.2); CARBON DIOXIDE LEVEL 34 MEQ/L (21-32); CHLORIDE LEVEL 109 MEQ/L (98-107); CREATININE FOR GFR 0.52 MG/DL (0.70-1.30); GLOMERULAR FILTRATION RATE > 60.0 (>49); GLUCOSE, FASTING 101 MG/DL (70-100); POTASSIUM SERUM 4.6 MEQ/L (3.5-5.1); SODIUM LEVEL 142 MEQ/L (136-145); TOTAL PROTEIN 3.7 GM/DL (6.4-8.2)
[2021-05-29] MEDS: D5W/0.9% SODIUM CHLORIDE 1,000 ML IV SCH (05:54)
[2021-05-29] MEDS ORDERED: FUROSEMIDE 40MG/4ML VIAL (J1940) IV ONE (08:00)
[2021-05-29] MEDS: BUDESONIDE 0.25 MG/2 ML INHALATION SUSPENSION INH SCH ×2 (08:16→20:00)
[2021-05-29] MEDS: SUCRALFATE SUSP 1GM/10ML UD PO SCH ×4 (08:25→20:42)
[2021-05-29] MEDS: DOCUSATE SODIUM 100MG CAPSULE PO SCH ×2 (08:25→20:43)
[2021-05-29] MEDS: guaiFENesin ER 600 MG TAB PO SCH ×2 (08:25→20:43)
[2021-05-29] MEDS: LACTOBACILLUS ACIDOPHILUS CAP (BACID) PO SCH ×4 (08:25→20:43)
[2021-05-29] MEDS: ALPRAZolam 0.25 MG TAB PO PRN ×3 (08:26→20:43)
[2021-05-29] MEDS: PANTOPRAZOLE 40MG TAB (PROTONIX) PO SCH ×2 (08:27→20:43)
[2021-05-29] MEDS: KETOROLAC 30 MG/ML 1ML VIAL IV SCH ×3 (08:31→20:42)
--- NOTE | 2021-05-29 08:36 | REP ---
INDICATION: hemothorax. COMPARISON: Multiple the latest 05/28/2021 also portable TECHNIQUE: Portable FINDINGS: The technique utilized in obtaining the radiograph has magnified the cardiac silhouette and accentuated the interstitial markings. The tubes and line are unchanged. The cardiomediastinal silhouette is unchanged. The right lower lobe opacity seen previously is less dense. There are no other significant changes. IMPRESSION: Slight improvement right lung base. No other significant changes. <Electronically signed by Mike Toney > 05/29/21 [id number]
[2021-05-29] MEDS ORDERED: MORPHINE 2 MG/ML 1ML VIAL (J2270) IV PRN (09:05)
[2021-05-29] MEDS: HEPARIN SOD (PORCINE) 5000UNITS/ML 1ML VIAL/SYRINGE SQ SCH ×2 (09:14→20:42)
[2021-05-29 09:37] LABS: HEMATOCRIT 28.7 % (42.0-52.0); HEMOGLOBIN 9.7 g/dl (13.5-17.5); MEAN CORPUSCULAR HGB CONC 33.8 g/dl (32.0-36.5); MEAN CORPUSCULAR VOLUME 94.7 fl (80.0-96.0); PLATELET COUNT, AUTOMATED 132 10^3/uL (150-450); RED BLOOD COUNT 3.03 10^6/uL (4.30-6.10)
--- NOTE | 2021-05-29 10:15 | IPN ---
INTERIM PROGRESS NOTE DATE: 05/27/2021 TIME: 10:30 p.m. SUBJECTIVE: I was called earlier this evening when the nursing staff had noted increased chest tube output. He was also bleeding from his chest tube site. When I arrived, indeed he had approximately 750 ml from the chest tube of what looked to be sergey blood. He was also bleeding from the chest tube insertion site. He is fully anticoagulated with Lovenox 90 mg q. 12 hours. I have reluctantly discontinued them. 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 I placed a very deep U-stitch around the chest tube and into the chest wall. After placing the stitch and milking the tube it looks as though the bleeding has stopped. A chest x-ray however shows an accumulated opacity in the lower hemithorax consistent with probability retained blood. I will further investigate that tomorrow with a CT scan and he may very well need yet another chest tube to evacuate the clot. For the present time, however I will be content with the bleeding stopping. We may have to get back on the full anticoagulation realizing the risks involved either way of continuing it or cutting back on it. A hemoglobin and hematocrit are pending. I suspect he is going to need a transfusion tonight. His last H and H this morning was 10.6 and 32.6 respectively. I will also discontinue his Toradol for the present time being.
--- NOTE | 2021-05-29 10:15 | CCN ---
CRITICAL CARE NOTE DATE: 05/28/2021 SUBJECTIVE: At approximately 1 o'clock this morning I was called by the nursing staff with sudden onset of hypotension and increased chest tube output. Previously, last night I had come in and placed a U-stitch in the chest tube and seemingly had stopped the bleeding. However, after that the bleeding quickly picked up so that he put out at least 300 to 500 ml. This was accompanied by hypotension to 60 systolic. I instructed the Hospitalist to fluid resuscitate him while in came on my way from [facility]. When I arrived here, his blood pressure was in the 80s systolic. We continued to fluid resuscitate him and at the same time removed the anterior chest tube and placed a Ruiz catheter and inflated the balloon and placed the whole Ruiz catheter under traction to tamponade the presumed chest wall bleeding. He had been fully anticoagulated with Lovenox 90 b.i.d. Therefore, I reversed the Lovenox with Protamine. Fluid resuscitation continued with 2 units of packed cells after his H and H fell. His pressure eventually got back to above 100 systolic. A Ruiz catheter was placed and he started to make urine. An additional chest tube was placed laterally and inferiorly to drain what was thought to be blood in the chest as seen on a chest x-ray with a new opacity. This morning he is now again awake and alert after having been sedated with Versed all night in order to keep the Ruiz catheter and chest tube on traction. His vital signs have stabilized. He is complaining of pain at the Ruiz traction insertion site. His present vital signs show a temperature of 97.2, with a heart rate of 74 and sinus rhythm and a blood pressure of 143/65 who is now 95% saturated on 2 liters nasal cannula. His I and O's were fairly confused over the night, recorded as 695 since midnight and 1275 yesterday. Those were probably pretty close to accurate. The 605 was sergey blood. He has put out 560 ml of urine. In the past eight hours he has put out 255 ml in the chest tube for about 30 ml an hour. There is no air leak, the anterior or the lateral tubes. OBJECTIVE: He has decreased breath sounds with rhonchus sounds on the right with some scattered rhonchi on the left. I have not sat him up to percuss him. Cardiac exam is without murmurs, clicks, gallops or rubs. I cannot feel his PMI. S1 and S2 are normal. Abdomen is soft, nontender. Bowel sounds are positive. There is no hepatomegaly. I did not check for CVA tenderness. Extremities show no pretibial edema. No calf tenderness. He does have differential swelling of the upper extremities, particularly the left being greater than the right from his known subclavian thrombosis and internal jugular vein left thrombosis. Skin is warm, dry, and perfused without cyanosis or mottling including that of nailbeds and needs. Neck is supple. There is no jugular venous distention. No subcutaneous emphysema. Trachea is midline. Mouth shows the mucous membranes to be pink and moist. Lips and commissures are without lesions or thrush. Eyes shows the pupils to be equal and reactive. Extraocular muscles are intact. Sclera anicteric. Neurologic: Cranial nerves II-XII are intact. Normal gross motor and gross sensation intact. Gait is not tested. Psychiatric shows him to be awake, alert and oriented x3 with appropriate mood and affect and conversational and quite cooperative. His weight today is 79.6 kilos. This is only marginally decreased from 79.8 on 05/26. His hemoglobin and hematocrit have now stabilized. They are being done q. 2 hours. They have gone from a luis of 8.3 and 25.3 to the 9.5 to 9.8 hemoglobin range with a hematocrit of about 28%. His electrolytes are essentially normal and gratifyingly his BUN and creatinine are 27 and 0.63. Glucose is 129 with a calcium of 7.5. Albumin is 1.7. I do not have a coagulation study on him and I will order that. His chest CT done this morning shows some residual blood in the right hemithorax inferiorly. There is not a lot there maybe 250 ml. I will continue the chest tube and drain that. At this time, I will not undertake a TPA pleurolysis and hopefully the blood will drain. I will keep his Ruiz catheter on tension over the next 24 hours. He still has a mediastinal shift to the right. IMPRESSION: 1. Pulmonary pneumonitis by exclusion attributable to PDL inhibitors. 2. Still consider fungal disease. 3. Immunosuppression. 4. Stage IV esophageal cancer. 5. Hypercoagulability. 6. 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 PLAN/DISCUSSION: For the present time, the hypotensive bleeding crisis has passed. As noted above, I will keep the Ruiz catheter/chest tube on traction to continue to tamponade the chest wall insertion site. Will continue to drain the inferior chest tube. I am particularly worried, however about his coagulation status. We are now between a rock and a hard place of bleeding and hypercoagulability. I have therefore asked the Hospitalist to start him on subcutaneous prophylactic Heparin 5000 units b.i.d. Will continue to monitor his H and H's q. 2 hours for the next six hours and then q. 6 hours. If possible, we will begin to feed him although I have been very clear with the nursing staff that I do not want him aspirating and if it is difficult to feed him that we should cease and just fluid hydrate him. Time spent at the bedside was from 1:30 to 4:30 this morning.
--- NOTE | 2021-05-29 12:49 | IPN ---
PROGRESS NOTE DATE: 05/29/2021 SUBJECTIVE: Mr. Lawson is doing fairly well this morning. He had a very anxious night last night requiring increased Xanax. He has been immobile because of the traction on the chest tube. He is no longer putting out sergey blood, in fact it is just serosanguinous fluid, the consistency of Jovany-Aid. His vital signs shows a T-max of 99.6 with a heart rate that ranges between 66 and 87 and is sinus rhythm, respiratory rate of 18 to 24 without the use of accessory muscles who is 98 to 96% saturated on 2 liters nasal cannula. His blood pressure is ranging between 179/77 and then 137/65. His intake and output over the past 24 hours has been recorded as 3890 in and 2105 out for a positivity of nearly 1800 ml. He has put out 80 ml from the right lower lateral chest tube and 25 ml from the anterior chest tube. There is a slight air leak. His weight today is pending. OBJECTIVE: He has the coarse rales and rhonchi on the right side. He also has some fine crackles during inspiration on the left side. Percussion notes are full to the diaphragm. Cardiac exam is without murmurs, clicks, gallops or rubs. I cannot feel his PMI. S1 and S2 are normal. Abdomen is soft, nontender. Bowel sounds are positive. There is no hepatomegaly. No CVA tenderness. Extremities: The calves showed trace pretibial edema, no calf tenderness. No differential swelling of the upper extremities. Skin is warm, dry and perfused without cyanosis or mottling including that of nailbeds and knees. Neck is supple. There is no jugular venous distention. No subcutaneous emphysema. Trachea is midline. Mouth shows the mucous membranes to be pink and moist. Lips and commissures without lesions or thrush. Eyes shows the pupils equal and reactive. Extraocular motions are intact. Sclera nonicteric. Neurologic: Cranial nerves II-XII intact. Normal gross motor, gross sensation is intact. Gait is not tested. Psychiatric shows him to be awake, alert and oriented x3 with appropriate mood and affect and conversational. His white count today is 19.0, up from 12.9 yesterday. Hemoglobin and hematocrit are 9.7 and 28.7. Platelet count is 132,000. His white count earlier this morning at 4 o'clock was only 12.9. His chemistries today shows essentially normal electrolytes with a marginally high total CO2 of 34. BUN and creatinine are 26 and 0.52 with a glucose of 101 and a calcium of 6.9 with a corresponding albumin at 1.7. AST and ALT are normal. It should be noted on his hematology that his platelet count has gradually come down. On 05/23, it was 234 and it remained in and around that level prior to that. However, in the last four days it has drifted down to 99 and 132. Hyper-induced antibody has been requested. His chest x-ray today is improved in that it does not show the accumulated mass of blood in the right hemithorax. He still has plenty of air bronchograms and infiltrative pattern throughout both the upper and lower lobes with the lower lobe more consolidated than the right upper lobe. There is mediastinal shift. Chest tubes are in good place. IMPRESSION: 1. Pulmonary pneumonitis by exclusion attributable to PDL-1 inhibitors. 2. Possible underlying fungal disease. 3. Immunosuppression. 4. Stage IV esophageal cancer. 5. Hypercoagulability. 6. 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 7. Hemorrhagic shock from bleeding chest tube insertion site, now resolved with thankfully a little sequela. 8. New onset thrombocytopenia. 9. Hypoxic respiratory failure as noted above. PLAN/DISCUSSION: I do note a new result on his microbiology from 05/10 but now growing a yeast like organism. That would not be surprising considering his immunocompromised state. He is presently on Voriconazole. He is also continuing on Solumedrol. I will release the tension on the Ruiz catheter chest tube today. It looks as though the bleeding is now resolved and I am grateful that the retained hemothorax looks to be resolved on the chest x-ray. He is volume positive and I will diurese him once today with 40 mg of Lasix. I will restart his Toradol and change around his Xanax to greater frequency of q. 4 hours. I will order a chest CT tomorrow. I am quite gratified that I do not have to take him to the Operating Room to stop the bleeding. His thrombocytopenia may be a blessing in disguise and will keep her relatively anticoagulated.
--- NOTE | 2021-05-29 15:32 | IPNPDOC ---
Date Seen The patient was seen on 05/29/21. Progress Note SUBJECTIVE: The patient had decreased serosanguineous fluid from chest tube, H&H has stabilized and he has not required any additional blood products. Blood pressure systolic stable [id number], respiratory rates on average 2021. Patient was increasingly anxious this morning and Xanax was increased. Toradol and heparin will be started this a.m., advised nurse to closely watch for increased bleed ing. Discussed the case with Dr. Marin regarding thrombocytopenia, advised to continue heparin and watch for worsening thrombocytopenia. Pain meds increased. Patient denies increased SOB, fevers, chills, n/v/d. OBJECTIVE: PE: VITAL SIGNS: Please see below GENERAL: Patient is awake, alert and oriented x3, appears slightly anxious this AM LUNGS: tachypneic, R lung rhonchi, with areas of decreased aeration,. L lung crackles. Chest tubes in place fixed in upper right chest, right lower lung with larger tube connected to bedside container, serosanguinous fluid. HEART: RRR, no m/r/g ABDOMEN: Soft, nontender and nondistended. EXTREMITIES: Right femoral line in place. LUE swelling > RUE-chronic. No clubbing or pitting lower extremities edema. Neuro: No focal deficits LABORATORY DATA: Please see below MICROBIOLOGY/PATH/CYTOLOGY: Sputum GS: QUALITY: GOOD MODERATE EPITHELIAL CELLS MODERATE WBCS MANY GRAM POSITIVE COCCI IN PAIRS, CHAINS AND CLUSTERS MANY GRAM NEGATIVE RODS FEW GRAM POSITIVE RODS FEW YEAST LIKE ORGANISM Sputum Cx: yeast like organism BCx: NG UA neg COVID test x 4- neg CMV pending C. diff: neg Fungal studies negative, strep pneumoniae negative, legionella negative TB neg galactomannan studies neg BAL cx: NG BAL fungal Cx: pending Bronchoscopy pathology: neg for malignancy, PNA Bronchoscopy cytology: no malignancy IMAGING STUDIES: CT chest 05/28: 1. Severe right-sided pneumonia with complete consolidation of the lower lobe of the right lung with air-filled ectatic bronchi. 2. Large right-sided hydropneumothorax, which is loculated inferomedially, as described. 3. There is some mm of congestive heart failure. 4. Other findings as noted. There is no significant change. CXR 05/27: The small right apical pneumothorax has again gotten smaller. There are no other significant changes. The tip of the chest tube remains in the right lung apical region. CT chest 05/26/21: 1. Adenopathy status quo. 2. Right-sided thoracotomy tube with a persistent pneumothorax. 3. Possible empyema developing in the right lower lobe region as described above. Follow-up is suggested. 4. Odd appearing soft tissue densities in the airspace created by the pneumothorax in the right anterior mediastinum as described above. Etiology uncertain. CXR 05/24/21: Decreased size of right pneumothorax. CXR 05/23/21: The technique utilized in obtaining the radiograph has magnified the cardiac silhouette and accentuated the interstitial markings. The cardiomediastinal silhouette lung mcclellan are unchanged. The right-sided pneumothorax is unchanged. The right-sided thoracotomy tube is unchanged. The osseous structures are stable. Echo 05/12/21: 1. Study is of very limited technical quality. Underlying sinus rhythm. 2. Normal left ventricular (LV) size with normal or near-normal LV systolic function based on limited views. Grade 1 diastolic dysfunction. 3. No significant valvular disease. 4. Unable to estimate central venous pressure and pulmonary artery pressure. 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 IMPRESSION: #Bleeding likely s/p right chest tube placement, complicated by therapeutic lovenox- improving -Reversed with protamine sulfate early AM on 05/28 -S/p additional catheter placement in right upper lung, with bleed slowing down -Decreased output from chest tube, no longer sergey red blood but serosanguinous -CT above -Restarted heparin SC due to increased risk of clot formation. Monitor for b leeding as he was also restarted on toradol by CT surgery -Increased morphine this AM -CBC Q6HRs #Thrombocytopenia, etiology unknown (chemotherapy related decline, acute illness, etc). Watching closely for HIT -Lovenox started 05/11/21 BID dosing but steady decline has been seen since 05/28/21 -4 T's score: 5-6. Discussed initially with Dr. Fernandez and later today with Dr. Marin (patient's med oncologist). He says c/w heparin but if PLTs should decrease further to < 80, he would start argatroban. HIT ab ordered but this can take several days to come back. If PLTS <80 he would start and watch closely. There is no med that directly rescues this anticoagulant, bleeding on it is treated with only PLTs and blood. -CBC Q6H #Leukocytosis likely reactive due to chest tube placement, all of the above- improving -afebrile, HR sinus, no s/s of infection currently -If changes, panculture -Not currently on antibiotics #Acute hypoxic respiratory failure likely 2/2 to nivolumab (drug) induced pne umonitis, complicated by right side pneumothorax s/p chest tube placement x 2, bleeding in right lung -S/p chest tube placed on 05/22/21. 05/26/21 imaging showed mediastinal shift so CT surgery took old chest tube out and placed larger tube -Currently on 2 L O2, despite issues above -CT above -Micro/path/histo above which ruled out PNA . Only pending studies are BAL fungal but these are highly unlikey to come back positive. ID stopped voriconazole. -Stopped all antibacterial/antifungal meds. Continue only with solumedrol 80 Q8H, Levalbuterol ATC, PRN -Infectious disease, pulmonary and CT surgery following #Anxiety -xanax PRN increased #Occlusive thrombus in left upper extremity veins including subclavian vein, left jugular vein occlusive thrombus, central subclavian vein thrombus and newly identified right cephalic vein thrombus -Right cephalic vein thought be old thrombus initially (and still very could be); HOWEVER, if HIT is confirmed then this may very well be a new thrombus. He had been on therapeutic dosing lovenox BID since 05/11/21- 05/27/21. -Prior to admission patient was supposed to be on AC daily but he stopped after two weeks -Discussed with Dr. Marin about AC with low dose heparin in light of him being high risk for clot formation -On heparin SC BID #Elevated troponin 2/2 sepsis -No hx of CHF, CAD -BNP 1100, trop elevated but now 0.09 -Discussed with Dr. 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 -Currently, undergoing FOLFOX with Nivolumab every two weeks. -Dr. Marin hematology/oncology-has seen patient this admission #GERD -C/w PPI, Carafate #Dyslipidemia #Chronic anxiety #DVT px -scd/teds, started heparin sc Q12 today RESOLVED #Sepsis #Hypotension/hemorrhagic shock likely 2/2 to blood loss 2/2 to bleeding chest tube, complicated by therapeutic lovenox, toradol DISPOSITION: Pulmonary, ID, CT surgery following. Heme/onc not officially consulted but has been kept in loop. Updated his sister Hiral (HCP) over weekend in great detail. Goal is home when medically improved. PT/OT VS, I&O, 24H, Fishbone Vital Signs/I&O Vital Signs Date Time Temp Pulse Resp B/P (MAP) Pulse Ox O2 Delivery O2 Flow Rate FiO2 05/29/21 12:00 2.0 05/29/21 12:00 98.2 92 20 141/64 (89) 100 Nasal Cannula I&O- Last 24 Hours up to 6 AM 05/29/21 06:00 Intake Total 2400 ml Output Total 2015 ml Balance 385 ml Laboratory Data 24H LABS Laboratory Tests 2 05/29/21 04:50: Nucleated Red Blood Cells % (auto) 0.0, Immature Platelet Fraction 4.6, Anion Gap , Glomerular Filtration Rate > 60.0, Calcium Level 6.9L, Total Bilirubin 0.4, Aspartate Amino Transf (AST/SGOT) 25, Alanine Aminotransferase (ALT/SGPT) 42, Alkaline Phosphatase 59, Total Protein 3.7L, Albumin 1.7L, Albumin/Globulin Ratio 0.9 05/29/21 09:03: Nucleated Red Blood Cells % (auto) 0.0 CBC/BMP Laboratory Tests 05/29/21 04:50 05/29/21 09:03 Microbiology Microbiology 05/19/21 Acid Fast Stain - Final, Resulted 05/19/21 Mycobacterial Culture, Resulted Pending 05/19/21 Fungal Smear, Resulted Pending 05/19/21 Fungal Culture, Resulted Pending 05/19/21 Gram Stain - Final, Complete 05/19/21 Bronchoalveolar Lavage Culture - Final, Complete 05/19/21 Acid Fast Stain - Final, Resulted 05/19/21 Mycobacterial Culture, Resulted Pending 05/19/21 Fungal Smear, Resulted Pending 05/19/21 Fungal Culture, Resulted Pending 05/19/21 Gram Stain - Final, Complete 05/19/21 Bronchoalveolar Lavage Culture - Final, Complete Aishwarya Oro MD May 29, 2021 15:32
[2021-05-29 16:22] LABS: HEMATOCRIT 27.5 % (42.0-52.0); HEMOGLOBIN 9.1 g/dl (13.5-17.5); MEAN CORPUSCULAR HEMOGLOBIN 31.5 pg (27.0-33.0); MEAN CORPUSCULAR HGB CONC 33.1 g/dl (32.0-36.5); MEAN CORPUSCULAR VOLUME 95.2 fl (80.0-96.0); PLATELET COUNT, AUTOMATED 113 10^3/uL (150-450); RED BLOOD COUNT 2.89 10^6/uL (4.30-6.10); WHITE BLOOD COUNT 15.8 10^3/uL (4.0-10.0)
[2021-05-29] MEDS: ROSUVASTATIN 10 MG TAB (CRESTOR) PO SCH (20:43)
[2021-05-29] MEDS: allopurinoL 100 MG TAB PO SCH (21:08)
[2021-05-29 21:19] LABS: HEMATOCRIT 27.2 % (42.0-52.0); MEAN CORPUSCULAR HEMOGLOBIN 31.6 pg (27.0-33.0); MEAN CORPUSCULAR HGB CONC 33.1 g/dl (32.0-36.5); MEAN CORPUSCULAR VOLUME 95.4 fl (80.0-96.0); PLATELET COUNT, AUTOMATED 109 10^3/uL (150-450); RED BLOOD COUNT 2.85 10^6/uL (4.30-6.10)
[2021-05-30] VITALS (14 sets, daily range): BP systolic 130–158; BP diastolic 59–79
[2021-05-30] MEDS: methylPREDNISolone 40MG 1ML VIAL IV SCH ×3 (02:56→17:33)
[2021-05-30] MEDS: ALPRAZolam 0.25 MG TAB PO PRN ×3 (02:57→15:45)
[2021-05-30] MEDS: KETOROLAC 30 MG/ML 1ML VIAL IV SCH ×4 (02:57→20:44)
[2021-05-30 03:17] LABS: HEMATOCRIT 25.8 % (42.0-52.0); HEMOGLOBIN 8.6 g/dl (13.5-17.5); MEAN CORPUSCULAR HEMOGLOBIN 31.5 pg (27.0-33.0); MEAN CORPUSCULAR HGB CONC 33.3 g/dl (32.0-36.5); MEAN CORPUSCULAR VOLUME 94.5 fl (80.0-96.0); PLATELET COUNT, AUTOMATED 127 10^3/uL (150-450); RED BLOOD COUNT 2.73 10^6/uL (4.30-6.10); WHITE BLOOD COUNT 13.1 10^3/uL (4.0-10.0)
[2021-05-30] MEDS: LEVALBUTEROL 1.25 MG/0.5 ML CONCENTRATE NEB INH SCH ×6 (04:00→20:00)
[2021-05-30 06:32] LABS: ALBUMIN 1.7 GM/DL (3.2-5.2); ALT/SGPT 77 U/L (12-78); BILIRUBIN,TOTAL 0.4 MG/DL (0.2-1.0); BLOOD UREA NITROGEN 25 MG/DL (7-18); CALCIUM LEVEL 7.6 MG/DL (8.8-10.2); CARBON DIOXIDE LEVEL 32 MEQ/L (21-32); CHLORIDE LEVEL 105 MEQ/L (98-107); CREATININE FOR GFR 0.57 MG/DL (0.70-1.30); GLOMERULAR FILTRATION RATE > 60.0 (>49); GLUCOSE, FASTING 131 MG/DL (70-100); POTASSIUM SERUM 4.5 MEQ/L (3.5-5.1); SODIUM LEVEL 141 MEQ/L (136-145); TOTAL PROTEIN 3.7 GM/DL (6.4-8.2)
[2021-05-30] MEDS: BUDESONIDE 0.25 MG/2 ML INHALATION SUSPENSION INH SCH ×2 (08:00→20:00)
--- NOTE | 2021-05-30 08:17 | REPVR ---
PROCEDURE INFORMATION: Exam: CT Chest Without Contrast; Diagnostic Exam date and time: 05/30/2021 6:00 AM Age: 70 years old Clinical indication: Other: Hemothorax; Prior surgery TECHNIQUE: Imaging protocol: Diagnostic computed tomography of the chest without contrast. 3D rendering (Not supervised by radiologist): MIP and/or 3D reconstructed images were created by the technologist. Radiation optimization: All CT scans at this facility use at least one of these dose optimization techniques: automated exposure control; mA and/or kV adjustment per patient size (includes targeted exams where dose is matched to clinical indication); or iterative reconstruction. COMPARISON: CT Chest without contrast 05/28/2021 9:18 AM FINDINGS: Tubes, catheters and devices: 2 stable right chest tubes. Lungs: Stable right lung volume loss with [id number] mediastinal shift. Stable right lung opacity most pronounced in the right apex and right lower lobe. Stable subpleural cavitary lesion medial right base. Subpleural left upper and lower lobe ground-glass and reticulonodular opacities are stable. Calcified granulomata in the bilateral lungs. Pleural spaces: Stable small right hemopneumothorax. Stable to slightly enlarged small to moderate left pleural effusion. Heart: Atherosclerotic disease of coronary arteries. Aorta: Unremarkable. No aortic aneurysm. Lymph nodes: Unremarkable. No enlarged lymph nodes. Diaphragm: Small hiatal hernia. Bones/joints: Unremarkable. No acute fracture. Soft tissues: Soft tissue gas in the right chest wall. IMPRESSION: Stable small right hemopneumothorax with two chest tubes in place. Stable to slightly enlarged small to moderate left pleural effusion. Electronically signed by: Kiel Cid On 05/30/2021 08:17:06 AM
[2021-05-30] MEDS: HEPARIN SOD (PORCINE) 5000UNITS/ML 1ML VIAL/SYRINGE SQ SCH ×2 (08:41→20:44)
[2021-05-30] MEDS: SUCRALFATE SUSP 1GM/10ML UD PO SCH ×4 (08:41→20:43)
[2021-05-30] MEDS: PANTOPRAZOLE 40MG TAB (PROTONIX) PO SCH ×2 (08:42→20:43)
[2021-05-30] MEDS: DOCUSATE SODIUM 100MG CAPSULE PO SCH ×2 (08:42→20:43)
[2021-05-30] MEDS: LACTOBACILLUS ACIDOPHILUS CAP (BACID) PO SCH ×4 (08:42→20:42)
[2021-05-30] MEDS: guaiFENesin ER 600 MG TAB PO SCH ×2 (08:42→20:43)
[2021-05-30 09:26] LABS: HEMATOCRIT 24.6 % (42.0-52.0); HEMOGLOBIN 8.3 g/dl (13.5-17.5); MEAN CORPUSCULAR HEMOGLOBIN 31.9 pg (27.0-33.0); MEAN CORPUSCULAR HGB CONC 33.7 g/dl (32.0-36.5); MEAN CORPUSCULAR VOLUME 94.6 fl (80.0-96.0); WHITE BLOOD COUNT 11.8 10^3/uL (4.0-10.0)
[2021-05-30 09:34] LABS: PLATELET COUNT, AUTOMATED 98 10^3/uL (150-450)
[2021-05-30] MEDS ORDERED: LIDOCAINE 1% MDV 20ML VIAL As Ordered ONE (12:00)
[2021-05-30] MEDS ORDERED: MIDAZOLAM INJ 2MG/2ML VIAL (J2250 PER 1MG) As Ordered ONE (12:00)
[2021-05-30 12:21] LABS: INR 1.06; PROTHROMBIN TIME 14.2 SECONDS (12.7-14.5)
[2021-05-30 12:22] LABS: PARTIAL THROMBOPLASTIN TIME 35.4 SECONDS (25.9-37.0)
[2021-05-30] MEDS ORDERED: LIDOCAINE 1% MDV 20ML VIAL SQ ONE (12:25)
[2021-05-30] MEDS ORDERED: MIDAZOLAM INJ 2MG/2ML VIAL (J2250 PER 1MG) IV ONE (12:25)
--- NOTE | 2021-05-30 14:15 | IPN ---
PROGRESS NOTE DATE: 05/30/2021 Mr. Telles has continued to do a bit better, but he is becoming quite deconditioned and weak. His breathing is all right and is no longer all that painful. His hemoglobin and hematocrit are essentially stable. His vital signs show a maximum temperature (T-max) of 98.8 with a heart rate that ranges between 69-91 in a sinus rhythm, respiratory rate of 17-28 without the use of accessory muscles, who is 99%-96% saturated on 2 liters nasal cannula and whose blood pressure is ranging between 138/77 to 131/65. His intake and output for the past 24 hours have been recorded as 1860 in and 1520 out, for a positivity of 340 mL. He has put out 284 mL from the inferior chest tube and 141 from the superior chest tube. Both are serosanguineous. It is more serous than sanguineous but the consistency and color of javier Koolaid. PHYSICAL EXAMINATION: His right lung shows coarse rhonchi and rales throughout the entire respiratory cycle. Left lung shows some mild inspiratory rales. Percussion notes are full to the diaphragm, however. Cardiac exam is without murmurs, clicks, gallops, or rubs. I cannot feel his point of maximal impulse (PMI). S1 and S2 are normal. Abdomen is soft and nontender. Bowel sounds are positive. There is no hepatomegaly. No costovertebral angle (CVA) tenderness. Extremities show trace pretibial edema. No calf tenderness. There is differential swelling of the upper extremities with the left being greater than the right secondary to his subclavian thrombosis. Skin is warm, dry, and perfused without cyanosis or mottling, including that of the nailbeds and knees. Neck is supple. There is no jugular venous distention. No subcutaneous emphysema. Trachea is midline. Mouth shows the mucous membranes to be pink and moist. Lips and commissures without lesions. No thrush. Eyes show his pupils to be equal and reactive. Extraocular motion intact. Sclerae anicteric. Neurologic shows II-XII intact. Gross motor, gross sensation intact. Gait is not tested. Psychiatric shows him to be awake, alert, and oriented times three with appropriate mood and affect and conversational. His white count today is down to 11.8 with a hemoglobin and hematocrit of 8.3 and 24.6, essentially unchanged from yesterday's of 8.6 and 25.8. Platelet count is 98. There is no differential. Electrolytes are normal with BUN and creatinine of 25 and 0.57, a glucose of 131, and a calcium of 7.6. AST is slightly elevated at 41. Total bilirubin is 0.4, normal. Albumin is 1.7 and unchanged. His PT/INR today are 14.2 and 1.06, respectively, with a PTT of [address] done today still shows some residual blood on the lateral hemothorax. The lung parenchyma itself stills shows the inflammatory process, more of a reticular pattern, but may show some signs of resolving. Chest tubes are in good place. There is a small left-sided pleural effusion. The left-sided effusion is a little bit more than it was 2 days ago but not much. IMPRESSION: 1. Pulmonary pneumonitis by exclusion attributed to Optiva, a PD-L1 inhibitor. 2. Possible underlying fungal disease. 3. Immunosuppression. 4. Stage IV esophageal cancer. 5. Hypercoagulability. 6. 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 7. Hemorrhagic shock from bleeding from the chest wall insertion, now resolved and with little sequelae. 8. New-onset thrombocytopenia, stable. 9. Hypoxic respiratory failure, resolved. PLAN AND DISCUSSION: I will take out his anterior chest tube today. I will close the wound with a U stitch so that he does not suck air through the wound. There is a concern about his thrombocytopenia being heparin induced. He did hemorrhage about 2 liters during the acute crisis a couple days ago, and I suspect it may be secondary to hemorrhage and blood loss, including platelets. We will have to decide on an anticoagulation strategy. I would like to hold off, however, until I remove both chest tubes. I will diurese him today. He has a femoral line in, and that needs to be removed and a peripheral intravenous (IV) established.
--- NOTE | 2021-05-30 15:00 | IPNPDOC ---
Text Note Date of Service The patient was seen on 05/30/21. NOTE SUBJECTIVE: -No acute events overnight -Has some serosanguineous fluid from chest tube -H&H stable -Patient denies increased SOB, fevers, chills, n/v/d. OBJECTIVE: VITAL SIGNS: Please see below GENERAL: Patient is awake, alert and oriented x3, NAD LUNGS: R lung with noted crackles and rhonchi and diminished compared to L lung that also has crackles and rhonchi. Chest tubes in place fixed in upper right chest (about to be removed by Dr. Trejo), right lower lung with larger tube connected to bedside container, serosanguinous fluid. HEART: RRR, no m/r/g ABDOMEN: Soft, nontender and nondistended. EXTREMITIES: Right femoral line in place. LUE swelling > RUE-chronic. No clubbing or pitting lower extremities edema. Neuro: No focal deficits LABORATORY DATA: WBC 13.1 hgb 8.6 platelets 127 na 141 K 4.5 Cr 0.57 MICROBIOLOGY/PATH/CYTOLOGY: Sputum GS: QUALITY: GOOD MODERATE EPITHELIAL CELLS MODERATE WBCS MANY GRAM POSITIVE COCCI IN PAIRS, CHAINS AND CLUSTERS MANY GRAM NEGATIVE RODS FEW GRAM POSITIVE RODS FEW YEAST LIKE ORGANISM Sputum Cx: yeast like organism BCx: NG UA neg COVID test x 4- neg CMV pending C. diff: neg Fungal studies negative, strep pneumoniae negative, legionella negative TB neg galactomannan studies neg BAL cx: NG BAL fungal Cx: pending Bronchoscopy pathology: neg for malignancy, PNA Bronchoscopy cytology: no malignancy IMAGING STUDIES: CT chest 05/28: 1. Severe right-sided pneumonia with complete consolidation of the lower lobe of the right lung with air-filled ectatic bronchi. 2. Large right-sided hydropneumothorax, which is loculated inferomedially, as described. 3. There is some mm of congestive heart failure. 4. Other findings as noted. There is no significant change. CXR 05/27: The small right apical pneumothorax has again gotten smaller. There are no other significant changes. The tip of the chest tube remains in the right lung apical region. CT chest 05/26/21: 1. Adenopathy status quo. 2. Right-sided thoracotomy tube with a persistent pneumothorax. 3. Possible empyema developing in the right lower lobe region as described above. Follow-up is suggested. 4. Odd appearing soft tissue densities in the airspace created by the pneumothorax in the right anterior mediastinum as described above. Etiology uncertain. CXR 05/24/21: Decreased size of right pneumothorax. CXR 05/23/21: The technique utilized in obtaining the radiograph has magnified the cardiac silhouette and accentuated the interstitial markings. The cardiomediastinal silhouette lung mcclellan are unchanged. The right-sided pneumothorax is unchanged. The right-sided thoracotomy tube is unchanged. The osseous structures are stable. Echo 05/12/21: 1. Study is of very limited technical quality. Underlying sinus rhythm. 2. Normal left ventricular (LV) size with normal or near-normal LV systolic function based on limited views. Grade 1 diastolic dysfunction. 3. No significant valvular disease. 4. Unable to estimate central venous pressure and pulmonary artery pressure. ASSESSMENT: 70-year-old M with a GE junction Stage IV cancer on FOLFOX and nivolumab who was admitted for presumed R>>L sided pneumonia with acute hypoxemic respiratory failure and LUE DVT c/b interval worsening despite varied antibiotic therapies and vori and restarted on steroids for what is now is believed to be nivolumab i nduced pneumonitis s/p bronchoscopy on 05/19 and 2 chest tubes c/b pneumothorax and subsequently hemorrhagic shock w/ resultant consumptive thrombocytopenia unlikely to be HIT, now improving. IMPRESSION: #Bleeding likely s/p right chest tube placement, i/s/o therapeutic lovenox: improved -Reversed with protamine sulfate early AM on 05/28 -S/p additional catheter placement in right upper lung, with bleed slowing down -Decreased output from chest tube, no longer sergey red blood but serosanguinous -Restarted heparin SC due to increased risk of clot formation at ppx dosing. -Morphine PRN for severe pain -Thoracic surgery onboard -CBC Q6HRs #Thrombocytopenia, likely reactive consumptive thrombocytopenia unlikely to be HIT, now improving. -Lovenox started 05/11/21 BID dosing but steady decline has been seen since 05/28/21 i/s/o bleeding -4 T's score: 5-6. Discussed initially with Dr. Fernandez and later today with Dr. Marin (patient's med oncologist). He says c/w heparin but if PLTs should decrease further to < 80, he would start argatroban. HIT ab ordered but this can take several days to come back. -CBC Q6H #Leukocytosis likely reactive due to chest tube placement, all of the above- improving -afebrile, HR sinus, no s/s of infection currently -If changes, panculture -Not currently on antibiotics #Acute hypoxic respiratory failure likely 2/2 to nivolumab (drug) induced pneum onitis, complicated by right side pneumothorax s/p chest tube placement x 2, bleeding in right lung -S/p chest tube placed on 05/22/21. 05/26/21 imaging showed mediastinal shift so CT surgery took old chest tube out and placed larger tube -Currently on 2 L O2, despite issues above -CT above -Micro/path/histo above which ruled out PNA . Only pending studies are BAL fungal but these are highly unlikey to come back positive. ID stopped voriconazole. -Stopped all antibacterial/antifungal meds. Continue only with solumedrol 80 Q8H, Levalbuterol ATC, PRN -Infectious disease, pulmonary and CT surgery following #Anxiety -xanax PRN #Occlusive thrombus in left upper extremity veins including subclavian vein, left jugular vein occlusive thrombus, central subclavian vein thrombus and newly identified right cephalic vein thrombus -Right cephalic vein thought be old thrombus initially (and still very could be); HOWEVER, if HIT is confirmed then this may very well be a new thrombus. He had been on therapeutic dosing lovenox BID since 05/11/21- 05/27/21. -Prior to admission patient was supposed to be on AC daily but he stopped after two weeks -Discussed with Dr. Marin about AC with low dose heparin in light of him being high risk for clot formation -On heparin SC BID #Elevated troponin 2/2 sepsis -No hx of CHF, CAD -BNP 1100, trop elevated but now 0.09 -Discussed with Dr. 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 -Currently, undergoing FOLFOX with Nivolumab every two weeks. -Dr. Marin hematology/oncology-has seen patient this admission #GERD -C/w PPI, Carafate #Dyslipidemia #Chronic anxiety #DVT px -scd/teds, started heparin sc Q12 today RESOLVED #Sepsis #Hypotension/hemorrhagic shock 2/2 to blood loss 2/2 to bleeding chest tube, complicated by therapeutic lovenox, toradol DISPOSITION: Pulmonary, ID, CT surgery following. Goal is home when medically improved. PT/OT VS,Fishbone, I+O VS, Fishbone, I+O Laboratory Tests 05/29/21 16:01 05/29/21 20:58 05/30/21 03:05 05/30/21 05:41 Vital Signs Date Time Temp Pulse Resp B/P (MAP) Pulse Ox O2 Delivery O2 Flow Rate FiO2 05/30/21 06:00 69 96 Nasal Cannula 2.0 05/30/21 04:00 98.8 20 134/59 (84) I&O- Last 24 Hours up to 6 AM 05/30/21 06:00 Intake Total 1530 ml Output Total 1585 ml Balance -55 ml MAITE ARANA MD May 30, 2021 09:50
[2021-05-30 17:51] LABS: HEMATOCRIT 25.8 % (42.0-52.0); HEMOGLOBIN 8.7 g/dl (13.5-17.5); MEAN CORPUSCULAR HGB CONC 33.7 g/dl (32.0-36.5); MEAN CORPUSCULAR VOLUME 94.9 fl (80.0-96.0); PLATELET COUNT, AUTOMATED 118 10^3/uL (150-450); RED BLOOD COUNT 2.72 10^6/uL (4.30-6.10)
[2021-05-30] MEDS: ROSUVASTATIN 10 MG TAB (CRESTOR) PO SCH (20:43)
[2021-05-30] MEDS: allopurinoL 100 MG TAB PO SCH (20:44)
[2021-05-30 21:16] LABS: HEMATOCRIT 25.5 % (42.0-52.0); HEMOGLOBIN 8.4 g/dl (13.5-17.5); MEAN CORPUSCULAR HEMOGLOBIN 31.5 pg (27.0-33.0); MEAN CORPUSCULAR HGB CONC 32.9 g/dl (32.0-36.5); MEAN CORPUSCULAR VOLUME 95.5 fl (80.0-96.0); PLATELET COUNT, AUTOMATED 141 10^3/uL (150-450); RED BLOOD COUNT 2.67 10^6/uL (4.30-6.10)
[2021-05-31] VITALS (15 sets, daily range): BP systolic 104–143; BP diastolic 63–80; O2SAT 95–100
[2021-05-31] MEDS: methylPREDNISolone 40MG 1ML VIAL IV SCH ×3 (01:39→18:11)
[2021-05-31] MEDS: KETOROLAC 30 MG/ML 1ML VIAL IV SCH ×4 (02:48→20:27)
[2021-05-31] MEDS: LEVALBUTEROL 1.25 MG/0.5 ML CONCENTRATE NEB INH SCH ×7 (04:00→23:32)
[2021-05-31] MEDS: ALPRAZolam 0.25 MG TAB PO PRN ×4 (06:02→20:28)
[2021-05-31 06:21] LABS: ALT/SGPT 73 U/L (12-78); BILIRUBIN,TOTAL 0.5 MG/DL (0.2-1.0); BLOOD UREA NITROGEN 25 MG/DL (7-18); CALCIUM LEVEL 7.9 MG/DL (8.8-10.2); CARBON DIOXIDE LEVEL 31 MEQ/L (21-32); CHLORIDE LEVEL 106 MEQ/L (98-107); CREATININE FOR GFR 0.68 MG/DL (0.70-1.30); GLOMERULAR FILTRATION RATE > 60.0 (>49); GLUCOSE, FASTING 102 MG/DL (70-100); POTASSIUM SERUM 4.6 MEQ/L (3.5-5.1); SODIUM LEVEL 140 MEQ/L (136-145); TOTAL PROTEIN 4.4 GM/DL (6.4-8.2)
[2021-05-31] MEDS ORDERED: FUROSEMIDE 40MG/4ML VIAL (J1940) IV ONE (07:00)
[2021-05-31] MEDS: BUDESONIDE 0.25 MG/2 ML INHALATION SUSPENSION INH SCH ×2 (08:33→20:00)
--- NOTE | 2021-05-31 08:36 | REP ---
INDICATION: Pneumothorax, pneumonia. COMPARISON: Portable chest, 05/29/2021. TECHNIQUE: AP portable chest image was obtained. FINDINGS: Recurrent right pneumothorax since the prior exam. Additionally, there is a large amount of subcutaneous emphysema, not present previously. The position of the right thoracostomy tube may need to be evaluated. There is almost complete opacification of the right lung. There is atelectasis or pneumonia in the left lung base. The heart size appears normal. There is a left subclavian chemotherapy port. The upper abdominal bowel gas pattern is normal. There is multilevel degenerative disc disease of the thoracic spine. IMPRESSION: Recurrent right pneumothorax since the prior exam. Additionally, there is a large amount of subcutaneous emphysema, not present previously. The position of the right thoracostomy tube may need to be evaluated. There is almost complete opacification of the right lung. Other findings as noted. <Electronically signed by Maxwell Banks > 05/31/21 [id number]
[2021-05-31 09:15] LABS: BF CYTOMEGALOVIRUS(CMV) BY PCR NEGATIVE (NEGATIVE)
[2021-05-31 09:16] LABS: BF EPSTEIN-BARR VIRUS BY PCR NEGATIVE (NEGATIVE)
--- NOTE | 2021-05-31 09:22 | IPN ---
PROGRESS NOTE DATE: 05/31/2021 SUBJECTIVE: Mr. Lawson is feeling better today. He is breathing well and his pain is being well-controlled. He is less anxious. His vital signs shows a T-max of 97.7 with a heart rate that ranges between 78 and 89, sinus rhythm and respiratory rate of 18 to 20 without the use of accessory muscles, he is 98 to 96% saturated on 2 liters nasal cannula. His blood pressure is ranging between 143/67 to 133/79. His intake and output over the past 24 hours has been recorded as 660 in and 1600 out for a negativity of 940 ml. He has put out 375 ml out the chest tube. There is no air leak. OBJECTIVE: His lungs shows equal breath sounds on either side, in fact his coarse rhonchi on the right side sounds improved. Percussion note is full to the diaphragm. He does have some subcutaneous emphysema at the base of the neck, however. His voice has a nasal quality to it. Cardiac exam is without murmurs, clicks, gallops, or rubs. I cannot feel his point of maximal impulse (PMI). S1 and S2 are normal. Abdomen is soft and nontender. Bowel sounds are positive. There is no hepatomegaly. No costovertebral angle (CVA) tenderness. Extremities show no pretibial edema. No calf tenderness. His left arm is larger than his right arm which is unchanged. He now has a new ecchymosis on his right arm, however. Skin is warm, dry, and perfused without cyanosis or mottling, including that of the nailbeds and knees. Neck is supple. There is no jugular venous distention. No subcutaneous emphysema. Trachea is midline. Mouth shows the mucous membranes to be pink and moist. Lips and commissures without lesions. No thrush. Eyes show his pupils to be equal and reactive. Extraocular motion intact. Sclerae anicteric. Neurologic shows II-XII intact. Gross motor, gross sensation intact. Gait is not tested. Psychiatric shows him to be awake, alert, and oriented times three with appropriate mood and affect and conversational. INVESTIGATIONS: His white count today is 15.0 with a hemoglobin and hematocrit of 8.4 and 25.5, unchanged from yesterday, with a platelet count of 141,000, improving. Chemistries today showed normal electrolytes with a BUN and creatinine of 25 and 0.68, glucose of 102 and a calcium is 7.9. His albumin is 2.0, improved from 1.7 yesterday. His chest x-ray today shows new airspace in the right upper hemithorax. There is subcutaneous emphysema at the base of the neck. His inferior chest tube is in good place. IMPRESSION: 1. Pulmonary pneumonitis by exclusion attributed to Opdivo, a PDL-1 inhibitor. 2. Possible underlying fungal disease. 3. Immunosuppression. 4. Stage IV gastroesophageal carcinoma. 5. Hypercoagulability. 6. 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 7. Hemorrhagic shock and bleeding from the chest tube wall, now resolved. 8. Thrombocytopenia, resolving. 9. Hypoxic respiratory failure, resolved. 10.Recurrent pneumothorax of the right upper hemithorax. PLAN/DISCUSSION: I am somewhat concerned about the recurrent pneumothorax. He is essentially asymptomatic, however he does have some subcutaneous emphysema and his voice is becoming more nasal quality. Right low he has an inferior chest tube that will protect him from a tension pneumothorax and I will follow his x-rays over the next few days to see if the pneumothorax gets better. If it gets worse, we will have to replace the anterior superior tube. I would again hold off on anticoagulation. I am not sure where his new ecchymosis in his right upper arm has come from. His PT/INR was within normal limits yesterday and his platelets are certainly improving.
[2021-05-31] MEDS: LACTOBACILLUS ACIDOPHILUS CAP (BACID) PO SCH ×4 (09:27→20:28)
[2021-05-31] MEDS: PANTOPRAZOLE 40MG TAB (PROTONIX) PO SCH ×2 (09:27→20:28)
[2021-05-31] MEDS: DOCUSATE SODIUM 100MG CAPSULE PO SCH ×2 (09:27→20:28)
[2021-05-31] MEDS: guaiFENesin ER 600 MG TAB PO SCH ×2 (09:27→20:28)
[2021-05-31] MEDS: SUCRALFATE SUSP 1GM/10ML UD PO SCH ×4 (09:27→20:27)
[2021-05-31] MEDS: HEPARIN SOD (PORCINE) 5000UNITS/ML 1ML VIAL/SYRINGE SQ SCH ×2 (09:28→20:28)
[2021-05-31 09:31] LABS: BF CYTOMEGALOVIRUS(CMV) BY PCR NEGATIVE (NEGATIVE)
[2021-05-31 09:47] LABS: BF EPSTEIN-BARR VIRUS BY PCR NEGATIVE (NEGATIVE)
[2021-05-31] MEDS ORDERED: LIDOCAINE 1% MDV 20ML VIAL As Ordered ONE (16:45)
[2021-05-31] MEDS: ROSUVASTATIN 10 MG TAB (CRESTOR) PO SCH (20:28)
[2021-05-31] MEDS: allopurinoL 100 MG TAB PO SCH (20:28)
--- NOTE | 2021-05-31 20:39 | IPNPDOC ---
Text Note Date of Service The patient was seen on 05/31/21. NOTE SUBJECTIVE: -No acute events overnight, breathing comfortably on 2L NC -Patient denies increased SOB, fevers, chills, n/v/d and pain is well controlled and minimal -IR was unable to place a PICC line OBJECTIVE: VITAL SIGNS: Please see below GENERAL: Patient is awake, alert and oriented x3, NAD LUNGS: R lung with improved aeration with some rhonchi still, L lung also has rhonchi. Upper right chest has been removed and there is a dressing in place, while right lower lung chest tube connected to bedside container is in place, some minimal thin bloody fluid. HEART: RRR, no m/r/g ABDOMEN: Soft, nontender and nondistended. EXTREMITIES: Right femoral line in place. LUE swelling > RUE-chronic. LUE with ecchymosis on anterior arm. Neuro: No focal deficits LABORATORY DATA: Reviewed. WBC 15 Hgb 8.4 platelets 141 na 140 K 4.6 Cr 0.68 MICROBIOLOGY/PATH/CYTOLOGY: Sputum GS: QUALITY: GOOD MODERATE EPITHELIAL CELLS MODERATE WBCS MANY GRAM POSITIVE COCCI IN PAIRS, CHAINS AND CLUSTERS MANY GRAM NEGATIVE RODS FEW GRAM POSITIVE RODS FEW YEAST LIKE ORGANISM Sputum Cx: yeast like organism BCx: NG UA neg COVID test x 4- neg CMV pending C. diff: neg Fungal studies negative, strep pneumoniae negative, legionella negative TB neg galactomannan studies neg BAL cx: NG BAL fungal Cx: negative Bronchoscopy pathology: neg for malignancy, PNA Bronchoscopy cytology: no malignancy IMAGING STUDIES: 05/31 CXR: New airspace in the right upper hemithorax. There is subcutaneous emphysema at the base of the neck. His inferior chest tube is in the target place. CT chest 05/28: 1. Severe right-sided pneumonia with complete consolidation of the lower lobe of the right lung with air-filled ectatic bronchi. 2. Large right-sided hydropneumothorax, which is loculated inferomedially, as described. 3. There is some mm of congestive heart failure. 4. Other findings as noted. There is no significant change. CXR 05/27: The small right apical pneumothorax has again gotten smaller. There are no other significant changes. The tip of the chest tube remains in the right lung apical region. CT chest 05/26/21: 1. Adenopathy status quo. 2. Right-sided thoracotomy tube with a persistent pneumothorax. 3. Possible empyema developing in the right lower lobe region as described above. Follow-up is suggested. 4. Odd appearing soft tissue densities in the airspace created by the pneumothorax in the right anterior mediastinum as described above. Etiology uncertain. CXR 05/24/21: Decreased size of right pneumothorax. CXR 05/23/21: The technique utilized in obtaining the radiograph has magnified the cardiac silhouette and accentuated the interstitial markings. The cardiomediastinal silhouette lung mcclellan are unchanged. The right-sided pneumothorax is unchanged. The right-sided thoracotomy tube is unchanged. The osseous structures are stable. Echo 05/12/21: 1. Study is of very limited technical quality. Underlying sinus rhythm. 2. Normal left ventricular (LV) size with normal or near-normal LV systolic function based on limited views. Grade 1 diastolic dysfunction. 3. No significant valvular disease. 4. Unable to estimate central venous pressure and pulmonary artery pressure. ASSESSMENT: 70-year-old M with a GE junction Stage IV cancer on FOLFOX and nivolumab who was admitted for presumed R>>L sided pneumonia with acute hypoxemic respiratory failure and LUE DVT c/b interval worsening despite varied antibiotic therapies and vori and restarted on steroids for what is now is believed to be nivolumab induced pneumonitis s/p bronchoscopy on 05/19 and 2 chest tubes c/b pneumothorax and subsequently hemorrhagic shock w/ resultant consumptive thrombocytopenia unlikely to be HIT, now improving. IMPRESSION: #Hemorrhagic shock and bleeding from the chest tube wall, now resolved: was while on therapeutic lovenox: improved, had 2nd tube placed that has now been discontinued. -Reversed with protamine sulfate early AM on 05/28 -S/p additional catheter placement in right upper lung, improved, R upper lung chest tube was removed on 05/30 -Decreased output, serosanguinous -Restarted ppx dosing heparin SC -Toradol PRN for severe pain -Thoracic surgery onboard -Daily CBCs #Thrombocytopenia, likely reactive consumptive thrombocytopenia unlikely to be HIT, now improving. -Lovenox started 05/11/21 BID dosing but steady decline has been seen since 05/28/21 i/s/o bleeding -Now improving -Daily CBC #Leukocytosis likely reactive due to chest tube placement, and steroids, monitoring -afebrile, HR sinus, no s/s of infection currently -Not currently on antibiotics #Acute hypoxic respiratory failure likely 2/2 to nivolumab (drug) induced pneumonitis, complicated by right side pneumothorax and subsequently hemothorax s/p chest tube placement x 2 -Currently on 2 L O2 -Imaging noted above, closely monitoring the recurring pneumothorax -Micro/path above ruled out PNA . Only pending studies are BAL fungal but these are highly unlikey to come back positive. ID stopped voriconazole. -Stopped all antibacterial/antifungal meds. Continue only with solumedrol 80 Q8H, Levalbuterol ATC, PRN -Infectious disease, pulmonary and CT surgery following #Anxiety -xanax PRN #Occlusive thrombus in left upper extremity veins including subclavian vein, left jugular vein occlusive thrombus, central subclavian vein thrombus and newly identified right cephalic vein thrombus -Right cephalic vein thought be old thrombus initially (and still very could be); HOWEVER, if HIT is confirmed then this may very well be a new thrombus. He had been on therapeutic dosing lovenox BID since 05/11/21- 05/27/21. -Prior to admission patient was supposed to be on AC daily but he stopped after two weeks -Discussed with Dr. Marin about AC with low dose heparin in light of him being high risk for clot formation -On heparin SC BID #Elevated troponin 2/2 sepsis -No hx of CHF, CAD -BNP 1100, trop elevated but now 0.09 -Discussed with Dr. 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 -Currently, undergoing FOLFOX with Nivolumab every two weeks. -Dr. Marin hematology/oncology-has seen patient this admission #GERD -C/w PPI, Carafate #Dyslipidemia #Chronic anxiety #DVT px -scd/teds, started heparin sc Q12 today RESOLVED #Sepsis #Hypotension/hemorrhagic shock 2/2 to blood loss 2/2 to bleeding chest tube, complicated by therapeutic lovenox, toradol DISPOSITION: Pulmonary, ID, CT surgery following. Goal is home when medically improved. PT/OT VS,Fishbone, I+O VS, Fishbone, I+O Laboratory Tests 05/30/21 20:53 05/31/21 05:27 Vital Signs Date Time Temp Pulse Resp B/P (MAP) Pulse Ox O2 Delivery O2 Flow Rate FiO2 05/31/21 19:00 99 Nasal Cannula 2.0 05/31/21 16:00 98.1 96 18 104/63 (77) I&O- Last 24 Hours up to 6 AM 05/31/21 06:00 Intake Total 480 ml Output Total 1775 ml Balance -1295 ml MAITE ARANA MD May 31, 2021 20:39
[2021-06-01] VITALS (12 sets, daily range): BP systolic 109–128; BP diastolic 73–79; O2SAT 95–98
[2021-06-01] MEDS: KETOROLAC 30 MG/ML 1ML VIAL IV SCH ×4 (03:32→21:19)
[2021-06-01] MEDS: ALPRAZolam 0.25 MG TAB PO PRN ×4 (03:32→21:18)
[2021-06-01] MEDS: methylPREDNISolone 40MG 1ML VIAL IV SCH ×3 (03:32→18:45)
[2021-06-01] MEDS: LEVALBUTEROL 1.25 MG/0.5 ML CONCENTRATE NEB INH SCH ×5 (04:00→19:37)
[2021-06-01 04:55] LABS: ALBUMIN 2.3 GM/DL (3.2-5.2); ALT/SGPT 77 U/L (12-78); BILIRUBIN,TOTAL 0.6 MG/DL (0.2-1.0); BLOOD UREA NITROGEN 23 MG/DL (7-18); CALCIUM LEVEL 8.4 MG/DL (8.8-10.2); CARBON DIOXIDE LEVEL 32 MEQ/L (21-32); CHLORIDE LEVEL 104 MEQ/L (98-107); CREATININE FOR GFR 0.62 MG/DL (0.70-1.30); GLOMERULAR FILTRATION RATE > 60.0 (>49); GLUCOSE, FASTING 87 MG/DL (70-100); POTASSIUM SERUM 4.5 MEQ/L (3.5-5.1); SODIUM LEVEL 140 MEQ/L (136-145); TOTAL PROTEIN 4.8 GM/DL (6.4-8.2)
[2021-06-01] MEDS: BUDESONIDE 0.25 MG/2 ML INHALATION SUSPENSION INH SCH ×2 (07:59→19:37)
[2021-06-01] MEDS: MOM 30ML SUSPENSION UDC PO PRN (08:07)
[2021-06-01] MEDS: PANTOPRAZOLE 40MG TAB (PROTONIX) PO SCH ×2 (08:08→21:18)
[2021-06-01] MEDS: DOCUSATE SODIUM 100MG CAPSULE PO SCH ×2 (08:08→21:18)
[2021-06-01] MEDS: HEPARIN SOD (PORCINE) 5000UNITS/ML 1ML VIAL/SYRINGE SQ SCH ×2 (08:08→21:19)
[2021-06-01] MEDS: guaiFENesin ER 600 MG TAB PO SCH ×2 (08:08→21:18)
[2021-06-01] MEDS: LACTOBACILLUS ACIDOPHILUS CAP (BACID) PO SCH ×4 (08:08→21:18)
[2021-06-01] MEDS: SUCRALFATE SUSP 1GM/10ML UD PO SCH ×4 (08:08→21:19)
[2021-06-01 09:48] LABS: HEMATOCRIT 25.2 % (42.0-52.0); HEMOGLOBIN 8.2 g/dl (13.5-17.5); MEAN CORPUSCULAR HEMOGLOBIN 31.7 pg (27.0-33.0); MEAN CORPUSCULAR HGB CONC 32.5 g/dl (32.0-36.5); MEAN CORPUSCULAR VOLUME 97.3 fl (80.0-96.0); PLATELET COUNT, AUTOMATED 157 10^3/uL (150-450); RED BLOOD COUNT 2.59 10^6/uL (4.30-6.10); WHITE BLOOD COUNT 10.7 10^3/uL (4.0-10.0)
--- NOTE | 2021-06-01 10:28 | IPNPDOC ---
Text Note Date of Service The patient was seen on 06/01/21. NOTE SUBJECTIVE: -No acute events overnight, continues to be comfortable on 2L NC -Patient denies increased SOB, fevers, chills, n/v/d and pain is well controlled and minimal OBJECTIVE: VITAL SIGNS: Please see below GENERAL: Patient is awake, alert and oriented x3, NAD LUNGS: R lung with some rhonchi still, L lung also has rhonchi. Upper right chest has been removed and there is a dressing in place, while right lower lung chest tube connected to bedside container is in place, some minimal thin bloody fluid. HEART: RRR, no m/r/g ABDOMEN: Soft, nontender and nondistended. EXTREMITIES: Right femoral line in place. LUE swelling > RUE-chronic. LUE with ecchymosis on anterior arm. Neuro: No focal deficits LABORATORY DATA: Reviewed Cr 0.69 WBC 10 Hgb 8.2 platelets 154 MICROBIOLOGY/PATH/CYTOLOGY: Sputum GS: QUALITY: GOOD MODERATE EPITHELIAL CELLS MODERATE WBCS MANY GRAM POSITIVE COCCI IN PAIRS, CHAINS AND CLUSTERS MANY GRAM NEGATIVE RODS FEW GRAM POSITIVE RODS FEW YEAST LIKE ORGANISM Sputum Cx: yeast like organism BCx: NG UA neg COVID test x 4- neg CMV pending C. diff: neg Fungal studies negative, strep pneumoniae negative, legionella negative TB neg galactomannan studies neg BAL cx: NG BAL fungal Cx: negative Bronchoscopy pathology: neg for malignancy, PNA Bronchoscopy cytology: no malignancy IMAGING STUDIES: 05/31 CXR: New airspace in the right upper hemithorax. There is subcutaneous emphysema at the base of the neck. His inferior chest tube is in the target place. CT chest 05/28: 1. Severe right-sided pneumonia with complete consolidation of the lower lobe of the right lung with air-filled ectatic bronchi. 2. Large right-sided hydropneumothorax, which is loculated inferomedially, as described. 3. There is some mm of congestive heart failure. 4. Other findings as noted. There is no significant change. CXR 05/27: The small right apical pneumothorax has again gotten smaller. There are no other significant changes. The tip of the chest tube remains in the right lung apical region. CT chest 05/26/21: 1. Adenopathy status quo. 2. Right-sided thoracotomy tube with a persistent pneumothorax. 3. Possible empyema developing in the right lower lobe region as described above. Follow-up is suggested. 4. Odd appearing soft tissue densities in the airspace created by the pneumothorax in the right anterior mediastinum as described above. Etiology uncertain. CXR 05/24/21: Decreased size of right pneumothorax. CXR 05/23/21: The technique utilized in obtaining the radiograph has magnified the cardiac silhouette and accentuated the interstitial markings. The cardiomediastinal silhouette lung mcclellan are unchanged. The right-sided pneumothorax is unchanged. The right-sided thoracotomy tube is unchanged. The osseous structures are stable. Echo 05/12/21: 1. Study is of very limited technical quality. Underlying sinus rhythm. 2. Normal left ventricular (LV) size with normal or near-normal LV systolic function based on limited views. Grade 1 diastolic dysfunction. 3. No significant valvular disease. 4. Unable to estimate central venous pressure and pulmonary artery pressure. ASSESSMENT: 70-year-old M with a GE junction Stage IV cancer on FOLFOX and nivolumab who was admitted for presumed R>>L sided pneumonia with acute hypoxemic respiratory failure and LUE DVT c/b interval worsening despite varied antibiotic therapies and vori and restarted on steroids for what is now is believed to be nivolumab induced pneumonitis s/p bronchoscopy on 05/19 and 2 chest tubes c/b pneumothorax and subsequently hemorrhagic shock w/ resultant consumptive thrombocytopenia unlikely to be HIT, now improving. IMPRESSION: #Hemorrhagic shock and bleeding from the chest tube wall, now resolved: was whi le on therapeutic lovenox: improved, had 2nd tube placed that has now been discontinued w/ small pneumothorax that is being watched closely with pending CXR this AM. -Reversed with protamine sulfate early AM on 05/28 -S/p additional catheter placement in right upper lung, improved, R upper lung chest tube was removed on 05/30 -Decreased output, serosanguinous -Restarted ppx dosing heparin SC -Toradol PRN for severe pain -Thoracic surgery onboard -Daily CBCs #Thrombocytopenia, likely reactive consumptive thrombocytopenia unlikely to be HIT, now improving. -Lovenox started 05/11/21 BID dosing but steady decline has been seen since 05/28/21 i/s/o bleeding -Now improving -Daily CBC #Leukocytosis likely reactive due to chest tube placement, and steroids, monitoring -afebrile, HR sinus, no s/s of infection currently -Not currently on antibiotics -will recheck procal #Acute hypoxic respiratory failure likely 2/2 to nivolumab (drug) induced pneumonitis, complicated by right side pneumothorax and subsequently hemothorax s/p chest tube placement x 2 -Currently on 2 L O2 -Imaging noted above, closely monitoring the recurring pneumothorax -Micro/path above ruled out PNA . Only pending studies are BAL fungal but these are highly unlikey to come back positive. ID stopped voriconazole. -Stopped all antibacterial/antifungal meds. Continue only with solumedrol 80 Q8H, Levalbuterol ATC, PRN -Infectious disease, pulmonary and CT surgery following #Anxiety -xanax PRN #Occlusive thrombus in left upper extremity veins including subclavian vein, left jugular vein occlusive thrombus, central subclavian vein thrombus and newly identified right cephalic vein thrombus -Right cephalic vein thought be old thrombus initially (and still very could be); HOWEVER, if HIT is confirmed then this may very well be a new thrombus. He had been on therapeutic dosing lovenox BID since 05/11/21- 05/27/21. -Prior to admission patient was supposed to be on AC daily but he stopped after two weeks -Discussed with Dr. Marin about AC with low dose heparin in light of him being high risk for clot formation -On heparin SC BID #Elevated troponin 2/2 sepsis -No hx of CHF, CAD -BNP 1100, trop elevated but now 0.09 -Discussed with Dr. 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 -Currently, undergoing FOLFOX with Nivolumab every two weeks. -Dr. Marin hematology/oncology-has seen patient this admission #GERD -C/w PPI, Carafate #Dyslipidemia #Chronic anxiety #DVT px -scd/teds, started heparin sc Q12 today RESOLVED #Sepsis #Hypotension/hemorrhagic shock 2/2 to blood loss 2/2 to bleeding chest tube, complicated by therapeutic lovenox, toradol DISPOSITION: Pulmonary, ID, CT surgery following. Goal is home when medically improved. PT/OT VS,Fishbone, I+O VS, Fishbone, I+O Laboratory Tests 06/01/21 04:20 Vital Signs Date Time Temp Pulse Resp B/P (MAP) Pulse Ox O2 Delivery O2 Flow Rate FiO2 06/01/21 04:00 2.0 05/31/21 20:00 97.4 76 20 127/74 (91) 98 Nasal Cannula I&O- Last 24 Hours up to 6 AM 06/01/21 06:00 Intake Total 480 ml Output Total 775 ml Balance -295 ml MAITE ARANA MD Jun 01, 2021 07:50
--- NOTE | 2021-06-01 10:38 | REP ---
INDICATION: pneumthorax, pnemonia. COMPARISON: Multiple the latest yesterday at 8:05 a.m. TECHNIQUE: PA and lateral FINDINGS: The cardiomediastinal silhouette, lung mcclellan, right-sided chest tube, and MediPort device are all unchanged. Degree of right-sided pneumothorax and subcutaneous emphysema seen is all unchanged. The osseous structures are unchanged. IMPRESSION: No significant change from yesterday. <Electronically signed by Mike Toney > 06/01/21 [id number]
[2021-06-01] MEDS ORDERED: LIDOCAINE 1% MDV 20ML VIAL As Ordered ONE (10:51)
[2021-06-01] MEDS ORDERED: LIDOCAINE 1% MDV 20ML VIAL SC ONE (11:15)
--- NOTE | 2021-06-01 13:36 | RO ---
OPERATIVE NOTE DATE OF OPERATION: 06/01/2021 PREOPERATIVE DIAGNOSIS: Need for vascular access and antibiotics. POSTOPERATIVE DIAGNOSIS: Need for vascular access and antibiotics. PROCEDURE: Insertion of right subclavian central line. SURGEON: Dr. oCnnor Trejo DESCRIPTION OF PROCEDURE: Patient was prepped and draped in the usual sterile fashion, and the right subclavicular fossa was infiltrated with 1% lidocaine. The subclavian vein was found on the first pass, and a wire was passed without difficulty with the product of premature ventricular contractions (PVCs). The tract was dilated, and a triple-lumen catheter was placed by Seldinger technique. Ports were aspirated and flushed, and the line was secured to the chest wall with 2-0 silk suture. Patient tolerated the procedure well, and a chest x-ray is pending.
--- NOTE | 2021-06-01 14:20 | REP ---
INDICATION: TLC placement. COMPARISON: 06/01/2021 7:28 a.m. TECHNIQUE: Single portable AP view of the chest was performed. FINDINGS: There has been placement of a new right chest tube. There is a small pneumothorax which appears unchanged. There is extensive consolidation and collapse of the right lung. Emphysema is noted in the right chest wall and bilateral neck soft tissues. There is shift of the heart and mediastinum to the right.A right central venous catheter is seen with the tip in the right atrium. A left central venous catheter is seen with the tip in the superior vena cava. IMPRESSION: New right chest tube and right central venous catheter. Stable right pneumothorax and right lung consolidation/atelectatic change. <Electronically signed by Smai Quintero > 06/01/21 [id number]
--- NOTE | 2021-06-01 14:57 | IPN ---
PROGRESS NOTE DATE: 06/01/2021 SUBJECTIVE: Mr. Lawson is feeling better today. He is not complaining of shortness of breath and his anxiety is a lot less. However, they did take him down for a PICC line yesterday and they could not place it. He has a femoral line in place which actually needs to be removed and I will undertake a subclavian central line on the right side, even in the face of prior thrombosis on the left side. His vital signs show a T-max of 98.2 with a heart rate that ranges between 78 and 97, sinus rhythm and respiratory rate of 19 without the use of accessory muscles, he is 96% saturated on 2 liters nasal cannula. His blood pressure is ranging between 128/79 to 137/74. His intake and output over the past 24 hours has been recorded as 480 in and 1225 out for a negativity of 740 mL. His chest tube has put out 175 mL and there is no air leak. OBJECTIVE: He has coarse rhonchi and rales in the right side but I do hear a little bit better breath sounds today. Percussion is full to the diaphragm. Cardiac exam is without murmurs, clicks, gallops, or rubs. I cannot feel his PMI. S1 and S2 are normal. Abdomen is soft and nontender. Bowel sounds are positive. There is no hepatomegaly. No CVA tenderness. Extremities show no pretibial edema. No calf tenderness. He does have differential swelling of the upper extremities with left greater than right from his prior thrombosis. Skin is warm, dry, and perfused without cyanosis or mottling, including nailbeds and knees. Neck is supple. There is subcutaneous emphysema at the base of the neck which is essentially unchanged from yesterday. It looks to be dissipating. Trachea is midline. Mouth shows the mucous membranes to be pink and moist. Lips and commissures without lesions. No thrush. Eyes show his pupils to be equal and reactive. Extraocular motions intact. Sclerae anicteric. Neurologic shows II-XII intact. Gross motor, gross sensation intact. Gait is not tested. Psychiatric shows him to be awake, alert, and oriented x3 with appropriate mood and affect and conversational. INVESTIGATIONS: His white count today is 10.7 down from 15.0 yesterday. Hemoglobin and hematocrit of 8.2 and 25.2, unchanged from yesterday, with a platelet count of 157 and increasing. Electrolytes normal with a BUN and creatinine of 23 and 0.62, glucose of 87 and calcium 8.54. Albumin is 2.3. His Heparin-induced antibody is negative at 0.113, within normal limits. His chest x-ray still shows the airspace and pneumothorax on the right side. There looks to be a little bit more clearing of the lung parenchyma itself. IMPRESSION: 1. Pulmonary pneumonitis by exclusion attributed to Opdivo, a PDL-1 inhibitor. 2. Possible underlying fungal disease. 3. Immunosuppression. 4. Stage IV gastroesophageal carcinoma. 5. Hypercoagulability. 6. 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 7. Hemorrhagic shock and bleeding from the chest wall, now resolved. 8. Thrombocytopenia, resolving. 9. Hypoxic respiratory failure, resolved. 10. Recurrent pneumothorax of the right side, stable. 11. Need for vascular access. PLAN/DISCUSSION: I will keep his chest tube on suction today. I am gratified that the lung does look better on his chest x-ray. His subcutaneous emphysema looks to be dissipating both on physical exam and on x-ray. I am forced to put the central line in as the PICC line was not successful. Being the court of final resort it falls to me to get that femoral line out so as to prevent bacteremia and possible endocarditis.
--- NOTE | 2021-06-01 17:28 | REP ---
PROCEDURE NAME: PICC LINE INSERTION W/SITERITE CLINICAL INFORMATION: right side, left thrombosed. COMPARISON: None. PROCEDURE DESCRIPTION: The procedure was performed by DEISI Rogers, under the direct supervision of Dr. Quintero. The risks and benefits of the procedure were explained to the patient and an informed consent was obtained both verbally and written. Directly prior to the start of the procedure a formal time-out was completed in the procedure room. The right basilic vein was localized using ultrasound guidance. The skin was prepped and draped in sterile fashion. Three mL of 1% lidocaine 10 mg/mL was used as a local anesthetic. Using ultrasound guidance multiple attempts were made to cannulate the right basilic vein. All attempts were unsuccessful. At this time the procedure was aborted. CONCLUSION: Multiple unsuccessful attempts were made to access the right basilic vein. 0.1 minutes of fluoroscopy time was utilized for this procedure. Some fluoroscopic images are performed with last image hold technology. These images require no additional radiation. <Electronically signed by Yajaira Carlin > 06/01/21 [id number] <Electronically signed by Sami Quintero > 06/01/21 [id number]
[2021-06-01] MEDS: allopurinoL 100 MG TAB PO SCH (21:18)
[2021-06-01] MEDS: ROSUVASTATIN 10 MG TAB (CRESTOR) PO SCH (21:18)
[2021-06-02] VITALS (20 sets, daily range): BP systolic 102–131; BP diastolic 66–79; O2SAT 92–99
[2021-06-02] MEDS: LEVALBUTEROL 1.25 MG/0.5 ML CONCENTRATE NEB INH SCH ×7 (04:00→23:18)
[2021-06-02] MEDS: ALPRAZolam 0.25 MG TAB PO PRN ×3 (05:04→21:00)
[2021-06-02] MEDS: methylPREDNISolone 40MG 1ML VIAL IV SCH ×3 (05:04→18:37)
[2021-06-02] MEDS: KETOROLAC 30 MG/ML 1ML VIAL IV SCH ×4 (05:04→20:45)
[2021-06-02 05:43] LABS: HEMATOCRIT 22.7 % (42.0-52.0); HEMOGLOBIN 7.4 g/dl (13.5-17.5); MEAN CORPUSCULAR HGB CONC 32.6 g/dl (32.0-36.5); MEAN CORPUSCULAR VOLUME 98.3 fl (80.0-96.0); PLATELET COUNT, AUTOMATED 128 10^3/uL (150-450); RED BLOOD COUNT 2.31 10^6/uL (4.30-6.10); WHITE BLOOD COUNT 8.4 10^3/uL (4.0-10.0)
[2021-06-02 06:01] LABS: BLOOD UREA NITROGEN 19 MG/DL (7-18); CALCIUM LEVEL 7.9 MG/DL (8.8-10.2); CARBON DIOXIDE LEVEL 33 MEQ/L (21-32); CHLORIDE LEVEL 104 MEQ/L (98-107); CREATININE FOR GFR 0.59 MG/DL (0.70-1.30); GLOMERULAR FILTRATION RATE > 60.0 (>49); GLUCOSE, FASTING 90 MG/DL (70-100); POTASSIUM SERUM 4.4 MEQ/L (3.5-5.1); SODIUM LEVEL 142 MEQ/L (136-145)
[2021-06-02] MEDS: BUDESONIDE 0.25 MG/2 ML INHALATION SUSPENSION INH SCH ×2 (08:07→20:14)
--- NOTE | 2021-06-02 08:54 | REP ---
INDICATION: pneumthorax, pnemonia. COMPARISON: Multiple the latest yesterday at 11:19 a.m. TECHNIQUE: PA and lateral FINDINGS: The cardiomediastinal silhouette is unchanged. The central venous catheters are unchanged. The right-sided pneumothorax, right lung density, and right-sided thoracotomy tube are unchanged. The degree of subcutaneous emphysema is unchanged. IMPRESSION: No significant change compared to the prior exam with findings as described above. <Electronically signed by Mike Toney > 06/02/21 1617
[2021-06-02] MEDS ORDERED: ALTEPLASE 2MG/2ML VIAL XX ONE (10:00)
[2021-06-02] MEDS ORDERED: MAGNESIUM SULFATE GRANULES(EPSOM SALT) 1LB TOP PRN (10:35)
[2021-06-02] MEDS: SUCRALFATE SUSP 1GM/10ML UD PO SCH ×4 (10:51→20:44)
[2021-06-02] MEDS: guaiFENesin ER 600 MG TAB PO SCH ×2 (10:53→20:43)
[2021-06-02] MEDS: HEPARIN SOD (PORCINE) 5000UNITS/ML 1ML VIAL/SYRINGE SQ SCH ×2 (10:53→20:45)
[2021-06-02] MEDS: PANTOPRAZOLE 40MG TAB (PROTONIX) PO SCH ×2 (10:53→20:43)
[2021-06-02] MEDS: LACTOBACILLUS ACIDOPHILUS CAP (BACID) PO SCH ×4 (10:53→20:43)
[2021-06-02] MEDS: DOCUSATE SODIUM 100MG CAPSULE PO SCH ×2 (10:53→20:42)
--- NOTE | 2021-06-02 11:29 | IPN ---
PROGRESS NOTE DATE: 06/02/2021 SUBJECTIVE: Mr. Telles was again doing fairly well. He is breathing well and he does complain of pain at the chest tube insertion site. He and I had a discussion regarding his perception of the events of the last week. He is under the impression that a mistake was made and we have had quite a civilized conversation about the risks versus benefits and that all procedures come with risks and in his particular case in the milieu of anticoagulation. His vital signs show a T-max of 98.0 with a heart rate that ranges between 97 and 77 and is sinus rhythm, respiratory rate of 16 to 20 without the use of accessory muscles who is 99% saturated on 2 liters nasal cannula. His blood pressure is ranging between 116/76 to 112/66. His intake and output over the past 24 hours has been recorded as 1978 in and 694 out for a positivity of 1284 ml. He has put out 269 ml from the chest tube. There is no air leak. It should be noted that he is complaining of lightheadedness today. He did take his Xanax earlier today but he has not experienced lightheadedness with prior doses of Xanax. OBJECTIVE: His lungs show the course rales and rhonchi on the left side but they again seem a bit clearer. Cardiac exam is murmurs, clicks, gallops or rubs. I cannot feel his PMI. S1 and S2 are normal. Abdomen is soft and nontender. Bowel sounds are positive. There is no hepatomegaly. No CVA tenderness. Extremities show pretibial edema. No calf tenderness. He does have again differential swelling between the left and upper extremities secondary to his subclavian and jugular venous thrombosis on the left. Neck is supple. There is no jugular venous distention. The subcutaneous emphysema in the supraclavicular fossa is improved. The trachea is midline. Mouth shows the mucous membranes to be pink and moist. Lips and commissures with no lesions or thrush. Eyes shows the pupils equal and reactive. Extraocular muscles intact. Sclera anicteric. Neurologic: Cranial nerves II-XII intact. Normal gross motor, gross sensation intact. Gait is not tested. Psychiatric shows him to be awake, alert and oriented x3 with appropriate mood and affect and conversational. LABORATORY DATA: His white count today is 8.4 with a hemoglobin and hematocrit of 7.4 and 22, down from 8.2 and 25.2 yesterday. This might be explainable by hemodilution with him being positive 1200 ml. His platelet count is 128 and stable. Chemistries today showed normal electrolytes with a marginally increased total CO2 of 33. BUN and creatinine are 19 and 0.59, glucose of 90 and a calcium of 7.9. His chest x-ray is essentially unchanged from yesterday. There is still the airspace in the right upper hemithorax but subcutaneous emphysema is dissipating. He still has the white flank stripe consistent with his hemothorax. IMPRESSION: 1. Pulmonary pneumonitis by exclusion attributed to Opdivo PDL-1 inhibitor. 2. Possible underlying fungal disease. 3. Immunosuppression. 4. Stage IV gastroesophageal carcinoma. 5. Hypercoagulability secondary to his carcinoma. 6. 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 7. Hemorrhagic shock and bleeding from the chest wall, now resolved. 8. Thrombocytopenia, resolving. 9. Hypoxic respiratory failure, resolved. 10.Recurrent pneumothorax of the right side, stable, need for vascular access, resolved with a central line yesterday. PLAN/DISCUSSION: Today, I am going to try and clear the remaining portion of his retained hemothorax with TPA pleurolysis. His H and H is also dropped and with him being lightheaded he may be very well symptomatic. I will transfuse him. I do think the underlying lung is getting better. I am not going to jose the airspace at this point in time as his lung is so noncompliant and stiff from the underlying pneumonitis, it is probably not going to stay expanded even if I put an anterior chest tube back in.
[2021-06-02] MEDS: MOM 30ML SUSPENSION UDC PO PRN (14:09)
[2021-06-02] MEDS: SENOKOT S TAB PO PRN (14:09)
[2021-06-02] MEDS: PERCOCET 5MG/325MG TAB PO PRN (14:11)
--- NOTE | 2021-06-02 18:16 | IPNPDOC ---
Text Note Date of Service The patient was seen on 06/02/21. NOTE SUBJECTIVE: -No acute events overnight, continues to be comfortable, now on 1L NC -Patient denies increased SOB, fevers, chills, n/v/d and pain is well controlled and minimal OBJECTIVE: VITAL SIGNS: Please see below GENERAL: Patient is awake, alert and oriented x3, NAD LUNGS: R lung with some rhonchi still but air movement is quite good. Right lower lung chest tube connected to bedside container is in place, some minimal thin bloody fluid. HEART: RRR, no m/r/g ABDOMEN: Soft, nontender and nondistended. EXTREMITIES: Right femoral line in place. LUE swelling > RUE-chronic. LUE with ecchymosis on anterior arm. Neuro: No focal deficits LABORATORY DATA: Reviewed Hgb 7.4 (ordered for 1u) MICROBIOLOGY/PATH/CYTOLOGY: Sputum GS: QUALITY: GOOD MODERATE EPITHELIAL CELLS MODERATE WBCS MANY GRAM POSITIVE COCCI IN PAIRS, CHAINS AND CLUSTERS MANY GRAM NEGATIVE RODS FEW GRAM POSITIVE RODS FEW YEAST LIKE ORGANISM Sputum Cx: yeast like organism BCx: NG UA neg COVID test x 4- neg CMV pending C. diff: neg Fungal studies negative, strep pneumoniae negative, legionella negative TB neg galactomannan studies neg BAL cx: NG BAL fungal Cx: negative Bronchoscopy pathology: neg for malignancy, PNA Bronchoscopy cytology: no malignancy IMAGING STUDIES: 05/31 CXR: New airspace in the right upper hemithorax. There is subcutaneous emphysema at the base of the neck. His inferior chest tube is in the target place. CT chest 05/28: 1. Severe right-sided pneumonia with complete consolidation of the lower lobe of the right lung with air-filled ectatic bronchi. 2. Large right-sided hydropneumothorax, which is loculated inferomedially, as described. 3. There is some mm of congestive heart failure. 4. Other findings as noted. There is no significant change. CXR 05/27: The small right apical pneumothorax has again gotten smaller. There are no oth er significant changes. The tip of the chest tube remains in the right lung apical region. CT chest 05/26/21: 1. Adenopathy status quo. 2. Right-sided thoracotomy tube with a persistent pneumothorax. 3. Possible empyema developing in the right lower lobe region as described above. Follow-up is suggested. 4. Odd appearing soft tissue densities in the airspace created by the pneumothorax in the right anterior mediastinum as described above. Etiology uncertain. CXR 05/24/21: Decreased size of right pneumothorax. CXR 05/23/21: The technique utilized in obtaining the radiograph has magnified the cardiac silhouette and accentuated the interstitial markings. The cardiomediastinal silhouette lung mcclellan are unchanged. The right-sided pneumothorax is unchanged. The right-sided thoracotomy tube is unchanged. The osseous structures are stable. Echo 05/12/21: 1. Study is of very limited technical quality. Underlying sinus rhythm. 2. Normal left ventricular (LV) size with normal or near-normal LV systolic function based on limited views. Grade 1 diastolic dysfunction. 3. No significant valvular disease. 4. Unable to estimate central venous pressure and pulmonary artery pressure. ASSESSMENT: 70-year-old M with a GE junction Stage IV cancer on FOLFOX and nivolumab who was admitted for presumed R>>L sided pneumonia with acute hypoxemic respiratory failure and LUE DVT c/b interval worsening despite varied antibiotic therapies and vori and restarted on steroids for what is now is believed to be nivolumab induced pneumonitis s/p bronchoscopy on 05/19 and 2 chest tubes c/b pneumothorax and subsequently hemorrhagic shock w/ resultant consumptive thrombocytopenia unlikely to be HIT, now improving. IMPRESSION: #Hemorrhagic shock and bleeding from the chest tube wall, now resolved: was while on therapeutic lovenox: improved, had 2nd tube placed that has now been di scontinued w/ small pneumothorax that is being watched closely and thus far stable. -Reversed with protamine sulfate early AM on 05/28 -S/p additional catheter placement in right upper lung, improved, R upper lung chest tube was removed on 05/30 -Decreased output, serosanguinous -Restarted ppx dosing heparin SC -Toradol PRN for severe pain -Thoracic surgery onboard -Daily CBCs #Thrombocytopenia, likely reactive consumptive thrombocytopenia unlikely to be HIT, now improving. -Now improving -Daily CBC #Leukocytosis likely reactive due to chest tube placement, and steroids, now improving -afebrile, HR sinus, no s/s of infection currently -Not currently on antibiotics -procal remains negative #Acute hypoxic respiratory failure likely 2/2 to nivolumab (drug) induced pneumonitis, complicated by right side pneumothorax and subsequently hemothorax s/p chest tube placement x 2 -Currently on 1 L O2 -Imaging noted above, closely monitoring the recurring pneumothorax -Micro/path above ruled out PNA . -Stopped all antibacterial/antifungal meds. Continue only with solumedrol 80 Q8H, Levalbuterol ATC, PRN -Thoracic surgery following #Anxiety -xanax PRN #Occlusive thrombus in left upper extremity veins including subclavian vein, left jugular vein occlusive thrombus, central subclavian vein thrombus and newly identified right cephalic vein thrombus -Right cephalic vein thought be old thrombus initially (and still very could be); HOWEVER, if HIT is confirmed then this may very well be a new thrombus. He had been on therapeutic dosing lovenox BID since 05/11/21- 05/27/21. -Prior to admission patient was supposed to be on AC daily but he stopped after two weeks -On ppx dosing heparin SC BID since hemorrhagic shock #Elevated troponin 2/2 sepsis -No hx of CHF, CAD -BNP 1100, trop elevated but now 0.09 -Discussed with Dr. 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 -Currently, undergoing FOLFOX with Nivolumab every two weeks. -Dr. Marin hematology/oncology-has seen patient this admission #GERD -C/w PPI, Carafate #Dyslipidemia #Chronic anxiety #DVT px -scd/teds, started heparin sc Q12 today #Anemia i/s/o of recent bleeding -will give one more unit today, goal Hgb >8 -daily cbc RESOLVED #Sepsis #Hypotension/hemorrhagic shock 2/2 to blood loss 2/2 to bleeding chest tube, complicated by therapeutic lovenox, toradol DISPOSITION: Pulmonary, ID, CT surgery following. Goal is home when medically improved. PT/OT VS,Fishbone, I+O VS, Fishbone, I+O Laboratory Tests 06/02/21 05:07 Vital Signs Date Time Temp Pulse Resp B/P (MAP) Pulse Ox O2 Delivery O2 Flow Rate FiO2 06/02/21 16:01 97.6 102 20 131/77 95 Nasal Cannula 1.0 I&O- Last 24 Hours up to 6 AM 06/02/21 06:00 Intake Total 2478 ml Output Total 2009 ml Balance 469 ml MAITE ARANA MD Jun 02, 2021 18:16
[2021-06-02 20:23] LABS: HEMATOCRIT 31.2 % (42.0-52.0); MEAN CORPUSCULAR HEMOGLOBIN 32.1 pg (27.0-33.0); MEAN CORPUSCULAR VOLUME 97.2 fl (80.0-96.0); PLATELET COUNT, AUTOMATED 210 10^3/uL (150-450); RED BLOOD COUNT 3.21 10^6/uL (4.30-6.10); WHITE BLOOD COUNT 23.1 10^3/uL (4.0-10.0)
[2021-06-02 20:24] LABS: HEMOGLOBIN 10.3 g/dl (13.5-17.5)
[2021-06-02] MEDS: ROSUVASTATIN 10 MG TAB (CRESTOR) PO SCH (20:43)
[2021-06-02] MEDS: allopurinoL 100 MG TAB PO SCH (20:43)
[2021-06-03] VITALS (14 sets, daily range): BP systolic 109–127; BP diastolic 64–91; O2SAT 91–98
[2021-06-03] MEDS: KETOROLAC 30 MG/ML 1ML VIAL IV SCH (02:49)
[2021-06-03] MEDS: methylPREDNISolone 40MG 1ML VIAL IV SCH ×3 (02:49→17:23)
[2021-06-03] MEDS: LEVALBUTEROL 1.25 MG/0.5 ML CONCENTRATE NEB INH SCH ×5 (03:01→19:30)
[2021-06-03 05:10] LABS: HEMATOCRIT 27.5 % (42.0-52.0); HEMOGLOBIN 8.9 g/dl (13.5-17.5); MEAN CORPUSCULAR HEMOGLOBIN 31.7 pg (27.0-33.0); MEAN CORPUSCULAR HGB CONC 32.4 g/dl (32.0-36.5); MEAN CORPUSCULAR VOLUME 97.9 fl (80.0-96.0); PLATELET COUNT, AUTOMATED 118 10^3/uL (150-450); RED BLOOD COUNT 2.81 10^6/uL (4.30-6.10)
[2021-06-03 05:44] LABS: BLOOD UREA NITROGEN 21 MG/DL (7-18); CALCIUM LEVEL 7.9 MG/DL (8.8-10.2); CARBON DIOXIDE LEVEL 33 MEQ/L (21-32); CHLORIDE LEVEL 104 MEQ/L (98-107); CREATININE FOR GFR 0.59 MG/DL (0.70-1.30); GLOMERULAR FILTRATION RATE > 60.0 (>49); GLUCOSE, FASTING 102 MG/DL (70-100); POTASSIUM SERUM 4.6 MEQ/L (3.5-5.1); SODIUM LEVEL 142 MEQ/L (136-145)
[2021-06-03] MEDS: BUDESONIDE 0.25 MG/2 ML INHALATION SUSPENSION INH SCH ×2 (07:36→19:30)
--- NOTE | 2021-06-03 09:00 | REP ---
INDICATION: Pneumothorax, pneumonia. COMPARISON: Upright PA and lateral chest image 06/02/2021. TECHNIQUE: Upright PA and lateral images of the chest were obtained. FINDINGS: There is a large right pneumothorax not significantly changed. There is a large bore thoracostomy tube on the right not changed in position. There is extensive subcutaneous emphysema extending into the neck a bilaterally. There is significant airspace disease in the right lung and there is a partially loculated right pleural effusion. The left lung appears clear a. there is a left subclavian chemotherapy port with the tip at the junction of the left brachiocephalic vein in the superior vena cava, not significantly changed. The cardiomediastinal silhouette is unchanged. The upper abdominal bowel gas pattern is normal. IMPRESSION: 1. Large right pneumothorax with extensive subcutaneous emphysema, not significantly changed. 2. Other findings as noted, not significantly changed. <Electronically signed by Maxewll Banks > 06/03/21 0815
[2021-06-03] MEDS: guaiFENesin ER 600 MG TAB PO SCH ×2 (09:31→20:50)
[2021-06-03] MEDS: HEPARIN SOD (PORCINE) 5000UNITS/ML 1ML VIAL/SYRINGE SQ SCH ×2 (09:31→20:49)
[2021-06-03] MEDS: LACTOBACILLUS ACIDOPHILUS CAP (BACID) PO SCH ×4 (09:31→20:49)
[2021-06-03] MEDS: SUCRALFATE SUSP 1GM/10ML UD PO SCH ×4 (09:31→20:49)
[2021-06-03] MEDS: PANTOPRAZOLE 40MG TAB (PROTONIX) PO SCH ×2 (09:31→20:50)
[2021-06-03] MEDS: DOCUSATE SODIUM 100MG CAPSULE PO SCH ×2 (09:31→20:49)
[2021-06-03] MEDS: ALPRAZolam 0.25 MG TAB PO PRN ×2 (09:43→13:45)
[2021-06-03] MEDS: MOM 30ML SUSPENSION UDC PO PRN (09:43)
--- NOTE | 2021-06-03 12:33 | RO ---
OPERATIVE NOTE DATE OF OPERATION: 06/02/2021 PREOPERATIVE DIAGNOSIS: Retained pneumothorax. POSTOPERATIVE DIAGNOSIS: Retained pneumothorax. PROCEDURE: TPA pleurolysis. SURGEON: Dr. Connor Trejo DESCRIPTION OF PROCEDURE: Patient's chest tube was disconnected and prepped with Betadine. Normal saline 50 mL containing 6 mg of tPA was then instilled into the chest and the chest tube clamped. Patient was turned from side to side to distribute the tPA. Chest tube will be unclamped in 4 hours to drain it after allowing the tPA to swell. Patient tolerated the procedure well.
--- NOTE | 2021-06-03 12:46 | IPN ---
PROGRESS NOTE DATE: 06/03/2021 Mr. Telles is a bit more dyspneic today. He became quite dyspneic transferring from the commode to the bed. His subcutaneous emphysema is a little bit worse today, in that it has spread over his anterior chest. Nonetheless, his chest x-ray is improved. His vital signs show a maximum temperature (T-max) of 98.3 with a heart rate that ranges between 88-122 in a sinus rhythm, respiratory rate 18-19 without the use of accessory muscles, who is 91%-98% saturated on 1 liter nasal cannula, and whose blood pressure is ranging between 120/91 to 109/64. His intake and output for the past 24 hours has been recorded as 1617 in and 2580 out for a negativity of 960 mL. After the tPA pleurolysis yesterday he put out 580 mL from the chest tube. His the last 11 hours he has put out 195 mL, and there is no air leak. His weight today is 79.7 kg compared to a prior weight of 79.6 on 05/28/2021. PHYSICAL EXAMINATION: He has the crackles and subcutaneous emphysema over the right chest, both posterior and anteriorly. Nonetheless, I certainly hear the coarse rhonchi and rales in his right lung. His left lung looks to have normal vesicular sounds, accounting for the subcutaneous emphysema crackles. Percussion notes are full to the diaphragm. Cardiac exam is without murmurs, clicks, gallops, or rubs. I cannot feel his point of maximal impulse (PMI). S1 and S2 are normal. Abdomen is soft and nontender. Bowel sounds are positive. There is no hepatomegaly. No costovertebral angle (CVA) tenderness. Extremities show no pretibial edema, no calf tenderness. There is differential swelling of the upper extremities with the left greater than the right from his subclavian and jugular venous thrombosis on the left. Skin is warm, dry, and perfused without cyanosis or mottling, including that of the nailbeds and knees. Neck is supple. There is subcutaneous emphysema in the supraclavicular fossa; however, that is unchanged from yesterday. Trachea is midline. There is no jugular venous distention. Mouth shows his mucous membranes to be pink and moist. Lips and commissures without lesions. No thrush. Eyes show his pupils to be equal and reactive. Extraocular motion intact. Sclerae anicteric. Neurologic shows II-XII intact. Normal gross motor, gross sensation intact. Gait is not tested. Psychiatric shows him to be awake, alert, and oriented times three with appropriate mood and affect and conversational. His white count today is 10.0. Hemoglobin and hematocrit are 8.9 and 27.5, respectively. Platelet count is 118 and stable. There is no differential. His electrolytes are normal except for marginally elevated total CO2 of 33. BUN and creatinine are 21 and 0.59, glucose of 2, and a calcium of 7.9. His chest x-ray shows that the flank stripe has now disappeared, having evacuated the residual pneumothorax. His lung is expanded to the chest wall inferiorly. The upper portion of his hemithorax looks also improved with more expansion of the right lung toward the cupula. The airspace has a linear dimension of 2.3 cm compared to yesterday of 28 cm. His lung is more aerated. IMPRESSION: 1. Pulmonary pneumonitis by exclusion, attributed to Optiva PD-L1 inhibitor. 2. Possible underlying fungal disease. 3. Immunosuppression. 4. Stage IV gastroesophageal carcinoma. 5. Hypercoagulability secondary to the above carcinoma. 6. 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 7. Hemorrhagic shock and bleeding from the chest wall, now resolved. 8. Thrombocytopenia, resolved. 9. Hypoxic respiratory failure, resolved. 10. Recurrent pneumothorax on the right side, stable and improving. 11. Increasing subcutaneous emphysema. PLAN AND DISCUSSION: For the present, I am going to attribute the marginally increased subcutaneous emphysema to the lung expanding and pushing air out into the subcutaneous tissue. I do not think he has an air leak. His lung looks to be expanding even further, and if there was an air leak I would expect the lung to decrease rather than increase in expansion. I will continue his inferior chest tube for the present. I am quite gratified that the tPA pleurolysis was successful yesterday.
--- NOTE | 2021-06-03 12:52 | IPNPDOC ---
Text Note Date of Service The patient was seen on 06/03/21. NOTE SUBJECTIVE: -No acute events overnight, continues to be comfortable on 1L NC -had TPA pleurolysis yesterday by Dr. Trejo -No increased SOB, fevers, chills, n/v/d and pain is well controlled and minimal OBJECTIVE: VITAL SIGNS: Please see below GENERAL: Patient is awake, alert and oriented x3, NAD LUNGS: Stable examination with bilateral rhonchi, R base mildly diminished. Right lower lung chest tube connected to bedside container is in place, some thin bloody fluid. HEART: RRR, no m/r/g ABDOMEN: Soft, nontender and nondistended. EXTREMITIES: Stable LUE swelling > RUE. LUE with ecchymosis on anterior arm. Neuro: No focal deficits LABORATORY DATA: Reviewed hgb 8.9 WBC 10 platelets 118 na 142 K 4.6 Cr 0.59 MICROBIOLOGY/PATH/CYTOLOGY: Sputum GS: QUALITY: GOOD MODERATE EPITHELIAL CELLS MODERATE WBCS MANY GRAM POSITIVE COCCI IN PAIRS, CHAINS AND CLUSTERS MANY GRAM NEGATIVE RODS FEW GRAM POSITIVE RODS FEW YEAST LIKE ORGANISM Sputum Cx: yeast like organism BCx: NG UA neg COVID test x 4- neg CMV negative C. diff: neg Fungal studies negative, strep pneumoniae negative, legionella negative TB neg galactomannan studies neg BAL cx: NG BAL fungal Cx: negative Bronchoscopy pathology: neg for malignancy, PNA Bronchoscopy cytology: no malignancy IMAGING STUDIES: 06/03: CXR: 06/03/2021 CXR: There is a large right pneumothorax not significantly changed. There is a large bore thoracostomy tube on the right not changed in position. There is extensive subcutaneous emphysema extending into the neck a bilaterally. There is significant airspace disease in the right lung and there is a partially loculated right pleural effusion. The left lung appears clear a. there is a left subclavian chemotherapy port with the tip at the junction of the left brachiocephalic vein in the superior vena cava, not significantly changed. The cardiomediastinal silhouette is unchanged. The upper abdominal bowel gas pattern is normal. IMPRESSION: 1. Large right pneumothorax with extensive subcutaneous emphysema, not significantly changed. 2. Other findings as noted, not significantly changed. 05/31 CXR: New airspace in the right upper hemithorax. There is subcutaneous emphysema at the base of the neck. His inferior chest tube is in the target place. CT chest 05/28: 1. Severe right-sided pneumonia with complete consolidation of the lower lobe of the right lung with air-filled ectatic bronchi. 2. Large right-sided hydropneumothorax, which is loculated inferomedially, as described. 3. There is some mm of congestive heart failure. 4. Other findings as noted. There is no significant change. CXR 05/27: The small right apical pneumothorax has again gotten smaller. There are no other significant changes. The tip of the chest tube remains in the right lung apical region. CT chest 05/26/21: 1. Adenopathy status quo. 2. Right-sided thoracotomy tube with a persistent pneumothorax. 3. Possible empyema developing in the right lower lobe region as described above. Follow-up is suggested. 4. Odd appearing soft tissue densities in the airspace created by the pneumothorax in the right anterior mediastinum as described above. Etiology uncertain. CXR 05/24/21: Decreased size of right pneumothorax. CXR 05/23/21: The technique utilized in obtaining the radiograph has magnified the cardiac silhouette and accentuated the interstitial markings. The cardiomediastinal silhouette lung mcclellan are unchanged. The right-sided pneumothorax is unchanged. The right-sided thoracotomy tube is unchanged. The osseous structures are stable. Echo 05/12/21: 1. Study is of very limited technical quality. Underlying sinus rhythm. 2. Normal left ventricular (LV) size with normal or near-normal LV systolic function based on limited views. Grade 1 diastolic dysfunction. 3. No significant valvular disease. 4. Unable to estimate central venous pressure and pulmonary artery pressure. ASSESSMENT: 70-year-old M with a GE junction Stage IV cancer on FOLFOX and nivolumab who was admitted for presumed R>>L sided pneumonia with acute hypoxemic respiratory failure and LUE DVT c/b interval worsening despite varied antibiotic therapies and vori and restarted on steroids for what is now is believed to be nivolumab induced pneumonitis s/p bronchoscopy on 05/19 and 2 chest tubes c/b pneumothorax and subsequently hemorrhagic shock w/ resultant consumptive thrombocytopenia unlikely to be HIT, now improving. IMPRESSION: #Hemorrhagic shock and bleeding from the chest tube wall, now resolved: was while on therapeutic lovenox: improved, had 2nd tube placed that has now been discontinued w/ small pneumothorax that is being watched closely and thus far stable. -Reversed with protamine sulfate early AM on 05/28 -S/p additional catheter placement in right upper lung, improved, R upper lung chest tube was removed on 05/30 -Ppx dosing heparin SC -morphine PRN for severe pain -Thoracic surgery onboard -Daily CBCs #Thrombocytopenia, likely reactive consumptive thrombocytopenia unlikely to be HIT, now improving. -Now improving -Daily CBC #Leukocytosis likely reactive due to chest tube placement, and steroids, now improving -afebrile, HR sinus, no s/s of infection currently -Not currently on antibiotics -procal remains negative #Acute hypoxic respiratory failure likely 2/2 to nivolumab (drug) induced pneumonitis, complicated by right side pneumothorax and subsequently hemothorax s/p chest tube placement x 2 -Currently on 1 L O2 -Imaging noted above, closely monitoring the recurring pneumothorax -Micro/path above ruled out PNA . -Stopped all antibacterial/antifungal meds. Continue only with solumedrol 80 Q8H, Levalbuterol ATC, PRN -Thoracic surgery following #Anxiety -xanax PRN #Occlusive thrombus in left upper extremity veins including subclavian vein, left jugular vein occlusive thrombus, central subclavian vein thrombus and newly identified right cephalic vein thrombus -Right cephalic vein thought be old thrombus initially (and still very could be); HOWEVER, if HIT is confirmed then this may very well be a new thrombus. He had been on therapeutic dosing lovenox BID since 05/11/21- 05/27/21. -Prior to admission patient was supposed to be on AC daily but he stopped after two weeks -On ppx dosing heparin SC BID since hemorrhagic shock, with eventual plan to escalate to a NoAC once stable #Elevated troponin 2/2 sepsis -No hx of CHF, CAD -BNP 1100, trop elevated but now 0.09 -Discussed with Dr. 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 -Currently, undergoing FOLFOX with Nivolumab every two weeks. -Dr. Marin hematology/oncology-has seen patient this admission #GERD -C/w PPI, Carafate #Dyslipidemia #Chronic anxiety #DVT px -scd/teds, started heparin sc Q12 today #Anemia i/s/o of recent bleeding -will give one more unit today, goal Hgb >8 -daily cbc RESOLVED #Sepsis #Hypotension/hemorrhagic shock 2/2 to blood loss 2/2 to bleeding chest tube, complicated by therapeutic lovenox, toradol DISPOSITION: Pulmonary, ID, CT surgery following. Goal is home when medically improved. PT/OT VS,Fishbone, I+O VS, Fishbone, I+O Laboratory Tests 06/02/21 20:06 06/03/21 04:53 Vital Signs Date Time Temp Pulse Resp B/P (MAP) Pulse Ox O2 Delivery O2 Flow Rate FiO2 06/03/21 08:00 97.1 122 19 120/91 (101) 91 Nasal Cannula 1.0 l I&O- Last 24 Hours up to 6 AM 06/03/21 06:00 Intake Total 2077 ml Output Total 1300 ml Balance 777 ml MAITE ARANA MD Jun 03, 2021 10:50
[2021-06-03] MEDS: ROSUVASTATIN 10 MG TAB (CRESTOR) PO SCH (20:50)
[2021-06-03] MEDS: allopurinoL 100 MG TAB PO SCH (20:50)
[2021-06-04] VITALS (19 sets, daily range): BP systolic 114–156; BP diastolic 65–85; O2SAT 91–99
[2021-06-04] MEDS: methylPREDNISolone 40MG 1ML VIAL IV SCH ×3 (01:47→18:32)
[2021-06-04] MEDS: ALPRAZolam 0.25 MG TAB PO PRN ×3 (01:54→22:05)
[2021-06-04 05:40] LABS: HEMATOCRIT 27.9 % (42.0-52.0); HEMOGLOBIN 8.8 g/dl (13.5-17.5); MEAN CORPUSCULAR HEMOGLOBIN 31.3 pg (27.0-33.0); MEAN CORPUSCULAR HGB CONC 31.5 g/dl (32.0-36.5); MEAN CORPUSCULAR VOLUME 99.3 fl (80.0-96.0); PLATELET COUNT, AUTOMATED 130 10^3/uL (150-450); RED BLOOD COUNT 2.81 10^6/uL (4.30-6.10); WHITE BLOOD COUNT 7.7 10^3/uL (4.0-10.0)
[2021-06-04 06:10] LABS: BLOOD UREA NITROGEN 17 MG/DL (7-18); CARBON DIOXIDE LEVEL 34 MEQ/L (21-32); CHLORIDE LEVEL 105 MEQ/L (98-107); CREATININE FOR GFR 0.61 MG/DL (0.70-1.30); GLOMERULAR FILTRATION RATE > 60.0 (>49); GLUCOSE, FASTING 104 MG/DL (70-100); POTASSIUM SERUM 4.5 MEQ/L (3.5-5.1); SODIUM LEVEL 140 MEQ/L (136-145)
[2021-06-04] MEDS: BUDESONIDE 0.25 MG/2 ML INHALATION SUSPENSION INH SCH ×2 (08:16→20:07)
--- NOTE | 2021-06-04 08:16 | REP ---
INDICATION: pneumthorax, pnemonia. COMPARISON: Yesterday at 8:17 a.m. TECHNIQUE: PA and lateral FINDINGS: The cardiomediastinal silhouette, central venous lines, right-sided thoracotomy tube, and lung mcclellan are all unchanged. Right-sided pneumothorax status quo. Degree of subcutaneous emphysema status quo. No new abnormal opacities have developed. IMPRESSION: No significant change <Electronically signed by Mike Toney > 06/04/21 0813
[2021-06-04] MEDS: LEVALBUTEROL 1.25 MG/0.5 ML CONCENTRATE NEB INH SCH ×5 (08:17→20:07)
[2021-06-04] MEDS: MOM 30ML SUSPENSION UDC PO PRN ×2 (08:45→22:06)
[2021-06-04] MEDS: SUCRALFATE SUSP 1GM/10ML UD PO SCH ×4 (08:45→20:34)
[2021-06-04] MEDS: HEPARIN SOD (PORCINE) 5000UNITS/ML 1ML VIAL/SYRINGE SQ SCH ×2 (08:46→20:34)
[2021-06-04] MEDS: guaiFENesin ER 600 MG TAB PO SCH ×2 (08:46→20:33)
[2021-06-04] MEDS: LACTOBACILLUS ACIDOPHILUS CAP (BACID) PO SCH ×4 (08:46→20:33)
[2021-06-04] MEDS: PANTOPRAZOLE 40MG TAB (PROTONIX) PO SCH ×2 (08:46→20:33)
[2021-06-04] MEDS: DOCUSATE SODIUM 100MG CAPSULE PO SCH ×2 (08:46→20:33)
--- NOTE | 2021-06-04 11:40 | IPNPDOC ---
Text Note Date of Service The patient was seen on 06/04/21. NOTE SUBJECTIVE: -No acute events overnight, continues to be comfortable on 1L NC -No increased SOB, fevers, chills, n/v/d and pain is well controlled and minimal OBJECTIVE: VITAL SIGNS: Please see below GENERAL: Patient is awake, alert and oriented x3, NAD LUNGS: Stable examination with bilateral rhonchi, R base mildly diminished. Right lower lung chest tube connected to bedside container is in place, some thin bloody fluid. HEART: RRR, no m/r/g ABDOMEN: Soft, nontender and nondistended. EXTREMITIES: Stable LUE swelling > RUE. LUE with ecchymosis on anterior arm. Neuro: No focal deficits LABORATORY DATA: Reviewed, stable MICROBIOLOGY/PATH/CYTOLOGY: Sputum GS: QUALITY: GOOD MODERATE EPITHELIAL CELLS MODERATE WBCS MANY GRAM POSITIVE COCCI IN PAIRS, CHAINS AND CLUSTERS MANY GRAM NEGATIVE RODS FEW GRAM POSITIVE RODS FEW YEAST LIKE ORGANISM Sputum Cx: yeast like organism BCx: NG UA neg COVID test x 4- neg CMV negative C. diff: neg Fungal studies negative, strep pneumoniae negative, legionella negative TB neg galactomannan studies neg BAL cx: NG BAL fungal Cx: negative Bronchoscopy pathology: neg for malignancy, PNA Bronchoscopy cytology: no malignancy IMAGING STUDIES: 06/03: CXR: 06/03/2021 CXR: There is a large right pneumothorax not significantly changed. There is a large bore thoracostomy tube on the right not changed in position. There is extensive subcutaneous emphysema extending into the neck a bilaterally. There is signif icant airspace disease in the right lung and there is a partially loculated right pleural effusion. The left lung appears clear a. there is a left subclavian chemotherapy port with the tip at the junction of the left brachiocephalic vein in the superior vena cava, not significantly changed. The cardiomediastinal silhouette is unchanged. The upper abdominal bowel gas pattern is normal. IMPRESSION: 1. Large right pneumothorax with extensive subcutaneous emphysema, not significantly changed. 2. Other findings as noted, not significantly changed. 05/31 CXR: New airspace in the right upper hemithorax. There is subcutaneous emphysema at the base of the neck. His inferior chest tube is in the target place. CT chest 05/28: 1. Severe right-sided pneumonia with complete consolidation of the lower lobe of the right lung with air-filled ectatic bronchi. 2. Large right-sided hydropneumothorax, which is loculated inferomedially, as described. 3. There is some mm of congestive heart failure. 4. Other findings as noted. There is no significant change. CXR 05/27: The small right apical pneumothorax has again gotten smaller. There are no other significant changes. The tip of the chest tube remains in the right lung apical region. CT chest 05/26/21: 1. Adenopathy status quo. 2. Right-sided thoracotomy tube with a persistent pneumothorax. 3. Possible empyema developing in the right lower lobe region as described above. Follow-up is suggested. 4. Odd appearing soft tissue densities in the airspace created by the pneumothorax in the right anterior mediastinum as described above. Etiology uncertain. CXR 05/24/21: Decreased size of right pneumothorax. CXR 05/23/21: The technique utilized in obtaining the radiograph has magnified the cardiac silhouette and accentuated the interstitial markings. The cardiomediastinal silhouette lung mcclellan are unchanged. The right-sided pneumothorax is unchanged. The right-sided thoracotomy tube is unchanged. The osseous structures are stable. Echo 05/12/21: 1. Study is of very limited technical quality. Underlying sinus rhythm. 2. Normal left ventricular (LV) size with normal or near-normal LV systolic function based on limited views. Grade 1 diastolic dysfunction. 3. No significant valvular disease. 4. Unable to estimate central venous pressure and pulmonary artery pressure. ASSESSMENT: 70-year-old M with a GE junction Stage IV cancer on FOLFOX and nivolumab who was admitted for presumed R>>L sided pneumonia with acute hypoxemic respiratory failure and LUE DVT c/b interval worsening despite varied antibiotic therapies and vori and restarted on steroids for what is now is believed to be nivolumab induced pneumonitis s/p bronchoscopy on 05/19 and 2 chest tubes c/b pneumothorax and subsequently hemorrhagic shock w/ resultant consumptive thrombocytopenia unlikely to be HIT, now improving. IMPRESSION: #Hemorrhagic shock and bleeding from the chest tube wall, now resolved: was while on therapeutic lovenox: improved, had 2nd tube placed that has now been discontinued w/ small pneumothorax that is being watched closely and thus far stable. -Reversed with protamine sulfate early AM on 05/28 -S/p additional catheter placement in right upper lung, improved, R upper lung chest tube was removed on 05/30 -Ppx dosing heparin SC -morphine PRN for severe pain -Thoracic surgery onboard -Daily CBCs #Thrombocytopenia, likely reactive consumptive thrombocytopenia unlikely to be HIT, now improving. -Now improving -Daily CBC #Leukocytosis likely reactive due to chest tube placement, and steroids, now i mproving -afebrile, HR sinus, no s/s of infection currently -Not currently on antibiotics -procal remains negative #Acute hypoxic respiratory failure likely 2/2 to nivolumab (drug) induced pneumonitis, complicated by right side pneumothorax and subsequently hemothorax s/p chest tube placement x 2 -Currently on 1 L O2 -Imaging noted above, closely monitoring the recurring pneumothorax -Micro/path above ruled out PNA . -Stopped all antibacterial/antifungal meds. Continue only with solumedrol 80 Q8H, Levalbuterol ATC, PRN -Thoracic surgery following #Anxiety -xanax PRN #Occlusive thrombus in left upper extremity veins including subclavian vein, left jugular vein occlusive thrombus, central subclavian vein thrombus and newly identified right cephalic vein thrombus -Right cephalic vein thought be old thrombus initially (and still very could be); HOWEVER, if HIT is confirmed then this may very well be a new thrombus. He had been on therapeutic dosing lovenox BID since 05/11/21- 05/27/21. -Prior to admission patient was supposed to be on AC daily but he stopped after two weeks -On ppx dosing heparin SC BID since hemorrhagic shock, with eventual plan to escalate to a NoAC once stable #Elevated troponin 2/2 sepsis -No hx of CHF, CAD -BNP 1100, trop elevated but now 0.09 -Discussed with Dr. 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 -Currently, undergoing FOLFOX with Nivolumab every two weeks. -Dr. Marin hematology/oncology-has seen patient this admission #GERD -C/w PPI, Carafate #Dyslipidemia #Chronic anxiety #DVT px -scd/teds, started heparin sc Q12 today #Anemia i/s/o of recent bleeding -will give one more unit today, goal Hgb >8 -daily cbc RESOLVED #Sepsis #Hypotension/hemorrhagic shock 2/2 to blood loss 2/2 to bleeding chest tube, complicated by therapeutic lovenox, toradol DISPOSITION: Pulmonary, ID, CT surgery following. Goal is home when medically improved. PT/OT VS,Fishbone, I+O VS, Fishbone, I+O Laboratory Tests 06/04/21 05:24 06/04/21 06:00 Vital Signs Date Time Temp Pulse Resp B/P (MAP) Pulse Ox O2 Delivery O2 Flow Rate FiO2 06/04/21 08:00 97.3 99 18 115/79 (91) 98 Nasal Cannula 1.0 I&O- Last 24 Hours up to 6 AM 06/04/21 06:00 Intake Total 610 ml Output Total 240 ml Balance 370 ml MAITE ARANA MD Jun 04, 2021 11:40
[2021-06-04] MEDS: ROSUVASTATIN 10 MG TAB (CRESTOR) PO SCH (20:32)
[2021-06-04] MEDS: allopurinoL 100 MG TAB PO SCH (20:33)
[2021-06-05] VITALS (16 sets, daily range): BP systolic 100–144; BP diastolic 57–88; O2SAT 91–99
[2021-06-05] MEDS: methylPREDNISolone 40MG 1ML VIAL IV SCH ×3 (01:59→17:29)
[2021-06-05] MEDS: LEVALBUTEROL 1.25 MG/0.5 ML CONCENTRATE NEB INH SCH ×6 (04:00→19:38)
[2021-06-05 05:37] LABS: HEMATOCRIT 26.7 % (42.0-52.0); HEMOGLOBIN 8.4 g/dl (13.5-17.5); MEAN CORPUSCULAR HGB CONC 31.5 g/dl (32.0-36.5); MEAN CORPUSCULAR VOLUME 98.5 fl (80.0-96.0); PLATELET COUNT, AUTOMATED 122 10^3/uL (150-450); RED BLOOD COUNT 2.71 10^6/uL (4.30-6.10); WHITE BLOOD COUNT 6.6 10^3/uL (4.0-10.0)
[2021-06-05 05:48] LABS: BLOOD UREA NITROGEN 19 MG/DL (7-18); CALCIUM LEVEL 7.9 MG/DL (8.8-10.2); CARBON DIOXIDE LEVEL 31 MEQ/L (21-32); CHLORIDE LEVEL 108 MEQ/L (98-107); CREATININE FOR GFR 0.61 MG/DL (0.70-1.30); GLOMERULAR FILTRATION RATE > 60.0 (>49); GLUCOSE, FASTING 111 MG/DL (70-100); POTASSIUM SERUM 4.4 MEQ/L (3.5-5.1); SODIUM LEVEL 143 MEQ/L (136-145)
--- NOTE | 2021-06-05 06:29 | IPN ---
PROGRESS NOTE DATE: 06/04/2021 SUBJECTIVE: Mr. Telles is feeling good today. He is breathing better today. His chest tube has put out minimally and I plan to discontinue it. His vital signs shows a T-max of 98.5 with a heart rate that ranges between 77 and 99 in sinus rhythm, respiratory rate of 18 to 19 without the use of accessory muscles, who is 98 to 99% saturated on 1 liter nasal cannula. His blood pressure is ranging between 114/70 to 122/65. His intake and output over the past 24 hours has been recorded as 1450 in and 285 out for a positivity of 1165 ml. He has put out 285 ml from the chest tube yesterday and 100 ml in the last 12 hours. His weight today is 79.7 kilos which is the same as yesterday. OBJECTIVE: He still has the coarse rales and rhonchi in the right lung on top of the crackles of subcutaneous emphysema which looks to be improving. Percussion notes are full to the diaphragm. Cardiac exam is without murmurs, clicks, gallops, or rubs. I cannot feel his point of maximal impulse (PMI). S1 and S2 are normal. Abdomen is soft and nontender. Bowel sounds are positive. There is no hepatomegaly. No costovertebral angle (CVA) tenderness. Extremities show no pretibial edema, no calf tenderness. There is differential swelling of the upper extremities with the left being greater than the right secondary to his subclavian and left jugular vein thromboses. Skin is warm, dry, and perfused without cyanosis or mottling, including that of the nailbeds and knees. Neck is supple. There is subcutaneous emphysema which is a little more pronounced today but dissipating in the right supraclavicular fossa. Trachea is midline. Mouth shows his mucous membranes to be pink and moist. Lips and commissures without lesions. No thrush. Eyes show his pupils to be equal and reactive. Extraocular motion intact. Sclerae anicteric. Neurologic shows II-XII intact. Normal gross motor, gross sensation intact. Gait is not tested. Psychiatric shows him to be awake, alert, and oriented times three with appropriate mood and affect and conversational. LABORATORY DATA: His white count today is 7.7, down from 10.0 yesterday. Hemoglobin and hematocrit 8.8 and 27.9, unchanged from yesterday with a platelet count of 130,000 and stable. There is no differential. His electrolytes are normal except for a marginally elevated total CO2 of 34. BUN and creatinine are 17 and 0.61, glucose of 104 and a calcium of 8.0. His chest x-ray today is again not viewable because of the inconsistencies of this inflammation system but dictating from memory when I saw it this morning at home his subcutaneous emphysema was again dissipating. His pulmonary parenchyma was clearer. He still has the apical airspace which is essentially unchanged from yesterday. IMPRESSION: 1. Pulmonary pneumonitis by exclusion, attributable to Opdivo PDL-1 inhibitor. 2. Possible underlying fungal disease. 3. Immunosuppression. 4. Stage IV gastroesophageal carcinoma. 5. Hypercoagulability secondary to the above carcinoma. 6. 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 7. Hemorrhagic shock and bleeding from chest wall, now resolved. 8. Thrombocytopenia, resolved. 9. Hypoxic respiratory failure, resolved. 10.Recurrent pneumothorax, right side, stable and improving. 11.Increasing subcutaneous emphysema, improving. PLAN AND DISCUSSION: Today I will remove his chest tube. I can foresee him being discharged within the week, probably in about five days if all goes well. His lung is now continuing to improve; as the lung expands it is going to push the residual air out and cause subcutaneous emphysema. His H and H have been stable. There is no new microbiology on him, the last one being May 10 with a yeast-like organism in his sputum.
[2021-06-05] MEDS: guaiFENesin ER 600 MG TAB PO SCH ×2 (08:21→20:36)
[2021-06-05] MEDS: LACTOBACILLUS ACIDOPHILUS CAP (BACID) PO SCH ×4 (08:21→20:36)
[2021-06-05] MEDS: PANTOPRAZOLE 40MG TAB (PROTONIX) PO SCH ×2 (08:21→20:36)
[2021-06-05] MEDS: HEPARIN SOD (PORCINE) 5000UNITS/ML 1ML VIAL/SYRINGE SQ SCH ×2 (08:21→20:34)
[2021-06-05] MEDS: SUCRALFATE SUSP 1GM/10ML UD PO SCH ×4 (08:21→20:37)
[2021-06-05] MEDS: DOCUSATE SODIUM 100MG CAPSULE PO SCH ×2 (08:22→20:35)
[2021-06-05] MEDS: BUDESONIDE 0.25 MG/2 ML INHALATION SUSPENSION INH SCH ×2 (08:26→19:38)
--- NOTE | 2021-06-05 10:24 | REP ---
INDICATION: pneumthorax, pnemonia. COMPARISON: 06/04/2021, 06/03/2021. TECHNIQUE: PA and lateral views FINDINGS: Left subclavian [id number] catheter is again seen. Seen tip appears to be a left brachiocephalic vein near the superior vena cava, unchanged. The right subclavian catheter seen extending into the right atrium, its tip unchanged. The right-sided chest tube is removed. The right apical pneumothorax measures about 23 mm for its apical air gap, unchanged from the past 2 days. Subcutaneous emphysema is again seen, marginally improved. Airspace opacities throughout the visualized right lung are again seen. Lateral pleural thickening or fluid in the right base again noted on the frontal view. Left lung is grossly clear. Mediastinum and heart are shifted towards the right with volume loss of the right hemithorax. The cardiomediastinal silhouette is unchanged. IMPRESSION: 1. Right-sided pneumothorax unchanged with an apical air gap of 23 mm and interval removal of the right-sided chest tube. The volume loss in the right hemithorax is unchanged with compensatory inflation of the left lung as before. The bilateral subcutaneous emphysema is again seen and marginally improved. 2. Airspace opacities and chronic changes in the right lung are stable. Left lung appears grossly clear. Lateral pleural thickening or fluid along the right lateral inferior chest on the frontal view. <Electronically signed by Froilan Long > 06/05/21 1021
--- NOTE | 2021-06-05 13:34 | IPNPDOC ---
Text Note Date of Service The patient was seen on 06/05/21. NOTE SUBJECTIVE: -No acute events overnight, continues to be comfortable, chest tube is to be removed today -No increased SOB, fevers, chills, n/v/d and pain is well controlled and minimal OBJECTIVE: VITAL SIGNS: Please see below GENERAL: Patient is awake, alert and oriented x3, NAD LUNGS: Stable examination with bilateral rhonchi, R base mildly diminished. Right lower lung chest tube connected to bedside container is in place. ON ROOM AIR HEART: RRR, no m/r/g ABDOMEN: Soft, nontender and nondistended. EXTREMITIES: Stable LUE swelling > RUE. LUE with ecchymosis on anterior arm. Neuro: No focal deficits LABORATORY DATA: Reviewed, stable MICROBIOLOGY/PATH/CYTOLOGY: Sputum GS: QUALITY: GOOD MODERATE EPITHELIAL CELLS MODERATE WBCS MANY GRAM POSITIVE COCCI IN PAIRS, CHAINS AND CLUSTERS MANY GRAM NEGATIVE RODS FEW GRAM POSITIVE RODS FEW YEAST LIKE ORGANISM Sputum Cx: yeast like organism BCx: NG UA neg COVID test x 4- neg CMV negative C. diff: neg Fungal studies negative, strep pneumoniae negative, legionella negative TB neg galactomannan studies neg BAL cx: NG BAL fungal Cx: negative Bronchoscopy pathology: neg for malignancy, PNA Bronchoscopy cytology: no malignancy IMAGING STUDIES: 06/03/2021 CXR: There is a large right pneumothorax not significantly changed. There is a large bore thoracostomy tube on the right not changed in position. There is extensive subcutaneous emphysema extending into the neck a bilaterally. There is signifi cant airspace disease in the right lung and there is a partially loculated right pleural effusion. The left lung appears clear a. there is a left subclavian chemotherapy port with the tip at the junction of the left brachiocephalic vein in the superior vena cava, not significantly changed. The cardiomediastinal silhouette is unchanged. The upper abdominal bowel gas pattern is normal. IMPRESSION: 1. Large right pneumothorax with extensive subcutaneous emphysema, not significantly changed. 2. Other findings as noted, not significantly changed. 05/31 CXR: New airspace in the right upper hemithorax. There is subcutaneous emphysema at the base of the neck. His inferior chest tube is in the target place. CT chest 05/28: 1. Severe right-sided pneumonia with complete consolidation of the lower lobe of the right lung with air-filled ectatic bronchi. 2. Large right-sided hydropneumothorax, which is loculated inferomedially, as described. 3. There is some mm of congestive heart failure. 4. Other findings as noted. There is no significant change. CXR 05/27: The small right apical pneumothorax has again gotten smaller. There are no other significant changes. The tip of the chest tube remains in the right lung apical region. CT chest 05/26/21: 1. Adenopathy status quo. 2. Right-sided thoracotomy tube with a persistent pneumothorax. 3. Possible empyema developing in the right lower lobe region as described above. Follow-up is suggested. 4. Odd appearing soft tissue densities in the airspace created by the pneumothorax in the right anterior mediastinum as described above. Etiology uncertain. CXR 05/24/21: Decreased size of right pneumothorax. CXR 05/23/21: The technique utilized in obtaining the radiograph has magnified the cardiac silhouette and accentuated the interstitial markings. The cardiomediastinal silhouette lung mcclellan are unchanged. The right-sided pneumothorax is unchanged. The right-sided thoracotomy tube is unchanged. The osseous structures are stable. Echo 05/12/21: 1. Study is of very limited technical quality. Underlying sinus rhythm. 2. Normal left ventricular (LV) size with normal or near-normal LV systolic function based on limited views. Grade 1 diastolic dysfunction. 3. No significant valvular disease. 4. Unable to estimate central venous pressure and pulmonary artery pressure. ASSESSMENT: 70-year-old M with a GE junction Stage IV cancer on FOLFOX and nivolumab who was admitted for presumed R>>L sided pneumonia with acute hypoxemic respiratory failure and LUE DVT c/b interval worsening despite varied antibiotic therapies and vori and restarted on steroids for what is now is believed to be nivolumab induced pneumonitis s/p bronchoscopy on 05/19 and 2 chest tubes c/b pneumothorax and subsequently hemorrhagic shock w/ resultant consumptive thrombocytopenia unlikely to be HIT, now improving. IMPRESSION: #Hemorrhagic shock and bleeding from the chest tube wall, now resolved: was while on therapeutic lovenox: improved, had 2nd tube placed that has now been discontinued w/ small pneumothorax that is being watched closely and thus far stable. -Reversed with protamine sulfate early AM on 05/28 -S/p additional catheter placement in right upper lung, improved, R upper lung chest tube was removed on 05/30. R lower lung chest tube will be removed today. -Ppx dosing heparin SC -morphine PRN for severe pain -Thoracic surgery onboard -Daily CBCs #Thrombocytopenia, likely reactive consumptive thrombocytopenia unlikely to be HIT, now improving. -Now improving -Daily CBC #Leukocytosis likely reactive due to chest tube placement, and steroids, resolved. -afebrile, HR sinus, no s/s of infection currently -Not currently on antibiotics -procal remains negative #Acute hypoxic respiratory failure likely 2/2 to nivolumab (drug) induced pneumonitis, complicated by right side pneumothorax and subsequently hemothorax s/p chest tube placement x 2. Improving -Now on room air -Imaging noted above, closely monitoring the recurring pneumothorax -Micro/path above ruled out PNA . -Stopped all antibacterial/antifungal meds. Continue only with solumedrol 80 Q8H, Levalbuterol ATC, PRN -Thoracic surgery following. Removing chest tube today #Anxiety -xanax PRN #Occlusive thrombus in left upper extremity veins including subclavian vein, left jugular vein occlusive thrombus, central subclavian vein thrombus and newly identified right cephalic vein thrombus -Right cephalic vein thought be old thrombus initially (and still very could be); HOWEVER, if HIT is confirmed then this may very well be a new thrombus. He had been on therapeutic dosing lovenox BID since 05/11/21- 05/27/21. -Prior to admission patient was supposed to be on AC daily but he stopped after two weeks -On ppx dosing heparin SC BID since hemorrhagic shock, plan to start a NoAC tomorrow post chest tube removal #Elevated troponin 2/2 sepsis -No hx of CHF, CAD -BNP 1100, trop elevated but now 0.09 -Discussed with Dr. 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 -Currently, undergoing FOLFOX with Nivolumab every two weeks. -Dr. Marin hematology/oncology-has seen patient this admission #GERD -C/w PPI, Carafate #Dyslipidemia #Chronic anxiety #DVT px -scd/teds, started heparin sc Q12 today #Anemia i/s/o of recent bleeding -will give one more unit today, goal Hgb >8 -daily cbc RESOLVED #Sepsis #Hypotension/hemorrhagic shock 2/2 to blood loss 2/2 to bleeding chest tube, complicated by therapeutic lovenox, toradol DISPOSITION: Pulmonary, ID, CT surgery following. doing well with PT/OT, on room air, to begin NoAC tomorrow AM, will watch for 24h for bleeding and then likely dischargable home. VS,Fishbone, I+O VS, Fishbone, I+O Laboratory Tests 06/05/21 05:17 Vital Signs Date Time Temp Pulse Resp B/P (MAP) Pulse Ox O2 Delivery O2 Flow Rate FiO2 06/05/21 08:00 97.2 77 18 136/88 (104) 93 Room Air 77.0 I&O- Last 24 Hours up to 6 AM 06/05/21 06:00 Intake Total 1280 ml Output Total 402 ml Balance 878 ml MAITE ARANA MD Jun 05, 2021 10:04
[2021-06-05] MEDS: allopurinoL 100 MG TAB PO SCH (20:36)
[2021-06-05] MEDS: ROSUVASTATIN 10 MG TAB (CRESTOR) PO SCH (20:37)
[2021-06-05] MEDS: ALPRAZolam 0.25 MG TAB PO PRN (22:15)
[2021-06-06] VITALS (13 sets, daily range): BP systolic 106–130; BP diastolic 68–81; O2SAT 90–97
[2021-06-06] MEDS: methylPREDNISolone 40MG 1ML VIAL IV SCH ×3 (01:37→17:44)
[2021-06-06] MEDS: LEVALBUTEROL 1.25 MG/0.5 ML CONCENTRATE NEB INH SCH ×7 (04:00→23:32)
[2021-06-06 05:18] LABS: HEMOGLOBIN 9.6 g/dl (13.5-17.5); MEAN CORPUSCULAR HEMOGLOBIN 31.6 pg (27.0-33.0); MEAN CORPUSCULAR VOLUME 98.7 fl (80.0-96.0); PLATELET COUNT, AUTOMATED 134 10^3/uL (150-450); RED BLOOD COUNT 3.04 10^6/uL (4.30-6.10); WHITE BLOOD COUNT 7.6 10^3/uL (4.0-10.0)
[2021-06-06 05:38] LABS: BLOOD UREA NITROGEN 19 MG/DL (7-18); CALCIUM LEVEL 8.4 MG/DL (8.8-10.2); CARBON DIOXIDE LEVEL 34 MEQ/L (21-32); CHLORIDE LEVEL 107 MEQ/L (98-107); CREATININE FOR GFR 0.64 MG/DL (0.70-1.30); GLOMERULAR FILTRATION RATE > 60.0 (>49); GLUCOSE, FASTING 110 MG/DL (70-100); SODIUM LEVEL 143 MEQ/L (136-145)
[2021-06-06] MEDS: PANTOPRAZOLE 40MG TAB (PROTONIX) PO SCH ×2 (07:52→21:48)
[2021-06-06] MEDS: LACTOBACILLUS ACIDOPHILUS CAP (BACID) PO SCH ×4 (07:52→21:47)
[2021-06-06] MEDS: SUCRALFATE SUSP 1GM/10ML UD PO SCH ×4 (07:52→21:48)
[2021-06-06] MEDS: guaiFENesin ER 600 MG TAB PO SCH ×2 (07:52→21:48)
[2021-06-06] MEDS: DOCUSATE SODIUM 100MG CAPSULE PO SCH ×2 (07:53→21:48)
[2021-06-06] MEDS: APIXABAN 5 MG TAB (ELIQUIS) PO SCH ×2 (07:53→21:48)
[2021-06-06] MEDS: BUDESONIDE 0.25 MG/2 ML INHALATION SUSPENSION INH SCH ×2 (08:33→20:18)
--- NOTE | 2021-06-06 08:43 | REP ---
INDICATION: Post Chest tube/Pneumothorax COMPARISON: 06/05/2021. TECHNIQUE: PA/Lateral FINDINGS: There is a stable small right apical pneumothorax. There is stable right lung consolidation with volume loss and shift of heart mediastinal structures to the right. Left lung remains clear. Bilateral central venous catheters appear unchanged. IMPRESSION: Stable exam. <Electronically signed by Sami Quintero > 06/06/21 0844
--- NOTE | 2021-06-06 12:31 | IPN ---
PROGRESS NOTE DATE: 06/06/2021 SUBJECTIVE: Mr. Telles is doing great this morning. He has walked around the circuit twice of the PCU. He gets a little short of breath with walking but recovers more quickly than he has before. All in all he is feeling quite well. His vital signs shows a T-max of 98.4 with a heart rate that ranges between 81 and 92 and is sinus rhythm. He did have a couple of PVCs and a short run of what looks to be ventricular tachycardia which resolved itself, respiratory rate is 18 without the use of accessory muscles, and he is 97 to 96% saturated now on room air. Blood pressure is ranging between 118/77 to 130/74. His intake and output over the past 24 hours has been reported as 1080 in and 127 out for a positivity of 953 ml. His weight today is recorded as 67.9 kilos, down from 75.2 kilos yesterday which I think is probably spurious. OBJECTIVE: His lungs still show coarse rhonchi in the right but it is much improved over even yesterday. Percussion note is full to the diaphragm. He still has minimal subcutaneous emphysema over the anterior chest wall and right supraclavicular fossa. Cardiac exam is without murmurs, clicks, gallops, or rubs. I cannot feel his point of maximal impulse (PMI). S1 and S2 are normal. Abdomen is soft and nontender. Bowel sounds are positive. There is no hepatomegaly. No costovertebral angle (CVA) tenderness. Extremities show no pretibial edema, no calf tenderness. There is differential swelling of the upper extremities with the left being greater than the right secondary to his subclavian and left jugular vein thromboses. Skin is warm, dry, and perfused without cyanosis or mottling, including that of the nailbeds and knees. Neck is supple. There is minimal subcutaneous emphysema. Trachea is midline. There is no jugular venous distention. Mouth shows his mucous membranes to be pink and moist. Lips and commissures without lesions. No thrush. Eyes show his pupils to be equal and reactive. Extraocular motion intact. Sclerae anicteric. Neurologic shows II-XII intact. Normal gross motor, gross sensation intact. Gait is not tested. Psychiatric shows him to be awake, alert, and oriented times three with appropriate mood and affect and conversational. LABORATORY DATA: His white count today is 7.6 with a hemoglobin and hematocrit of 9.6 and 30.0 which continues to improve. Platelet count is 134,000 and is improving. Chemistries today shows marginally increased total CO2 of 34 but the remainder of his electrolytes are normal. In particular, his potassium is 4.0. Magnesium has not been ordered and I will do this. Calcium is 8.4 with a glucose of 110. Chest x-ray continues to improve with better aeration of the right lung. He still has an airspace. IMPRESSION: 1. Pulmonary pneumonitis by exclusion, attributable to Opdivo, PDL-1 inhibitor. 2. Possible underlying fungal disease. 3. Immunosuppression. 4. Stage IV gastroesophageal carcinoma. 5. Hypercoagulability secondary to above carcinoma. 6. 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 7. Hemorrhagic shock and bleeding from chest wall, resolved. 8. Thrombocytopenia, resolved. 9. Hypoxic respiratory failure, resolved. 10.Recurrent pneumothorax, right side, stable and improving. 11.Subcutaneous emphysema, improving. PLAN AND DISCUSSION: I have spoken again with Dr. Swift. She is going to start him on Eliquis. The plan is to potentially discharge him tomorrow to home. He is now on room air. He will continue ambulating today with reconditioning. I will follow-up him up as an outpatient in a week after discharge with a chest x-ray.
--- NOTE | 2021-06-06 12:31 | IPN ---
PROGRESS NOTE DATE: 06/05/2021 SUBJECTIVE: Mr. Lawson is doing much better today. He is starting to walk around. He is also breathing easier. His chest tube was removed yesterday. His vital signs shows a T-max of 98.3 with a heart rate that ranges between 77 and 110 and a sinus rhythm and a respiratory rate of 18 to 20 without the use of accessory muscles. He was 91% to 100% saturated, now on 1 liter nasal cannula. His blood pressure is ranging between 136/88 to 100/57. His intake and output over the past 24 hours has been recorded as 1400 in and 551 out for a positivity of 849 ml. He weighs 75.2 kilos today compared to 79.7 kilos yesterday. He is only recorded as putting out 551 ml of urine. OBJECTIVE: His lungs show decreasing rales and rhonchi. He still has some crepitus and subcutaneous emphysema which is both audible and palpable over the anterior chest wall and the supraclavicular fossa. It is however, much less. Percussion notes are full to the diaphragm. Cardiac exam is without murmurs, clicks, gallops, or rubs. I cannot feel his point of maximal impulse (PMI). S1 and S2 are normal. Abdomen is soft and nontender. Bowel sounds are positive. There is no hepatomegaly. No costovertebral angle (CVA) tenderness. Extremities show no pretibial edema, no calf tenderness. He has differential swelling of the upper extremities with the left greater than the right from his subclavian and left jugular venous thromboses. Skin is warm, dry, and perfused without cyanosis or mottling, including that of the nailbeds and knees. Neck is supple. There is the aforementioned subcutaneous emphysema. Trachea is midline. There is no jugular venous distention. Mouth shows his mucous membranes to be pink and moist. Lips and commissures without lesions. No thrush. Eyes show his pupils to be equal and reactive. Extraocular motion intact. Sclerae anicteric. Neurologic shows II-XII intact. Normal gross motor, gross sensation intact. Gait is not tested. Psychiatric shows him to be awake, alert, and oriented times three with appropriate mood and affect and conversational. LABORATORY DATA: His white count today is 6.6, down from 7.7 yesterday. Hemoglobin and hematocrit are 8.4 and 26.7 respectively with a platelet count of 122,000. There is no differential. His electrolytes are essentially normal with a BUN and Creatinine of 19 and 0.61, glucose of 111 and a calcium of 7.9. His chest x-ray still shows the apical airspace with dissipating subcutaneous emphysema. It is improving over yesterday's where the airspace was a little bit larger. There is more aeration of the lung and the mediastinum is starting to shift back to the midline. IMPRESSION: 1. Pulmonary pneumonitis by exclusion, attributable to Opdivo, PDL-1 inhibitor. 2. Possible underlying fungal disease. 3. Immunosuppression. 4. Stage IV gastroesophageal carcinoma. 5. Hypercoagulability secondary to above carcinoma. 6. 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 7. Hemorrhagic shock and bleeding from chest wall, resolved. 8. Thrombocytopenia, resolved. 9. Hypoxic respiratory failure, resolved. 10.Recurrent pneumothorax, right side, stable and improving. 11.Subcutaneous emphysema, improving. 12.Continued immunosuppression from prior chemotherapy. PLAN/DISCUSSION: Today, we will get him to walk around the entire PCU circuit with Physical Therapy. He is at a point where we can actually consider discharge in the next few days. I have spoke with Dr. Swift, of the Hospitalist Service and she is going to restart his 10a inhibitor anticoagulation.
--- NOTE | 2021-06-06 13:45 | IPNPDOC ---
Text Note Date of Service The patient was seen on 06/06/21. NOTE SUBJECTIVE: -Doing very well -No increased SOB, fevers, chills, n/v/d and pain is well controlled and minimal OBJECTIVE: VITAL SIGNS: Please see below GENERAL: Patient is awake, alert and oriented x3, NAD LUNGS: Stable examination with bilateral rhonchi, moving air well. Now on room air HEART: RRR, no m/r/g ABDOMEN: Soft, nontender and nondistended. EXTREMITIES: Stable LUE swelling > RUE. LUE with ecchymosis on anterior arm. Neuro: No focal deficits LABORATORY DATA: Reviewed, stable MICROBIOLOGY/PATH/CYTOLOGY: Sputum GS: QUALITY: GOOD MODERATE EPITHELIAL CELLS MODERATE WBCS MANY GRAM POSITIVE COCCI IN PAIRS, CHAINS AND CLUSTERS MANY GRAM NEGATIVE RODS FEW GRAM POSITIVE RODS FEW YEAST LIKE ORGANISM Sputum Cx: yeast like organism BCx: NG UA neg COVID test x 4- neg CMV negative C. diff: neg Fungal studies negative, strep pneumoniae negative, legionella negative TB neg galactomannan studies neg BAL cx: NG BAL fungal Cx: negative Bronchoscopy pathology: neg for malignancy, PNA Bronchoscopy cytology: no malignancy IMAGING STUDIES: 06/03/2021 CXR: There is a large right pneumothorax not significantly changed. There is a large bore thoracostomy tube on the right not changed in position. There is extensive subcutaneous emphysema extending into the neck a bilaterally. There is significant airspace disease in the right lung and there is a partially loculated right pleural effusion. The left lung appears clear a. there is a left subclavian chemotherapy port with the tip at the junction of the left brachiocephalic vein in the superior vena cava, not significantly changed. The cardiomediastinal silhouette is unchanged. The upper abdominal bowel gas pattern is normal. IMPRESSION: 1. Large right pneumothorax with extensive subcutaneous emphysema, not significantly changed. 2. Other findings as noted, not significantly changed. 05/31 CXR: New airspace in the right upper hemithorax. There is subcutaneous emphysema at the base of the neck. His inferior chest tube is in the target place. CT chest 05/28: 1. Severe right-sided pneumonia with complete consolidation of the lower lobe of the right lung with air-filled ectatic bronchi. 2. Large right-sided hydropneumothorax, which is loculated inferomedially, as described. 3. There is some mm of congestive heart failure. 4. Other findings as noted. There is no significant change. CXR 05/27: The small right apical pneumothorax has again gotten smaller. There are no other significant changes. The tip of the chest tube remains in the right lung apical region. CT chest 05/26/21: 1. Adenopathy status quo. 2. Right-sided thoracotomy tube with a persistent pneumothorax. 3. Possible empyema developing in the right lower lobe region as described above. Follow-up is suggested. 4. Odd appearing soft tissue densities in the airspace created by the pneumothorax in the right anterior mediastinum as described above. Etiology uncertain. CXR 05/24/21: Decreased size of right pneumothorax. CXR 05/23/21: The technique utilized in obtaining the radiograph has magnified the cardiac silhouette and accentuated the interstitial markings. The cardiomediastinal silhouette lung mcclellan are unchanged. The right-sided pneumothorax is unchanged. The right-sided thoracotomy tube is unchanged. The osseous structures are stable. Echo 05/12/21: 1. Study is of very limited technical quality. Underlying sinus rhythm. 2. Normal left ventricular (LV) size with normal or near-normal LV systolic function based on limited views. Grade 1 diastolic dysfunction. 3. No significant valvular disease. 4. Unable to estimate central venous pressure and pulmonary artery pressure. ASSESSMENT: 70-year-old M with a GE junction Stage IV cancer on FOLFOX and nivolumab who was admitted for presumed R>>L sided pneumonia with acute hypoxemic respiratory failure and LUE DVT c/b interval worsening despite varied antibiotic therapies and vori and restarted on steroids for what is now is believed to be nivolumab induced pneumonitis s/p bronchoscopy on 05/19 and 2 chest tubes c/b pneumothorax and subsequently hemorrhagic shock w/ resultant consumptive thrombocytopenia unlikely to be HIT, now improving. IMPRESSION: #Hemorrhagic shock and bleeding from the chest tube wall, now resolved: was while on therapeutic lovenox: improved, had 2nd tube placed that has now been discontinued w/ small pneumothorax that is being watched closely and thus far stable. -Reversed with protamine sulfate early AM on 05/28 -all chest tubes are out, R lower tube was discontinued yesterday, 06/05 -now on eliquis 5 BID, started this AM -Thoracic surgery onboard, onboard with plan for discharge home tomorrow if H/H is stable -Daily CBCs #Thrombocytopenia, likely reactive consumptive thrombocytopenia unlikely to be HIT, now improving. -Now improving -Daily CBC #Leukocytosis likely reactive due to chest tube placement, and steroids: resolved. -afebrile, HR sinus, no s/s of infection currently -Not currently on antibiotics -procal remains negative #Acute hypoxic respiratory failure likely 2/2 to nivolumab (drug) induced pneumonitis, complicated by right side pneumothorax and subsequently hemothorax s/p chest tube placement x 2. Resolved, now on room air. -Now on room air -Imaging noted above, has a stable R sided upper pneumothorax -Micro/path above ruled out PNA . -Stopped all antibacterial/antifungal meds. -Will switch solumedrol 80 Q8H tomorrow AM to prednisone with a long taper -thoracic surgery has now discontinued chest tubes, and he is doing well #Anxiety -xanax PRN #Occlusive thrombus in left upper extremity veins including subclavian vein, left jugular vein occlusive thrombus, central subclavian vein thrombus and newly identified right cephalic vein thrombus -Right cephalic vein thought be old thrombus initially (and still very could be); HOWEVER, if HIT is confirmed then this may very well be a new thrombus. He had been on therapeutic dosing lovenox BID since 05/11/21- 05/27/21. -Prior to admission patient was supposed to be on AC daily but he stopped after two weeks -Eliquis 5mg BID #Elevated troponin 2/2 sepsis -No hx of CHF, CAD -BNP 1100, trop elevated but now 0.09 -Discussed with Dr. 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 -Currently, undergoing FOLFOX with Nivolumab every two weeks. -Dr. Marin hematology/oncology-has seen patient this admission #GERD -C/w PPI, Carafate #Dyslipidemia #Chronic anxiety #DVT px -scd/teds, started heparin sc Q12 today #Anemia i/s/o of recent bleeding -will give one more unit today, goal Hgb >8 -daily cbc RESOLVED #Sepsis #Hypotension/hemorrhagic shock 2/2 to blood loss 2/2 to bleeding chest tube, complicated by therapeutic lovenox, toradol DISPOSITION: Pulmonary, ID, CT surgery were consulted. Plan is for home tomorrow with eliquis BID and a long prednisone taper with close follow up. Doing well with PT/OT. VS,Fishbone, I+O VS, Fishbone, I+O Laboratory Tests 06/06/21 05:08 Vital Signs Date Time Temp Pulse Resp B/P (MAP) Pulse Ox O2 Delivery O2 Flow Rate FiO2 06/06/21 12:00 97.1 106 18 123/81 (95) 96 Room Air 06/05/21 08:00 I&O- Last 24 Hours up to 6 AM 06/06/21 06:00 Intake Total 1080 ml Output Total 151 ml Balance 929 ml MAITE ARANA MD Jun 06, 2021 13:45
[2021-06-06 16:56] LABS: HEMATOCRIT 30.6 % (42.0-52.0); HEMOGLOBIN 9.7 g/dl (13.5-17.5)
[2021-06-06] MEDS: ALPRAZolam 0.25 MG TAB PO PRN (21:48)
[2021-06-06] MEDS: allopurinoL 100 MG TAB PO SCH (21:48)
[2021-06-06] MEDS: ROSUVASTATIN 10 MG TAB (CRESTOR) PO SCH (21:53)
[2021-06-07] VITALS: BP 130/78
[2021-06-07] MEDS: methylPREDNISolone 40MG 1ML VIAL IV SCH ×2 (02:23→12:30)
[2021-06-07] MEDS: LEVALBUTEROL 1.25 MG/0.5 ML CONCENTRATE NEB INH SCH ×3 (03:00→12:00)
[2021-06-07 04:00] VITALS: BP 122/71
[2021-06-07 06:13] LABS: HEMATOCRIT 31.7 % (42.0-52.0); HEMOGLOBIN 10.2 g/dl (13.5-17.5); MEAN CORPUSCULAR HEMOGLOBIN 31.7 pg (27.0-33.0); MEAN CORPUSCULAR HGB CONC 32.2 g/dl (32.0-36.5); MEAN CORPUSCULAR VOLUME 98.4 fl (80.0-96.0); PLATELET COUNT, AUTOMATED 141 10^3/uL (150-450); RED BLOOD COUNT 3.22 10^6/uL (4.30-6.10); WHITE BLOOD COUNT 8.3 10^3/uL (4.0-10.0)
[2021-06-07 06:34] LABS: BLOOD UREA NITROGEN 18 MG/DL (7-18); CALCIUM LEVEL 8.7 MG/DL (8.8-10.2); CARBON DIOXIDE LEVEL 29 MEQ/L (21-32); CHLORIDE LEVEL 107 MEQ/L (98-107); CREATININE FOR GFR 0.76 MG/DL (0.70-1.30); GLOMERULAR FILTRATION RATE > 60.0 (>49); GLUCOSE, FASTING 109 MG/DL (70-100); POTASSIUM SERUM 4.3 MEQ/L (3.5-5.1); SODIUM LEVEL 141 MEQ/L (136-145)
[2021-06-07] MEDS: SUCRALFATE SUSP 1GM/10ML UD PO SCH ×2 (06:48→12:40)
[2021-06-07 08:00] VITALS: BP 120/78
[2021-06-07] MEDS: BUDESONIDE 0.25 MG/2 ML INHALATION SUSPENSION INH SCH (08:00)
[2021-06-07] MEDS: LACTOBACILLUS ACIDOPHILUS CAP (BACID) PO SCH ×2 (08:31→12:40)
[2021-06-07] MEDS: PANTOPRAZOLE 40MG TAB (PROTONIX) PO SCH (08:31)
[2021-06-07] MEDS: ALPRAZolam 0.25 MG TAB PO PRN (08:31)
[2021-06-07] MEDS: APIXABAN 5 MG TAB (ELIQUIS) PO SCH (08:31)
[2021-06-07] MEDS: DOCUSATE SODIUM 100MG CAPSULE PO SCH (08:31)
[2021-06-07] MEDS: guaiFENesin ER 600 MG TAB PO SCH (08:31)
[2021-06-07] MEDS ORDERED: ELIQ5TAB PO (08:49)
[2021-06-07] MEDS ORDERED: RISATAB3 PO (08:49)
[2021-06-07] MEDS ORDERED: SUCR1TA PO (08:49)
[2021-06-07] MEDS ORDERED: MUCI600T31 PO (08:49)
[2021-06-07] MEDS ORDERED: ALPR0.25 PO (08:49)
[2021-06-07] MEDS ORDERED: PRED10TA2 PO (08:49)
[2021-06-07] MEDS ORDERED: LEVA12INH INH (08:49)
[2021-06-07] MEDS ORDERED: PANT40TA29 PO (08:49)
[2021-06-07] MEDS ORDERED: BACT800T5 PO (08:49)
[2021-06-07] MEDS ORDERED: PERCOCET PO (08:49)
--- NOTE | 2021-06-07 10:51 | REP ---
INDICATION: pneumohtx. COMPARISON: 06/06/2021, 06/05/2021 TECHNIQUE: PA lateral. FINDINGS: A right subclavian catheter is seen extending into the right atrium unchanged. There is a left subclavian port catheter with tip in the left brachiocephalic vein. Volume loss in the right hemithorax with chronic lung opacities and a small right apical pneumothorax unchanged. IMPRESSION: 1. Stable exam with chronic volume loss, airspace opacities in the right lung and small apical pneumothorax on the right. 2. Bilateral subclavian catheter is unchanged. No new findings <Electronically signed by Froilan Long > 06/07/21 1046
--- NOTE | 2021-06-07 11:01 | DS.PDOC ---
Discharge Summary General Date of Admission May 07, 2021 at 14:28 Date of Discharge 06/07/2021 Attending Physician: MAITE ARANA MD Discharge Summary PROCEDURES PERFORMED DURING STAY: 1. bronchoscopy on 05/19/2021 2. First chest tube placement 05/22/2021 3. Second chest tube placement, w/ insertion of anterior-superior right-sided chest tube 05/27/2021 4. 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 HISTORY OF PRESENT ILLNESS: 70-year-old M with a history of GE junction stage IV adenocarcinoma undergoing FOLFOX and nivolumab, patient of Dr. 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 He was okay Saturday morning but in the afternoon after helping his friend and changing the brakes on his car he felt much more dyspneic around 230 to 3:30 PM. Upon returning to his house he was unable to even get out of his easy chair. He felt lightheaded, and could not catch his breath. He has had subjective fevers and chills Saturday and had some night sweats and hot flashes some constipation without nausea vomiting headache or diarrhea. On the day of presentation, when he got up out of bed he was very tired with dyspnea on exertion. HOSPITAL COURSE: On presentation, he denied any PND orthopnea or lower extremity edema weight gain weight loss or prior history of congestive heart failure or any GI blood loss such as hematemesis coffee-ground emesis black tarry stools or melena. He had a dry cough with no sputum production. He denied any chest pain at presention but previously had complains of substernal chest pains and dysphagia in early April when he saw his medical oncologist. He was otherwise lightheaded without palpitations, falls or near syncope at home. In the ER he was found to be febrile 103.3, tachycardic with pulse 109, chest x-ray showing right lower lobe infiltrate, and COVID-19 negative. He was admitted for presumed sepsis secondary to right lower lobe pneumonia. He was admitted to the hospital with a chest x-ray, that showed unilateral consolidative changes and a CT scan that showed an interstitial process with patchy infiltrates. He was started on broad-spectrum antibiotics. He did not get better until high-dose steroids were instituted. He then clinically got better. Pulmonology and infectious diseases were consulted and steroids were briefly held while antibiotics and antifungals were escalated given the unilateral nature of his findings with initial suspicion for infection about after global negative infectious workup and negative procalcitonin, steroids were restarted and he eventually had bronchoscopy on 05/19/2021. He did well after the bronchoscopy, but on 05/22/2021 he developed a pneumothorax with increasing shortness of breath. At that point a chest tube catheter was placed, which while placed anteriorly and superiorly, wound up heading inferiorly. H e continued to have the pneumothorax with initial improvement but then had increased volume loss and consolidation and thoracic surgery was consulted. He had a second chest tube placed by thoracic surgery on 05/27. His course was c/b chest wall bleeding while on therapeutic dosing Lovenox on 06/27 and hemothorax for which Dr. Trejo placed a very deep U-stitch around the chest tube and into the chest wa ll and a subsequent chest x-ray showed an accumulated opacity in the lower hemithorax consistent w/ retained blood, but unfortunately, he subsequently developed worsening of the bleeding accompanied by hypotension to 60 systolic and went into sergey hemorrhagic shock, for which he had fluid resuscitation and thoracic surgery came in removed the anterior chest tube and placed a Nathan catheter and inflated the balloon and placed the whole Nathan catheter under traction to tamponade the chest wall bleeding. He was reversed by protamine and given 2 units of packed cells with eventual return to 100 s ystolic. An additional chest tube was placed laterally and inferiorly to drain what was thought to be blood in the chest as seen on a chest x-ray with a new opacity. His H/H finally stabilized and the nathan chest tube was deflated and removed without further bleeding or H/H drop. He had pleurolysis with the lower chest tube with removal of hemothorax pooled blood and the last chest tube was removed on 06/05. On 06/06 he was restarted on anticoagulation with eliquis which he has tolerated very well and H/H remains stable and he is hemodynamically stable and now breathing comfortably on room air. He is now being discharged home with close PCP, oncology, thoracic surgery follow up within 1 week and will be seen by pulmonology within 2 weeks. He is to have a follow up outpatient CXR wt thoracic surgery within the next week, a follow up CBC by hematology within the next few days as he continues on eliquis and is being discharged home on a long prednisone taper (my script only covers the first 1 month) that will be continued by pulmonology when he is seen in 2 weeks, with appropriate bactrim PCP ppx and protonix BID GI ppx. DISCHARGE MEDICATIONS: Please see below. ALLERGIES: Please see below. PHYSICAL EXAMINATION ON DISCHARGE: VITAL SIGNS: Please see below. ITAL SIGNS: Please see below GENERAL: Patient is awake, alert and oriented x3, NAD LUNGS: Stable examination with bilateral rhonchi, moving air well. Now on room air HEART: RRR, no m/r/g ABDOMEN: Soft, nontender and nondistended. EXTREMITIES: Stable LUE swelling > RUE. LUE with ecchymosis on anterior arm. Neuro: No focal deficits LABORATORY DATA: Please see below. Sputum GS: QUALITY: GOOD MODERATE EPITHELIAL CELLS MODERATE WBCS MANY GRAM POSITIVE COCCI IN PAIRS, CHAINS AND CLUSTERS MANY GRAM NEGATIVE RODS FEW GRAM POSITIVE RODS FEW YEAST LIKE ORGANISM Sputum Cx: yeast like organism BCx: NG UA neg COVID test x 4- neg CMV negative C. diff: neg Fungal studies negative, strep pneumoniae negative, legionella negative TB neg galactomannan studies neg BAL cx: NG BAL fungal Cx: negative Bronchoscopy pathology: neg for malignancy, PNA Bronchoscopy cytology: no malignancy IMAGIN/2: CXR: There is a stable small right apical pneumothorax. There is stable right lung consolidation with volume loss and shift of heart mediastinal structures to the right. Left lung remains clear. Bilateral central venous catheters appear unchanged. IMPRESSION: Stable exam. 06/03/2021 CXR: There is a large right pneumothorax not significantly changed. There is a large bore thoracostomy tube on the right not changed in position. There is extensive subcutaneous emphysema extending into the neck a bilaterally. There is significant airspace disease in the right lung and there is a partially loculated right pleural effusion. The left lung appears clear a. there is a left subclavian chemotherapy port with the tip at the junction of the left brachiocephalic vein in the superior vena cava, not significantly changed. The cardiomediastinal silhouette is unchanged. The upper abdominal bowel gas pattern is normal. IMPRESSION: 1. Large right pneumothorax with extensive subcutaneous emphysema, not significantly changed. 2. Other findings as noted, not significantly changed. 05/31 CXR: New airspace in the right upper hemithorax. There is subcutaneous emphysema at the base of the neck. His inferior chest tube is in the target place. CT chest 05/28: 1. Severe right-sided pneumonia with complete consolidation of the lower lobe of the right lung with air-filled ectatic bronchi. 2. Large right-sided hydropneumothorax, which is loculated inferomedially, as described. 3. There is some mm of congestive heart failure. 4. Other findings as noted. There is no significant change. CXR 05/27: The small right apical pneumothorax has again gotten smaller. There are no other significant changes. The tip of the chest tube remains in the right lung apical region. CT chest 05/26/21: 1. Adenopathy status quo. 2. Right-sided thoracotomy tube with a persistent pneumothorax. 3. Possible empyema developing in the right lower lobe region as described above. Follow-up is suggested. 4. Odd appearing soft tissue densities in the airspace created by the pneumothorax in the right anterior mediastinum as described above. Etiology uncertain. CXR 05/24/21: Decreased size of right pneumothorax. CXR 05/23/21: The technique utilized in obtaining the radiograph has magnified the cardiac silhouette and accentuated the interstitial markings. The cardiomediastinal silhouette lung mcclellan are unchanged. The right-sided pneumothorax is unchanged. The right-sided thoracotomy tube is unchanged. The osseous structures are stable. Echo 05/12/21: 1. Study is of very limited technical quality. Underlying sinus rhythm. 2. Normal left ventricular (LV) size with normal or near-normal LV systolic function based on limited views. Grade 1 diastolic dysfunction. 3. No significant valvular disease. 4. Unable to estimate central venous pressure and pulmonary artery pressure. PROGNOSIS: Good ACTIVITY: As tolerated DIET: regular DISCHARGE PLAN: Home with pred taper, PCP ppx, with close onc. thoracic surgery and PCP follow up. Pulm to see in 2w DISPOSITION: home DISCHARGE INSTRUCTIONS: Home with pred taper, PCP ppx, with close onc. thoracic surgery and PCP follow up. Pulm to see in 2w DISPOSITION: home ITEMS TO FOLLOWUP ON ON OUTPATIENT: Oncology - GE junction CA, pneumonitis, anemia thoracic surgery - pneumothorax and recent hemothorax Pulm - pneumonitis PCP follow up DISCHARGE CONDITION: Stable TIME SPENT ON DISCHARGE: 70 minutes. Vital Signs/I&Os Vital Signs Date Time Temp Pulse Resp B/P (MAP) Pulse Ox O2 Delivery O2 Flow Rate FiO2 06/07/21 08:00 97.4 110 18 120/78 (92) 95 Room Air 06/06/21 20:00 1.0 I&O- Last 24 Hours up to 6 AM 06/07/21 05:59 Intake Total 1240 ml Output Total 0 ml Balance 1240 ml Laboratory Data Labs 24H Laboratory Tests 2 06/07/21 05:57: Nucleated Red Blood Cells % (auto) 0.0, Anion Gap 5L, Glomerular Filtration Rate > 60.0, Calcium Level 8.7L CBC/BMP Laboratory Tests 06/06/21 16:19 06/07/21 05:57 Discharge Medications Scheduled Allopurinol (Allopurinol) 100 Mg Tablet, 100 MG PO DAILY, (Reported) Apixaban (Eliquis) 5 Mg Tablet, 5 MG PO BID Docusate Sodium (Stool Softener) 100 Mg Capsule, 100 MG PO DAILY, (Reported) Folic Acid/Multivit-Min/Lutein (Centrum Silver Chewable Tablet) 1 Each Tab.chew, 2 TAB PO DAILY, (Reported) Guaifenesin (Mucinex) 600 Mg Tab.er.12h, 1,200 MG PO BID L.acidoph/L.bulg/B.bif/S.therm (Madiha-Bid Caplet) 1 Each Tablet, 1 EA PO DAILY Lactose-Reduced Food (Ensure Liquid) 237 Ml Liquid, 237 ML PO DAILY, (Reported) Levalbuterol Hydrochloride (Xopenex Concentrate) 1.25 Mg/0.5 Ml Vial.neb, 1.25 MG INH RQ4H Lidocaine/Prilocaine (Lidocaine-Prilocaine Cream) 2.5%/2.5% Cream..g., 1 DOSE TOP ASDIRECTED, (Reported) Apply dime size to port area. Do not rub in, cover with saran wrap to protect clothing. Pantoprazole Sodium (Pantoprazole Sodium) 40 Mg Tablet.dr, 40 MG PO BID Prednisone (Prednisone) 10 Mg Tablet, 1 TAB PO ASDIRECTED 6tabs daily for 2weeks, then 5tabs daily for 2weeks, after which pulmonology will direct. Rosuvastatin Calcium (Rosuvastatin Calcium) 5 Mg Tablet, 5 MG PO QPM, (Reported) Sucralfate (Sucralfate) 1 Gm Tablet, 1 TAB PO QID Sulfamethoxazole/Trimethoprim (Bactrim Ds Tablet) 1 Each Tablet, 1 TAB PO 3XW Scheduled PRN Acetaminophen (Tylenol Extra Strength) 500 Mg Powd.pack, 500 MG PO for PAIN LEVEL 1-4, (Reported) Alprazolam (Alprazolam) 0.25 Mg Tablet, 0.25 MG PO DAILYPRN PRN for ANXIETY Ondansetron (Ondansetron Odt) 8 Mg Tab.rapdis, 8 MG PO TID PRN for NAUSEA OR VOMITING, (Reported) Oxycodone/Acetaminophen (Oxycodone-Acetaminophen 5-325) 1 Each Tablet, 1 TAB PO Q4HP PRN for MODERATE PAIN (PS 5-7) Prochlorperazine (Prochlorperazine Maleate) 5 Mg Tablet, 5 MG PO QID PRN for NAUSEA, (Reported) Allergies Coded Allergies: No Known Allergies (Unverified , 12/19/20) MAITE ARANA MD Jun 07, 2021 10:49
[2021-06-07 12:00] VITALS: BP 136/79
--- NOTE | 2021-06-07 12:04 | IPN ---
PROGRESS NOTE DATE: 06/07/2021 SUBJECTIVE: Mr. Lawson is doing quite well today. He has now been up and around ambulating all around the halls. His vital signs shows a T-max of 97.9 with a heart rate that ranges between 74 and 110 and is sinus rhythm with a respiratory rate of 17 to 18 without the use of accessory muscles and he is 95 to 97% saturated on room air with a blood pressure ranging between 130/78 to 120/78. His intake and output over the past 24 hours has been recorded as 1240 in and 25 out. The I and O's are not being kept well. His weight today is 70.1 kilos, weight was 67.9 kilos yesterday. OBJECTIVE: He has the faint rales and rhonchi on the right side. Subcutaneous emphysema is almost gone in the supraclavicular fossa and over the anterior chest wall. The left lung shows normal vesicular sounds. Percussion notes are full to the diaphragm. Cardiac exam is without murmurs, clicks, gallops, or rubs. I cannot feel his point of maximal impulse (PMI). S1 and S2 are normal. Abdomen is soft and nontender. Bowel sounds are positive. There is no hepatomegaly. No costovertebral angle (CVA) tenderness. Extremities show no pretibial edema, no calf tenderness. There is no differential swelling of the upper extremities. Skin is warm, dry, and perfused without cyanosis or mottling, including that of the nailbeds and knees. Neck is supple. There is no jugular venous distention. No subcutaneous emphysema. Trachea is midline. Mouth shows his mucous membranes to be pink and moist. Lips and commissures without lesions. No thrush. Eyes show his pupils to be equal and reactive. Extraocular motion intact. Sclerae anicteric. Neurologic shows II-XII intact. Normal gross motor, gross sensation intact. Gait is not tested. Psychiatric shows him to be awake, alert, and oriented times three with appropriate mood and affect and conversational. LABORATORY DATA: His white count today is 8.3 with a hemoglobin and hematocrit of 10.2 and 31.7 which continues to improve. Platelet count is 141,000 and stable. Chemistries shows normal electrolytes with a BUN and creatinine of 18 and 0.76, a glucose of 109 and a calcium of 8.7. His chest x-ray today shows continued improvement in the apical airspace and the subcutaneous emphysema. There is more aeration in his lung. There is still a midline shift to the right but that is improved since earlier on in his admission. IMPRESSION: 1. Pulmonary pneumonitis by exclusion attributable to Opdivo PDL-1 inhibitor. 2. Immunosuppression. 3. Stage IV gastroesophageal carcinoma. 4. Hypercoagulability secondary to the above carcinoma. 5. 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 6. Hemorrhagic shock and bleeding from chest wall, resolved. 7. Thrombocytopenia, resolved. 8. Hypoxic respiratory failure, resolved. 9. Recurrent pneumothorax, right side, stable and improving. 10.Subcutaneous emphysema, improving. PLAN/DISCUSSION: I see no reason why he cannot go home today. I will see him back in the office in 10 days with postoperative follow-up chest x-ray. I removed his residual sutures and also removed the central line. After the central line site stops bleeding he may take a shower in the morning. I have encouraged him to be as active as he can be but not to lift heavy objects. The Hospitalist service will take care of his home medications which includes oral anticoagulants consisting of Eliquis and a steroid taper.
== END 2021-06-07 14:35 | disposition home health service (06) | DRG 166 ==
LOC: M ED 11:44 → M ED INP 14:28 → ENRESERV 15:12 → M MSPAV 17:10 → M PCU 05-11 15:41 → M MSPAV 05-14 14:17 → M PCU 05-26 15:28
PROVIDERS: ADMIT General Practice; ATTEND Internal Medicine
PROC: 0BBF8ZX Excision of Right Lower Lung Lobe, Via Natural or Artificial Opening Endoscopic, Diagnostic (ICD-10-PCS; principal; 2021-05-22)
PROC: 0B9F8ZX Drainage of Right Lower Lung Lobe, Via Natural or Artificial Opening Endoscopic, Diagnostic (ICD-10-PCS; 2021-05-22)
PROC: 0W9930Z Drainage of Right Pleural Cavity with Drainage Device, Percutaneous Approach (ICD-10-PCS; 2021-05-26)
PROC: 30233N1 Transfusion of Nonautologous Red Blood Cells into Peripheral Vein, Percutaneous Approach (ICD-10-PCS; 2021-05-28)
PROC: 02HV33Z Insertion of Infusion Device into Superior Vena Cava, Percutaneous Approach (ICD-10-PCS; 2021-06-01)
DX: J70.4 Drug-induced interstitial lung disorders, unspecified (principal); J96.01 Acute respiratory failure with hypoxia; R57.8 Other shock; C16.0 Malignant neoplasm of cardia; I82.B12 Acute embolism and thrombosis of left subclavian vein; J93.83 Other pneumothorax; D68.69 Other thrombophilia; D68.32 Hemorrhagic disorder due to extrinsic circulating anticoagulants; I82.C12 Acute embolism and thrombosis of left internal jugular vein; D69.6 Thrombocytopenia, unspecified; K21.9 Gastro-esophageal reflux disease without esophagitis; F41.9 Anxiety disorder, unspecified; E78.5 Hyperlipidemia, unspecified; Z79.899 Other long term (current) drug therapy; Z92.21 Personal history of antineoplastic chemotherapy; Z79.01 Long term (current) use of anticoagulants; Z87.891 Personal history of nicotine dependence; R19.7 Diarrhea, unspecified; I50.9 Heart failure, unspecified; J98.2 Interstitial emphysema

== ENCOUNTER 2021-06-13 15:53 | Inpatient (IN) | payer MEDICARE, BC ==
[~2021-06-13] VITALS: Ht 180.3 cm; Wt 72.7 kg
[~2021-06-13 15:53] MED LIST changes: +ALPR0.25 PO; +BACT800T5 PO; +ENSULIQ8 PO; +IBUP-1022 PO; +LEVA12INH INH; +MUCI600T31 PO; -OMEPRAZOLE 20 MG CAP PO SCH; +PANT40TA29 PO; +PERCOCET PO; +PRED10TA2 PO; +RISATAB3 PO; +ROSU5TAB5 PO; +SUCR1TA PO
--- NOTE | 2021-06-13 17:00 | REP ---
INDICATION: DYSPNEA/COUGH. COMPARISON: 06/07/2021, 06/06/2021, 06/05/2021. TECHNIQUE: AP portable upright FINDINGS: The right subclavian catheter line is removed. Indwelling left subclavian port catheter with tip in the brachiocephalic vein. There is extensive airspace disease and chronic opacities in the right hemithorax with volume loss. There is compensatory hyperinflation of the left lung with that appearance grossly stable. There is an apical air gap of 23 mm compared to 26 mm on the previous study without chronic apical pneumothorax. Underlying fibrosis in the left lung again noted. Heart size difficult to social media marketing specialist. The aorta is without gross aneurysm. Bones appear unchanged. IMPRESSION: 1. Chronic parenchymal opacities in small apical pneumothorax on the right about 23 mm air gap previously 26 mm gap in the most recent chest 06/07/2021. Compensatory hyperinflation and an indwelling left subclavian port catheter are again seen. The right subclavian catheter line has been removed in the interval. No new findings or other interval change. <Electronically signed by Froilan Long > 06/13/21 [id number]
[2021-06-13 17:40] LABS: BASO % 0.1 % (0.0-1.0); HEMATOCRIT 36.5 % (42.0-52.0); HEMOGLOBIN 11.6 g/dl (13.5-17.5); LYMPH # 0.2 10^3/uL (1.5-5.0); LYMPH % 3.2 % (24.0-44.0); MEAN CORPUSCULAR HEMOGLOBIN 31.4 pg (27.0-33.0); MEAN CORPUSCULAR HGB CONC 31.8 g/dl (32.0-36.5); MEAN CORPUSCULAR VOLUME 98.9 fl (80.0-96.0); MONO # 0.1 10^3/uL (0.0-0.8); MONO % 1.6 % (2.0-8.0); NEUTROPHILS # 6.4 10^3/uL (1.5-8.5); NEUTROPHILS % 94.5 % (36.0-66.0); PLATELET COUNT, AUTOMATED 182 10^3/uL (150-450); RED BLOOD COUNT 3.69 10^6/uL (4.30-6.10); WHITE BLOOD COUNT 6.8 10^3/uL (4.0-10.0)
[2021-06-13 18:54] LABS: ALT/SGPT 62 U/L (12-78); BILIRUBIN,DIRECT 0.2 MG/DL (0.0-0.2); BILIRUBIN,TOTAL 0.6 MG/DL (0.2-1.0); BLOOD UREA NITROGEN 27 MG/DL (7-18); CALCIUM LEVEL 8.7 MG/DL (8.8-10.2); CARBON DIOXIDE LEVEL 30 MEQ/L (21-32); CHLORIDE LEVEL 105 MEQ/L (98-107); CK-MB VALUE MASS 4.5 NG/ML (<3.6); CPK CREATINE PHOSPHOKINASE 63 U/L (39-308); CREATININE FOR GFR 0.73 MG/DL (0.70-1.30); GLOMERULAR FILTRATION RATE > 60.0 (>49); GLUCOSE, FASTING 124 MG/DL (70-100); MB/CK RELATIVE INDEX 7.14 (< OR =4); NT-PRO BNP 399 PG/ML (<125); POTASSIUM SERUM 4.1 MEQ/L (3.5-5.1); SODIUM LEVEL 142 MEQ/L (136-145); THYROID STIMULATING HORMONE 0.939 uIU/ML (0.358-3.740); TOTAL PROTEIN 5.7 GM/DL (6.4-8.2); TROPONIN I 0.24 NG/ML (< 0.10)
[2021-06-13] MEDS ORDERED: ISOVUE-370 76% 100ML VIAL As Ordered ONE (19:25)
--- NOTE | 2021-06-13 19:48 | ECGEPIP ---
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
[2021-06-13] MEDS ORDERED: RISATAB3 PO (20:34)
[2021-06-13] MEDS ORDERED: XANA0.25 PO (20:34)
[2021-06-13] MEDS ORDERED: ELIQ5TAB PO (20:34)
--- NOTE | 2021-06-13 20:35 | REPVR ---
PROCEDURE INFORMATION: Exam: CTA Chest With Contrast Exam date and time: 06/13/2021 7:57 PM Age: 70 years old Clinical indication: Shortness of breath; Additional info: SOB TECHNIQUE: Imaging protocol: Computed tomographic angiography of the chest with contrast. 3D rendering (Not supervised by radiologist): MIP and/or 3D reconstructed images were created by the technologist. Radiation optimization: All CT scans at this facility use at least one of these dose optimization techniques: automated exposure control; mA and/or kV adjustment per patient size (includes targeted exams where dose is matched to clinical indication); or iterative reconstruction. Contrast material: ISOVUE 370; Contrast volume: 75 ml; Contrast route: INTRAVENOUS (IV); COMPARISON: CT ANGIO CHEST 05/07/2021 1:19 PM FINDINGS: Tubes, catheters and devices: There is a right chest tube demonstrated in the pulmonary apex with decreased size of the balloon component. Pulmonary arteries: There are no pulmonary emboli. Aorta: There is no aortic dissection or aneurysm. Lungs: Redemonstration of predominantly peripherally located coarse mixed ground-glass and semi solid pulmonary parenchymal infiltrates, right greater than left. Solid-appearing parenchymal process in the medial aspect of the right lung base previously demonstrating an air-fluid level. Finding may represent the residua of previously demonstrated hemopneumothorax, which overall has decreased. Calcified granuloma right lower lobe. Pleural spaces: There has been mild interval increase in the size of a previously demonstrated right pneumothorax. Previously demonstrated left pleural effusion no longer present. Heart: There is mild atherosclerotic calcification of the coronary arteries. Mediastinal space: There is now extensive pneumomediastinum. Lymph nodes: Unremarkable. No enlarged lymph nodes. Stomach and bowel: Dilated loops of small bowel demonstrated in the left upper quadrant likely indicates the presence of an ileus. Obstruction to be excluded clinically. Intraperitoneal space: There is volume loss right hemithorax. Bones/joints: The spine demonstrates moderate degenerative changes with DISH disease. Soft tissues: Subcutaneous emphysema is demonstrated in the anterior and posterior aspect of the right hemithorax extending superiorly into the base of the neck bilaterally. As well as posteriorly towards the right shoulder. IMPRESSION: 1. Redemonstration of predominantly peripherally located coarse mixed ground-glass and semi solid pulmonary parenchymal infiltrates, right greater than left. 2. Solid-appearing parenchymal process in the medial aspect of the right lung base previously demonstrating an air-fluid level. Finding may represent the residua of previously demonstrated hemopneumothorax, which overall has decreased. 3. There has been mild interval increase in the size of a previously demonstrated right pneumothorax. 4. There is now extensive pneumomediastinum. 5. Subcutaneous emphysema is demonstrated in the anterior and posterior aspect of the right hemithorax extending superiorly into the base of the neck bilaterally. As well as posteriorly towards the right shoulder. 6. There is no aortic dissection or aneurysm. 7. There are no pulmonary emboli. 8. There is volume loss right hemithorax. 9. Dilated loops of small bowel demonstrated in the left upper quadrant likely indicates the presence of an ileus. Obstruction to be excluded clinically. Electronically signed by: Geraldo Gastelum On 06/13/2021 20:35:21 PM
[2021-06-13] MEDS ORDERED: PANT40TA29 PO (20:40)
[2021-06-13] MEDS ORDERED: NARC1SPR NARES (20:40)
[2021-06-13] MEDS ORDERED: BACT800T5 PO (20:40)
[2021-06-13] MEDS ORDERED: SUCR1TA PO (20:40)
[2021-06-13] MEDS ORDERED: HOME MED LIST COMPLETE! XX SCH (20:45)
[2021-06-13] MEDS ORDERED: ROSUVASTATIN 10 MG TAB (CRESTOR) PO SCH (21:00)
[2021-06-13] MEDS ORDERED: PIPERACILLIN/TAZOBACTAM SOD 3.375 GM in D5W MINI-BAG PLUS 50 ML IV ONE (21:30)
[2021-06-13] MEDS ORDERED: VANCOMYCIN HCL 1,000 MG, VIAL MATE ADAPTER 1 EACH in NS 250 ML IV ONE (21:30)
[2021-06-13 22:54] LABS: CK-MB VALUE MASS 4.8 NG/ML (<3.6); MB/CK RELATIVE INDEX 9.23 (< OR =4); TROPONIN I 0.21 NG/ML (< 0.10)
[2021-06-13] MEDS ORDERED: PERCOCET 5MG/325MG TAB PO PRN (23:35)
[2021-06-13] MEDS ORDERED: PROCHLORPERAZINE 5 MG TAB (S0183) PO PRN (23:35)
[2021-06-13] MEDS ORDERED: VANCOMYCIN HCL 750 MG, VIAL MATE ADAPTER 1 EACH in NS 250 ML IV SCH (23:35)
[2021-06-13] MEDS ORDERED: ONDANSETRON 4 MG ORAL DISINTEGRATING TAB PO PRN (23:35)
--- NOTE | 2021-06-14 00:32 | HPEPDOC ---
[facility] Medical History & Physical Date of Admission Jun 13, 2021 Date of Service: Jun 13, 2021 Attending Physician: HENRIK JOHNS MD History and Physical CHIEF COMPLAINT: SOB HISTORY OF PRESENT ILLNESS: Edwin is a 70-year-old male who was sent from [facility] for worsening shortness of breath. He tells me he has been having shortness of breath particularly with exertion (walking, bowel movements, etc.) over the last few days. He tells me he feels like he cannot take a full breath. Denies pain with deep inhalation. Denies recent illness, loss of consciousness, fever/chills. Reports lightheadedness, fatigue, intermittent dry cough, occasional palpitations. Reports constipation, urinary hesitancy and frequency. Denies headache, changes in vision, chest pain, abdominal pain, nausea/vomiting, diarrhea, changes in sensation, weakness. Of note, patient was recently hospitalized for sepsis 2/2 right lower lobe pneumonia. His hospitalization was complicated and included bronchoscopy 05/19, chest tube placement 05/22 and 05/27 following development of pneumoth orax and hemothorax, and insertion of right subclavian catheter 06/01. He was discharged home on Bactrim for PCP prophylaxis, Protonix for GI prophylaxis, and prednisone taper, which patient tells me he has been compliant with. He was instructed to follow-up with pulmonology, PCP, CT surgery, oncology upon discharge. In the ED, he was found to be tachycardic with HR 107, but SpO2 95% on RA. CBC, CMP, BMP, TSH WNL. CK-MB 7.14, troponin 0.24 which is noted to be at patient's baseline (troponin 0.20.28). EKG NSR. CXR unremarkable. CTA significant for right ground glass appearance, right lower lobe solid process, pneumomediastinum, and worsening right pneumothorax (please refer to official impression, as noted below). Patient received 1 dose of vancomycin, Zosyn. CT surgery (Dr. Trejo) was consulted and provided recommendations for admission. PAST MEDICAL HISTORY: 1. CA esophageal, stage IV undergoing chemo and immunotherapy. 2. HLD. 3. Gout 4. Anxiety 5. Hemorrhoids PAST SURGICAL HISTORY: 1. 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 SOCIAL HISTORY: Marital status: Single. Resides in: Home Tobacco use: Occasionally smokes cigars, former cigarette smoker (quit 42 years ago) ETOH: Denies Illicit drug use: Occasional marijuana edibles FAMILY HISTORY: CAD, CA (stomach, colon) ALLERGIES: Please see below. REVIEW OF SYSTEMS: CONSTITUTIONAL: Reports fatigue. Denies fever/chills. HEENT: Reports lightheadedness. Denies headache, changes in vision, sore throa t, nasal congestion, rhinorrhea, ear pain. CARDIOVASCULAR: Reports palpitations. Denies chest pain, orthopnea. RESPIRATORY: Reports shortness of breath, occasional dry cough. Denies pleuritic chest pain, wheezing. GASTROINTESTINAL: Reports constipation. Denies abdominal pain, nausea/vomiting, diarrhea, hematochezia. GENITOURINARY: Reports urinary hesitancy/frequency. Denies changes in urinatio n, dysuria, hematuria. SKIN: Denies new bruising/abrasions. MUSCULOSKELETAL: Denies weakness. NEUROLOGICAL: Reports bilateral hand and foot numbness/tingling 2/2 chemotherapy. HOME MEDICATIONS: Please see below. PHYSICAL EXAMINATION: VITAL SIGNS: Temperature 98.1, pulse 99, respiratory rate 20, blood pressure 138/70, pulse oximetry 95% on room air. GENERAL APPEARANCE: Alert, awake, sitting up in stretcher, NAD, pausing between sentences to catch his breath. HEENT: NC/AT, EOMI, anicteric sclera, nares patent, moist mucous membranes, has own teeth. CARDIOVASCULAR: RRR, normal heart sounds, no MRG. LUNGS: CTA bilaterally, no WRR, no accessory muscles use. ABDOMEN: Soft, nontender, nondistended, multiple bruising in different stages of healing. Left subclavian catheter for chemotherapy in place without overlying/surrounding skin changes. MUSCULOSKELETAL: Normal ROM, strength 5/5. EXTREMITIES: No edema/cyanosis, 2+ PT/DP pulses palpated bilaterally. NEUROLOGICAL: CN III-XII intact, sensation intact. PSYCHIATRIC: AOx3, no depressed/anxious mood. LABORATORY DATA: See below. IMAGING: CXR (06/13) 1. Chronic parenchymal opacities in small apical pneumothorax on the right about 23 mm air gap previously 26 mm gap in the most recent chest 06/07/2021. Compensatory hyperinflation and an indwelling left subclavian port catheter are again seen. The right subclavian catheter line has been removed in the interval. No new findings or other interval change. CTA chest (06/23) 1. Redemonstration of predominantly peripherally located coarse mixed ground-g lass and semi solid pulmonary parenchymal infiltrates, right greater than left. 2. Solid-appearing parenchymal process in the medial aspect of the right lung base previously demonstrating an air-fluid level. Finding may represent the residua of previously demonstrated hemopneumothorax, which overall has decreased. 3. There has been mild interval increase in the size of a previously demonstrated right pneumothorax. 4. There is now extensive pneumomediastinum. 5. Subcutaneous emphysema is demonstrated in the anterior and posterior aspect of the right hemithorax extending superiorly into the base of the neck bilaterally. As well as posteriorly towards the right shoulder. 6. There is no aortic dissection or aneurysm. 7. There are no pulmonary emboli. 8. There is volume loss right hemithorax. 9. Dilated loops of small bowel demonstrated in the left upper quadrant likely indicates the presence of an ileus. Obstruction to be excluded clinically. MICROBIOLOGY: Please see below. ASSESSMENT/PLAN: Edwin is a 70-year-old male PMH esophageal cancer undergoing chemotherapy, recently admitted for sepsis 2/2 right lower lobe pneumonia with a complicated hospitalization, who presents with worsening shortness of breath and is being admitted for further work-up and repeat imaging 06/14. #SOB, most likely 2/2 unresolved PNA vs superimposed new onset bacterial PNA SPO2 95% on RA CXR, CTA chest, as noted above Order pro-Oswaldo, ESR, CRP Order repeat 2-view CXR to be done 06/14 Continue vancomycin, Zosyn Continue home prednisone 60 mg p.o. daily until 06/21 At this time, patient does not meet SIRS criteria and low suspicion for bacterial infection. However, given patient's recent complicated hospitalization, will continue abx and downgrade, pending further labs. CT surgery (Dr. Trejo) on consult, appreciate recommendations #Elevated troponin, most likely 2/2 demand ischemia In ED, troponin 0.24, CK-MB 7.14. EKG NSR without significant ST changes. Patient's baseline troponin 0.20.28 Repeat troponin pending. We will continue to trend if necessary. On telemetry At this time, low suspicion ACS. Will continue to monitor #Cancer, esophageal stage IV Patient will continue outpatient chemotherapy and immunotherapy, as per schedule F/u Dr. Marin upon discharge #HLD Continue home rosuvastatin 5 mg daily #Gout Continue home allopurinol 100 mg daily #Anxiety Continue home Xanax 0.25 mg daily #DVT prophylaxis Teds and sequentials Hold home Eliquis Avoid anticoagulation, pending repeat imaging 06/14 DIET: NPO ACTIVITY: As tolerated DISPO: Pending clinical improvement CODE STATUS: Full code Vital Signs Vital Signs Date Time Temp Pulse Resp B/P (MAP) Pulse Ox O2 Delivery O2 Flow Rate FiO2 06/13/21 23:15 102 94 06/13/21 23:00 136/86 (103) 06/13/21 17:30 20 Room Air 06/13/21 16:09 98.1 Laboratory Data Labs 24H Laboratory Tests 2 06/13/21 17:21: Immature Granulocyte % (Auto) 0.6, Neutrophils (%) (Auto) 94.5H, Lymphocytes (%) (Auto) 3.2L, Monocytes (%) (Auto) 1.6L, Eosinophils (%) (Auto) 0.0, Basophils (%) (Auto) 0.1, Neutrophils # (Auto) 6.4, Lymphocytes # (Auto) 0.2L, Monocytes # (Auto) 0.1, Eosinophils # (Auto) 0.0, Basophils # (Auto) 0.0, Nucleated Red Blood Cells % (auto) 0.0, Anion Gap 7L, Glomerular Filtration Rate > 60.0, Calcium Level 8.7L, Total Bilirubin 0.6, Direct Bilirubin 0.2, Aspartate Amino Transf (AST/SGOT) 30, Alanine Aminotransferase (ALT/SGPT) 62, Alkaline Phosphatase 98, Total Creatine Kinase 63, Creatine Kinase MB 4.5H, Creatine Kinase MB Relative Index 7.14H, Troponin I 0.24H, XR-Izp-E-Type Natriuretic Peptide 399H, Total Protein 5.7L, Albumin 3.0L, Albumin/Globulin Ratio 1.1, Thyroid Stimulating Hormone (TSH) 0.939 06/13/21 21:43: Total Creatine Kinase 52, Creatine Kinase MB 4.8H, Creatine Kinase MB Relative Index 9.23H, Troponin I 0.21H CBC/BMP Laboratory Tests 06/13/21 17:21 Microbiology Microbiology 06/13/21 Respiratory Virus Panel (PCR) (HEATHER) - Final, Complete 06/13/21 Blood Culture, Received Pending 06/13/21 Blood Culture, Received Pending Home Medications Scheduled Allopurinol (Allopurinol) 100 Mg Tablet, 100 MG PO DAILY Alprazolam (Xanax) 0.25 Mg Tablet, 0.25 MG PO DAILY for ANXIETY Apixaban (Eliquis) 5 Mg Tablet, 5 MG PO BID Docusate Sodium (Stool Softener) 100 Mg Capsule, 100 MG PO DAILY Folic Acid/Multivit-Min/Lutein (Centrum Silver Chewable Tablet) 1 Each Tab.chew, 2 TAB PO DAILY Guaifenesin (Mucinex) 600 Mg Tab.er.12h, 1,200 MG PO BID L.acidoph/L.bulg/B.bif/S.therm (Madiha-Bid Caplet) 1 Each Tablet, 1 TAB PO DAILY Lactose-Reduced Food (Ensure Liquid) 237 Ml Liquid, 237 ML PO DAILY Pantoprazole Sodium (Pantoprazole Sodium) 40 Mg Tablet.dr, 40 MG PO BID Prednisone (Prednisone) 10 Mg Tablet, 1 TAB PO ASDIRECTED 6tabs daily for 2weeks, then 5tabs daily for 2weeks, after which pulmonology will direct. Rosuvastatin Calcium (Rosuvastatin Calcium) 5 Mg Tablet, 5 MG PO QPM Sucralfate (Sucralfate) 1 Gm Tablet, 1 GM PO QID Sulfamethoxazole/Trimethoprim (Bactrim Ds Tablet) 1 Each Tablet, 1 TAB PO 3XW M,W,F Scheduled PRN Acetaminophen (Tylenol Extra Strength) 500 Mg Powd.pack, 500 MG PO for PAIN LEVEL 1-4 Ondansetron (Ondansetron Odt) 8 Mg Tab.rapdis, 8 MG PO TID PRN for NAUSEA OR VOMITING Oxycodone/Acetaminophen (Oxycodone-Acetaminophen 5-325) 1 Each Tablet, 1 TAB PO Q4HP PRN for MODERATE PAIN (PS 5-7) Prochlorperazine (Prochlorperazine Maleate) 5 Mg Tablet, 5 MG PO QID PRN for NAUSEA Allergies Coded Allergies: No Known Allergies (Unverified , 12/19/20) A-FIB/CHADSVASC A-FIB History Current/History of A-Fib/PAF?: No Meli Mayers DO Jun 14, 2021 00:32
[2021-06-14 01:30] VITALS: BP 128/86
[2021-06-14] MEDS: guaiFENesin ER 600 MG TAB PO SCH ×2 (02:09→08:20)
[2021-06-14] MEDS: PANTOPRAZOLE 40MG TAB (PROTONIX) PO SCH ×2 (02:09→08:21)
[2021-06-14] MEDS: SUCRALFATE 1 GM TAB PO SCH ×4 (02:10→16:49)
[2021-06-14] MEDS ORDERED: PILL CUTTER 1 EACH XX PRN (02:20)
[2021-06-14] MEDS: PIPERACILLIN/TAZOBACTAM SOD 3.375 GM in D5W MINI-BAG PLUS 50 ML IV SCH ×2 (04:44→10:08)
[2021-06-14 05:56] LABS: HEMATOCRIT 32.9 % (42.0-52.0); HEMOGLOBIN 10.6 g/dl (13.5-17.5); MEAN CORPUSCULAR HEMOGLOBIN 31.5 pg (27.0-33.0); MEAN CORPUSCULAR HGB CONC 32.2 g/dl (32.0-36.5); MEAN CORPUSCULAR VOLUME 97.9 fl (80.0-96.0); PLATELET COUNT, AUTOMATED 155 10^3/uL (150-450); RED BLOOD COUNT 3.36 10^6/uL (4.30-6.10)
[2021-06-14] MEDS ORDERED: VANCOMYCIN HCL 750 MG, VIAL MATE ADAPTER 1 EACH in NS 250 ML IV SCH (06:00)
[2021-06-14] MEDS ORDERED: VANCOMYCIN HCL 1,000 MG, VIAL MATE ADAPTER 1 EACH in NS 250 ML IV SCH (06:00)
[2021-06-14 06:13] LABS: BLOOD UREA NITROGEN 21 MG/DL (7-18); CALCIUM LEVEL 8.6 MG/DL (8.8-10.2); CARBON DIOXIDE LEVEL 28 MEQ/L (21-32); CHLORIDE LEVEL 107 MEQ/L (98-107); CREATININE FOR GFR 0.62 MG/DL (0.70-1.30); GLOMERULAR FILTRATION RATE > 60.0 (>49); GLUCOSE, FASTING 85 MG/DL (70-100); POTASSIUM SERUM 3.5 MEQ/L (3.5-5.1); SODIUM LEVEL 141 MEQ/L (136-145)
[2021-06-14 06:34] LABS: ERYTHROCYTE SEDIMENTATION RATE 24 mm/hr (0-20)
[2021-06-14] MEDS ORDERED: VANCOMYCIN HCL 500 MG in D5W MINI-BAG PLUS 100 ML IV SCH (07:00)
[2021-06-14 08:00] VITALS: BP 122/75
--- NOTE | 2021-06-14 08:33 | REP ---
INDICATION: RLL consolidation. COMPARISON: 06/13/2021 TECHNIQUE: Two views of the chest FINDINGS: Cardiac lead wires, left entering MediPort and right entering apparent jugular line that ends in the superior vena cava are again noted. The right-sided pneumothorax does not appear to have changed significantly since the day previous however the previous study was an AP portable and todays study is a PA view. There is some compensatory hyperinflation of the left lung with parenchymal opacification at the left lung base that with allowances for differences in technique probably is unchanged. Overall heart size is within normal limits. There is been a diminution in the amount of subcutaneous emphysema since the day previous. IMPRESSION: Chronic right apical pneumothorax that probably has not changed significantly since the day previous. 2. Slight decrease in the parenchymal opacification in the right chest. 3. Significant decrease in the amount of subcutaneous emphysema on the right. 4. Stable changes at the left lung base. <Electronically signed by Edmond Neumann > 06/14/21 [id number]
[2021-06-14] MEDS ORDERED: predniSONE 10 MG TAB PO SCH (09:00)
[2021-06-14] MEDS ORDERED: MULTIVITAMINS/MINERALS THERAP 1 TAB PO SCH (09:00)
[2021-06-14] MEDS ORDERED: ALPRAZolam 0.25 MG TAB PO SCH (09:00)
[2021-06-14] MEDS ORDERED: allopurinoL 100 MG TAB PO SCH (09:00)
[2021-06-14] MEDS ORDERED: DOCUSATE SODIUM 100MG CAPSULE PO SCH (09:00)
[2021-06-14 09:38] LABS: ABG BASE EXCESS 4.9 (-2.0-2.0); ABG HCO3 27.6 MEQ/L (22.0-26.0); ABG PARTIAL PRESSURE CO2 34.2 mmHg (35.0-45.0); ABG PARTIAL PRESSURE O2 65.7 mmHg (75.0-100.0); ABG STANDARD HCO3 28.8 MEQ/L (22.0-26.0); ABG TOTAL CO2 28.7 MEQ/L (23.0-31.0); ABG pH (ARTERIAL) 7.525 UNITS (7.350-7.450)
[2021-06-14] MEDS ORDERED: NS 1,000 ML IV SCH (11:40)
[2021-06-14 12:00] VITALS: BP 102/76
[2021-06-14] MEDS ORDERED: POTASSIUM CHLORIDE 10MEQ SR TABLET PO ONE (12:00)
--- NOTE | 2021-06-14 12:35 | CR.PDOC ---
General Date of Consultation: Jun 14, 2021 Referring Provider: MAITE ARANA MD Attending Physician: MAITE ARANA MD Consultation REASON FOR CONSULTATION/CHIEF COMPLAINT: Shortness of breath. HISTORY OF PRESENT ILLNESS: This is a 70-year-old gentleman who is very well-kno wn to me from previous hospital admission admitted to the hospital with shortness of breath. Patient was discharged from the hospital on 06/07/2021. He was in the hospital for exactly 1 month. He presented with shortness of breath. He has a history of stage IV esophageal cancer who is currently undergoing FOLFOX followed by immunotherapy. His hospital course was complicated with drug induced p neumonitis in which she had bronchoscopy done followed by right-sided pneumothorax in which she had a chest tube placed. He slowly improved on systemic corticosteroid therapy and was subsequent discharged on 06/07/2021. He is still on prednisone 60 mg along with PCP prophylaxis with Bactrim. He presented this time with exertional dyspnea. He denies of fever, chills, pleuritic chest pain, diaphoresis, palpitation, orthopnea, PND, lower extremity swelling, abdominal pain, nausea, vomiting, diarrhea upon admission to the hospital, he was found to have a right-sided pneumothorax with pneumomedi astinum. Therefore he was admitted and I was consulted for further recommendation. 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 Right hand surgery. Port for chemotherapy. FAMILY HISTORY: Heart disease in father. SOCIAL HISTORY: No tobacco, occasional alcohol, no illicit drug use. 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 ALLERGIES: Please see below. HOME MEDICATIONS: Please see below. REVIEW OF SYSTEMS: CONSTITUTIONAL: Denies of fever, chills, night sweat, weight loss, diaphoresis, fatigue, malaise. HEENT: Denies of sore throat, sinus pain, lumps and bumps. CARDIOVASCULAR: Denies of chest pain, orthopnea, lower semiswelling, PND, palpitation. RESPIRATORY: Admits to exertional dyspnea. Denies of cough, hemoptysis GENITOURINARY: Denies dysuria. MUSCULOSKELETAL: Denies myalgia or arthralgia. GASTROINTESTINAL: Denies abdominal pain, nausea, vomiting, diarrhea. SKIN: Denies rash. NEUROLOGICAL: Denies slurred speech or focal weakness. PSYCHIATRIC: Denies depression. ENDOCRINE: Denies heat or cold intolerance, and weight changes. HEMATOLOGIC/LYMPHATIC: Denies bleeding. ALLERGIC/IMMUNOLOGIC: Denies allergy. PHYSICAL EXAMINATION: VITAL SIGNS: Please see below. GENERAL APPEARANCE: Appears stated age, alert and oriented x3, not in any acute distress, speaking full sentences. HEENT: No evidence of JVD or cervical adenopathy. RESPIRATORY: Bilateral fine crackles. No evidence of wheezing or diminished breath sounds CARDIOVASCULAR: Normal S1-S2 with no evidence of murmur. ABDOMEN: Soft nontender. Nondistended with positive bowel sounds EXTREMITIES: No evidence of clubbing or pedal edema. NEUROLOGICAL: Cranial nerves are intact, gross neurological examination is intact. PSYCHIATRIC: Alert and oriented x3. LABORATORY DATA: Please see below. 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 1. Right-sided pneumothorax with pneumomediastinum. 2. History is not immunotherapy/drug induced pneumonitis. Recommendations: I independently reviewed his CT scan of the chest and chest x-ray. His clinical status has not changed from the time of his last hospital discharge. The right- sided pneumothorax is similar. However he does have pneumomediastinum which is new. We will have to continue to monitor clinically. If he does develop sub cutaneous emphysema or subcutaneous crepitus, he will need to be reevaluated for worsening of air leak. Otherwise there is no indication for drainage of his persistent right-sided pneumothorax. He should be follow-up in the pulmonary clinic in 2 weeks for further evaluation. Prednisone should be slowly taper over the course of 2 to 3 months for drug-induced pneumonitis. Until prednisone is less than 20 mg daily, he should be on PCP prophylaxis with Bactrim. I have discussed patient case with thoracic surgery Dr. Trejo and current plan is in agreement. Patient should be discharged later today or tomorrow. Vital Signs/I&O Vital Signs Date Time Temp Pulse Resp B/P (MAP) Pulse Ox O2 Delivery O2 Flow Rate FiO2 06/14/21 12:00 98.4 106 19 102/76 (85) 95 Room Air I&O- Last 24 Hours up to 6 AM 06/14/21 06:00 Intake Total 360 ml Balance 360 ml Laboratory Data Labs 24H Laboratory Tests 2 06/13/21 17:21: Immature Granulocyte % (Auto) 0.6, Neutrophils (%) (Auto) 94.5H, Lymphocytes (%) (Auto) 3.2L, Monocytes (%) (Auto) 1.6L, Eosinophils (%) (Auto) 0.0, Basophils (%) (Auto) 0.1, Neutrophils # (Auto) 6.4, Lymphocytes # (Auto) 0.2L, Monocytes # (Auto) 0.1, Eosinophils # (Auto) 0.0, Basophils # (Auto) 0.0, Nucleated Red Blood Cells % (auto) 0.0, Anion Gap 7L, Glomerular Filtration Rate > 60.0, Calcium Level 8.7L, Total Bilirubin 0.6, Direct Bilirubin 0.2, Aspartate Amino Transf (AST/SGOT) 30, Alanine Aminotransferase (ALT/SGPT) 62, Alkaline Phosphatase 98, Total Creatine Kinase 63, Creatine Kinase MB 4.5H, Creatine Kinase MB Relative Index 7.14H, Troponin I 0.24H, JM-Iwc-[id number]-Type Natriuretic Peptide 399H, Total Protein 5.7L, Albumin 3.0L, Albumin/Globulin Ratio 1.1, Thyroid Stimulating Hormone (TSH) 0.939 06/13/21 21:43: Total Creatine Kinase 52, Creatine Kinase MB 4.8H, Creatine Kinase MB Relative Index 9.23H, Troponin I 0.21H 06/14/21 04:50: Methicillin-Resist S.aureus DNA PCR NOT DETECTED 06/14/21 04:56: Nucleated Red Blood Cells % (auto) 0.0, Anion Gap 6L, Glomerular Filtration Rate > 60.0, Calcium Level 8.6L, Erythrocyte Sedimentation Rate 24H, C-Reactive Pro tein, Quantitative 0.30, Procalcitonin <0.05 06/14/21 06:19: Bedside Glucose (Misc Panel) 72L 06/14/21 09:19: Blood Gas Bicarbonate Standard 28.8H, Arterial Blood pH 7.525H, Arterial Blood Partial Pressure CO2 34.2L, Arterial Blood Partial Pressure O2 65.7L, Arterial Blood Total CO2 28.7, Arterial Blood HCO3 27.6H, Arterial Blood Base Excess 4.9H, Arterial Blood Oxygen Saturation 94.0L CBC/BMP Laboratory Tests 06/13/21 17:21 06/14/21 04:56 Microbiology Microbiology 06/13/21 Respiratory Virus Panel (PCR) ([facility]) - Final, Complete 06/13/21 Blood Culture, Received Pending 06/13/21 Blood Culture, Received Pending Allergies Coded Allergies: No Known Allergies (Unverified , 12/19/20) Home Medications Scheduled Allopurinol (Allopurinol) 100 Mg Tablet, 100 MG PO DAILY, (Reported) Alprazolam (Xanax) 0.25 Mg Tablet, 0.25 MG PO DAILY for ANXIETY, (Reported) Apixaban (Eliquis) 5 Mg Tablet, 5 MG PO BID, (Reported) Docusate Sodium (Stool Softener) 100 Mg Capsule, 100 MG PO DAILY, (Reported) Folic Acid/Multivit-Min/Lutein (Centrum Silver Chewable Tablet) 1 Each Tab.chew, 2 TAB PO DAILY, (Reported) Guaifenesin (Mucinex) 600 Mg Tab.er.12h, 1,200 MG PO BID for 14 Days, #14 L.acidoph/L.bulg/B.bif/S.therm (Madiha-Bid Caplet) 1 Each Tablet, 1 TAB PO DAILY, (Reported) Lactose-Reduced Food (Ensure Liquid) 237 Ml Liquid, 237 ML PO DAILY, (Reported) Pantoprazole Sodium (Pantoprazole Sodium) 40 Mg Tablet.dr, 40 MG PO BID, (Reported) Prednisone (Prednisone) 10 Mg Tablet, 1 TAB PO ASDIRECTED for 30 Days, #154 6tabs daily for 2weeks, then 5tabs daily for 2weeks, after which pulmonology will direct. Rosuvastatin Calcium (Rosuvastatin Calcium) 5 Mg Tablet, 5 MG PO QPM, (Reported) Sucralfate (Sucralfate) 1 Gm Tablet, 1 GM PO QID, (Reported) Sulfamethoxazole/Trimethoprim (Bactrim Ds Tablet) 1 Each Tablet, 1 TAB PO 3XW, (Reported) M,W,F Scheduled PRN Acetaminophen (Tylenol Extra Strength) 500 Mg Powd.pack, 500 MG PO for PAIN LEVEL 1-4, (Reported) Ondansetron (Ondansetron Odt) 8 Mg Tab.rapdis, 8 MG PO TID PRN for NAUSEA OR VOMITING, (Reported) Oxycodone/Acetaminophen (Oxycodone-Acetaminophen 5-325) 1 Each Tablet, 1 TAB PO Q4HP PRN for MODERATE PAIN (PS 5-7) for 7 Days, #42 Prochlorperazine (Prochlorperazine Maleate) 5 Mg Tablet, 5 MG PO QID PRN for NAUSEA, (Reported) RICH WILLS MD Jun 14, 2021 12:34
[2021-06-14 13:31] LABS: MAGNESIUM LEVEL 2.4 MG/DL (1.8-2.4)
[2021-06-14] MEDS ORDERED: MIRA3350 PO (14:23)
--- NOTE | 2021-06-14 14:42 | CR ---
CONSULTATION DATE: 06/14/2021 REASON FOR CONSULTATION: Mr. Telles is seen at the request of the Emergency Room and the Hospitalist Service for increasing shortness of breath, referred from the [facility]. HISTORY OF PRESENT ILLNESS: The patient is now a 70-year-old white male with a history of Stage IV esophageal carcinoma treated with chemo and immunotherapy with Opdivo (Nivolumab). He developed a unilateral PD1 pneumonitis from the Opdivo. This diagnosis was made by exclusion after undergoing bronchoscopy and various microbiology workups which showed no microbiological organisms. After he underwent the bronchoscopy about three days later, he developed a pneumothorax which was first treated with a small chest tube without expansion of the lung which was then treated with a larger apical chest tube placed by myself. He has a prior history of left subclavian and left jugular venous thromboses after a port placement aggravated by his hypercoagulable status from his metastatic cancer. Chest tube was placed when being fully anticoagulated on Lovenox and then bled at the chest tube insertion site. This was controlled non-operatively by tamponading the chest wall with a Ruiz catheter and to suspending it under tension. An additional chest tube was placed to evacuate a hemothorax. After all was said and done with that admission, he was discharged with a small apical airspace with continuing resolution of his subcutaneous emphysema. Yesterday, he awoke more short of breath and fatigued then he did the day before. In fact the day before he had gone out and ambulated and walked and was feeling quite well. There was no particular heavy lifting involved or heavy exertion involved. His shortness of breath was exacerbated the night before when he had to get up and urinate where he noted that he was more short of breath and puffed then usual. He also has had a fair amount of constipation over the last four days and was relieved this morning. He has just a slight nonproductive cough which has not changed since his hospital discharge. There is no chest pain. No chest discomfort. No orthopnea or paroxysmal nocturnal dyspnea. His lower extremity edema has markedly improved since his discharge. He has had no fever, chills or sweats. There is no dysphagia and there is no choking with swallowing. PAST MEDICAL HISTORY: 1. The above esophageal carcinoma. 2. 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 3. Gout. 4. Probable hypercoagulable state. 5. Opdivo unilateral lung pneumonitis, initially necrotizing in nature. 6. Hyperlipidemia. 7. Malaria as a child. PAST SURGICAL HISTORY: 1. Placement of a left subclavian port. 2. Amputation of tip of middle finger, right side, from a table saw accident. MEDICATIONS AT HOME: 1. Allopurinol 100 mg q. day. 2. Xanax 0.25 mg q. day p.r.n. anxiety. 3. Eliquis 5 mg b.i.d. 4. Docusate sodium 100 mg q. day. 5. Folic acid. 6. Protonix 40 mg b.i.d. 7. Prednisone 60 mg q. day on a taper. 8. Rosuvastatin 5 mg q. day. 9. Bactrim DS one tablet p.o. three times per week, Saturday, Saturday and Saturday. HABITS: Smoked about 1 1/2 packs of cigarettes for about five years and quit at the age of 26 of [place] cigarettes. He does have an occasional cigar. Alcohol: Occasional alcohol intake on weekends socially, maybe one or two drinks. Illicit drugs: Smokes marijuana very occasionally. TRAVEL HISTORY: He has been all over, mostly [place] and [place] working for the [employer]. Born in [place] where he contracted malaria and was treated. He also has undergone some type of tuberculosis immunization, probably BCG as a child. OCCUPATIONAL HISTORY: See travel history. No asbestos exposure. EXPOSURES: No dogs, birds or cats at home. FAMILY HISTORY: Father at 100 of congestive heart failure. Mother is 97 with what sounds to be mild dementia. REVIEW OF SYSTEMS: CONSTITUTIONAL: See HPI, without fever, chills, sweats or night sweats. EYES: Without diplopia, without amaurosis fugax. Wears glasses. NOSE: Occasional nosebleeds. MOUTH: He has his own teeth. RESPIRATORY: See HPI. CARDIAC: Without palpitations or tachycardias under normal circumstances, but when he gets short of breath can feel tachycardia. Without peripheral edema and without intermittent claudication. No history of prior myocardial infarctions. GI: Without nausea, vomiting or diarrhea but does have constipation. Without melena, hematochezia or hematemesis, or abdominal pain. : Without dysuria, hematuria or a history of renal stones. Does have decreased force of stream. NEUROLOGIC: Complains of paresthesias of hands and feet after his chemotherapy. Without paralyses or prior seizures. ENDOCRINE: Without diabetes or thyroid disease. PSYCHIATRIC: Has mild anxiety without pathological psychoses or depressions. PHYSICAL EXAMINATION: CONSTITUTIONAL: Well-developed, well-nourished 70-year-old white male in no acute distress. He speaks with a nasal voice. VITAL SIGNS: Temperature is 97.0 with a heart rate of 101 and is in sinus rhythm, respiratory rate of 20 without the use of accessory muscles who is 95% saturated on room air and his blood pressure is 122/75. HEAD: Normocephalic. EYES: Pupils equal and reactive to light. Extraocular motions are intact. Sclera nonicteric. NOSE: Without deformity. MOUTH: The mucous membranes are pink and moist, lips and commissures without lesions. There is no thrush. Dentition is in good repair. NECK: Supple. There is some subcutaneous emphysema at the base of the neck on the right side. Trachea is midline. There is no thyromegaly or lymphadenopathy. He has 2+ carotid upstrokes without bruits. LUNGS: Velcro type crackles at the right base. There is E to A egophony also on the right side. Percussion shows it to be hyperresonant on the left side compared to the right side. Both percussion notes are full to the diaphragm. CARDIAC EXAM: Without murmurs, clicks, gallops or rubs. I cannot feel his PMI. S1 and S2 are normal. He has some subcutaneous emphysema over the right upper chest. ABDOMEN: Soft, nontender. Bowel sounds are positive. There is no hepatomegaly. No CVA tenderness. EXTREMITIES: No prevertebral edema. No calf tenderness. He does have some differential swelling of the upper extremity with the left being greater than the right. Pulses show 2+ dorsalis pedis and posterior tibials. He has 2+ carotids and femorals without bruits. NEUROLOGIC: Cranial nerves II-XII intact. Normal gross, gross sensation intact. Gait is not tested. PSYCHIATRIC: He is awake and alert, oriented x3 with appropriate mood and affect and conversational. SKIN: Warm, dry and perfused without cyanosis or mottling including that of nailbeds and knees. There are no ulcers or splinter hemorrhages. INVESTIGATIONS: White count is 9.0 with hemoglobin and hematocrit of 10.6 and 32.9 respectively. He has been hydrated. His hemoglobin and hematocrit yesterday were 11.6 and 36.5. Platelet count is 155,000. Differential yesterday showed 95% neutrophils, 3% lymphocytes and 1% monocytes. There are no immature forms, no toxic granulations. Chemistries show essentially normal electrolytes with a potassium of 3.5 with a BUN and creatinine of 21 and 0.62, a glucose of 85, and a calcium of 8.6. Troponins were 0.21 and 0.24. Albumin was 3.0 with the corresponding calcium of 8.6. Coagulation studies are not done. Blood gas today showed a pH of 7.52, pCO2 of 34, pO2 of 65 on room air, he is 94% saturated with a base excess of 4.9. His chest x-ray as compared with his discharge x-ray shows no increase in the apical airspace. There is little if any change in the subcutaneous emphysema seen in the neck and the lateral chest wall. His chest CT done yesterday under angiographic protocol did not show a pulmonary embolism. He does have increased mediastinal emphysema. The one parenchyma actually looks better than it did previously on 05/30. There is a small collection of what looks to be fluid and probably old blood medially in the medial right costophrenic angle. His ground-glass reticular patterns are improved over the CT of 05/30. There is no pericardial effusion. IMPRESSION: 1. Necrotizing pulmonary pneumonitis by exclusion attributable to Opdivo PDL inhibitor. 2. Immunosuppression. 3. Stage IV gastroesophageal carcinoma. 4. Hypercoagulability secondary to the above carcinoma. 5. 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 6. Continuing pneumothorax, unchanged with an apical airspace on the right side. 7. Subcutaneous emphysema. 8. Mediastinal emphysema. 9. Probable small continuing air leak from the necrotizing pneumonitis of last admission. PLAN/DISCUSSION: Right now he is actually feeling better than he was yesterday morning. He is still a bit tachypneic with mild exertion. Nonetheless, I am not at all keen on placing a chest tube at this point in time. I will therefore see him in the office in two weeks. He is going to [facility] next week for a consultation on his port and subclavian and internal jugular vein thromboses. I have cautioned him that should he start to have more subcutaneous emphysema with increased swelling of his neck or face that he should return to the Emergency Room immediately. I would continue him on his anticoagulation. He should continue on the very slow steroid taper although that will probably delay healing of his lung leak. He does look to have a small active air leak that was resolved at his last discharge. I would conjecture that it could have started again by straining at stool with increased intrathoracic pressure. The presence of steroids are certainly going to slow his inflammatory/healing response. GEETHA
[2021-06-14 16:00] VITALS: BP 102/69
--- NOTE | 2021-06-14 16:11 | DS.PDOC ---
Discharge Summary General Date of Admission Jun 13, 2021 at 23:14 Date of Discharge 06/14/2021 Attending Physician: MAITE ARANA MD Discharge Summary PROCEDURES PERFORMED DURING STAY: None ADMITTING DIAGNOSES: SOB DISCHARGE DIAGNOSES: Dyspnea i/s/o nivolumab pneumonitis on a steroid taper, recent stable R apical pneumonitis and pneumomediastinum Dehydration Esophageal cancer at the GE junction adenocarcinoma stage IV Recent left jugular vein occlusive thrombus and adjacent central subclavian vein thrombus on eliquis Dyslipidemia Gastroesophageal reflux disease Anxiety COMPLICATIONS/CHIEF COMPLAINT: Pnuemomediastinum. HISTORY OF PRESENT ILLNESS: 70-year-old M with a GE junction Stage IV cancer on FOLFOX and recent nivolumab who was admitted for recently admitted for a prolonged hospital stay for R>>L nivolumab associated pneumonitis with a course that was c/b a R apical pneumothorax s/p bronchoscopy and later hemothorax after chest tube placement while recently having been on therapeutic anticoagulation for LUE DVT who eventually improved with stopping of bleeding, resolution of acute hypoxemic respiratory failure with steroid therapy and drainage and was discharged home on a long prednisone taper with close thoracic surgery, pulm, onc and PCP follow up while restarted on therapeutic anticoagulation with eliquis, who now returned coming in from onc clinic for acute on chronic dyspnea. Please note that despite H&P documentation of a bacterial PNA, Mr. Lawson never had evidence or confirmed bacterial PNA despite initial suspicion and aggressive empiric antibacterial treatment that was eventually discontinued. HOSPITAL COURSE: On presentation, he was on room air and endorsed exertional dyspnea and given that his imaging is "busy" with R sided basilar opacities, R apical pneumothorax and the newly noted pneumomediastinum the admitting team gave him antibiotics presuming a PNA despite no leukocytosis, fever, hypoxemia or sputum production and consulted thoracic surgery. This morning, on evaluation with thoracic surgery and pulmonology, who are both familiar with the patient, his chest x-ray as compared with his discharge x-ray showed no increase in the apical pneumothorax. There was little if any change in the subcutaneous emphysema seen in the neck and the lateral chest wall. The chest CTA did not show a pulmonary e mbolism but did have increased mediastinal emphysema. The lung parenchyma actually looked better than it did previously on 05/30 and there was a small collection of what looks to be fluid presumed to be likely old blood medially in the medial right costophrenic angle. His ground-glass reticular patterns were definitely improved over the CT of 05/30. On examination he also had had improvement with air moving well through that R base that was previously diminished, now with fine crackling but moving well and the rest of the lungs were clear to auscultation. Procalcitonin was negative and all antibiotics were stopped. We had him ambulate with PT and he did well and the plan is to now discharge him home with continuation of his slow prednisone taper I prescribed on the last discharge and will follow up with PCP and onc within 1 week and with pulm and thoracic surgery on 07/03 as scheduled. DISCHARGE MEDICATIONS: Please see below. ALLERGIES: Please see below. PHYSICAL EXAMINATION ON DISCHARGE: VITAL SIGNS: Please see below. 95% on room air GENERAL APPEARANCE: Alert, awake, NAD HEENT: NC/AT, EOMI, anicteric sclera, nares patent, moist mucous membranes, has own teeth. CARDIOVASCULAR: RRR, normal heart sounds, no MRG. LUNGS: Posterior right lower lobe now with much improved air movement with fine velcro like crackles, otherwise moving very well throughout without wheezing or rhonchi. Breathing comfortably on room air. ABDOMEN: Soft, nontender, nondistended, multiple bruising in different stages of healing. Left subclavian catheter for chemotherapy in place without overlying/ surrounding skin changes. MUSCULOSKELETAL: Normal ROM, strength 5/5. EXTREMITIES: No edema/cyanosis, 2+ PT/DP pulses palpated bilaterally. Appears dry with skin tenting. NEUROLOGICAL: CN III-XII intact, sensation intact. PSYCHIATRIC: AOx3 LABORATORY DATA: Please see below. IMAGING: CXR (06/13) 1. Chronic parenchymal opacities in small apical pneumothorax on the right about 23 mm air gap previously 26 mm gap in the most recent chest 06/07/2021. Compensatory hyperinflation and an indwelling left subclavian port catheter are again seen. The right subclavian catheter line has been removed in the interval. No new findings or other interval change. CTA chest (06/23) 1. Redemonstration of predominantly peripherally located coarse mixed ground- glass and semi solid pulmonary parenchymal infiltrates, right greater than left. 2. Solid-appearing parenchymal process in the medial aspect of the right lung base previously demonstrating an air-fluid level. Finding may represent the residua of previously demonstrated hemopneumothorax, which overall has decreased. 3. There has been mild interval increase in the size of a previously demonstrated right pneumothorax. 4. There is now extensive pneumomediastinum. 5. Subcutaneous emphysema is demonstrated in the anterior and posterior aspect o f the right hemithorax extending superiorly into the base of the neck bilaterally. As well as posteriorly towards the right shoulder. 6. There is no aortic dissection or aneurysm. 7. There are no pulmonary emboli. 8. There is volume loss right hemithorax. 9. Dilated loops of small bowel demonstrated in the left upper quadrant likely indicates the presence of an ileus. Obstruction to be excluded clinically. PROGNOSIS: Good ACTIVITY: As tolerated DIET: Regular DISCHARGE PLAN: Home with home PT, PCP and onc follow up within 7d, pul and thoracic surgery f/u on 07/03 DISPOSITION: Home with home services and PT DISCHARGE INSTRUCTIONS: To continue prednisone taper as I originally prescribed it. ITEMS TO FOLLOWUP ON ON OUTPATIENT: Nivolumab induced pneumonitis Upper extremity DVTs GE junction CA Apical pneumothorax Pneumomediastinum DISCHARGE CONDITION: Stable TIME SPENT ON DISCHARGE: 60 minutes. Vital Signs/I&Os Vital Signs Date Time Temp Pulse Resp B/P (MAP) Pulse Ox O2 Delivery O2 Flow Rate FiO2 06/14/21 08:00 97.0 101 20 122/75 (91) 95 Room Air I&O- Last 24 Hours up to 6 AM 06/14/21 06:00 Intake Total 360 ml Balance 360 ml Laboratory Data Labs 24H Laboratory Tests 2 06/13/21 17:21: Immature Granulocyte % (Auto) 0.6, Neutrophils (%) (Auto) 94.5H, Lymphocytes (%) (Auto) 3.2L, Monocytes (%) (Auto) 1.6L, Eosinophils (%) (Auto) 0.0, Basophils (%) (Auto) 0.1, Neutrophils # (Auto) 6.4, Lymphocytes # (Auto) 0.2L, Monocytes # (Auto) 0.1, Eosinophils # (Auto) 0.0, Basophils # (Auto) 0.0, Nucleated Red Blood Cells % (auto) 0.0, Anion Gap 7L, Glomerular Filtration Rate > 60.0, Calcium Level 8.7L, Total Bilirubin 0.6, Direct Bilirubin 0.2, Aspartate Amino Transf (AST/SGOT) 30, Alanine Aminotransferase (ALT/SGPT) 62, Alkaline Phosphatase 98, Total Creatine Kinase 63, Creatine Kinase MB 4.5H, Creatine Kinase MB Relative Index 7.14H, Troponin I 0.24H, IC-Eoa-X-Type Natriuretic Peptide 399H, Total Protein 5.7L, Albumin 3.0L, Albumin/Globulin Ratio 1.1, Thyroid Stimulating Hormone (TSH) 0.939 06/13/21 21:43: Total Creatine Kinase 52, Creatine Kinase MB 4.8H, Creatine Kinase MB Relative Index 9.23H, Troponin I 0.21H 06/14/21 04:50: Methicillin-Resist S.aureus DNA PCR NOT DETECTED 06/14/21 04:56: Nucleated Red Blood Cells % (auto) 0.0, Anion Gap 6L, Glomerular Filtration Rate > 60.0, Calcium Level 8.6L, Erythrocyte Sedimentation Rate 24H, C-Reactive Protein, Quantitative 0.30, Procalcitonin <0.05 06/14/21 06:19: Bedside Glucose (Misc Panel) 72L 06/14/21 09:19: Blood Gas Bicarbonate Standard 28.8H, Arterial Blood pH 7.525H, Arterial Blood Partial Pressure CO2 34.2L, Arterial Blood Partial Pressure O2 65.7L, Arterial Blood Total CO2 28.7, Arterial Blood HCO3 27.6H, Arterial Blood Base Excess 4.9H, Arterial Blood Oxygen Saturation 94.0L CBC/BMP Laboratory Tests 06/13/21 17:21 06/14/21 04:56 FSBS Laboratory Tests Test 06/14/21 06:19 Range/Units Bedside Glucose (Misc Panel) 72 80-115 MG/DL Microbiology Microbiology 06/13/21 Respiratory Virus Panel (PCR) (HEATHER) - Final, Complete 06/13/21 Blood Culture, Received Pending 06/13/21 Blood Culture, Received Pending Discharge Medications Scheduled Allopurinol (Allopurinol) 100 Mg Tablet, 100 MG PO DAILY, (Reported) Alprazolam (Xanax) 0.25 Mg Tablet, 0.25 MG PO DAILY for ANXIETY, (Reported) Apixaban (Eliquis) 5 Mg Tablet, 5 MG PO BID, (Reported) Docusate Sodium (Stool Softener) 100 Mg Capsule, 100 MG PO DAILY, (Reported) Folic Acid/Multivit-Min/Lutein (Centrum Silver Chewable Tablet) 1 Each Tab.chew, 2 TAB PO DAILY, (Reported) Guaifenesin (Mucinex) 600 Mg Tab.er.12h, 1,200 MG PO BID L.acidoph/L.bulg/B.bif/S.therm (Madiha-Bid Caplet) 1 Each Tablet, 1 TAB PO DAILY, (Reported) Lactose-Reduced Food (Ensure Liquid) 237 Ml Liquid, 237 ML PO DAILY, (Reported) Pantoprazole Sodium (Pantoprazole Sodium) 40 Mg Tablet.dr, 40 MG PO BID, (Reported) Polyethylene Glycol 3350 (Miralax) 119 Gm Powder, 17 GRAM PO DAILY for constipation dissolve in water Prednisone (Prednisone) 10 Mg Tablet, 1 TAB PO ASDIRECTED 6tabs daily for 2weeks, then 5tabs daily for 2weeks, after which pulmonology will direct. Rosuvastatin Calcium (Rosuvastatin Calcium) 5 Mg Tablet, 5 MG PO QPM, (Reported) Sucralfate (Sucralfate) 1 Gm Tablet, 1 GM PO QID, (Reported) Sulfamethoxazole/Trimethoprim (Bactrim Ds Tablet) 1 Each Tablet, 1 TAB PO 3XW, (Reported) M,W,F Scheduled PRN Acetaminophen (Tylenol Extra Strength) 500 Mg Powd.pack, 500 MG PO for PAIN LEVEL 1-4, (Reported) Ondansetron (Ondansetron Odt) 8 Mg Tab.rapdis, 8 MG PO TID PRN for NAUSEA OR VOMITING, (Reported) Oxycodone/Acetaminophen (Oxycodone-Acetaminophen 5-325) 1 Each Tablet, 1 TAB PO Q4HP PRN for MODERATE PAIN (PS 5-7) Prochlorperazine (Prochlorperazine Maleate) 5 Mg Tablet, 5 MG PO QID PRN for NAUSEA, (Reported) Allergies Coded Allergies: No Known Allergies (Unverified , 12/19/20) MAITE ARANA MD Jun 14, 2021 15:16
[2021-06-22] MEDS ORDERED: predniSONE 10 MG TAB PO SCH (09:00)
== END 2021-06-14 17:18 | disposition home health service (06) | DRG 200 ==
LOC: M ED 15:53 → M ED INP 23:14 → M PCU 06-14 01:39
PROVIDERS: ADMIT Family Medicine; ATTEND Internal Medicine
DX: J98.2 Interstitial emphysema (principal); C15.9 Malignant neoplasm of esophagus, unspecified; I24.8 Other forms of acute ischemic heart disease; K21.9 Gastro-esophageal reflux disease without esophagitis; F41.9 Anxiety disorder, unspecified; E78.5 Hyperlipidemia, unspecified; E86.0 Dehydration; Z79.899 Other long term (current) drug therapy; M10.9 Gout, unspecified; Z87.891 Personal history of nicotine dependence

== ENCOUNTER → 2021-07-03 | Outpatient (CLI) | payer MEDICARE, BC ==
[~2021-07-03] MED LIST changes: +ALB2.5NEB INH; +DEXA4TA; +MIRA3350 PO; +NARC1SPR NARES; +OXYC1TAB23; +PRED10TA2; -PROC10TA4 PO; +PROC10TA5 PO; +XANA0.25 PO
== END ==
LOC: M PLAIMG 08:41
PROVIDERS: ATTEND Thoracic Surgery (Cardiothoracic Vascular Surgery)
DX: J98.2 Interstitial emphysema (principal); J93.83 Other pneumothorax

== ENCOUNTER → 2021-07-10 | Outpatient (CLI) | payer MEDICARE, BC ==
[~2021-07-10] MED LIST changes: -ALB2.5NEB INH; -DEXA4TA; -OXYC1TAB23; -PRED10TA2; +PROC10TA4 PO; -PROC10TA5 PO
[2021-07-10 16:45] LABS: BASO % 0.3 % (0.0-1.0); EOS % 0.1 % (0.0-3.0); HEMATOCRIT 43.9 % (42.0-52.0); HEMOGLOBIN 13.8 g/dl (13.5-17.5); LYMPH # 0.6 10^3/uL (1.5-5.0); MEAN CORPUSCULAR HEMOGLOBIN 30.9 pg (27.0-33.0); MEAN CORPUSCULAR HGB CONC 31.4 g/dl (32.0-36.5); MEAN CORPUSCULAR VOLUME 98.2 fl (80.0-96.0); MONO # 0.3 10^3/uL (0.0-0.8); MONO % 2.3 % (2.0-8.0); NEUTROPHILS # 13.4 10^3/uL (1.5-8.5); NEUTROPHILS % 92.1 % (36.0-66.0); PLATELET COUNT, AUTOMATED 257 10^3/uL (150-450); RED BLOOD COUNT 4.47 10^6/uL (4.30-6.10); WHITE BLOOD COUNT 14.5 10^3/uL (4.0-10.0)
[2021-07-10 17:41] LABS: ALBUMIN 3.7 GM/DL (3.2-5.2); ALT/SGPT 48 U/L (12-78); BILIRUBIN,TOTAL 0.5 MG/DL (0.2-1.0); BLOOD UREA NITROGEN 24 MG/DL (7-18); CALCIUM LEVEL 9.7 MG/DL (8.8-10.2); CARBON DIOXIDE LEVEL 27 MEQ/L (21-32); CHLORIDE LEVEL 103 MEQ/L (98-107); CREATININE FOR GFR 1.12 MG/DL (0.70-1.30); GLOMERULAR FILTRATION RATE > 60.0 (>49); GLUCOSE, FASTING 139 MG/DL (70-100); POTASSIUM SERUM 4.3 MEQ/L (3.5-5.1); SODIUM LEVEL 140 MEQ/L (136-145); TOTAL PROTEIN 6.6 GM/DL (6.4-8.2)
== END ==
LOC: M WUC 14:14
PROVIDERS: ATTEND Specialist
DX: C16.0 Malignant neoplasm of cardia (principal)

== ENCOUNTER → 2021-07-20 | Outpatient (CLI) | payer MEDICARE, BC ==
--- NOTE | 2021-07-20 22:00 | ECGEPIP ---
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
== END ==
LOC: M EKG 11:38
PROVIDERS: ATTEND Specialist
DX: C15.9 Malignant neoplasm of esophagus, unspecified (principal)

== ENCOUNTER → 2021-07-27 | Outpatient (CLI) | payer MEDICARE, BC ==
--- NOTE | 2021-07-28 06:24 | ECHO ---
ECHOCARDIOGRAM DATE OF PROCEDURE: 07/27/2021 Age: Gender: M Height: 178 cm Weight: 75 kg REFERRING PHYSICIAN: Leslie Dupont NP INDICATION: Cardiac arrhythmia MEASUREMENTS: IVS: 0.9 LV: 3.8 LVPW: 1.0 LA: 3.6 Aorta: 3.4 FINDINGS: This study is of poor technical quality with extremely limited visualization. Apparently patient had recent pneumothorax and there is alteration of pulmonary anatomy. Underlying sinus tachycardia with ventricular rate about 105 beats per minute. Grossly preserved left ventricle (LV) size and systolic function based on very limited views. Even extensive wall motion abnormalities could be easily missed. Right ventricle was also very poorly seen but grossly appears normal. The same applies for both atria and mitral, tricuspid and pulmonic valves. No pericardial effusion is noted. Inferior vena cava was not visualized. Aortic root is normal. Aortic arch and abdominal aorta were not well seen. Very limited Doppler interrogation reveals grossly competent aortic and mitral valves. CONCLUSIONS: 1. Study is of poor technical quality with extremely limited visualization. 2. Grossly preserved left ventricle (LV) size and probably normal systolic function. Unable to estimate diastolic function. 3. Grossly normal mitral and aortic valvular function. 4. Unable to estimate central venous pressure, right-sided valves or contractility. COMMENTS: If evaluation of the systolic function and valvular function is considered essential, alternative imaging technique will be necessary.
== END ==
LOC: M CARPUL 10:16
PROVIDERS: ATTEND Nurse Practitioner Family
DX: I49.9 Cardiac arrhythmia, unspecified (principal)

== ENCOUNTER → 2021-08-07 | Outpatient (CLI) | payer MEDICARE, BC ==
[~2021-08-07] MED LIST changes: +ISOVUE-370 76% 100ML VIAL As Ordered ONE
--- NOTE | 2021-08-07 15:09 | REP ---
INDICATION: ESPHOGEAL CA COMPARISON: Multiple latest is 06/13/2021 TECHNIQUE: Standard helical technique after the intravenous administration of 100 cc Isovue 370 FINDINGS: There is no mediastinal or hilar adenopathy. There are no pleural or pericardial effusions. The imaged upper abdomen is unchanged. Note is again made of cholelithiasis. The imaged osseous structures are unchanged. Evaluation of the lung mcclellan shows resolution of all pneumomediastinum and subcutaneous emphysema. There is right xiomara thoracic volume loss and left hemithoracic compensatory hyperexpansion status quo. There is fibrotic change in both lung mcclellan status quo. Abnormal opacity seen previously on the right have resolved. There is cylindrical bronchiectasis status quo. No new abnormal opacities have developed. IMPRESSION: There is significant chronic lung field changes as described above, however, there is been improvement since the last exam. Continued surveillance is recommended. <Electronically signed by Mike Toney > 08/07/21 [id number]
== END ==
LOC: M RAD 14:02
PROVIDERS: ATTEND Specialist
DX: C15.9 Malignant neoplasm of esophagus, unspecified (principal)
CPT/HCPCS: 71260; Q9967

== ENCOUNTER → 2021-08-29 | Outpatient (CLI) | payer MEDICARE, BC ==
[~2021-08-29] MED LIST changes: +ALB2.5NEB INH; +DEXA4TA; -ISOVUE-370 76% 100ML VIAL As Ordered ONE; +OXYC1TAB23; +PRED10TA2; -PROC10TA4 PO; +PROC10TA5 PO
[2021-08-30 09:53] LABS: BASO % 0.6 % (0.0-1.0); EOS # 0.2 10^3/uL (0.0-0.5); EOS % 3.3 % (0.0-3.0); HEMATOCRIT 42.3 % (42.0-52.0); HEMOGLOBIN 13.2 g/dl (13.5-17.5); LYMPH # 0.8 10^3/uL (1.5-5.0); LYMPH % 11.4 % (24.0-44.0); MEAN CORPUSCULAR HEMOGLOBIN 30.1 pg (27.0-33.0); MEAN CORPUSCULAR HGB CONC 31.2 g/dl (32.0-36.5); MEAN CORPUSCULAR VOLUME 96.6 fl (80.0-96.0); MONO # 0.3 10^3/uL (0.0-0.8); MONO % 3.5 % (2.0-8.0); NEUTROPHILS # 5.8 10^3/uL (1.5-8.5); NEUTROPHILS % 80.1 % (36.0-66.0); PLATELET COUNT, AUTOMATED 335 10^3/uL (150-450); RED BLOOD COUNT 4.38 10^6/uL (4.30-6.10); WHITE BLOOD COUNT 7.2 10^3/uL (4.0-10.0)
[2021-08-30 10:48] LABS: ALBUMIN 3.9 GM/DL (3.2-5.2); ALT/SGPT 30 U/L (12-78); BILIRUBIN,TOTAL 0.3 MG/DL (0.2-1.0); BLOOD UREA NITROGEN 18 MG/DL (7-18); CALCIUM LEVEL 9.5 MG/DL (8.8-10.2); CARBON DIOXIDE LEVEL 28 MEQ/L (21-32); CHLORIDE LEVEL 105 MEQ/L (98-107); CREATININE FOR GFR 0.85 MG/DL (0.70-1.30); FREE T4 0.99 NG/DL (0.76-1.46); GLOMERULAR FILTRATION RATE > 60.0 (>42); GLUCOSE, FASTING 143 MG/DL (70-100); POTASSIUM SERUM 4.7 MEQ/L (3.5-5.1); SODIUM LEVEL 140 MEQ/L (136-145); THYROID STIMULATING HORMONE 0.695 uIU/ML (0.358-3.740); TOTAL PROTEIN 6.6 GM/DL (6.4-8.2)
== END ==
LOC: M WUC 15:25
PROVIDERS: ATTEND Specialist
DX: C15.9 Malignant neoplasm of esophagus, unspecified (principal); Z79.899 Other long term (current) drug therapy

== ENCOUNTER → 2021-09-11 | Outpatient (CLI) | payer MEDICARE, BC ==
[2021-09-11 12:34] LABS: BASO % 0.4 % (0.0-1.0); EOS # 0.1 10^3/uL (0.0-0.5); EOS % 1.4 % (0.0-3.0); HEMATOCRIT 40.6 % (42.0-52.0); HEMOGLOBIN 12.9 g/dl (13.5-17.5); LYMPH % 13.8 % (24.0-44.0); MEAN CORPUSCULAR HEMOGLOBIN 29.9 pg (27.0-33.0); MEAN CORPUSCULAR HGB CONC 31.8 g/dl (32.0-36.5); MEAN CORPUSCULAR VOLUME 94.2 fl (80.0-96.0); MONO # 0.8 10^3/uL (0.0-0.8); MONO % 11.4 % (2.0-8.0); NEUTROPHILS # 5.1 10^3/uL (1.5-8.5); NEUTROPHILS % 72.6 % (36.0-66.0); PLATELET COUNT, AUTOMATED 140 10^3/uL (150-450); RED BLOOD COUNT 4.31 10^6/uL (4.30-6.10)
[2021-09-11 13:08] LABS: ALBUMIN 3.7 GM/DL (3.2-5.2); ALT/SGPT 35 U/L (12-78); BILIRUBIN,TOTAL 0.4 MG/DL (0.2-1.0); BLOOD UREA NITROGEN 24 MG/DL (7-18); CALCIUM LEVEL 9.2 MG/DL (8.8-10.2); CARBON DIOXIDE LEVEL 30 MEQ/L (21-32); CHLORIDE LEVEL 109 MEQ/L (98-107); GLOMERULAR FILTRATION RATE > 60.0 (>42); GLUCOSE, FASTING 77 MG/DL (70-100); POTASSIUM SERUM 4.1 MEQ/L (3.5-5.1); SODIUM LEVEL 146 MEQ/L (136-145); TOTAL PROTEIN 6.4 GM/DL (6.4-8.2)
[2021-09-12 08:35] LABS: MAGNESIUM LEVEL 2.1 MG/DL (1.7-2.2)
== END ==
LOC: M WUC 10:02
PROVIDERS: ATTEND Specialist
DX: C15.9 Malignant neoplasm of esophagus, unspecified (principal)

== ENCOUNTER → 2022-02-12 | Outpatient (CLI) | payer MEDICARE, BC ==
[~2022-02-12] MED LIST changes: +BREO1INH; +GABA-282 PO
[2022-02-12 11:30] LABS: BASO % 0.5 % (0.0-1.0); EOS # 0.1 10^3/uL (0.0-0.5); EOS % 0.7 % (0.0-3.0); HEMATOCRIT 38.4 % (42.0-52.0); HEMOGLOBIN 12.6 g/dl (13.5-17.5); LYMPH # 0.8 10^3/uL (1.5-5.0); LYMPH % 11.2 % (24.0-44.0); MEAN CORPUSCULAR HEMOGLOBIN 32.3 pg (27.0-33.0); MEAN CORPUSCULAR HGB CONC 32.8 g/dl (32.0-36.5); MEAN CORPUSCULAR VOLUME 98.5 fl (80.0-96.0); MONO % 12.9 % (2.0-8.0); NEUTROPHILS # 5.5 10^3/uL (1.5-8.5); NEUTROPHILS % 73.9 % (36.0-66.0); PLATELET COUNT, AUTOMATED 155 10^3/uL (150-450); WHITE BLOOD COUNT 7.5 10^3/uL (4.0-10.0)
[2022-02-12 15:33] LABS: ALBUMIN 3.9 GM/DL (3.2-5.2); ALT/SGPT 25 U/L (12-78); BILIRUBIN,TOTAL 0.7 MG/DL (0.2-1.0); BLOOD UREA NITROGEN 20 MG/DL (7-18); CARBON DIOXIDE LEVEL 26 MEQ/L (21-32); CHLORIDE LEVEL 109 MEQ/L (98-107); CREATININE FOR GFR 0.87 MG/DL (0.70-1.30); GLOMERULAR FILTRATION RATE > 60.0 (>42); GLUCOSE, FASTING 97 MG/DL (70-100); POTASSIUM SERUM 4.1 MEQ/L (3.5-5.1); SODIUM LEVEL 140 MEQ/L (136-145); TOTAL PROTEIN 6.1 GM/DL (6.4-8.2)
== END ==
LOC: M WUC 09:27
PROVIDERS: ATTEND Nurse Practitioner
DX: C15.9 Malignant neoplasm of esophagus, unspecified (principal)

== ENCOUNTER → 2022-02-26 | Outpatient (CLI) | payer MEDICARE, BC ==
[2022-02-26 11:52] LABS: BASO # 0.1 10^3/uL (0.0-0.2); BASO % 1.1 % (0.0-1.0); EOS # 0.2 10^3/uL (0.0-0.5); EOS % 3.2 % (0.0-3.0); HEMATOCRIT 39.2 % (42.0-52.0); HEMOGLOBIN 12.9 g/dl (13.5-17.5); LYMPH # 1.1 10^3/uL (1.5-5.0); LYMPH % 23.7 % (24.0-44.0); MEAN CORPUSCULAR HEMOGLOBIN 32.5 pg (27.0-33.0); MEAN CORPUSCULAR HGB CONC 32.9 g/dl (32.0-36.5); MEAN CORPUSCULAR VOLUME 98.7 fl (80.0-96.0); MONO # 0.9 10^3/uL (0.0-0.8); MONO % 19.4 % (2.0-8.0); NEUTROPHILS # 2.4 10^3/uL (1.5-8.5); NEUTROPHILS % 51.7 % (36.0-66.0); PLATELET COUNT, AUTOMATED 185 10^3/uL (150-450); RED BLOOD COUNT 3.97 10^6/uL (4.30-6.10); WHITE BLOOD COUNT 4.7 10^3/uL (4.0-10.0)
[2022-02-26 12:59] LABS: ALBUMIN 3.8 GM/DL (3.2-5.2); ALT/SGPT 21 U/L (12-78); BILIRUBIN,TOTAL 0.6 MG/DL (0.2-1.0); BLOOD UREA NITROGEN 14 MG/DL (7-18); CALCIUM LEVEL 9.5 MG/DL (8.8-10.2); CARBON DIOXIDE LEVEL 29 MEQ/L (21-32); CHLORIDE LEVEL 108 MEQ/L (98-107); CREATININE FOR GFR 0.94 MG/DL (0.70-1.30); GLOMERULAR FILTRATION RATE > 60.0 (>42); GLUCOSE, FASTING 88 MG/DL (70-100); SODIUM LEVEL 143 MEQ/L (136-145); TOTAL PROTEIN 6.3 GM/DL (6.4-8.2)
== END ==
LOC: M WUC 09:56
PROVIDERS: ATTEND Specialist
DX: C15.9 Malignant neoplasm of esophagus, unspecified (principal)

== ENCOUNTER → 2022-03-12 | Outpatient (CLI) | payer MEDICARE, BC ==
[2022-03-12 13:16] LABS: BASO # 0.1 10^3/uL (0.0-0.2); EOS # 0.1 10^3/uL (0.0-0.5); HEMOGLOBIN 12.6 g/dl (13.5-17.5); MEAN CORPUSCULAR HGB CONC 33.2 g/dl (32.0-36.5); MEAN CORPUSCULAR VOLUME 102.4 fl (80.0-96.0); MONO # 0.9 10^3/uL (0.0-0.8); MONO % 15.4 % (2.0-8.0); NEUTROPHILS # 3.8 10^3/uL (1.5-8.5); NEUTROPHILS % 63.9 % (36.0-66.0); PLATELET COUNT, AUTOMATED 177 10^3/uL (150-450); RED BLOOD COUNT 3.71 10^6/uL (4.30-6.10)
[2022-03-12 14:48] LABS: ALBUMIN 3.9 GM/DL (3.2-5.2); ALT/SGPT 32 U/L (12-78); BILIRUBIN,TOTAL 0.5 MG/DL (0.2-1.0); BLOOD UREA NITROGEN 18 MG/DL (7-18); CALCIUM LEVEL 8.9 MG/DL (8.8-10.2); CARBON DIOXIDE LEVEL 26 MEQ/L (21-32); CHLORIDE LEVEL 111 MEQ/L (98-107); CREATININE FOR GFR 1.04 MG/DL (0.70-1.30); GLOMERULAR FILTRATION RATE > 60.0 (>42); GLUCOSE, FASTING 117 MG/DL (70-100); POTASSIUM SERUM 3.9 MEQ/L (3.5-5.1); SODIUM LEVEL 146 MEQ/L (136-145); TOTAL PROTEIN 6.4 GM/DL (6.4-8.2)
== END ==
LOC: M WUC 09:28
PROVIDERS: ATTEND Specialist
DX: C16.0 Malignant neoplasm of cardia (principal)

== ENCOUNTER → 2022-03-29 | Outpatient (CLI) | payer MEDICARE, BC ==
[~2022-03-29] MED LIST changes: +GASTROGRAFIN SOLUTION 30ML (Q9963) As Ordered ONE; +ISOVUE-370 76% 100ML VIAL As Ordered ONE
== END ==
LOC: M RAD 06:48
PROVIDERS: ATTEND Internal Medicine Medical Oncology
DX: C15.9 Malignant neoplasm of esophagus, unspecified (principal); K80.20 Calculus of gallbladder without cholecystitis without obstruction; N20.0 Calculus of kidney
CPT/HCPCS: 71260; 74177; Q9963; Q9967

== ENCOUNTER → 2022-04-24 | Outpatient (CLI) | payer MEDICARE, BC ==
[~2022-04-24] MED LIST changes: -GASTROGRAFIN SOLUTION 30ML (Q9963) As Ordered ONE; -ISOVUE-370 76% 100ML VIAL As Ordered ONE
[2022-04-24 12:32] LABS: BASO % 0.8 % (0.0-1.0); EOS # 0.1 10^3/uL (0.0-0.5); EOS % 2.6 % (0.0-3.0); HEMATOCRIT 36.6 % (42.0-52.0); LYMPH % 17.9 % (24.0-44.0); MEAN CORPUSCULAR HGB CONC 32.8 g/dl (32.0-36.5); MEAN CORPUSCULAR VOLUME 103.7 fl (80.0-96.0); MONO # 0.9 10^3/uL (0.0-0.8); MONO % 17.5 % (2.0-8.0); NEUTROPHILS # 3.2 10^3/uL (1.5-8.5); NEUTROPHILS % 60.6 % (36.0-66.0); PLATELET COUNT, AUTOMATED 158 10^3/uL (150-450); RED BLOOD COUNT 3.53 10^6/uL (4.30-6.10); WHITE BLOOD COUNT 5.3 10^3/uL (4.0-10.0)
[2022-04-24 13:22] LABS: ALT/SGPT 23 U/L (12-78); BILIRUBIN,TOTAL 0.5 MG/DL (0.2-1.0); BLOOD UREA NITROGEN 13 MG/DL (7-18); CALCIUM LEVEL 9.1 MG/DL (8.8-10.2); CARBON DIOXIDE LEVEL 32 MEQ/L (21-32); CHLORIDE LEVEL 107 MEQ/L (98-107); CREATININE FOR GFR 0.93 MG/DL (0.70-1.30); GLOMERULAR FILTRATION RATE > 60.0 (>42); GLUCOSE, FASTING 94 MG/DL (70-100); POTASSIUM SERUM 4.1 MEQ/L (3.5-5.1); SODIUM LEVEL 141 MEQ/L (136-145); TOTAL PROTEIN 6.3 GM/DL (6.4-8.2)
== END ==
LOC: M WUC 09:13
PROVIDERS: ATTEND Nurse Practitioner
DX: C15.9 Malignant neoplasm of esophagus, unspecified (principal)

== ENCOUNTER → 2022-05-21 | Outpatient (CLI) | payer MEDICARE, BC ==
[2022-05-21 12:30] LABS: BASO # 0.1 10^3/uL (0.0-0.2); EOS # 0.1 10^3/uL (0.0-0.5); EOS % 2.8 % (0.0-3.0); HEMATOCRIT 35.7 % (42.0-52.0); HEMOGLOBIN 11.9 g/dl (13.5-17.5); LYMPH # 1.2 10^3/uL (1.5-5.0); LYMPH % 22.9 % (24.0-44.0); MEAN CORPUSCULAR HEMOGLOBIN 34.5 pg (27.0-33.0); MEAN CORPUSCULAR HGB CONC 33.3 g/dl (32.0-36.5); MEAN CORPUSCULAR VOLUME 103.5 fl (80.0-96.0); MONO # 0.9 10^3/uL (0.0-0.8); NEUTROPHILS # 2.8 10^3/uL (1.5-8.5); NEUTROPHILS % 54.9 % (36.0-66.0); PLATELET COUNT, AUTOMATED 175 10^3/uL (150-450); RED BLOOD COUNT 3.45 10^6/uL (4.30-6.10); WHITE BLOOD COUNT 5.1 10^3/uL (4.0-10.0)
[2022-05-21 13:10] LABS: ALBUMIN 3.7 GM/DL (3.2-5.2); ALT/SGPT 24 U/L (12-78); BILIRUBIN,TOTAL 0.5 MG/DL (0.2-1.0); BLOOD UREA NITROGEN 17 MG/DL (7-18); CALCIUM LEVEL 8.9 MG/DL (8.8-10.2); CARBON DIOXIDE LEVEL 29 MEQ/L (21-32); CHLORIDE LEVEL 107 MEQ/L (98-107); CREATININE FOR GFR 1.02 MG/DL (0.70-1.30); GLOMERULAR FILTRATION RATE > 60.0 (>42); GLUCOSE, FASTING 97 MG/DL (70-100); POTASSIUM SERUM 4.3 MEQ/L (3.5-5.1); SODIUM LEVEL 141 MEQ/L (136-145); TOTAL PROTEIN 6.1 GM/DL (6.4-8.2)
== END ==
LOC: M WUC 09:38
PROVIDERS: ATTEND Nurse Practitioner
DX: C15.9 Malignant neoplasm of esophagus, unspecified (principal)

== ENCOUNTER → 2022-06-04 | Outpatient (CLI) | payer MEDICARE, BC ==
[2022-06-04 13:07] LABS: BASO # 0.1 10^3/uL (0.0-0.2); BASO % 0.9 % (0.0-1.0); EOS # 0.1 10^3/uL (0.0-0.5); EOS % 2.1 % (0.0-3.0); HEMATOCRIT 39.6 % (42.0-52.0); HEMOGLOBIN 13.2 g/dl (13.5-17.5); LYMPH # 1.2 10^3/uL (1.5-5.0); LYMPH % 17.5 % (24.0-44.0); MEAN CORPUSCULAR HEMOGLOBIN 34.7 pg (27.0-33.0); MEAN CORPUSCULAR HGB CONC 33.3 g/dl (32.0-36.5); MEAN CORPUSCULAR VOLUME 104.2 fl (80.0-96.0); MONO # 1.2 10^3/uL (0.0-0.8); MONO % 17.1 % (2.0-8.0); NEUTROPHILS # 4.2 10^3/uL (1.5-8.5); NEUTROPHILS % 61.8 % (36.0-66.0); PLATELET COUNT, AUTOMATED 187 10^3/uL (150-450); WHITE BLOOD COUNT 6.8 10^3/uL (4.0-10.0)
[2022-06-04 13:52] LABS: ALBUMIN 4.1 GM/DL (3.2-5.2); ALT/SGPT 27 U/L (12-78); BILIRUBIN,TOTAL 0.5 MG/DL (0.2-1.0); BLOOD UREA NITROGEN 14 MG/DL (7-18); CALCIUM LEVEL 9.2 MG/DL (8.8-10.2); CARBON DIOXIDE LEVEL 30 MEQ/L (21-32); CHLORIDE LEVEL 107 MEQ/L (98-107); CREATININE FOR GFR 1.02 MG/DL (0.70-1.30); GLOMERULAR FILTRATION RATE > 60.0 (>42); GLUCOSE, FASTING 103 MG/DL (70-100); POTASSIUM SERUM 4.2 MEQ/L (3.5-5.1); SODIUM LEVEL 143 MEQ/L (136-145); TOTAL PROTEIN 6.5 GM/DL (6.4-8.2)
== END ==
LOC: M WUC 09:11
PROVIDERS: ATTEND Specialist
DX: C15.9 Malignant neoplasm of esophagus, unspecified (principal)

== ENCOUNTER → 2022-06-18 | Outpatient (CLI) | payer MEDICARE, BC ==
[2022-06-18 12:57] LABS: BASO % 0.7 % (0.0-1.0); EOS # 0.2 10^3/uL (0.0-0.5); EOS % 3.6 % (0.0-3.0); HEMATOCRIT 39.4 % (42.0-52.0); LYMPH # 1.3 10^3/uL (1.5-5.0); LYMPH % 32.3 % (24.0-44.0); MEAN CORPUSCULAR VOLUME 103.1 fl (80.0-96.0); MONO # 0.7 10^3/uL (0.0-0.8); MONO % 16.9 % (2.0-8.0); NEUTROPHILS # 1.9 10^3/uL (1.5-8.5); NEUTROPHILS % 45.8 % (36.0-66.0); PLATELET COUNT, AUTOMATED 172 10^3/uL (150-450); RED BLOOD COUNT 3.82 10^6/uL (4.30-6.10); WHITE BLOOD COUNT 4.2 10^3/uL (4.0-10.0)
[2022-06-18 13:47] LABS: ALT/SGPT 24 U/L (12-78); BILIRUBIN,TOTAL 0.5 MG/DL (0.2-1.0); BLOOD UREA NITROGEN 20 MG/DL (7-18); CALCIUM LEVEL 9.1 MG/DL (8.8-10.2); CARBON DIOXIDE LEVEL 29 MEQ/L (21-32); CHLORIDE LEVEL 109 MEQ/L (98-107); CREATININE FOR GFR 1.03 MG/DL (0.70-1.30); GLOMERULAR FILTRATION RATE > 60.0 (>42); GLUCOSE, FASTING 103 MG/DL (70-100); POTASSIUM SERUM 4.7 MEQ/L (3.5-5.1); SODIUM LEVEL 142 MEQ/L (136-145); TOTAL PROTEIN 6.4 GM/DL (6.4-8.2)
== END ==
LOC: M WUC 09:10
PROVIDERS: ATTEND Nurse Practitioner
DX: C15.9 Malignant neoplasm of esophagus, unspecified (principal)

== ENCOUNTER → 2022-12-17 | Outpatient (CLI) | payer MEDICARE, BC ==
[~2022-12-17] MED LIST changes: +DOXY-346
[2022-12-17 12:39] LABS: ALBUMIN 3.8 G/DL (3.2-5.2); ALKALINE PHOSPHATASE 95 U/L (46-116); ALT/SGPT 14 U/L (7.0-40); AST/SGOT 22 U/L (<34); BILIRUBIN,TOTAL 0.5 MG/DL (0.3-1.2); BLOOD UREA NITROGEN 18 MG/DL (9-23); CALCIUM LEVEL 9.2 MG/DL (8.3-10.6); CARBON DIOXIDE LEVEL 32 MMOL/L (20-31); CHLORIDE LEVEL 106 MMOL/L (98-107); CREATININE FOR GFR 0.92 MG/DL (0.70-1.30); GLOMERULAR FILTRATION RATE > 60.0 (>42); GLUCOSE, FASTING 96 MG/DL (74-106); POTASSIUM SERUM 4.4 MMOL/L (3.5-5.1); SODIUM LEVEL 141 MMOL/L (136-145)
[2022-12-17 12:44] LABS: BASO # 0.1 10^3/uL (0.0-0.2); EOS # 0.2 10^3/uL (0.0-0.5); EOS % 4.3 % (0.0-3.0); HEMATOCRIT 39.7 % (42.0-52.0); HEMOGLOBIN 13.1 g/dl (13.5-17.5); LYMPH # 1.2 10^3/uL (1.5-5.0); LYMPH % 24.3 % (24.0-44.0); MEAN CORPUSCULAR HEMOGLOBIN 32.3 pg (27.0-33.0); MEAN CORPUSCULAR VOLUME 97.8 fl (80.0-96.0); MONO # 0.9 10^3/uL (0.0-0.8); MONO % 17.2 % (2.0-8.0); NEUTROPHILS # 2.6 10^3/uL (1.5-8.5); NEUTROPHILS % 52.6 % (36.0-66.0); PLATELET COUNT, AUTOMATED 185 10^3/uL (150-450); RED BLOOD COUNT 4.06 10^6/uL (4.30-6.10); WHITE BLOOD COUNT 4.9 10^3/uL (4.0-10.0)
== END ==
LOC: M WUC 09:19
PROVIDERS: ATTEND Nurse Practitioner
DX: C15.9 Malignant neoplasm of esophagus, unspecified (principal)

== ENCOUNTER → 2022-12-27 | Outpatient (CLI) | payer MEDICARE, BC ==
[~2022-12-27] MED LIST changes: +GASTROGRAFIN SOLUTION 30ML As Ordered ONE; +ISOVUE-370 76% 100ML VIAL As Ordered ONE; +SERT50TA29
== END ==
LOC: M RAD 08:57
PROVIDERS: ATTEND Specialist
DX: C15.9 Malignant neoplasm of esophagus, unspecified (principal)
CPT/HCPCS: 71260; 74177; Q9963; Q9967

== ENCOUNTER → 2023-01-01 | Outpatient (CLI) | payer MEDICARE, BC ==
[~2023-01-01] MED LIST changes: -GASTROGRAFIN SOLUTION 30ML As Ordered ONE; -ISOVUE-370 76% 100ML VIAL As Ordered ONE
[2023-01-01 17:43] LABS: BASO # 0.1 10^3/uL (0.0-0.2); BASO % 1.3 % (0.0-1.0); EOS # 0.2 10^3/uL (0.0-0.5); HEMATOCRIT 39.8 % (42.0-52.0); HEMOGLOBIN 13.3 g/dl (13.5-17.5); LYMPH % 17.9 % (24.0-44.0); MEAN CORPUSCULAR HGB CONC 33.4 g/dl (32.0-36.5); MEAN CORPUSCULAR VOLUME 98.8 fl (80.0-96.0); MONO # 0.9 10^3/uL (0.0-0.8); MONO % 15.9 % (2.0-8.0); NEUTROPHILS # 3.4 10^3/uL (1.5-8.5); NEUTROPHILS % 60.7 % (36.0-66.0); PLATELET COUNT, AUTOMATED 176 10^3/uL (150-450); RED BLOOD COUNT 4.03 10^6/uL (4.30-6.10); WHITE BLOOD COUNT 5.5 10^3/uL (4.0-10.0)
[2023-01-01 17:55] LABS: ALBUMIN 4.1 G/DL (3.2-5.2); ALKALINE PHOSPHATASE 106 U/L (46-116); ALT/SGPT 22 U/L (7.0-40); AST/SGOT 26 U/L (<34); BILIRUBIN,TOTAL 0.6 MG/DL (0.3-1.2); BLOOD UREA NITROGEN 16 MG/DL (9-23); CALCIUM LEVEL 9.4 MG/DL (8.3-10.6); CARBON DIOXIDE LEVEL 29 MMOL/L (20-31); CHLORIDE LEVEL 104 MMOL/L (98-107); CREATININE FOR GFR 1.05 MG/DL (0.70-1.30); GLOMERULAR FILTRATION RATE > 60.0 (>42); GLUCOSE, FASTING 94 MG/DL (74-106); POTASSIUM SERUM 4.5 MMOL/L (3.5-5.1); SODIUM LEVEL 140 MMOL/L (136-145); TOTAL PROTEIN 6.4 G/DL (5.7-8.2)
== END ==
LOC: M WUC 11:04
PROVIDERS: ATTEND Specialist
DX: C15.9 Malignant neoplasm of esophagus, unspecified (principal); E78.2 Mixed hyperlipidemia

== ENCOUNTER → 2023-01-14 | Outpatient (CLI) | payer MEDICARE, BC ==
[~2023-01-14] MED LIST changes: +LEVO1TAB39 PO; +LEVO1TAB40 PO
[2023-01-14 13:28] LABS: BASO # 0.1 10^3/uL (0.0-0.2); BASO % 1.2 % (0.0-1.0); EOS # 0.4 10^3/uL (0.0-0.5); HEMATOCRIT 37.7 % (42.0-52.0); HEMOGLOBIN 12.2 g/dl (13.5-17.5); LYMPH # 1.1 10^3/uL (1.5-5.0); LYMPH % 21.5 % (24.0-44.0); MEAN CORPUSCULAR HEMOGLOBIN 31.9 pg (27.0-33.0); MEAN CORPUSCULAR HGB CONC 32.4 g/dl (32.0-36.5); MEAN CORPUSCULAR VOLUME 98.7 fl (80.0-96.0); MONO # 1.1 10^3/uL (0.0-0.8); MONO % 20.9 % (2.0-8.0); NEUTROPHILS # 2.5 10^3/uL (1.5-8.5); NEUTROPHILS % 48.6 % (36.0-66.0); PLATELET COUNT, AUTOMATED 175 10^3/uL (150-450); RED BLOOD COUNT 3.82 10^6/uL (4.30-6.10); WHITE BLOOD COUNT 5.1 10^3/uL (4.0-10.0)
[2023-01-14 13:51] LABS: ALKALINE PHOSPHATASE 98 U/L (46-116); ALT/SGPT 18 U/L (7.0-40); AST/SGOT 20 U/L (<34); BILIRUBIN,TOTAL 0.6 MG/DL (0.3-1.2); BLOOD UREA NITROGEN 23 MG/DL (9-23); CALCIUM LEVEL 8.5 MG/DL (8.3-10.6); CARBON DIOXIDE LEVEL 27 MMOL/L (20-31); CHLORIDE LEVEL 107 MMOL/L (98-107); CREATININE FOR GFR 0.88 MG/DL (0.70-1.30); GLOMERULAR FILTRATION RATE > 60.0 (>42); GLUCOSE, FASTING 90 MG/DL (74-106); SODIUM LEVEL 140 MMOL/L (136-145)
== END ==
LOC: M WUC 09:35
PROVIDERS: ATTEND Nurse Practitioner
DX: C15.9 Malignant neoplasm of esophagus, unspecified (principal)

== ENCOUNTER 2023-01-21 22:02 | Emergency (ER) | payer MEDICARE, BC ==
[~2023-01-21] VITALS: Ht 177.8 cm; Wt 78.5 kg
[~2023-01-21 22:02] MED LIST changes: -LEVO1TAB39 PO; -LEVO1TAB40 PO
[2023-01-21] MEDS ORDERED: NS 2,360 ML in IV 1 EA IV ONE (22:35)
[2023-01-21 23:55] LABS: VENOUS BASE EXCESS 2.4 (-2.0-2.0); VENOUS HCO3 29.1 MMOL/L (23.0-27.0); VENOUS O2 SATURATION 61.1 % (60.0-80.0); VENOUS PARTIAL PRESSURE O2 32.3 mmHg (30.0-50.0); VENOUS PH 7.349 UNITS (7.330-7.430); VENOUS STANDARD HCO3 25.8 MMOL/L; VENOUS TOTAL CO2 30.7 MMOL/L (24.0-28.0)
[2023-01-22 00:25] LABS: ALBUMIN 3.9 G/DL (3.2-5.2); ALKALINE PHOSPHATASE 90 U/L (46-116); ALT/SGPT 17 U/L (7.0-40); AMYLASE 87 U/L (30-118); AST/SGOT 16 U/L (<34); BILIRUBIN,DIRECT 0.1 MG/DL (<0.4); BILIRUBIN,TOTAL 0.5 MG/DL (0.3-1.2); BLOOD UREA NITROGEN 17 MG/DL (9-23); CALCIUM LEVEL 8.2 MG/DL (8.3-10.6); CARBON DIOXIDE LEVEL 30 MMOL/L (20-31); CHLORIDE LEVEL 105 MMOL/L (98-107); CREATININE FOR GFR 0.95 MG/DL (0.70-1.30); GLOMERULAR FILTRATION RATE > 60.0 (>42); GLUCOSE, FASTING 90 MG/DL (74-106); POTASSIUM SERUM 4.3 MMOL/L (3.5-5.1); SODIUM LEVEL 138 MMOL/L (136-145); TOTAL PROTEIN 5.7 G/DL (5.7-8.2)
[2023-01-22 00:37] LABS: CK-MB VALUE MASS < 1.0 NG/ML (<3.6)
[2023-01-22 00:42] LABS: CPK CREATINE PHOSPHOKINASE 50 U/L (46-171)
[2023-01-22 00:46] LABS: BASO % 0.9 % (0.0-1.0); EOS # 0.1 10^3/uL (0.0-0.5); EOS % 2.7 % (0.0-3.0); HEMATOCRIT 34.7 % (42.0-52.0); HEMOGLOBIN 11.9 g/dl (13.5-17.5); LYMPH # 0.5 10^3/uL (1.5-5.0); LYMPH % 14.2 % (24.0-44.0); MEAN CORPUSCULAR HEMOGLOBIN 33.8 pg (27.0-33.0); MEAN CORPUSCULAR HGB CONC 34.3 g/dl (32.0-36.5); MEAN CORPUSCULAR VOLUME 98.6 fl (80.0-96.0); MONO # 0.4 10^3/uL (0.0-0.8); MONO % 10.9 % (2.0-8.0); NEUTROPHILS # 2.4 10^3/uL (1.5-8.5); PLATELET COUNT, AUTOMATED 125 10^3/uL (150-450); RED BLOOD COUNT 3.52 10^6/uL (4.30-6.10); WHITE BLOOD COUNT 3.4 10^3/uL (4.0-10.0)
[2023-01-22 00:54] LABS: INR 1.14; PROTHROMBIN TIME 14.8 SECONDS (12.5-14.5)
[2023-01-22 00:55] LABS: PARTIAL THROMBOPLASTIN TIME 31.1 SECONDS (24.8-34.2)
[2023-01-22 01:06] LABS: APPEARANCE, URINE CLEAR (CLEAR); BACTERIA, URINE AUTO NEGATIVE (NEGATIVE); BILIRUBIN, URINE AUTO NEGATIVE (NEGATIVE); BLOOD, URINE BLOOD NEGATIVE (NEGATIVE); COLOR, URINE YELLOW (YELLOW); GLUCOSE, URINE (UA) AUTO NEGATIVE (NEGATIVE); KETONE, URINE AUTO NEGATIVE (NEGATIVE); LEUKOCYTE ESTERASE, URINE AUTO NEGATIVE (NEGATIVE); NITRITE, URINE AUTO NEGATIVE (NEGATIVE); PROTEIN, URINE AUTO NEGATIVE (NEGATIVE); RBC, URINE AUTO 0 /HPF (0-3); SPECIFIC GRAVITY URINE AUTO 1.013 (1.002-1.035); SQUAMOUS EPITHELIAL CELL UR AU 0 /HPF (0-6); UROBILINOGEN, URINE AUTO 0.2 mg/dL (0.0-2.0); WBC, URINE AUTO 0 /HPF (0-3)
[2023-01-22 01:36] LABS: CPK CREATINE PHOSPHOKINASE 47 U/L (46-171)
[2023-01-22 01:38] LABS: CK-MB VALUE MASS < 1.0 NG/ML (<3.6); MB/CK RELATIVE INDEX 2.12 (< OR =4)
[2023-01-22] MEDS ORDERED: LEVO1TAB39 PO (03:05)
[2023-01-22] MEDS ORDERED: LevoFLOXacin 750 MG TABLET PO ONE (03:05)
[2023-01-22] MEDS ORDERED: LEVO1TAB40 PO (03:10)
[2023-01-22 03:26] VITALS: BP 126/70; TEMP 98.1; O2SAT 97
== END 2023-01-22 03:34 | disposition home or self-care (01) ==
LOC: M ED 22:02
DX: A04.0 Enteropathogenic Escherichia coli infection (principal); C15.9 Malignant neoplasm of esophagus, unspecified; F32.A Depression, unspecified; F41.9 Anxiety disorder, unspecified; K21.9 Gastro-esophageal reflux disease without esophagitis; E78.5 Hyperlipidemia, unspecified; F17.200 Nicotine dependence, unspecified, uncomplicated; Z79.01 Long term (current) use of anticoagulants; Z79.891 Long term (current) use of opiate analgesic; Z79.899 Other long term (current) drug therapy; Z92.21 Personal history of antineoplastic chemotherapy

== ENCOUNTER → 2023-01-28 | Outpatient (CLI) | payer MEDICARE, BC ==
[~2023-01-28] MED LIST changes: +LEVO1TAB39 PO; +LEVO1TAB40 PO
[2023-01-28 12:52] LABS: BASO # 0.1 10^3/uL (0.0-0.2); BASO % 0.9 % (0.0-1.0); EOS # 0.2 10^3/uL (0.0-0.5); EOS % 3.9 % (0.0-3.0); HEMATOCRIT 34.9 % (42.0-52.0); HEMOGLOBIN 11.6 g/dl (13.5-17.5); LYMPH # 1.1 10^3/uL (1.5-5.0); MEAN CORPUSCULAR HEMOGLOBIN 33.2 pg (27.0-33.0); MEAN CORPUSCULAR HGB CONC 33.2 g/dl (32.0-36.5); MONO # 0.8 10^3/uL (0.0-0.8); MONO % 13.8 % (2.0-8.0); NEUTROPHILS # 3.5 10^3/uL (1.5-8.5); PLATELET COUNT, AUTOMATED 181 10^3/uL (150-450); RED BLOOD COUNT 3.49 10^6/uL (4.30-6.10); WHITE BLOOD COUNT 5.7 10^3/uL (4.0-10.0)
[2023-01-28 13:28] LABS: ALKALINE PHOSPHATASE 98 U/L (46-116); ALT/SGPT 14 U/L (7.0-40); AST/SGOT 22 U/L (<34); BILIRUBIN,TOTAL 0.5 MG/DL (0.3-1.2); BLOOD UREA NITROGEN 21 MG/DL (9-23); CALCIUM LEVEL 8.7 MG/DL (8.3-10.6); CARBON DIOXIDE LEVEL 28 MMOL/L (20-31); CHLORIDE LEVEL 107 MMOL/L (98-107); CREATININE FOR GFR 0.96 MG/DL (0.70-1.30); GLOMERULAR FILTRATION RATE > 60.0 (>42); GLUCOSE, FASTING 99 MG/DL (74-106); POTASSIUM SERUM 4.2 MMOL/L (3.5-5.1); SODIUM LEVEL 139 MMOL/L (136-145)
== END ==
LOC: M WUC 09:36
PROVIDERS: ATTEND Specialist
DX: C15.9 Malignant neoplasm of esophagus, unspecified (principal)

== ENCOUNTER → 2023-02-18 | Outpatient (CLI) | payer MEDICARE, BC ==
[~2023-02-18] MED LIST changes: -LIDO1CRE42 TOP; +LIDO30CR18 TOP
[2023-02-18 18:46] LABS: BASO # 0.1 10^3/uL (0.0-0.2); EOS # 0.3 10^3/uL (0.0-0.5); EOS % 5.8 % (0.0-3.0); HEMATOCRIT 37.8 % (42.0-52.0); HEMOGLOBIN 12.2 g/dl (13.5-17.5); LYMPH # 1.1 10^3/uL (1.5-5.0); LYMPH % 21.2 % (24.0-44.0); MEAN CORPUSCULAR HEMOGLOBIN 34.2 pg (27.0-33.0); MEAN CORPUSCULAR HGB CONC 32.3 g/dl (32.0-36.5); MEAN CORPUSCULAR VOLUME 105.9 fl (80.0-96.0); MONO # 0.9 10^3/uL (0.0-0.8); MONO % 17.7 % (2.0-8.0); NEUTROPHILS # 2.8 10^3/uL (1.5-8.5); NEUTROPHILS % 54.1 % (36.0-66.0); PLATELET COUNT, AUTOMATED 199 10^3/uL (150-450); RED BLOOD COUNT 3.57 10^6/uL (4.30-6.10); WHITE BLOOD COUNT 5.1 10^3/uL (4.0-10.0)
[2023-02-18 19:07] LABS: ALKALINE PHOSPHATASE 104 U/L (46-116); ALT/SGPT 14 U/L (7.0-40); AST/SGOT 15 U/L (<34); BILIRUBIN,TOTAL 0.8 MG/DL (0.3-1.2); BLOOD UREA NITROGEN 16 MG/DL (9-23); CALCIUM LEVEL 9.2 MG/DL (8.3-10.6); CARBON DIOXIDE LEVEL 24 MMOL/L (20-31); CHLORIDE LEVEL 107 MMOL/L (98-107); CREATININE FOR GFR 0.79 MG/DL (0.70-1.30); GLOMERULAR FILTRATION RATE > 60.0 (>42); GLUCOSE, FASTING 112 MG/DL (74-106); POTASSIUM SERUM 4.3 MMOL/L (3.5-5.1); SODIUM LEVEL 140 MMOL/L (136-145); TOTAL PROTEIN 6.3 G/DL (5.7-8.2)
== END ==
LOC: M WUC 10:13
PROVIDERS: ATTEND Specialist
DX: Z00.00 Encounter for general adult medical examination without abnormal findings (principal)

== ENCOUNTER → 2023-03-04 | Outpatient (CLI) | payer MEDICARE, BC ==
[~2023-03-04] MED LIST changes: +PROBCAP14 PO
[2023-03-04 12:49] LABS: BASO # 0.1 10^3/uL (0.0-0.2); BASO % 0.9 % (0.0-1.0); EOS # 0.1 10^3/uL (0.0-0.5); EOS % 1.8 % (0.0-3.0); HEMATOCRIT 37.6 % (42.0-52.0); HEMOGLOBIN 12.6 g/dl (13.5-17.5); LYMPH # 1.1 10^3/uL (1.5-5.0); LYMPH % 20.2 % (24.0-44.0); MEAN CORPUSCULAR HEMOGLOBIN 34.5 pg (27.0-33.0); MEAN CORPUSCULAR HGB CONC 33.5 g/dl (32.0-36.5); MONO # 0.7 10^3/uL (0.0-0.8); MONO % 13.1 % (2.0-8.0); NEUTROPHILS # 3.6 10^3/uL (1.5-8.5); NEUTROPHILS % 63.5 % (36.0-66.0); PLATELET COUNT, AUTOMATED 181 10^3/uL (150-450); RED BLOOD COUNT 3.65 10^6/uL (4.30-6.10); WHITE BLOOD COUNT 5.6 10^3/uL (4.0-10.0)
[2023-03-04 13:10] LABS: ALBUMIN 4.2 G/DL (3.2-5.2); ALKALINE PHOSPHATASE 106 U/L (46-116); ALT/SGPT 17 U/L (7.0-40); AST/SGOT 21 U/L (<34); BILIRUBIN,TOTAL 0.8 MG/DL (0.3-1.2); BLOOD UREA NITROGEN 14 MG/DL (9-23); CALCIUM LEVEL 9.1 MG/DL (8.3-10.6); CARBON DIOXIDE LEVEL 29 MMOL/L (20-31); CHLORIDE LEVEL 107 MMOL/L (98-107); CREATININE FOR GFR 0.86 MG/DL (0.70-1.30); GLOMERULAR FILTRATION RATE > 60.0 (>42); GLUCOSE, FASTING 90 MG/DL (74-106); POTASSIUM SERUM 4.4 MMOL/L (3.5-5.1); SODIUM LEVEL 144 MMOL/L (136-145); TOTAL PROTEIN 6.3 G/DL (5.7-8.2)
[2023-03-06 13:37] LABS: PROSTATIC SPECIFIC AG MONITOR 1.09 NG/ML (< 4.00)
== END ==
LOC: M WUC 09:40
PROVIDERS: ATTEND Specialist
DX: C15.9 Malignant neoplasm of esophagus, unspecified (principal)

== ENCOUNTER → 2023-03-18 | Outpatient (CLI) | payer MEDICARE, BC ==
[~2023-03-18] MED LIST changes: +MAGICMW SSP
[2023-03-18 17:41] LABS: BASO % 0.7 % (0.0-1.0); EOS # 0.1 10^3/uL (0.0-0.5); EOS % 3.3 % (0.0-3.0); HEMATOCRIT 37.2 % (42.0-52.0); HEMOGLOBIN 12.3 g/dl (13.5-17.5); LYMPH % 22.7 % (24.0-44.0); MEAN CORPUSCULAR HGB CONC 33.1 g/dl (32.0-36.5); MONO # 0.8 10^3/uL (0.0-0.8); MONO % 18.5 % (2.0-8.0); NEUTROPHILS # 2.3 10^3/uL (1.5-8.5); NEUTROPHILS % 54.3 % (36.0-66.0); PLATELET COUNT, AUTOMATED 185 10^3/uL (150-450); RED BLOOD COUNT 3.51 10^6/uL (4.30-6.10); WHITE BLOOD COUNT 4.3 10^3/uL (4.0-10.0)
[2023-03-18 18:28] LABS: ALKALINE PHOSPHATASE 97 U/L (46-116); ALT/SGPT 19 U/L (7.0-40); AST/SGOT 20 U/L (<34); BILIRUBIN,TOTAL 0.5 MG/DL (0.3-1.2); BLOOD UREA NITROGEN 15 MG/DL (9-23); CALCIUM LEVEL 9.2 MG/DL (8.3-10.6); CARBON DIOXIDE LEVEL 29 MMOL/L (20-31); CHLORIDE LEVEL 106 MMOL/L (98-107); CREATININE FOR GFR 0.89 MG/DL (0.70-1.30); GLOMERULAR FILTRATION RATE > 60.0 (>42); GLUCOSE, FASTING 92 MG/DL (74-106); POTASSIUM SERUM 4.4 MMOL/L (3.5-5.1); SODIUM LEVEL 142 MMOL/L (136-145); TOTAL PROTEIN 6.2 G/DL (5.7-8.2)
== END ==
LOC: M WUC 10:14
PROVIDERS: ATTEND Specialist
DX: C15.9 Malignant neoplasm of esophagus, unspecified (principal)

== ENCOUNTER → 2023-04-01 | Outpatient (CLI) | payer MEDICARE, BC ==
[~2023-04-01] MED LIST changes: +ATEN25TA
[2023-04-01 11:42] LABS: BASO # 0.1 10^3/uL (0.0-0.2); BASO % 1.4 % (0.0-1.0); EOS # 0.2 10^3/uL (0.0-0.5); EOS % 4.1 % (0.0-3.0); HEMATOCRIT 37.8 % (42.0-52.0); HEMOGLOBIN 12.6 g/dl (13.5-17.5); LYMPH # 1.2 10^3/uL (1.5-5.0); LYMPH % 23.7 % (24.0-44.0); MEAN CORPUSCULAR HEMOGLOBIN 35.3 pg (27.0-33.0); MEAN CORPUSCULAR HGB CONC 33.3 g/dl (32.0-36.5); MEAN CORPUSCULAR VOLUME 105.9 fl (80.0-96.0); MONO # 0.9 10^3/uL (0.0-0.8); MONO % 18.3 % (2.0-8.0); NEUTROPHILS # 2.7 10^3/uL (1.5-8.5); NEUTROPHILS % 52.1 % (36.0-66.0); PLATELET COUNT, AUTOMATED 169 10^3/uL (150-450); RED BLOOD COUNT 3.57 10^6/uL (4.30-6.10); WHITE BLOOD COUNT 5.2 10^3/uL (4.0-10.0)
[2023-04-01 12:15] LABS: ALBUMIN 4.1 G/DL (3.2-5.2); ALKALINE PHOSPHATASE 100 U/L (46-116); ALT/SGPT 18 U/L (7.0-40); AST/SGOT 18 U/L (<34); BILIRUBIN,TOTAL 0.5 MG/DL (0.3-1.2); BLOOD UREA NITROGEN 20 MG/DL (9-23); CALCIUM LEVEL 9.2 MG/DL (8.3-10.6); CARBON DIOXIDE LEVEL 29 MMOL/L (20-31); CHLORIDE LEVEL 107 MMOL/L (98-107); CREATININE FOR GFR 0.99 MG/DL (0.70-1.30); GLOMERULAR FILTRATION RATE > 60.0 (>42); GLUCOSE, FASTING 93 MG/DL (74-106); POTASSIUM SERUM 4.5 MMOL/L (3.5-5.1); SODIUM LEVEL 144 MMOL/L (136-145); TOTAL PROTEIN 6.4 G/DL (5.7-8.2)
== END ==
LOC: M WUC 09:42
PROVIDERS: ATTEND Specialist
DX: C15.9 Malignant neoplasm of esophagus, unspecified (principal)

== ENCOUNTER → 2023-04-15 | Outpatient (REF) | payer MEDICARE, BC ==
[2023-04-15 12:15] LABS: BASO # 0.1 10^3/uL (0.0-0.2); EOS # 0.3 10^3/uL (0.0-0.5); EOS % 5.3 % (0.0-3.0); HEMATOCRIT 37.1 % (42.0-52.0); HEMOGLOBIN 12.4 g/dl (13.5-17.5); LYMPH % 19.5 % (24.0-44.0); MEAN CORPUSCULAR HEMOGLOBIN 35.4 pg (27.0-33.0); MEAN CORPUSCULAR HGB CONC 33.4 g/dl (32.0-36.5); MONO # 0.9 10^3/uL (0.0-0.8); MONO % 17.2 % (2.0-8.0); NEUTROPHILS # 2.9 10^3/uL (1.5-8.5); NEUTROPHILS % 56.8 % (36.0-66.0); PLATELET COUNT, AUTOMATED 186 10^3/uL (150-450); WHITE BLOOD COUNT 5.1 10^3/uL (4.0-10.0)
[2023-04-15 13:29] LABS: ALBUMIN 4.1 G/DL (3.2-5.2); ALKALINE PHOSPHATASE 96 U/L (46-116); ALT/SGPT 18 U/L (7.0-40); AST/SGOT 25 U/L (<34); BILIRUBIN,TOTAL 0.6 MG/DL (0.3-1.2); BLOOD UREA NITROGEN 15 MG/DL (9-23); CARBON DIOXIDE LEVEL 28 MMOL/L (20-31); CHLORIDE LEVEL 108 MMOL/L (98-107); CREATININE FOR GFR 0.91 MG/DL (0.70-1.30); GLOMERULAR FILTRATION RATE > 60.0 (>42); GLUCOSE, FASTING 77 MG/DL (74-106); POTASSIUM SERUM 4.4 MMOL/L (3.5-5.1); SODIUM LEVEL 143 MMOL/L (136-145); TOTAL PROTEIN 6.2 G/DL (5.7-8.2)
== END ==
LOC: M WUC 11:31
PROVIDERS: ATTEND Specialist
DX: C15.9 Malignant neoplasm of esophagus, unspecified (principal)

== ENCOUNTER → 2023-05-10 | Outpatient (CLI) | payer MEDICARE, BC ==
[2023-05-10 11:19] LABS: BASO # 0.1 10^3/uL (0.0-0.2); BASO % 1.1 % (0.0-1.0); EOS # 0.4 10^3/uL (0.0-0.5); EOS % 7.8 % (0.0-3.0); HEMATOCRIT 37.3 % (42.0-52.0); HEMOGLOBIN 12.6 g/dl (13.5-17.5); LYMPH # 1.1 10^3/uL (1.5-5.0); LYMPH % 20.2 % (24.0-44.0); MEAN CORPUSCULAR HEMOGLOBIN 35.5 pg (27.0-33.0); MEAN CORPUSCULAR HGB CONC 33.8 g/dl (32.0-36.5); MEAN CORPUSCULAR VOLUME 105.1 fl (80.0-96.0); MONO # 0.8 10^3/uL (0.0-0.8); MONO % 14.9 % (2.0-8.0); NEUTROPHILS # 2.9 10^3/uL (1.5-8.5); NEUTROPHILS % 55.1 % (36.0-66.0); PLATELET COUNT, AUTOMATED 200 10^3/uL (150-450); RED BLOOD COUNT 3.55 10^6/uL (4.30-6.10); WHITE BLOOD COUNT 5.3 10^3/uL (4.0-10.0)
[2023-05-10 11:43] LABS: BLOOD UREA NITROGEN 19 MG/DL (9-23); CARBON DIOXIDE LEVEL 29 MMOL/L (20-31); CHLORIDE LEVEL 105 MMOL/L (98-107); CREATININE FOR GFR 0.93 MG/DL (0.70-1.30); GLOMERULAR FILTRATION RATE > 60.0 (>42); GLUCOSE, FASTING 76 MG/DL (74-106); POTASSIUM SERUM 4.4 MMOL/L (3.5-5.1); SODIUM LEVEL 140 MMOL/L (136-145)
== END ==
LOC: M WUC 08:18
PROVIDERS: ATTEND Nurse Practitioner Family
DX: Z01.812 Encounter for preprocedural laboratory examination (principal)

== ENCOUNTER → 2023-05-10 | Outpatient (CLI) | payer MEDICARE, BC ==
[2023-05-10 11:19] LABS: BASO # 0.1 10^3/uL (0.0-0.2); BASO % 1.1 % (0.0-1.0); EOS # 0.5 10^3/uL (0.0-0.5); EOS % 8.4 % (0.0-3.0); HEMATOCRIT 37.9 % (42.0-52.0); HEMOGLOBIN 12.6 g/dl (13.5-17.5); LYMPH # 1.2 10^3/uL (1.5-5.0); LYMPH % 21.1 % (24.0-44.0); MEAN CORPUSCULAR HEMOGLOBIN 35.1 pg (27.0-33.0); MEAN CORPUSCULAR HGB CONC 33.2 g/dl (32.0-36.5); MEAN CORPUSCULAR VOLUME 105.6 fl (80.0-96.0); MONO # 0.9 10^3/uL (0.0-0.8); MONO % 15.5 % (2.0-8.0); NEUTROPHILS # 2.9 10^3/uL (1.5-8.5); NEUTROPHILS % 53.4 % (36.0-66.0); PLATELET COUNT, AUTOMATED 196 10^3/uL (150-450); RED BLOOD COUNT 3.59 10^6/uL (4.30-6.10); WHITE BLOOD COUNT 5.5 10^3/uL (4.0-10.0)
[2023-05-10 11:40] LABS: ALKALINE PHOSPHATASE 94 U/L (46-116); ALT/SGPT 17 U/L (7.0-40); AST/SGOT 22 U/L (<34); BILIRUBIN,TOTAL 0.5 MG/DL (0.3-1.2); BLOOD UREA NITROGEN 19 MG/DL (9-23); CALCIUM LEVEL 9.1 MG/DL (8.3-10.6); CARBON DIOXIDE LEVEL 30 MMOL/L (20-31); CHLORIDE LEVEL 107 MMOL/L (98-107); CREATININE FOR GFR 0.91 MG/DL (0.70-1.30); GLOMERULAR FILTRATION RATE > 60.0 (>42); GLUCOSE, FASTING 78 MG/DL (74-106); POTASSIUM SERUM 4.4 MMOL/L (3.5-5.1); SODIUM LEVEL 141 MMOL/L (136-145); TOTAL PROTEIN 6.3 G/DL (5.7-8.2)
== END ==
LOC: M WUC 08:14
PROVIDERS: ATTEND Specialist
DX: Z01.812 Encounter for preprocedural laboratory examination (principal); C15.9 Malignant neoplasm of esophagus, unspecified

== ENCOUNTER → 2023-05-10 | Outpatient (CLI) | payer MEDICARE, BC ==
[~2023-05-10] MED LIST changes: -SERT50TA29; +SERT50TA29 PO
[2023-05-10 11:17] LABS: HEMATOCRIT 37.6 % (42.0-52.0); HEMOGLOBIN 12.7 g/dl (13.5-17.5); MEAN CORPUSCULAR HEMOGLOBIN 35.5 pg (27.0-33.0); MEAN CORPUSCULAR HGB CONC 33.8 g/dl (32.0-36.5); PLATELET COUNT, AUTOMATED 206 10^3/uL (150-450); RED BLOOD COUNT 3.58 10^6/uL (4.30-6.10); WHITE BLOOD COUNT 5.4 10^3/uL (4.0-10.0)
[2023-05-10 11:29] LABS: INR 1.11
== END ==
LOC: M WUC 08:16
PROVIDERS: ATTEND Dentist
DX: C15.9 Malignant neoplasm of esophagus, unspecified (principal)

== ENCOUNTER → 2024-02-04 | Outpatient (CLI) | payer BC, MEDICARE, OTHER ==
[~2024-02-04] MED LIST changes: -DOCU-153 PO; +GASTROGRAFIN SOLUTION 30ML As Ordered ONE; +ISOVUE-370 76% 100ML VIAL As Ordered ONE; +ONDA-284 PO; -ONDA8TAB8 PO; -ROSU10TA6 PO; +ROSU10TA61 PO; +ROSU5TAB40 PO; -ROSU5TAB5 PO; +STOO100C30 PO
== END ==
LOC: M RAD 07:32
PROVIDERS: ATTEND Specialist
DX: C15.9 Malignant neoplasm of esophagus, unspecified (principal); J84.10 Pulmonary fibrosis, unspecified
CPT/HCPCS: 71260; 74177; Q9963; Q9967

== ENCOUNTER → 2024-02-10 | Outpatient (CLI) | payer OTHER ==
[~2024-02-10] MED LIST changes: -GASTROGRAFIN SOLUTION 30ML As Ordered ONE; -ISOVUE-370 76% 100ML VIAL As Ordered ONE
[2024-02-10 13:16] LABS: BASO # 0.1 10^3/uL (0.0-0.2); BASO % 1.1 % (0.0-1.0); EOS # 0.2 10^3/uL (0.0-0.5); EOS % 3.4 % (0.0-3.0); HEMATOCRIT 40.5 % (42.0-52.0); HEMOGLOBIN 13.4 g/dl (13.5-17.5); LYMPH # 0.9 10^3/uL (1.5-5.0); LYMPH % 17.5 % (24.0-44.0); MEAN CORPUSCULAR HEMOGLOBIN 33.2 pg (27.0-33.0); MEAN CORPUSCULAR HGB CONC 33.1 g/dl (32.0-36.5); MEAN CORPUSCULAR VOLUME 100.2 fl (80.0-96.0); MONO # 0.7 10^3/uL (0.0-0.8); NEUTROPHILS # 3.4 10^3/uL (1.5-8.5); NEUTROPHILS % 63.6 % (36.0-66.0); PLATELET COUNT, AUTOMATED 169 10^3/uL (150-450); RED BLOOD COUNT 4.04 10^6/uL (4.30-6.10); WHITE BLOOD COUNT 5.3 10^3/uL (4.0-10.0)
[2024-02-10 13:51] LABS: ALKALINE PHOSPHATASE 107 U/L (46-116); ALT/SGPT 15 U/L (7.0-40); AST/SGOT 20 U/L (<34); BILIRUBIN,TOTAL 0.5 MG/DL (0.3-1.2); BLOOD UREA NITROGEN 20 MG/DL (9-23); CALCIUM LEVEL 9.3 MG/DL (8.3-10.6); CARBON DIOXIDE LEVEL 29 MMOL/L (20-31); CHLORIDE LEVEL 107 MMOL/L (98-107); CREATININE FOR GFR 0.92 MG/DL (0.70-1.30); GLOMERULAR FILTRATION RATE > 60.0 (>42); GLUCOSE, FASTING 89 MG/DL (74-106); POTASSIUM SERUM 4.6 MMOL/L (3.5-5.1); SODIUM LEVEL 142 MMOL/L (136-145); TOTAL PROTEIN 6.3 G/DL (5.7-8.2)
== END ==
LOC: M WUC 10:23
PROVIDERS: ATTEND Specialist
DX: C15.9 Malignant neoplasm of esophagus, unspecified (principal)

== ENCOUNTER → 2024-02-25 | Outpatient (CLI) | payer MEDICARE, OTHER ==
[~2024-02-25] MED LIST changes: +SILD50TA PO
[2024-02-25 13:21] LABS: BASO # 0.1 10^3/uL (0.0-0.2); BASO % 0.9 % (0.0-1.0); EOS # 0.2 10^3/uL (0.0-0.5); EOS % 3.8 % (0.0-3.0); HEMATOCRIT 39.9 % (42.0-52.0); HEMOGLOBIN 13.3 g/dl (13.5-17.5); LYMPH # 1.2 10^3/uL (1.5-5.0); LYMPH % 21.3 % (24.0-44.0); MEAN CORPUSCULAR HEMOGLOBIN 33.6 pg (27.0-33.0); MEAN CORPUSCULAR HGB CONC 33.3 g/dl (32.0-36.5); MEAN CORPUSCULAR VOLUME 100.8 fl (80.0-96.0); MONO # 0.9 10^3/uL (0.0-0.8); MONO % 15.8 % (2.0-8.0); NEUTROPHILS # 3.2 10^3/uL (1.5-8.5); NEUTROPHILS % 57.7 % (36.0-66.0); PLATELET COUNT, AUTOMATED 172 10^3/uL (150-450); RED BLOOD COUNT 3.96 10^6/uL (4.30-6.10); WHITE BLOOD COUNT 5.5 10^3/uL (4.0-10.0)
[2024-02-25 13:22] LABS: ALBUMIN 4.3 G/DL (3.2-5.2); ALKALINE PHOSPHATASE 98 U/L (46-116); ALT/SGPT 16 U/L (7.0-40); AST/SGOT 20 U/L (<34); BILIRUBIN,TOTAL 0.6 MG/DL (0.3-1.2); BLOOD UREA NITROGEN 16 MG/DL (9-23); CALCIUM LEVEL 9.6 MG/DL (8.3-10.6); CARBON DIOXIDE LEVEL 28 MMOL/L (20-31); CHLORIDE LEVEL 108 MMOL/L (98-107); GLOMERULAR FILTRATION RATE > 60.0 (>42); GLUCOSE, FASTING 93 MG/DL (74-106); POTASSIUM SERUM 4.2 MMOL/L (3.5-5.1); SODIUM LEVEL 141 MMOL/L (136-145); TOTAL PROTEIN 6.4 G/DL (5.7-8.2)
== END ==
LOC: M WUC 09:56
PROVIDERS: ATTEND Specialist
DX: C15.9 Malignant neoplasm of esophagus, unspecified (principal)

== ENCOUNTER → 2024-03-09 | Outpatient (CLI) | payer MEDICARE, OTHER ==
[2024-03-09 12:33] LABS: BASO # 0.1 10^3/uL (0.0-0.2); BASO % 1.2 % (0.0-1.0); EOS # 0.2 10^3/uL (0.0-0.5); EOS % 3.2 % (0.0-3.0); HEMATOCRIT 37.9 % (42.0-52.0); HEMOGLOBIN 13.1 g/dl (13.5-17.5); LYMPH % 19.4 % (24.0-44.0); MEAN CORPUSCULAR HEMOGLOBIN 34.8 pg (27.0-33.0); MEAN CORPUSCULAR HGB CONC 34.6 g/dl (32.0-36.5); MEAN CORPUSCULAR VOLUME 100.8 fl (80.0-96.0); MONO # 0.8 10^3/uL (0.0-0.8); MONO % 16.6 % (2.0-8.0); NEUTROPHILS # 2.9 10^3/uL (1.5-8.5); NEUTROPHILS % 58.8 % (36.0-66.0); PLATELET COUNT, AUTOMATED 171 10^3/uL (150-450); RED BLOOD COUNT 3.76 10^6/uL (4.30-6.10)
[2024-03-09 13:07] LABS: ALKALINE PHOSPHATASE 98 U/L (46-116); ALT/SGPT 14 U/L (7.0-40); AST/SGOT 19 U/L (<34); BILIRUBIN,TOTAL 0.3 MG/DL (0.3-1.2); BLOOD UREA NITROGEN 19 MG/DL (9-23); CALCIUM LEVEL 9.1 MG/DL (8.3-10.6); CARBON DIOXIDE LEVEL 28 MMOL/L (20-31); CHLORIDE LEVEL 110 MMOL/L (98-107); CREATININE FOR GFR 0.99 MG/DL (0.70-1.30); GLOMERULAR FILTRATION RATE > 60.0 (>42); GLUCOSE, FASTING 93 MG/DL (74-106); POTASSIUM SERUM 4.2 MMOL/L (3.5-5.1); SODIUM LEVEL 143 MMOL/L (136-145)
== END ==
LOC: M WUC 09:11
PROVIDERS: ATTEND Specialist
DX: C15.9 Malignant neoplasm of esophagus, unspecified (principal)

== ENCOUNTER → 2024-03-10 | Outpatient (CLI) | payer MEDICARE, OTHER | LOC: M WUC 09:39 | PROVIDERS: ATTEND Physician Assistant | DX: N20.0 Calculus of kidney (principal) ==

== ENCOUNTER → 2024-03-23 | Outpatient (CLI) | payer OTHER | LOC: M PLAIMG 14:16 | PROVIDERS: ATTEND Nurse Practitioner Family | DX: R05.9 Cough, unspecified (principal) ==

== ENCOUNTER → 2024-04-01 | Outpatient (CLI) | payer MEDICARE, OTHER ==
[2024-04-01 16:25] LABS: INR 0.97; PARTIAL THROMBOPLASTIN TIME 25.5 SECONDS (24.8-34.2); PROTHROMBIN TIME 12.6 SECONDS (12.5-14.5)
== END ==
LOC: M WUC 14:33
PROVIDERS: ATTEND Specialist
DX: C15.9 Malignant neoplasm of esophagus, unspecified (principal)

== ENCOUNTER → 2024-04-07 | Outpatient (CLI) | payer MEDICARE, OTHER ==
[2024-04-07 10:15] LABS: BASO # 0.1 10^3/uL (0.0-0.2); BASO % 0.7 % (0.0-1.0); EOS # 0.2 10^3/uL (0.0-0.5); EOS % 2.8 % (0.0-3.0); HEMATOCRIT 39.1 % (42.0-52.0); HEMOGLOBIN 13.2 g/dl (13.5-17.5); LYMPH # 0.9 10^3/uL (1.5-5.0); LYMPH % 11.9 % (24.0-44.0); MEAN CORPUSCULAR HEMOGLOBIN 34.6 pg (27.0-33.0); MEAN CORPUSCULAR HGB CONC 33.8 g/dl (32.0-36.5); MEAN CORPUSCULAR VOLUME 102.6 fl (80.0-96.0); MONO # 1.1 10^3/uL (0.0-0.8); NEUTROPHILS # 5.3 10^3/uL (1.5-8.5); NEUTROPHILS % 70.3 % (36.0-66.0); PLATELET COUNT, AUTOMATED 168 10^3/uL (150-450); RED BLOOD COUNT 3.81 10^6/uL (4.30-6.10); WHITE BLOOD COUNT 7.6 10^3/uL (4.0-10.0)
[2024-04-07 10:46] LABS: CHOLESTEROL LEVEL 224 MG/DL (<200); CHOLESTEROL RISK RATIO 4.28 (<5); HDL CHOLESTEROL 52.3 MG/DL (>40); NON-HDL-C 171.7 MG/DL; TRIGLYCERIDES LEVEL 446 MG/DL (<150)
[2024-04-07 10:50] LABS: ALBUMIN 4.1 G/DL (3.2-5.2); ALKALINE PHOSPHATASE 99 U/L (46-116); ALT/SGPT 19 U/L (7.0-40); AST/SGOT 21 U/L (<34); BILIRUBIN,TOTAL 0.8 MG/DL (0.3-1.2); BLOOD UREA NITROGEN 20 MG/DL (9-23); CALCIUM LEVEL 9.4 MG/DL (8.3-10.6); CARBON DIOXIDE LEVEL 31 MMOL/L (20-31); CHLORIDE LEVEL 103 MMOL/L (98-107); CREATININE FOR GFR 1.11 MG/DL (0.70-1.30); GLOMERULAR FILTRATION RATE > 60.0 (>42); GLUCOSE, FASTING 75 MG/DL (74-106); POTASSIUM SERUM 4.3 MMOL/L (3.5-5.1); SODIUM LEVEL 138 MMOL/L (136-145); TOTAL PROTEIN 6.5 G/DL (5.7-8.2)
== END ==
LOC: M WUC 08:42
PROVIDERS: ATTEND Nurse Practitioner Family
DX: E78.2 Mixed hyperlipidemia (principal); C15.9 Malignant neoplasm of esophagus, unspecified

== ENCOUNTER → 2024-04-20 | Outpatient (CLI) | payer MEDICARE, OTHER ==
[2024-04-20 16:32] LABS: BASO % 0.9 % (0.0-1.0); EOS # 0.2 10^3/uL (0.0-0.5); EOS % 3.6 % (0.0-3.0); HEMATOCRIT 39.4 % (42.0-52.0); MEAN CORPUSCULAR HEMOGLOBIN 34.5 pg (27.0-33.0); MEAN CORPUSCULAR VOLUME 104.5 fl (80.0-96.0); MONO # 0.7 10^3/uL (0.0-0.8); MONO % 15.3 % (2.0-8.0); NEUTROPHILS # 2.6 10^3/uL (1.5-8.5); PLATELET COUNT, AUTOMATED 207 10^3/uL (150-450); RED BLOOD COUNT 3.77 10^6/uL (4.30-6.10); WHITE BLOOD COUNT 4.5 10^3/uL (4.0-10.0)
[2024-04-20 17:00] LABS: ALKALINE PHOSPHATASE 90 U/L (46-116); ALT/SGPT 24 U/L (7.0-40); AST/SGOT 25 U/L (<34); BILIRUBIN,TOTAL 0.5 MG/DL (0.3-1.2); BLOOD UREA NITROGEN 16 MG/DL (9-23); CALCIUM LEVEL 9.2 MG/DL (8.3-10.6); CARBON DIOXIDE LEVEL 29 MMOL/L (20-31); CHLORIDE LEVEL 110 MMOL/L (98-107); GLOMERULAR FILTRATION RATE > 60.0 (>42); GLUCOSE, FASTING 79 MG/DL (74-106); POTASSIUM SERUM 4.5 MMOL/L (3.5-5.1); SODIUM LEVEL 144 MMOL/L (136-145); TOTAL PROTEIN 6.5 G/DL (5.7-8.2)
== END ==
LOC: M WUC 09:58
PROVIDERS: ATTEND Specialist
DX: C15.9 Malignant neoplasm of esophagus, unspecified (principal)

== ENCOUNTER → 2024-05-04 | Outpatient (CLI) | payer MEDICARE, OTHER ==
[~2024-05-04] MED LIST changes: +GABA-1172 PO; -GABA-282 PO
[2024-05-04 18:44] LABS: BASO % 0.5 % (0.0-1.0); EOS # 0.1 10^3/uL (0.0-0.5); EOS % 1.6 % (0.0-3.0); HEMATOCRIT 38.2 % (42.0-52.0); HEMOGLOBIN 12.5 g/dl (13.5-17.5); LYMPH % 22.8 % (24.0-44.0); MEAN CORPUSCULAR HGB CONC 32.7 g/dl (32.0-36.5); MEAN CORPUSCULAR VOLUME 103.8 fl (80.0-96.0); MONO # 0.7 10^3/uL (0.0-0.8); MONO % 15.3 % (2.0-8.0); NEUTROPHILS # 2.5 10^3/uL (1.5-8.5); NEUTROPHILS % 59.6 % (36.0-66.0); PLATELET COUNT, AUTOMATED 164 10^3/uL (150-450); RED BLOOD COUNT 3.68 10^6/uL (4.30-6.10); WHITE BLOOD COUNT 4.3 10^3/uL (4.0-10.0)
[2024-05-04 19:17] LABS: ALKALINE PHOSPHATASE 95 U/L (46-116); ALT/SGPT 23 U/L (7.0-40); AST/SGOT 26 U/L (<34); BILIRUBIN,TOTAL 0.6 MG/DL (0.3-1.2); BLOOD UREA NITROGEN 16 MG/DL (9-23); CALCIUM LEVEL 9.2 MG/DL (8.3-10.6); CARBON DIOXIDE LEVEL 28 MMOL/L (20-31); CHLORIDE LEVEL 109 MMOL/L (98-107); CREATININE FOR GFR 0.94 MG/DL (0.70-1.30); GLOMERULAR FILTRATION RATE > 60.0 (>42); GLUCOSE, FASTING 101 MG/DL (74-106); POTASSIUM SERUM 4.3 MMOL/L (3.5-5.1); SODIUM LEVEL 142 MMOL/L (136-145); TOTAL PROTEIN 6.4 G/DL (5.7-8.2)
== END ==
LOC: M WUC 10:56
PROVIDERS: ATTEND Specialist
DX: C15.9 Malignant neoplasm of esophagus, unspecified (principal)
CPT/HCPCS: 36415; 80053; 82378; 85025; 94010; G0463

== ENCOUNTER → 2024-05-15 | Outpatient (CLI) | payer MEDICARE, OTHER ==
[~2024-05-15] MED LIST changes: +ISOVUE-370 76% 100ML VIAL As Ordered ONE
== END ==
LOC: M RAD 14:12
PROVIDERS: ATTEND Specialist
DX: C15.9 Malignant neoplasm of esophagus, unspecified (principal)
CPT/HCPCS: 71260; Q9967

== ENCOUNTER → 2024-05-18 | Outpatient (CLI) | payer MEDICARE, OTHER ==
[~2024-05-18] MED LIST changes: -ISOVUE-370 76% 100ML VIAL As Ordered ONE
[2024-05-18 12:58] LABS: BASO # 0.1 10^3/uL (0.0-0.2); EOS # 0.2 10^3/uL (0.0-0.5); EOS % 3.1 % (0.0-3.0); HEMATOCRIT 39.3 % (42.0-52.0); HEMOGLOBIN 13.6 g/dl (13.5-17.5); LYMPH % 20.6 % (24.0-44.0); MEAN CORPUSCULAR HGB CONC 34.6 g/dl (32.0-36.5); MONO # 0.8 10^3/uL (0.0-0.8); MONO % 15.5 % (2.0-8.0); NEUTROPHILS # 2.9 10^3/uL (1.5-8.5); PLATELET COUNT, AUTOMATED 209 10^3/uL (150-450); RED BLOOD COUNT 3.78 10^6/uL (4.30-6.10); WHITE BLOOD COUNT 4.9 10^3/uL (4.0-10.0)
[2024-05-18 13:29] LABS: ALBUMIN 4.2 G/DL (3.2-5.2); ALKALINE PHOSPHATASE 108 U/L (46-116); ALT/SGPT 25 U/L (7.0-40); AST/SGOT 31 U/L (<34); BILIRUBIN,TOTAL 0.2 MG/DL (0.3-1.2); BLOOD UREA NITROGEN 18 MG/DL (9-23); CALCIUM LEVEL 9.3 MG/DL (8.3-10.6); CARBON DIOXIDE LEVEL 29 MMOL/L (20-31); CHLORIDE LEVEL 109 MMOL/L (98-107); CREATININE FOR GFR 1.02 MG/DL (0.70-1.30); GLOMERULAR FILTRATION RATE > 60.0 (>42); GLUCOSE, FASTING 102 MG/DL (74-106); POTASSIUM SERUM 4.4 MMOL/L (3.5-5.1); SODIUM LEVEL 139 MMOL/L (136-145); TOTAL PROTEIN 6.4 G/DL (5.7-8.2)
== END ==
LOC: M WUC 09:37
PROVIDERS: ATTEND Specialist
DX: C15.9 Malignant neoplasm of esophagus, unspecified (principal)

== ENCOUNTER → 2024-06-01 | Outpatient (CLI) | payer MEDICARE, OTHER ==
[2024-06-01 13:41] LABS: BASO % 0.8 % (0.0-1.0); EOS # 0.2 10^3/uL (0.0-0.5); EOS % 3.6 % (0.0-3.0); HEMATOCRIT 38.3 % (42.0-52.0); HEMOGLOBIN 13.2 g/dl (13.5-17.5); LYMPH # 1.1 10^3/uL (1.5-5.0); LYMPH % 21.3 % (24.0-44.0); MEAN CORPUSCULAR HEMOGLOBIN 35.7 pg (27.0-33.0); MEAN CORPUSCULAR HGB CONC 34.5 g/dl (32.0-36.5); MEAN CORPUSCULAR VOLUME 103.5 fl (80.0-96.0); MONO # 0.9 10^3/uL (0.0-0.8); MONO % 18.1 % (2.0-8.0); NEUTROPHILS # 2.8 10^3/uL (1.5-8.5); NEUTROPHILS % 55.6 % (36.0-66.0); PLATELET COUNT, AUTOMATED 164 10^3/uL (150-450)
[2024-06-01 14:16] LABS: ALBUMIN 3.8 G/DL (3.2-5.2); ALKALINE PHOSPHATASE 96 U/L (40-129); ALT/SGPT 19 U/L (7.0-40); AST/SGOT 21 U/L (<34); BILIRUBIN,TOTAL 0.4 MG/DL (0.3-1.2); BLOOD UREA NITROGEN 16 MG/DL (9-23); CALCIUM LEVEL 9.2 MG/DL (8.3-10.6); CARBON DIOXIDE LEVEL 26 MMOL/L (20-31); CHLORIDE LEVEL 111 MMOL/L (98-107); CREATININE FOR GFR 0.91 MG/DL (0.70-1.30); GLOMERULAR FILTRATION RATE > 60.0 (>42); GLUCOSE, FASTING 82 MG/DL (74-106); POTASSIUM SERUM 4.2 MMOL/L (3.5-5.1); SODIUM LEVEL 142 MMOL/L (136-145); TOTAL PROTEIN 6.2 G/DL (5.7-8.2)
== END ==
LOC: M WUC 09:40
PROVIDERS: ATTEND Specialist
DX: C15.9 Malignant neoplasm of esophagus, unspecified (principal)

== ENCOUNTER → 2025-02-22 | Outpatient (CLI) | payer MEDICARE, OTHER ==
[~2025-02-22] MED LIST changes: +ISOVUE-370 76% 100 ML VIAL As Ordered ONE; +NEUR300C PO; -ROSU5TAB40 PO; +ROSU5TAB49 PO
== END ==
LOC: M RAD 15:17
PROVIDERS: ATTEND Specialist
DX: C15.9 Malignant neoplasm of esophagus, unspecified (principal); N20.0 Calculus of kidney; K80.20 Calculus of gallbladder without cholecystitis without obstruction; K76.0 Fatty (change of) liver, not elsewhere classified; J84.9 Interstitial pulmonary disease, unspecified
CPT/HCPCS: 71260; 74177; Q9967

== ENCOUNTER 2025-04-17 17:19 | Emergency (ER) | payer MEDICARE, OTHER ==
[~2025-04-17] VITALS: Ht 175.3 cm; Wt 80.0 kg
[~2025-04-17 17:19] MED LIST changes: -IBUP-1022 PO; +IBUP600T42 PO; -ISOVUE-370 76% 100 ML VIAL As Ordered ONE
[2025-04-17 18:15] LABS: BASO # 0.0 10^3/uL (0.0-0.2); BASO % 1.0 % (0.0-1.0); EOS # 0.1 10^3/uL (0.0-0.5); EOS % 3.1 % (0.0-3.0); LYMPH # 0.8 10^3/uL (1.5-5.0); LYMPH % 19.8 % (24.0-44.0); MONO # 0.7 10^3/uL (0.0-0.8); MONO % 18.8 % (2.0-8.0); NEUTROPHILS # 2.2 10^3/uL (1.5-8.5); NEUTROPHILS % 56.8 % (36.0-66.0); PLATELET COUNT, AUTOMATED 181 10^3/uL (150-450)
[2025-04-17 18:30] LABS: CPK CREATINE PHOSPHOKINASE 81.0 U/L (46-171)
[2025-04-17 18:35] LABS: ALT/SGPT 16.0 U/L (7.0-40); AST/SGOT 22.0 U/L (<34); CALCIUM LEVEL 8.1 MG/DL (8.3-10.6); CARBON DIOXIDE LEVEL 25.0 MMOL/L (20-31); CHLORIDE LEVEL 109.0 MMOL/L (98-107); CK-MB VALUE MASS 1.4 NG/ML (<3.6); CREATININE FOR GFR 1.13 MG/DL (0.70-1.30); FREE T4 1.07 NG/DL (0.89-1.76); GLOMERULAR FILTRATION RATE 68.6 (>42); MAGNESIUM LEVEL 2.0 MG/DL (1.8-2.4); MB/CK RELATIVE INDEX 1.72 (< OR =4); POTASSIUM SERUM 3.6 MMOL/L (3.5-5.1); SODIUM LEVEL 144.0 MMOL/L (136-145)
[2025-04-17 19:23] LABS: CK-MB VALUE MASS 1.4 NG/ML (<3.6)
[2025-04-17 19:24] LABS: CPK CREATINE PHOSPHOKINASE 79.0 U/L (46-171); MB/CK RELATIVE INDEX 1.77 (< OR =4)
[2025-04-17 21:23] LABS: CK-MB VALUE MASS 1.5 NG/ML (<3.6)
[2025-04-17 21:29] LABS: CPK CREATINE PHOSPHOKINASE 84.0 U/L (46-171); MB/CK RELATIVE INDEX 1.78 (< OR =4)
[2025-04-17] MEDS: ASPIRIN 81 MG CHEWABLE TABLET PO ONE (23:17)
[2025-04-17 23:50] LABS: INR 0.95
[2025-04-18] MEDS: HEPARIN DRIP 25,000 UNITS in IV 1 EA IV SCH (00:27)
[2025-04-18 00:58] VITALS: BP 129/73; TEMP 97; O2SAT 99
[2025-04-21] MEDS ORDERED: SILD50TA PO (10:53)
== END 2025-04-18 01:07 | disposition short-term general hospital (02) ==
LOC: M ED 17:19 → EDBD 17:19 → M ED 04-18 01:07
DX: I21.4 Non-ST elevation (NSTEMI) myocardial infarction (principal); R55 Syncope and collapse; R00.1 Bradycardia, unspecified; J98.11 Atelectasis; R91.8 Other nonspecific abnormal finding of lung field; M50.31 Other cervical disc degeneration, high cervical region; M50.320 Other cervical disc degeneration, mid-cervical region, unspecified level; K21.9 Gastro-esophageal reflux disease without esophagitis; C15.9 Malignant neoplasm of esophagus, unspecified; Z79.52 Long term (current) use of systemic steroids; Z79.899 Other long term (current) drug therapy; Z92.21 Personal history of antineoplastic chemotherapy

== ENCOUNTER → 2025-05-04 | Outpatient (REF) | payer MEDICARE, OTHER | LOC: M LAB REF 09:33 | PROVIDERS: ATTEND Physician Assistant | DX: Z12.5 Encounter for screening for malignant neoplasm of prostate (principal) ==